=== PATIENT | female | born 1990 | race Caucasian/White ===

== ENCOUNTER 2016-09-14 | Emergency (ER) | payer MEDICAID | END 2016-09-14 16:14 | disposition home or self-care (01) ==

== ENCOUNTER 2016-09-17 19:50 | Emergency (ER) | payer MEDICAID ==
[2016-09-17] MEDS ORDERED: MELOXICAM 7.5 MG TABLET PO STA (20:06)
[2016-09-17] MEDS ORDERED: ALBUTEROL NEB 2.5 MG/3 ML INH STA (20:06)
[2016-09-17] MEDS ORDERED: guaiFENesin/CODEINE 5 ML UDC PO STA (20:06)
[2016-09-17] MEDS ORDERED: guaiFENesin/CODEINE 5 ML UDC ONE (20:10)
[2016-09-17] MEDS ORDERED: ALBUTEROL NEB 2.5 MG/3 ML INH ONE (20:12)
[2016-09-17] MEDS ORDERED: KETOROLAC 10 MG TABLET PO STA (20:20)
[2016-09-17] MEDS ORDERED: LIDOCAINE PATCH 5% TOP STA (20:55)
[2016-09-17] MEDS ORDERED: LIDOCAINE PATCH 5% TOP ONE (20:59)
== END 2016-09-17 21:04 | disposition home or self-care (01) ==
DX: J06.9 Acute upper respiratory infection, unspecified (principal); B97.89 Other viral agents as the cause of diseases classified elsewhere; R07.81 Pleurodynia; R03.0 Elevated blood-pressure reading, without diagnosis of hypertension; K21.9 Gastro-esophageal reflux disease without esophagitis; N30.20 Other chronic cystitis without hematuria; Z87.442 Personal history of urinary calculi; F32.9 Major depressive disorder, single episode, unspecified; F41.9 Anxiety disorder, unspecified; F43.10 Post-traumatic stress disorder, unspecified; Z79.899 Other long term (current) drug therapy; F17.200 Nicotine dependence, unspecified, uncomplicated
CPT/HCPCS: 71020; 94640; 99283; A9270; J7613

== ENCOUNTER 2016-10-29 17:39 | Emergency (ER) | payer MEDICAID ==
[2016-10-29] MEDS ORDERED: diphenhydrAMINE INJ 50 MG/ML VIAL IVP STA (20:20)
[2016-10-29] MEDS ORDERED: KETOROLAC 60 MG/2 ML VIAL IVP STA (20:20)
[2016-10-29] MEDS ORDERED: SODIUM CHLORIDE 0.9% 1,000 ML IV ONE (20:20)
[2016-10-29] MEDS ORDERED: PROCHLORPERAZINE 10 MG/2 ML VIAL IVP STA (20:20)
[2016-10-29] MEDS ORDERED: KETOROLAC 30 MG/ML VIAL ONE (20:43)
[2016-10-29] MEDS ORDERED: diphenhydrAMINE INJ 50 MG/ML VIAL ONE (20:43)
[2016-10-29] MEDS ORDERED: PROCHLORPERAZINE 10 MG/2 ML VIAL ONE (20:44)
== END 2016-10-29 22:31 | disposition home or self-care (01) ==
DX: N94.6 Dysmenorrhea, unspecified (principal); R51 Headache; R03.0 Elevated blood-pressure reading, without diagnosis of hypertension; N80.9 Endometriosis, unspecified; K21.9 Gastro-esophageal reflux disease without esophagitis; Z87.42 Personal history of other diseases of the female genital tract; Z87.442 Personal history of urinary calculi; F17.200 Nicotine dependence, unspecified, uncomplicated

== ENCOUNTER 2016-11-07 11:17 | Emergency (ER) | payer MEDICAID ==
--- NOTE | 2016-11-07 11:59 | ED Physician Documentation ---
PD HPI NVD - Stated complaint Stated Complaint: RIB PX/N/V - Chief complaint Chief Complaint: Abd Pain - History obtained from History obtained from: Patient - History of Present Illness Timing - onset: Last night Timing - duration: Hours Timing - details: Abrupt onset, Still present Associated symptoms: Abdominal pain, Loss of appetite. No: Fever, Dizzy, Near syncope / syncope Contributing factors: No: Sick contact, Bad food, Travel, Recent antibiotics Improved by: No: Eating, Vomiting Worsened by: Eating Similar symptoms before: Has not had sx before Recently seen: Not recently seen Review of Systems Constitutional: denies: Fever, Chills Nose: reports: Congestion (last week, improving). 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: Endometriosis, Ovarian cysts, Other : Chronic bladder infection, Kidney stones HEENT: None Psych: Depression, Anxiety, Post traumatic stress disorder Musculoskeletal: None Derm: None - Past Surgical History Past Surgical History: No - Present Medications Home Medications: Ambulatory Orders Medication Instructions Recorded Confirmed LORazepam [Ativan] 0.5 mg PO TID PRN #15 tablet 10/18/15 07/05/16 Omeprazole [PriLOSEC] 20 mg ORAL DAILY 12/07/15 07/05/16 Escitalopram Oxalate [Lexapro] 5 mg PO DAILY 03/23/16 07/05/16 lamoTRIgine [LaMICtal] 100 mg PO DAILY 06/19/16 07/05/16 Ibuprofen [Motrin] 400 mg PO Q6H PRN #30 tablet 07/05/16 Lidocaine Patch 5% [Lidoderm Patch] 1 each TOP DAILY PRN #10 patch 07/05/16 Meloxicam [Mobic] 7.5 mg PO BIDWM PRN #15 tablet 09/17/16 Oxycodone HCl/Acetaminophen 1 - 2 each PO Q6H PRN #8 tablet 10/29/16 [Percocet 5-325 mg Tablet] Diphenoxylate HCl/Atropine 1 each PO Q6H PRN #20 tablet 11/07/16 [Lomotil 2.5-0.025 mg Tablet] Ondansetron Odt [Zofran] 4 mg TL Q6H PRN #20 tablet 11/07/16 Oxycodone HCl/Acetaminophen 1 each PO Q6H PRN #15 tablet 11/07/16 [Percocet 5-325 mg Tablet] - Allergies Allergies/Adverse Reactions: Allergies Allergy/AdvReac Type Severity Reaction Status Date / Time aripiprazole [From Abilify] Allergy Rash Verified 11/07/16 12:24 hydrocodone bitartrate * Allergy Hives Verified 11/07/16 12:24 [From Vicodin] tramadol Allergy Hives Verified 11/07/16 12:24 ethinyl estradiol AdvReac Cramps Verified 11/07/16 12:24 [From NuvaRing] etonogestrel [From NuvaRing] AdvReac Cramps Verified 11/07/16 12:24 - Social History Does the pt smoke?: Yes Smoking Status: Current every day smoker Does the pt drink ETOH?: Yes Does the pt have substance abuse?: No - Immunizations Immunizations are current?: Yes - POLST Patient has POLST: No PD ED PE NORMAL - Vitals Vital signs reviewed: Yes - General General: Alert and oriented X 3, Well developed/nourished - HEENT HEENT: Ears normal, Pharynx benign. No: Moist mucous membranes - Neck Neck: Supple, no meningeal sign, No adenopathy - Cardiac Cardiac: RRR (tachycardic), No murmur - Respiratory Respiratory: Clear bilaterally - Abdomen Abdomen: Normal bowel sounds, Soft, Non distended, No organomegaly, Other ( tender mid to left abd without percussion nor rebound tenderness. ) Results - Vitals Vitals: Vital Signs - 24 hr 11/07/16 11/07/16 11/07/16 11:25 14:18 15:02 Temperature 35.7 C L 36.8 C Heart Rate 111 H 78 72 Respiratory 18 16 18 Rate Blood Pressure 126/82 H 134/70 H 124/56 L O2 Saturation 100 98 Oxygen O2 Source Room air - Labs Labs: Laboratory Tests 11/07/16 12:35 Sodium 139 Potassium 3.9 Chloride 104 Carbon Dioxide 23 Anion Gap 12.0 BUN 20 Creatinine 0.7 Estimated GFR (MDRD) 102 Glucose 118 H Calcium 8.9 Total Bilirubin 0.6 AST 21 ALT 26 Alkaline Phosphatase 83 Total Protein 8.3 H Albumin 3.9 Globulin 4.4 H Albumin/Globulin Ratio 0.9 L Lipase 15 L PD MEDICAL DECISION MAKING - ED course Complexity details: reviewed results, re-evaluated patient (feeling better after meds and fluids. Still some cramping pains left to mid abd. Not tender RLQ nor GB area. No peritoneal signs. I did not feel imaging needed and discussed with patient, who was in agreement. ), considered differential, d/w patient Departure - Departure Disposition: 01 Home, Self Care Clinical Impression: Nausea vomiting and diarrhea, Dehydration Abdominal pain Qualifiers: Abdominal location: periumbilical Qualified Code(s): R10.33 - Periumbilical pain Condition: Stable Record reviewed to determine appropriate education?: Yes Instructions: ED Abdominal Pain Unkn Cause, ED Vomiting Diarrhea Nonspecific Ad Follow-Up: Leyla Marcum MD [Primary Care Provider] - Prescriptions: Diphenoxylate HCl/Atropine [Lomotil 2.5-0.025 mg Tablet] 1 each PO Q6H PRN #20 tablet PRN Reason: Diarrhea Oxycodone HCl/Acetaminophen [Percocet 5-325 mg Tablet] 1 each PO Q6H PRN #15 tablet PRN Reason: Pain Ondansetron Odt [Zofran] 4 mg TL Q6H PRN #20 tablet PRN Reason: Nausea / Vomiting Comments: Small frequent fluids today. Willow foods such as rice, breads, cereals and then progress intake as able tomorrow. Zofran as needed for nausea. Lomotil for diarrhea as needed. Add Percocet for pain as needed. Recheck if not improving over the next 1-2 days. Discharge Date/Time: 11/07/16 15:08
[2016-11-07] MEDS ORDERED: ONDANSETRON 4 MG/2 ML VIAL ONE (12:36)
[2016-11-07] MEDS ORDERED: MORPHINE 2 MG/ML SYRINGE ONE (12:36)
[2016-11-07] MEDS ORDERED: KETOROLAC 30 MG/ML VIAL ONE (12:36)
[2016-11-07] MEDS ORDERED: DIPHENOX/ATROPINE 2.5/0.025 MG TABLET PO ONE ×2 (12:37→14:45)
[2016-11-07] MEDS: SODIUM CHLORIDE 0.9% 1,000 ML IV ONE (12:45)
[2016-11-07] MEDS: MORPHINE 2 MG/ML SYRINGE IVP STA (12:45)
[2016-11-07] MEDS: ONDANSETRON 4 MG/2 ML VIAL IVP STA (12:45)
[2016-11-07] MEDS: KETOROLAC 60 MG/2 ML VIAL IVP STA (12:46)
[2016-11-07] MEDS: DIPHENOX/ATROPINE 2.5/0.025 MG TABLET PO STA ×2 (12:46→14:48)
[2016-11-07 13:04] LABS: ALBUMIN/GLOBULIN RATIO 0.9 (1.0-2.2); BILIRUBIN,TOTAL 0.6 mg/dL (0.2-1.0); CALCIUM 8.9 mg/dL (8.5-10.3); CREATININE 0.7 mg/dL (0.4-1.0); POTASSIUM 3.9 mmol/L (3.5-5.0); TOTAL PROTEIN 8.3 g/dL (6.7-8.2)
[2016-11-07] MEDS ORDERED: HYDROmorphone 1 MG/ML SYRINGE ONE (13:46)
[2016-11-07] MEDS: HYDROmorphone 1 MG/ML SYRINGE IVP STA (13:54)
[2016-11-07] MEDS ORDERED: METOCLOPRAMIDE 10 MG/2 ML VIAL IVP ONE (14:45)
[2016-11-07] MEDS: METOCLOPRAMIDE 10 MG/2 ML VIAL IVP STA (14:47)
[2016-11-07 15:08] VITALS: BP 124/56
== END 2016-11-07 15:08 | disposition home or self-care (01) ==
LOC: ED 11:17
DX: R11.2 Nausea with vomiting, unspecified (principal); R19.7 Diarrhea, unspecified; E86.0 Dehydration; R10.33 Periumbilical pain
CPT/HCPCS: 36415; 80053; 83690; 96374; 96375; 99283; 99284

== ENCOUNTER 2017-01-03 05:17 | Observation (INO) | payer MEDICAID ==
[2017-01-03] MEDS ORDERED: IBUPROFEN 600 MG TABLET PO STA (05:26)
[2017-01-03] MEDS ORDERED: ACETAMINOPHEN 500 MG TABLET PO STA (05:26)
--- NOTE | 2017-01-03 05:36 | ED Physician Documentation ---
PD HPI FEMALE - Stated complaint Stated Complaint: VOMITING,PELVIC PAIN - Chief complaint Chief Complaint: Abd Pain - History obtained from History obtained from: Patient - History of Present Illness Timing - onset: How many days ago (3), Chronic Timing - details: Gradual onset, Still present Associated symptoms: Pelvic pain, Vaginal bleeding Similar symptoms before: Work up / diagnostics, Treatment, Follow up Recently seen: Emergency Dept - Additional information Additional information: Patient is a 26 year old female with a history of recurrent pelvic pain and vagianl bleeding. Patient has had multiple ER visits for the pain and has going to physical therapy for pelvic pain. patient states that she has had vaginal bleeding for the last three days and had sharp pelvic pain that woke her up from sleep. Review of Systems Constitutional: denies: Fever, Chills, Myalgias Eyes: denies: Loss of vision, Decreased vision Ears: denies: Loss of hearing, Ear pain Nose: denies: Rhinorrhea / runny nose Throat: denies: Dental pain / toothache, Oral lesions / sores Cardiac: denies: Chest pain / pressure, Palpitations Respiratory: denies: Dyspnea, Cough GI: reports: Abdominal Pain, Nausea. denies: Vomiting, Constipation, Diarrhea : reports: Vaginal bleeding. 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, Ovarian cysts, Other : Chronic bladder infection, Kidney stones HEENT: None Psych: Depression, Anxiety, Post traumatic stress disorder Musculoskeletal: None Derm: None - Past Surgical History Past Surgical History: No - Present Medications Home Medications: Ambulatory Orders Medication Instructions Recorded Confirmed LORazepam [Ativan] 0.5 mg PO TID PRN #15 tablet 10/18/15 07/05/16 Omeprazole [PriLOSEC] 20 mg ORAL DAILY 12/07/15 07/05/16 Escitalopram Oxalate [Lexapro] 5 mg PO DAILY 03/23/16 07/05/16 lamoTRIgine [LaMICtal] 100 mg PO DAILY 06/19/16 07/05/16 Ibuprofen [Motrin] 400 mg PO Q6H PRN #30 tablet 07/05/16 Lidocaine Patch 5% [Lidoderm Patch] 1 each TOP DAILY PRN #10 patch 07/05/16 Meloxicam [Mobic] 7.5 mg PO BIDWM PRN #15 tablet 09/17/16 Oxycodone HCl/Acetaminophen 1 - 2 each PO Q6H PRN #8 tablet 10/29/16 [Percocet 5-325 mg Tablet] Diphenoxylate HCl/Atropine 1 each PO Q6H PRN #20 tablet 11/07/16 [Lomotil 2.5-0.025 mg Tablet] Ondansetron Odt [Zofran] 4 mg TL Q6H PRN #20 tablet 11/07/16 Oxycodone HCl/Acetaminophen 1 each PO Q6H PRN #15 tablet 11/07/16 [Percocet 5-325 mg Tablet] - Allergies Allergies/Adverse Reactions: Allergies Allergy/AdvReac Type Severity Reaction Status Date / Time aripiprazole [From Abilify] Allergy Rash Verified 01/03/17 05:25 hydrocodone bitartrate * Allergy Hives Verified 01/03/17 05:25 [From Vicodin] tramadol Allergy Hives Verified 01/03/17 05:25 ethinyl estradiol AdvReac Cramps Verified 01/03/17 05:25 [From NuvaRing] etonogestrel [From NuvaRing] AdvReac Cramps Verified 01/03/17 05:25 - Social History Does the pt smoke?: Yes Smoking Status: Current every day smoker Does the pt drink ETOH?: Yes Does the pt have substance abuse?: No - Immunizations Immunizations are current?: Yes - POLST Patient has POLST: No PD ED PE NORMAL - Vitals Vital signs reviewed: Yes - General General: Alert and oriented X 3, No acute distress - HEENT HEENT: Atraumatic, PERRL, Pharynx benign - Neck Neck: Supple, no meningeal sign - Cardiac Cardiac: RRR, No murmur - Respiratory Respiratory: No respiratory distress - Abdomen Abdomen: Soft - Derm Derm: Normal color, Warm and dry, No rash - Extremities Extremities: No deformity, No tenderness to palpate, Normal ROM s pain - Neuro Neuro: Alert and oriented X 3, 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, No motor deficit, No sensory deficit, Normal speech - Psych Psych: Normal mood, Normal affect PD ED PE EXPANDED - Female Female : Normal external, Vaginal Bleeding (mild vaginal bleeding with scant clear discharge, suprapubic tenderness), Cultures sent, Supervisor Meter Shop present Results - Vitals Vitals: Vital Signs - 24 hr 01/03/17 05:22 Temperature 36.6 C Heart Rate 69 Respiratory 20 Rate Blood Pressure 116/57 L O2 Saturation 100 Oxygen O2 Source Room air - Labs Labs: Microbiology 01/03/17 06:12 Wet Prep - Final Genital - Cervix Laboratory Tests 01/03/17 01/03/17 01/03/17 05:49 06:00 06:00 WBC 10.2 RBC 4.54 Hgb 9.6 L Hct 31.4 L MCV 69.2 L MCH 21.2 L MCHC 30.6 L RDW 17.1 H Plt Count 446 MPV 8.0 Neut # Not Reportable Lymph # Not Reportable [place] # Not Reportable Eos # Not Reportable Baso # Not Reportable Absolute Nucleated RBC Not Reportable Total Counted 100 Band Neuts % (Manual) 0 Reactive Lymphs % (Man) 10 Abnorm Lymph % (Manual) 2 Neutrophils # (Manual) 3.3 Lymphocytes # (Manual) 6.0 H Monocytes # (Manual) 0.7 Eosinophils # (Manual) 0.2 Nucleated RBCs 1 Differential Comment MANUAL DIFFERENTIAL Manual Slide Review Indicated Platelet Estimate NORMAL (130-450,000) Platelet Morphology NORMAL APPEARANCE RBC Morph Micro Appear 1+ OVALOCYTES Sodium 138 Potassium 3.9 Chloride 103 Carbon Dioxide 25 Anion Gap 10.0 BUN 16 Creatinine 0.6 Estimated GFR (MDRD) 122 Glucose 93 Calcium 9.3 Total Bilirubin < 0.2 L AST 18 ALT 20 Alkaline Phosphatase 64 Total Protein 7.3 Albumin 3.6 Globulin 3.7 Albumin/Globulin Ratio 1.0 Lipase 20 L Urine Color YELLOW Urine Clarity CLEAR Urine pH 6.0 Ur Specific [place] 1.025 Urine Protein NEGATIVE Urine Glucose (UA) NEGATIVE Urine Ketones NEGATIVE Urine Occult Blood LARGE H Urine Nitrite NEGATIVE Urine Bilirubin NEGATIVE Urine Urobilinogen 0.2 (NORMAL) Ur Leukocyte Esterase NEGATIVE Urine RBC 11-25 H Urine WBC 0-3 Ur Squamous Epith Cells RARE Squamous Urine Bacteria None Seen Ur Microscopic Review INDICATED Urine Culture Comments NOT INDICATED Urine HCG, Qual NEGATIVE PD MEDICAL DECISION MAKING - ED course Complexity details: reviewed old records, reviewed results, re-evaluated patient , considered differential, d/w patient ED course: Patient was seen and examined at bedside. patient's vital signs were within normal limits. urine was collected and labs were drawn. Patient had been in the emergency department mulitiple times for the same complaint with thorough follow up. pelvic exam was performed and was unremarkable. patient's hemoglobin was a little low, but no need for transfusion at this time. pelvic ultrasound was ordered to be followed by Dr. Mcmullen if there were any major abnormalities. Otherwise patient was stable for discharge with outpatient follow up. Departure - Departure Clinical Impression: Dysmenorrhea, Dysfunctional uterine bleeding Condition: Good Instructions: ED Pelvic Pain [facility] Follow-Up: Leyla Marcum MD [Primary Care Provider] - Within 3 Days Comments: Your diagnostics today were within normal limits. there is no exact explanation to your chronic pain. You should continue to follow up with your ob /physical therapist for the chronic pain. You may return to the emergency department if needed for new, worsening or uncontrollable symptoms.
[2017-01-03] MEDS ORDERED: ACETAMINOPHEN 500 MG TABLET PO ONE (05:37)
[2017-01-03] MEDS ORDERED: IBUPROFEN 600 MG TABLET PO ONE (05:37)
[2017-01-03 06:11] LABS: BILIRUBIN,URINE NEGATIVE (NEGATIVE)
[2017-01-03 06:18] LABS: BASOPHILS % (AUTO) 0.5 %; EOSINOPHILS % (AUTO) 2.6 %; HCT - HEMATOCRIT 31.4 % (37.0-47.0); HGB - HEMOGLOBIN 9.6 g/dL (12.0-16.0); LYMPHOCYTES % (AUTO) 53.5 %; MEAN CORPUSCULAR HEMOGLOBIN 21.2 pg (27.0-31.0); MEAN CORPUSCULAR HGB CONC 30.6 g/dL (32.0-36.0); MEAN CORPUSCULAR VOLUME 69.2 fL (81.0-99.0); MONOCYTES % (AUTO) 6.8 %; NEUTROPHILS % (AUTO) 36.6 %; RED BLOOD COUNT 4.54 10^6/uL (4.20-5.40); RED CELL DISTRIBUTION WIDTH 17.1 % (12.0-15.0); UNCORRECTED WHITE BLOOD COUNT 10.2 x10^3/uL; WHITE BLOOD COUNT 10.2 x10^3/uL (4.8-10.8)
[2017-01-03 06:20] LABS: BAND NEUTROPHILS % (MANUAL) 0 %
[2017-01-03 06:20] LABS: HCG UR QUAL NEGATIVE; UA w/ MICROSCOPIC CHARGE YES
[2017-01-03 06:22] LABS: BILIRUBIN,TOTAL < 0.2 mg/dL (0.2-1.0); BUN - BLOOD UREA NITROGEN 16 mg/dL (6-20); CALCIUM 9.3 mg/dL (8.5-10.3); CARBON DIOXIDE - CO2 25 mmol/L (21-32); CHLORIDE 103 mmol/L (101-111); CREATININE 0.6 mg/dL (0.4-1.0); GFR - MDRD 122 (>89); GLUCOSE 93 mg/dL (70-100); LIPASE 20 U/L (22-51); POTASSIUM 3.9 mmol/L (3.5-5.0); SODIUM 138 mmol/L (135-145); TOTAL PROTEIN 7.3 g/dL (6.7-8.2)
[2017-01-03 06:25] LABS: UR CULTURE IF IND NOT INDICATED; WBC,URINE 0-3 /HPF (0-5)
[2017-01-03] MEDS ORDERED: LIDOCAINE PATCH 5% TOP ONE (06:33)
[2017-01-03] MEDS: LIDOCAINE PATCH 5% TOP PRN (06:36)
[2017-01-03 06:41] LABS: EOSINOPHILS % (MANUAL) 2 %; LYMPHOCYTES % (MANUAL) 47 %; NEUTROPHILS % (MANUAL) 32 %; TOTAL CELLS COUNTED 100
[2017-01-03 06:42] LABS: NP AUTO DIFFERENTIAL? YES; NP MAN DIFFERENTIAL? NO; PLATELET ESTIMATE, MANUAL NORMAL (130-450,000) (NORMAL); PLATELET MORPHOLOGY NORMAL APPEARANCE (NORMAL)
--- NOTE | 2017-01-03 09:04 | Ultrasound Report ---
REVISED: THIS REPORT WAS ORIGINALLY SIGNED ON 01/03/2017 @ 0904 ORDERS LINKED ON 01/17/2017 EXAM: PELVIC ULTRASOUND EXAM DATE: 01/03/2017 07:48 AM. CLINICAL HISTORY: Pelvic pain, hx of cysts. COMPARISON: None. TECHNIQUE: Realtime transabdominal pelvic scan performed to identify the uterus and adnexa and as an overview of other pelvic structures, followed by transvaginal scan to provide greater detail of the uterus and adnexa, with static image documentation. FINDINGS: Uterus: 8.4 cm, volume 133 cc. Retroverted position. Normal overall size and echotexture. Masses: None. Endometrium: Appears thickened at 29 mm, however positioning appear suboptimal and there was difficulty obtaining precise measurement secondary to patient pain. Cervix: Not well visualized. Right Ovary: 10.2 x 8.6 x 9.5 cm, volume 435 cc. Enlarged and heterogeneous. There appears to be minimal venous Doppler flow. No arterial Doppler flow seen. Apparent echogenic mass within the right ovary measuring 6 cm in diameter. Left Ovary: 2.2 x 1.8 x 2.0 cm, volume 4 cc. Normal grayscale appearance. Doppler flow not obtained secondary to patient inability to tolerate examination. Free Fluid: None. Other: None. IMPRESSION: 1. Findings are concerning for right ovarian torsion. Possible right ovarian mass, such as a dermoid, measures 6 cm in diameter. Limited evaluation secondary to patient pain. 2. The left ovary is normal in size, however Doppler flow was not obtained secondary to patient discomfort. 3. Apparent thickening of the endometrial echo complex, however this may be technical secondary to limited patient ability to tolerate examination. Recommend follow-up when acute symptoms have resolved for further assessment for endometrial thickening. Results discussed with Dr. Mcmullen at 0855 hrs. on 01/03/2017. [facility] Referring Provider Line: [phone] SITE ID: [id number]
[2017-01-03] MEDS ORDERED: ONDANSETRON 4 MG/2 ML VIAL IVP STA (09:10)
[2017-01-03] MEDS ORDERED: SODIUM CHLORIDE 0.9% 1,000 ML IV ONE ×2 (09:10→10:18)
[2017-01-03] MEDS ORDERED: HYDROmorphone 1 MG/ML SYRINGE IVP STA (09:10)
--- NOTE | 2017-01-03 09:14 | ED Physician Documentation ---
ED Addendum - Addendum Addendum: 01/03/17 09:11 Seeing patient after change of shift and with U/S report. Story as She says to me is of chronic recurrent pelvic/abd pains without firm Dx. Getting PT for pelvic floor dysfunction. However the pain this morning was abrupt onset RLQ pain awakening her from sleep and has persisted. Feeling sharper and different than other episodes. U/S report showing no blood flow to right ovary, concerning for ovarian torsion. No free fluid. Ovary enlarged. Will consult [employer] ROOM OPERATOR, Dr. Montesinos. She has not eaten this morning. Will start IV to give meds, as the PO from earlier is not improving pain. Recheck exam with considerable RLQ tenderness.
[2017-01-03] MEDS ORDERED: HYDROmorphone 1 MG/ML SYRINGE ONE ×2 (09:19→14:01)
[2017-01-03] MEDS ORDERED: ONDANSETRON 4 MG/2 ML VIAL ONE (09:19)
[2017-01-03] MEDS ORDERED: LACTATED RINGERS 1,000 ML IV ONE ×3 (10:18→13:21)
[2017-01-03] MEDS ORDERED: LIDOCAINE MPF 1%-EPI 1:200000 30 ML VIAL SUBQ ONE ×2 (10:59)
[2017-01-03] MEDS ORDERED: ePHEDrine 50 MG/ML AMP IVP ONE (11:10)
[2017-01-03] MEDS ORDERED: PHENYLEPHRINE 10 MG/ML VIAL IV ONE (11:10)
[2017-01-03] MEDS ORDERED: DEXAMETHASONE 4 MG/ML VIAL IVP ONE (11:10)
[2017-01-03] MEDS ORDERED: MIDAZOLAM 2 MG/2 ML VIAL IVP ONE (11:10)
[2017-01-03] MEDS ORDERED: LIDOCAINE-MPF 2% 5 ML VIAL IM ONE (11:10)
[2017-01-03] MEDS ORDERED: NEOSTIGMINE 1 MG/1 ML 10 ML MDV IVP ONE (11:10)
[2017-01-03] MEDS ORDERED: ROCURONIUM 50 MG/5 ML VIAL IVP ONE (11:10)
[2017-01-03] MEDS ORDERED: ceFAZolin 1 GM VIAL IV ONE (11:10)
[2017-01-03] MEDS ORDERED: ONDANSETRON 4 MG/2 ML VIAL IVP ONE (11:10)
[2017-01-03] MEDS ORDERED: HYDROmorphone 1 MG/ML SYRINGE IVP ONE (11:10)
[2017-01-03] MEDS ORDERED: KETOROLAC 30 MG/ML VIAL IVP ONE (11:10)
[2017-01-03] MEDS ORDERED: GLYCOPYRROLATE 1 MG/5 ML VIAL IVP ONE (11:10)
[2017-01-03] MEDS ORDERED: ACETAMINOPHEN 1,000 MG/100 ML VIAL IV ONE (11:10)
[2017-01-03] MEDS ORDERED: SUCCINYLCHOLINE 200 MG/10 ML VIAL IVP ONE (11:10)
[2017-01-03] MEDS ORDERED: METOCLOPRAMIDE 10 MG/2 ML VIAL IVP ONE (11:10)
[2017-01-03] MEDS ORDERED: PROPOFOL 200 MG/20 ML VIAL IVP ONE (11:10)
[2017-01-03] MEDS ORDERED: BUPIVACAINE 0.25%-EPI 1:200000 PF 30 ML VIAL SUBQ ONE ×2 (12:54)
--- NOTE | 2017-01-03 13:34 | OPERATIVE REPORT ---
Operative Report - General Procedure Date: 01/03/17 Planned Procedure: Laparoscopic R Oopherectomy; R Minilaparotomy; Pelvic Washings Pre-Op Diagnosis: R Ovarian Hetergenous Cystic Mass; RLQ Pain; Evidence of Torsion on US Post Op Diagnosis: R Ovarian Hetergenous Cystic Mass (Await Path);Clotin R Ovarian Vessel - Procedure Note Primary Surgeon: Jaguar Secondary Surgeon: Zoila Anesthesia Provider: Crowe Anesthesia Technique: General ET tube Pathology: R Ovary & Pelvic Washings Estimated Blood Loss (in cc): 100 Drain/Tube Type: positive: Other ([place]) Complications: None
[2017-01-03] MEDS: fentaNYL 100 MCG/2 ML VIAL ONE ×2 (14:12→14:20)
[2017-01-03] MEDS ORDERED: ONDANSETRON ODT 4 MG TABLET TL PRN (14:41)
[2017-01-03] MEDS ORDERED: IBUPROFEN 600 MG TABLET PO PRN (14:41)
[2017-01-03] MEDS ORDERED: ZOLPIDEM 5 MG TABLET PO PRN (14:41)
[2017-01-03] MEDS ORDERED: SODIUM CHLORIDE FLUSH 0.9% 10 ML SYRINGE IVP PRN (14:41)
[2017-01-03] MEDS ORDERED: LACTATED RINGERS 1,000 ML IV SCH (15:00)
[2017-01-03] MEDS: NICOTINE 14 MG PATCH TOP SCH (16:16)
--- NOTE | 2017-01-03 16:18 | HISTORY & PHYSICAL EXAMINATION ---
DATE OF ADMISSION: 01/03/2017 The patient is a 26-year-old 2, para P2-0-0-2 woman who presented to the emergency room this morning complaining of a rapid onset right lower were quadrant pain accompanied by nausea. RLQ is superimposed on her chronic pain. Current pain level is 6-7/10. She reports a history of endometriosis; however, there has not been any prior laparoscopy. She is currently being seen by Physical Therapy for pelvic floor dysfunction. She has no history of STD and does not suspect any exposure. She has no foul discharge history. She does have chronic bladder infections but these do not seem to be the same. The patient was originally evaluated by Dr. Sprague at the emergency room and ultrasound found no blood flow to the right ovary. Additionally, the right ovary is markedly enlarged roughly 10 x 6 cm with a heterogeneous complex appearing cyst. The patient's pain during her ER visit was unremitting and torsion or ovarian compromise of some form was suspected. PAST MEDICAL HISTORY: The patient is seen by Dr. Marcum in [place]. She denies chronic medical problems. Gynecologically she has had 2 normal deliveries. She reports irregular and painful menstrual periods. The patient carries a history of anxiety and depression with post-traumatic stress disorder. ALLERGIES: 1. ABILIFY CAUSES A RASH. 2. VICODIN CAUSES HIVES. 3. TRAMADOL CAUSES HIVES. 4. NUVARING CAUSES CRAMPING. MEDICATIONS: 1. Lorazepam 0.5 mg t.i.d. p.r.n.. 2. Omeprazole 20 mg p.o. every day. 3. Lexapro 5 mg daily. 4. Lamictal 100 daily. 4. Motrin 400 q.6h. 5. Lidocaine patch daily. 6. Mobic 7.5 mg b.i.d. Sunday and Sunday. 7. Percocet 1-2 tabs q.6h. 8. Lomotil 2.5 mg q.6h. p.r.n.. 9. Zofran 4 mg sublingual q. 6 hours. 10. Percocet 325/5 one tab q. 6 hours. REVIEW OF SYSTEMS: CONSTITUTIONAL: No fevers, chills, or myalgia, reports malaise. HEENT: Negative. CARDIOVASCULAR: Negative. RESPIRATORY: Negative. GI: Pain and nausea as noted above. No vomiting or diarrhea. GENITOURINARY: Vaginal bleeding currently. No urinary tract signs. SKIN: No rash or lesions. MUSCULOSKELETAL: Negative. NEUROLOGIC: Negative psychiatric, currently not depressed or anxious. PHYSICAL EXAMINATION: GENERAL: The patient lying on ER gurney uncomfortable and shifting slightly, alert, oriented. HEENT: Supple neck. No thyromegaly. Moist mucous membranes. EOMI, nonicteric. LUNGS: Clear but distant. CARDIAC: Regular. No murmur, no gallop, but distant. ABDOMEN: Nondistended, slight hepatomegaly, right lower quadrant pain grade 2-3/ 3 with no rebound. Obese with large pannus. PELVIC: Reference ER physician's notes. EXTREMITIES: Moves all 4 extremities well. No joint tenderness. NEUROLOGICAL: Grossly intact. PSYCHIATRIC: Normal affect and mood. LABORATORY DATA: Hemoglobin 9.6, white count 10.2, platelets 446. Electrolytes and liver enzymes normal. Lipase low. Urinalysis leukocyte esterase present, but nitrite negative. Beta hCG negative. ASSESSMENT: The patient has continued right lower quadrant pain and documented right ovarian heterogeneous cystic mass. She carries a presumptive history of endometriosis. Her accelerating pain this morning probably reflects a torsion and current ultrasound does not demonstrate ovarian blood flow. Expedient diagnostic laparoscopy is indicated to salvage the ovary if possible. A 10 cm ovary probably reflects pathology: Endometriosis, Dermiod or other neoplasm. In her age group malignancy is very unlikely. PLAN: Discussed her current situation with the patient, including diagnostic possibilities to include ovarian mass, cystic mass, most likely benign, possibly endometriosis versus rare incidence of benign tumor or even malignancy on rare occasion. Discussed possible ramifications of torsion including ovarian necrosis and development of peritonitis. Discussed risks of surgery inclusive of anesthesia reaction, blood loss, infection, damage to bladder or bowels. Also discussed the probable difficulty of her surgery due to the size of the mass and her body habitus. She is aware that a laparotomy may be necessary. After time for question and answers the patient signed the informed consent paperwork. She was prepared for immediate surgery. JOB #: [id number] EXT JOB #:[id number] EVONNE
[2017-01-03] MEDS: oxyCODONE 5 MG TABLET PO PRN ×2 (16:23→21:15)
[2017-01-03] MEDS ORDERED: ONDANSETRON 4 MG/2 ML VIAL IVP PRN (20:04)
[2017-01-03] MEDS: HYDROmorphone 1 MG/ML SYRINGE IVP PRN ×2 (20:16→23:50)
[2017-01-03] MEDS: IBUPROFEN 600 MG TABLET PO SCH (21:15)
[2017-01-03] MEDS: LACTATED RINGERS 1,000 ML IV SCH (21:16)
[2017-01-03] MEDS: SODIUM CHLORIDE FLUSH 0.9% 10 ML SYRINGE IVP SCH (21:16)
[2017-01-04] MEDS: LACTATED RINGERS 1,000 ML IV SCH ×2 (00:16→08:26)
[2017-01-04] MEDS: oxyCODONE 5 MG TABLET PO PRN ×3 (03:18→11:32)
[2017-01-04] MEDS: HYDROmorphone 1 MG/ML SYRINGE IVP PRN ×2 (05:49→10:09)
[2017-01-04] MEDS: IBUPROFEN 600 MG TABLET PO SCH ×2 (05:49→11:33)
[2017-01-04] MEDS: LIDOCAINE PATCH 5% TOP PRN (05:51)
[2017-01-04] MEDS: SODIUM CHLORIDE FLUSH 0.9% 10 ML SYRINGE IVP SCH (05:54)
[2017-01-04] MEDS ORDERED: CARBOXYMETHYLCELLULOSE OPHTH DROPS EACHEYE PRN (05:57)
[2017-01-04] MEDS: NICOTINE 14 MG PATCH TOP SCH (08:20)
[2017-01-04] MEDS ORDERED: POLYETHYLENE GLYCOL 3350 17 GM PACKET PO SCH (09:00)
--- NOTE | 2017-01-04 10:24 | Discharge Plan ---
Discharge Plan Disposition: 01 Home, Self Care Condition: Good Activity Restrictions: Activity as Tolerated Shower Restrictions: No Driving Restrictions: Yes (No driving while taking Percocet) Weight Bearing: Full Weight Instruction Topics: ED Pelvic Pain [facility] Additional Instructions or Follow Up instructions: Your diagnostics today were within normal limits. there is no exact explanation to your chronic pain. You should continue to follow up with your ob /physical therapist for the chronic pain. You may return to the emergency department if needed for new, worsening or uncontrollable symptoms. No Smoking: If you smoke, Please STOP! Call for help. Follow-up with: Leyla Marcum MD [Primary Care Provider] - Within 3 Days Hayden Cummings MD [Provider Admit Priv/Credential] -
[2017-01-04 12:11] VITALS: BP 129/80
--- NOTE | 2017-01-04 13:29 | DISCHARGE SUMMARY ---
DATE OF ADMISSION: 01/03/2017 DATE OF DISCHARGE: 01/04/2017 FINAL DIAGNOSES: 1. A 10 x 6 cm heterogeneous cystic right ovarian mass w RLQ Pain 2. Evidence of recent torsion, clot observed in the ovarian vein. 3. Await final pathology report. 4. Morbid obesity, BMI 42. PROCEDURES: Laparoscopic right oophorectomy completed with mini laparotomy; Pelvic washings. COMPLICATIONS: None. HISTORY: The patient was seen in the emergency room for a rapid onset of right lower quadrant pain and ultrasound confirmed marked ovarian enlargement with a heterogeneous cystic mass. Ultrasound proposed possible dermoid versus the patient's prior presumptive diagnosis of endometriosis. Doppler exam found no blood flow to the ovary raising the high probability of torsion. Reference my type written report from the ER. The patient was prepared for her immediate surgery. HOSPITAL COURSE: The patient underwent a diagnostic laparoscopy that confirmed a large ovarian mass. Hemorrhage was found into the mass. An attempt was made at removal through an EndoCatch bag, the mass was too large even despite aspiration. The cystic mass was unroofed and that portion was removed via catch bag. The main portion of the mass still remained too large for an easy catch bag removal. The partially open catch bag was brought to the right lower quadrant port, which was widened to a mini laparotomy for sucessful removal of the mass. Reference operative report. Postoperatively, the patient was painful and was admitted overnight on an observation status. Her pain was controlled with periodic IV Dilaudid and Percocet. She took solid and liquid nutrition well. By postoperative day 1 the patient strongly desired to go home and join her family. We discussed smoking cessation. Complete warning signs, wound care, and emergency call back instructions were reviewed. The patient is scheduled for a wound check and pathology review with Dr. Cummings next week. She will see me in 3-4 weeks for final wound check and review. DISCHARGE MEDICATIONS: 1. Motrin 800 mg q.8h. 2. Percocet 5/325, 20 tabs dispensed only q.4h. p.r.n. 3. Zofran 4 mg oral q.4h. p.r.n. JOB #: [id number] EXT JOB #:[id number] [facility]
--- NOTE | 2017-01-04 13:52 | OPERATIVE REPORT ---
DATE OF SURGERY: 01/03/2017 00:00:00 PREOPERATIVE DIAGNOSES 1. Right ovarian heterogeneous cystic mass. 2. Right lower quadrant pain. 3. No ovarian vascular flow on ultrasound. 4. Morbid obesity (BMI 42). POSTOPERATIVE DIAGNOSES 1. Right ovarian heterogeneous cystic mass, await pathology. 2. Clot observed in right ovarian vessels. 3. Ovarian vessels not currently torsed. PROCEDURES 1. Laparoscopic right oophorectomy completed with right-sided mini laparotomy. 2. Pelvic washings. SURGEON: Fred Montesinos MD, FACOG, FICS. AGRICULTURE INTERNSHIP: Hayden Cummings MD, FACOG. ANESTHESIA: Liberty Crowe MD. ANESTHESIA TYPE: General, ET tube placed. COMPLICATIONS: None. ESTIMATED BLOOD LOSS: Less than 100. FINDINGS: At the time of laparoscopy,a large 10 cm x 5 x 6 cm hemorrhagic right cystic ovary confirmed. There were NO excrescences observed on the capsule of the ovary. There was an area of internal hemorrhage on the superior pole measuring roughly 4 x 4 cm. The right ovarian vascular bundle was not torsed. However, within the right ovarian vein, there was evident hemorrhage and clot- like material. The ovary itself did not seem necrotic, though there may have been intermittent torsion with recent reperfusion. The uterus was retroverted, normal size without any abnormal contours. Both tubes appeared to be open and fluffy. The appendix appeared to be normal and noninflamed. Examination of the right and left hemidiaphragm finds no Aaron-Girma- Dayron adhesions. During the process of ovarian removal, the ovary was aspirated and serosanguineous material was removed. a cystotomy was later made to evacuate more fluid; however, this did not achieve the desired degree of decompression. A portion of the ovary was unroofed revealing cystic material and that tissue appeared pale and fleshly. SPECIMENS 1. Ovary, plus portion of ovary. 2. Pelvic washing (taken before ovarian aspiration). 3. Ovarian aspirate. TECHNIQUE: Prior to the procedure, I had an informed consent session with the patient and Mr. Dodge concerning the ultrasound findings and the high probability of ovarian torsion. She was made aware that the ovary would probably not be able to be salvaged and due to technical difficulty, a laparotomy procedure may be necessary. The risks of laparoscopy/laparotomy were reviewed including anesthesia reaction, infection, blood loss with transfusion, damage to abdominal viscera/intestines or urinary tract. Possibility of contents spilled from the ovary was also discussed. In all likelihood, given her age group, if neoplasm existed, it would be benign, either dermoid or endometriosis. All questions were answered. Appropriate informed consent documentation was signed. The patient was brought to the operating room and placed on the table in the supine position. She was uneventfully induced and intubated. She was moved to the low dorsal lithotomy position on Kory mobile stirrups. She was prepped and draped in the customary sterile fashion. Time-out briefing was done per protocol. Kapadia catheter was inserted, draining clear urine. A HUMI uterine manipulator was next placed uneventfully. All instruments were removed from the vagina, except the HUMI. Next, we turned to the abdominal phase. A small incision was placed under the umbilical skin fold and a 5 mm Visiport trocar was placed under direct visualization. The abdomen was insufflated with CO2 gas under 12 mm of pressure. Next, under direct visualization, right and left lower quadrant operating ports were placed. The ovary was visualized and photographed. The abdomen was assessed. Using the LigaSure, the adherent portion of the right tube was desiccated and divided off of the ovary. Dissection was carried downward to the ovarian vessels. The vessels were visualized with hemorrhage and presumed clot was visualized in the right ovarian vein. Ovarian vein and artery were then desiccated and divided with LigaSure. The dissection continued downward until the utero-ovarian ligament was encountered, which was desiccated and divided. Pelvic washings were taken and submitted at this point. Next, the right lower quadrant operating port was traded out for a 12 mm port uneventfully and a ML suprapubic 5mm port. Catch bag was then inserted into the abdominal cavity and we attempted to capture the right ovary. The ovarian girth was larger than the catch bag diameter. Next, a laparoscopic needle was inserted into the body of the ovary and a small amount of fluid aspirated . Unfortunately, there was not sufficient decompression of the ovary. Given that the pathology was most likely benign, a small cystotomy was placed at the puncture site using monopolar cautery. Next, a suction aspirator was used to further decompress the mass. In the end, the decompression was not great enough to allow capture with the EndoCatch bag. It was decided to unroof the cyst and to remove a section to allow Endobag capture. This was accomplished by sharp dissection using LigaSure. The tissue segment was then placed in the EndoCatch bag and removed. On examination, the tissue had a fleshy appearance, possibly almost like the congealed tissue sometimes found in dermal tumors. Another Endobag was inserted into the abdomen and the remainder of the ovarian specimen was captured, but the amount of tissue was too large for easy containerization in the bag. The open margins of the catch bag were then grasped with laparoscopic graspers and brought to the 12 mm port wound. The bag was then opened external to the abdominal wound and segments of the ovarian mass were removed. The main body of the mass was too large for the 2 cm incision and so it was widened to 4 cm using a Sanderson scissors to incise the fascia. The bag was closed with the use of a Peon clamp and with traction and a rocking horse movement, the entire specimen was removed. The abdomen then was allowed to deflate. After removal of the specimen, the mini laparotomy extension in the right lower quadrant trocar site was closed with interrupted sutures of 0 Vicryl. Subcutaneous tissue was closed with interrupted stitches of 2-0 Vicryl. Prior to closure, the area was washed and rinsed several times with warm normal saline. The skin was closed with a running subcuticular stitch of 4-0 Monocryl and dressed with Dermabond. The pelvis was inspected to ensure that any fragments of the ovary were evacuated. A small cut stitch from the Endobag was identified and removed. Next , the pelvis and lower abdomen were lavaged with warm normal saline and evacuated, after which the lower abdomen and pelvis were lavaged with distilled water, which was afterwards evacuated. There was a final rinse with normal saline. Approximately 300 mL of normal saline was left in the abdominal cavity. Post-oophorectomy photos were taken. At this point, the procedure was terminated. The abdomen was desufflated of CO2 gas. All remaining trocars were removed (subumbilical, left lower quadrant, and suprapubic midline). Trocar sites were closed with subcuticular stitches of 4-0 Monocryl and dressed with Dermabond. HUMI uterine manipulator was removed. Anesthesia was uneventfully reversed and she was awakened. She went to the recovery room for supportive care and pain control. She was later converted to an observation status to adequately address her pain. Reviewed intraoperative events and operative photos with the patient and her . They were informed that the size of the ovary and the internal cystic tumor required the use of mini laparotomy for removal. They were informed that the pathology was uncertain. They were made aware that the ovary was aspirated and a portion unroofed, thereby creating contamination from the ovarian mass. If the mass proves not to be benign, referral to CHARGE AIDE/Oncology and further treatment may be necessary. JOB #: [id number] EXT JOB #:[id number] EVONNE
== END 2017-01-04 12:45 | disposition home or self-care (01) ==
LOC: ED 05:17 → SDS 10:10 → MS 14:41
PROVIDERS: ADMIT Obstetrics & Gynecology; ATTEND Obstetrics & Gynecology
PROC: 0UB04ZZ Excision of Right Ovary, Percutaneous Endoscopic Approach (ICD-10-PCS; principal; 2017-01-03 10:00)
DX: C56.1 Malignant neoplasm of right ovary (principal); I74.8 Embolism and thrombosis of other arteries; E66.01 Morbid (severe) obesity due to excess calories; Z68.41 Body mass index [BMI] 40.0-44.9, adult; F32.9 Major depressive disorder, single episode, unspecified; F41.9 Anxiety disorder, unspecified; F43.10 Post-traumatic stress disorder, unspecified; K21.9 Gastro-esophageal reflux disease without esophagitis; F17.200 Nicotine dependence, unspecified, uncomplicated; Z87.440 Personal history of urinary (tract) infections; Z87.442 Personal history of urinary calculi; Z79.891 Long term (current) use of opiate analgesic; Z79.899 Other long term (current) drug therapy
CPT/HCPCS: 36415; 58662; 76830; 76856; 80053; 81001; 81025; 83690; 85025; 86304; 87210; 87491; 87591; 88108; 88305; 88307; 88341; 88342; 93976; 96374; 96375; 99283; 99285; A9270; G0378; J0131; J1170; J7120; 81003; 87086; 93975

== ENCOUNTER 2017-01-05 10:15 | Emergency (ER) | payer MEDICAID ==
--- NOTE | 2017-01-05 12:08 | ED Physician Documentation ---
PD HPI FEMALE - Stated complaint Stated Complaint: POST SURGERY COMPLICATION - Chief complaint Chief Complaint: Abd Pain - History obtained from History obtained from: Patient - History of Present Illness Timing - onset: How many days ago (has had abd pain since surgery 2 days ago, with improvement taking pain meds. Had some vaginal bleeding today soaking 1 pad after 2-3 hours, but then seems to have tapered. No fever. Has bruising around scope sites, but no redness/infection rash.) Timing - duration: Days Timing - details: Gradual onset, Still present, Waxing and waning Associated symptoms: Abdominal pain, Vaginal bleeding. No: Fever, Vaginal pain , Vaginal discharge, Genital sore/lesion, Dysuria, Urinary frequency Recently seen: Surgery (2 days ago) Review of Systems Constitutional: reports: Myalgias, Fatigue. 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: Endometriosis, Ovarian cysts, Other : Chronic bladder infection, Kidney stones HEENT: None Psych: Depression, Anxiety, Post traumatic stress disorder Musculoskeletal: None Derm: None - Past Surgical History Past Surgical History: No - Present Medications Home Medications: Ambulatory Orders Medication Instructions Recorded Confirmed Clonazepam [Clonazepam] 1 mg PO BID 01/03/17 01/03/17 Escitalopram [Lexapro] 15 mg PO DAILY 01/03/17 01/03/17 Lamotrigine [Lamotrigine] 200 mg PO DAILY 01/03/17 01/03/17 Norelgestromin/Ethin.estradiol 1 patch TOP .[id number] 01/03/17 01/03/17 [Xulane Patch] Nortriptyline HCl [Nortriptyline 10 mg PO QPM 01/03/17 01/03/17 HCl] Omeprazole [PriLOSEC] 20 mg PO DAILY 01/03/17 01/03/17 Oxybutynin [Ditropan] 5 mg PO TID 01/03/17 01/03/17 Oxycodone HCl/Acetaminophen 1 each PO Q4H PRN #25 tablet 01/05/17 [Percocet 5-325 mg Tablet] - Allergies Allergies/Adverse Reactions: Allergies Allergy/AdvReac Type Severity Reaction Status Date / Time aripiprazole [From Abilify] Allergy Rash Verified 01/03/17 05:25 hydrocodone bitartrate * Allergy Hives Verified 01/03/17 05:25 [From Vicodin] tramadol Allergy Hives Verified 01/03/17 05:25 ethinyl estradiol AdvReac Cramps Verified 01/03/17 05:25 [From NuvaRing] etonogestrel [From NuvaRing] AdvReac Cramps Verified 01/03/17 05:25 - Social History Does the pt smoke?: Yes Smoking Status: Current every day smoker Does the pt drink ETOH?: Yes Does the pt have substance abuse?: No - Immunizations Immunizations are current?: Yes - POLST Patient has POLST: No PD ED PE NORMAL - Vitals Vital signs reviewed: Yes - General General: Alert and oriented X 3, No acute distress, Well developed/nourished - HEENT HEENT: Ears normal, Moist mucous membranes, Pharynx benign - Neck Neck: Supple, no meningeal sign, No adenopathy - Cardiac Cardiac: RRR, No murmur - Respiratory Respiratory: Clear bilaterally - Abdomen Abdomen: Normal bowel sounds, Soft, Non distended, No organomegaly, Other ( tender around surgical sites, without signs of infection but does have local bruising colors at sites. Abd bedside U/S without free fluid.) Results - Vitals Vitals: Oxygen O2 Source Room air - Labs Labs: Laboratory Tests 01/05/17 12:26 WBC 10.6 RBC 3.65 L Hgb 8.0 L Hct 25.3 L MCV 69.4 L MCH 21.9 L MCHC 31.6 L RDW 17.4 H Plt Count 339 MPV 8.0 Neut # 5.7 Lymph # 4.0 H [place] # 0.7 Eos # 0.2 Baso # 0.0 Absolute Nucleated RBC 0.00 Nucleated RBCs 0.0 Manual Slide Review Indicated Platelet Estimate NORMAL (130-450,000) Platelet Morphology NORMAL APPEARANCE RBC Morph Micro Appear 1+ OVALOCYTES PD MEDICAL DECISION MAKING - ED course Complexity details: reviewed results (blood count is lower than pre-op but still not low enough for transfusion. She will run out of pain meds over weekend , so given Rx for more at permission of Dr. Gardiner. No signs of wound infection.) , considered differential, d/w patient, d/w transportation consultant (Dr. Gardiner) Departure - Departure Disposition: 01 Home, Self Care Clinical Impression: Post-operative pain, Vaginal bleeding Condition: Stable Follow-Up: Fred Montesinos MD [Provider Admit Priv/Credential] - Leyla Marcum MD [Primary Care Provider] - Prescriptions: Oxycodone HCl/Acetaminophen [Percocet 5-325 mg Tablet] 1 each PO Q4H PRN #25 tablet PRN Reason: Pain Comments: Drink lots of fluids. Continue stool softener. Percocet every 4 hours if needed for pains. Follow up BLENDER HELPER next week. Discharge Date/Time: 01/05/17 13:37
[2017-01-05] MEDS ORDERED: HYDROmorphone 1 MG/ML SYRINGE IM STA (12:19)
[2017-01-05] MEDS ORDERED: KETOROLAC 60 MG/2 ML VIAL IM STA (12:19)
[2017-01-05] MEDS ORDERED: ONDANSETRON ODT 4 MG TABLET TL STA (12:19)
[2017-01-05] MEDS ORDERED: KETOROLAC 60 MG/2 ML VIAL ONE (12:28)
[2017-01-05] MEDS ORDERED: ONDANSETRON ODT 4 MG TABLET ONE (12:28)
[2017-01-05] MEDS ORDERED: HYDROmorphone 1 MG/ML SYRINGE ONE ×2 (12:28)
[2017-01-05 12:47] LABS: BASOPHILS % (AUTO) 0.2 %; EOSINOPHILS # (AUTO) 0.2 10^3/uL (0.0-0.7); EOSINOPHILS % (AUTO) 1.9 %; HCT - HEMATOCRIT 25.3 % (37.0-47.0); LYMPHOCYTES % (AUTO) 37.5 %; MEAN CORPUSCULAR HEMOGLOBIN 21.9 pg (27.0-31.0); MEAN CORPUSCULAR HGB CONC 31.6 g/dL (32.0-36.0); MEAN CORPUSCULAR VOLUME 69.4 fL (81.0-99.0); MONOCYTES # (AUTO) 0.7 10^3/uL (0.0-1.0); MONOCYTES % (AUTO) 6.5 %; NEUTROPHILS # (AUTO) 5.7 10^3/uL (1.5-6.6); NEUTROPHILS % (AUTO) 53.9 %; RED BLOOD COUNT 3.65 10^6/uL (4.20-5.40); RED CELL DISTRIBUTION WIDTH 17.4 % (12.0-15.0); UNCORRECTED WHITE BLOOD COUNT 10.6 x10^3/uL; WHITE BLOOD COUNT 10.6 x10^3/uL (4.8-10.8)
[2017-01-05 13:01] LABS: PLATELET ESTIMATE, MANUAL NORMAL (130-450,000) (NORMAL); PLATELET MORPHOLOGY NORMAL APPEARANCE (NORMAL)
[2017-01-05 13:29] VITALS: BP 124/79
== END 2017-01-05 13:37 | disposition home or self-care (01) ==
LOC: ED 10:15
DX: G89.18 Other acute postprocedural pain (principal); N93.9 Abnormal uterine and vaginal bleeding, unspecified; N83.209 Unspecified ovarian cyst, unspecified side; N80.9 Endometriosis, unspecified; F17.200 Nicotine dependence, unspecified, uncomplicated; Z87.442 Personal history of urinary calculi
CPT/HCPCS: 36415; 85025; 96372; 99283; 99284; J1170; Q0162

== ENCOUNTER 2017-01-17 21:35 | Emergency (ER) | payer MEDICAID ==
[2017-01-17 22:40] LABS: BASOPHILS # (AUTO) 0.1 10^3/uL (0.0-0.1); BASOPHILS % (AUTO) 0.6 %; EOSINOPHILS # (AUTO) 0.3 10^3/uL (0.0-0.7); EOSINOPHILS % (AUTO) 3.8 %; HCT - HEMATOCRIT 31.8 % (37.0-47.0); HGB - HEMOGLOBIN 10.3 g/dL (12.0-16.0); LYMPHOCYTES # (AUTO) 3.8 10^3/uL (1.5-3.5); LYMPHOCYTES % (AUTO) 45.2 %; MEAN CORPUSCULAR HEMOGLOBIN 22.3 pg (27.0-31.0); MEAN CORPUSCULAR HGB CONC 32.3 g/dL (32.0-36.0); MEAN PLATELET VOLUME 7.9 fL (7.9-10.8); MONOCYTES # (AUTO) 0.6 10^3/uL (0.0-1.0); MONOCYTES % (AUTO) 7.1 %; NEUTROPHILS # (AUTO) 3.6 10^3/uL (1.5-6.6); NEUTROPHILS % (AUTO) 43.3 %; RED BLOOD COUNT 4.61 10^6/uL (4.20-5.40); RED CELL DISTRIBUTION WIDTH 17.4 % (12.0-15.0); UNCORRECTED WHITE BLOOD COUNT 8.4 x10^3/uL; WHITE BLOOD COUNT 8.4 x10^3/uL (4.8-10.8)
[2017-01-17] MEDS ORDERED: ONDANSETRON ODT 4 MG TABLET TL STA (22:56)
[2017-01-17 23:00] LABS: ALBUMIN/GLOBULIN RATIO 1.1 (1.0-2.2); BILIRUBIN,TOTAL 0.2 mg/dL (0.2-1.0); CALCIUM 9.5 mg/dL (8.5-10.3); CREATININE 0.7 mg/dL (0.4-1.0); POTASSIUM 3.8 mmol/L (3.5-5.0); TOTAL PROTEIN 7.9 g/dL (6.7-8.2)
[2017-01-17] MEDS ORDERED: ONDANSETRON ODT 4 MG TABLET ONE (23:00)
[2017-01-17 23:01] LABS: PLATELET ESTIMATE, MANUAL NORMAL (130-450,000) (NORMAL); PLATELET MORPHOLOGY RARE GIANT PLATELETS (NORMAL)
[2017-01-17 23:02] LABS: WBC MORPHOLOGY (MULTIPLE) NORMAL APPEARANCE (NORMAL)
[2017-01-17 23:35] LABS: BILIRUBIN,URINE NEGATIVE (NEGATIVE); PH,URINE 6.5 PH (5.0-7.5)
[2017-01-17 23:36] LABS: UA CHARGE (STRIP ONLY) YES; UR CULTURE IF IND NOT INDICATED
--- NOTE | 2017-01-17 23:52 | ED Physician Documentation ---
PD HPI WOUND RECHECK - Stated complaint Stated Complaint: FEMALE /POST OP COMP - Chief complaint Chief Complaint: Wound - Histroy obtained from History obtained from: Patient - History of Present Illness Location: Abdomen Timing - onset: Today Associated symptoms: Redness, Drainage Similar symptoms before: Has not had sx before Recently seen: Surgery - Additional information Additional information: Patient is a 26 year old female who had an recent oophrectomy about 2 weeks prior. Patient has had normal follow up. Patient states that she had some discharge from one of the wounds sites and dysuria today. Review of Systems Constitutional: denies: Fever, Chills Eyes: denies: Loss of vision, Photophobia Ears: denies: Ear pain, Drainage/discharge Nose: denies: Rhinorrhea / runny nose, Congestion Throat: denies: Dental pain / toothache, Oral lesions / sores Cardiac: denies: Chest pain / pressure Respiratory: denies: Dyspnea, Cough GI: reports: Abdominal Pain, Nausea. 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, Ovarian cysts, Other : Chronic bladder infection, Kidney stones HEENT: None Psych: Depression, Anxiety, Post traumatic stress disorder Musculoskeletal: None Derm: None - Past Surgical History Past Surgical History: No /CORE ANALYSIS OPERATOR: Oophrectomy - Present Medications Home Medications: Ambulatory Orders Medication Instructions Recorded Confirmed Clonazepam [Clonazepam] 1 mg PO BID 01/03/17 01/03/17 Escitalopram [Lexapro] 15 mg PO DAILY 01/03/17 01/03/17 Lamotrigine [Lamotrigine] 200 mg PO DAILY 01/03/17 01/03/17 Norelgestromin/Ethin.estradiol 1 patch TOP .[id number] 01/03/17 01/03/17 [Xulane Patch] Nortriptyline HCl [Nortriptyline 10 mg PO QPM 01/03/17 01/03/17 HCl] Omeprazole [PriLOSEC] 20 mg PO DAILY 01/03/17 01/03/17 Oxybutynin [Ditropan] 5 mg PO TID 01/03/17 01/03/17 Oxycodone HCl/Acetaminophen 1 each PO Q4H PRN #25 tablet 01/05/17 [Percocet 5-325 mg Tablet] - Allergies Allergies/Adverse Reactions: Allergies Allergy/AdvReac Type Severity Reaction Status Date / Time aripiprazole [From Abilify] Allergy Rash Verified 01/03/17 05:25 hydrocodone bitartrate * Allergy Hives Verified 01/03/17 05:25 [From Vicodin] tramadol Allergy Hives Verified 01/03/17 05:25 ethinyl estradiol AdvReac Cramps Verified 01/03/17 05:25 [From NuvaRing] etonogestrel [From NuvaRing] AdvReac Cramps Verified 01/03/17 05:25 - Social History Does the pt smoke?: Yes Smoking Status: Current every day smoker Does the pt drink ETOH?: Yes Does the pt have substance abuse?: No - Immunizations Immunizations are current?: Yes - POLST Patient has POLST: No PD ED PE NORMAL - Vitals Vital signs reviewed: Yes - General General: Alert and oriented X 3, No acute distress, Well developed/nourished - HEENT HEENT: Atraumatic, PERRL - Neck Neck: Supple, no meningeal sign - Cardiac Cardiac: RRR, No murmur - Respiratory Respiratory: No respiratory distress, Clear bilaterally - Abdomen Abdomen: Soft, Non distended - Derm Derm: Normal color, Warm and dry, No rash - Extremities Extremities: No deformity, No tenderness to palpate, No edema - Neuro Neuro: Alert and oriented X 3, No motor deficit, No sensory deficit - Psych Psych: Normal mood, Normal affect PD ED PE EXPANDED - Abdomen Abdomen: Surgical scars (well healing surgical scars, no discharge or surrounding erythema) Results - Vitals Vitals: Vital Signs - 24 hr 01/17/17 01/17/17 21:39 23:24 Temperature 36.5 C Heart Rate 81 60 Respiratory 16 16 Rate Blood Pressure 139/95 H 133/79 H O2 Saturation 100 100 Oxygen O2 Source Room air - Labs Labs: Laboratory Tests 01/17/17 01/17/17 01/17/17 22:17 22:17 23:29 WBC 8.4 RBC 4.61 Hgb 10.3 L Hct 31.8 L MCV 69.0 L MCH 22.3 L MCHC 32.3 RDW 17.4 H Plt Count 390 MPV 7.9 Neut # 3.6 Lymph # 3.8 H [place] # 0.6 Eos # 0.3 Baso # 0.1 Absolute Nucleated RBC 0.00 Nucleated RBCs 0.0 Manual Slide Review Indicated WBC Morphology NORMAL APPEARANCE Platelet Estimate NORMAL (130-450,000) Platelet Morphology RARE GIANT PLATELETS RBC Morph Micro Appear 2+ MICROCYTOSIS Sodium 137 Potassium 3.8 Chloride 104 Carbon Dioxide 26 Anion Gap 7.0 BUN 16 Creatinine 0.7 Estimated GFR (MDRD) 102 Glucose 89 Calcium 9.5 Total Bilirubin 0.2 AST 21 ALT 19 Alkaline Phosphatase 74 Total Protein 7.9 Albumin 4.2 Globulin 3.7 Albumin/Globulin Ratio 1.1 Lipase 15 L Urine Color YELLOW Urine Clarity CLEAR Urine pH 6.5 Ur Specific [place] 1.020 Urine Protein NEGATIVE Urine Glucose (UA) NEGATIVE Urine Ketones NEGATIVE Urine Occult Blood NEGATIVE Urine Nitrite NEGATIVE Urine Bilirubin NEGATIVE Urine Urobilinogen 0.2 (NORMAL) Ur Leukocyte Esterase NEGATIVE Ur Microscopic Review NOT INDICATED Urine Culture Comments NOT INDICATED PD MEDICAL DECISION MAKING - ED course Complexity details: reviewed old records, reviewed results, re-evaluated patient , considered differential, d/w patient ED course: Patient was seen and examined at bedside. Patient's wounds were well appearing. labs were drawn and urine was collected. When patient's diagnostics came back they were within normal limits. there was no further work up necessary at this time and patient was stable for discharge with outpatient follow up. Departure - Departure Disposition: 01 Home, Self Care Clinical Impression: Post-operative pain Condition: Good Instructions: ANTI-INFLAMMATORY, General Follow-Up: Leyla Marcum MD [Primary Care Provider] - As Needed Comments: Your diagnostics today were within normal limits. there is no sign of infection. You should continue with the recommended wound care from your ob/ computer hardware technician. You should follow up with your turbinated bone grinder physician. You may return to the emergency department at any time if necessary for new, worsening or uncontrollable sympotms.
[2017-01-18 00:18] VITALS: BP 140/88
== END 2017-01-18 00:13 | disposition home or self-care (01) ==
LOC: ED 21:35
DX: G89.18 Other acute postprocedural pain (principal); K21.9 Gastro-esophageal reflux disease without esophagitis; F17.200 Nicotine dependence, unspecified, uncomplicated
CPT/HCPCS: 36415; 80053; 81003; 83690; 85025; 99283; Q0162; 81001; 87086

== ENCOUNTER 2017-01-27 23:17 | Emergency (ER) | payer MEDICAID ==
--- NOTE | 2017-01-27 23:55 | ED Physician Documentation ---
PD HPI ABD PAIN - Stated complaint Stated Complaint: FEMALE - Chief complaint Chief Complaint: Abd Pain - History obtained from History obtained from: Patient - History of Present Illness Timing - onset: Enter time (1400), Today Timing - duration: Hours Timing - details: Abrupt onset, Still present Quality: Cramping, Sharp, Pain Location: LLQ Improved by: Laying still Worsened by: Moving, Position, Palpation Associated symptoms: Nausea Similar symptoms before: Diagnosis (ovarian torsion, ovarian cyst) Recently seen: Emergency Dept, Surgery - Additional information Additional information: 26 y/o female with a recent surgical removal of a large ovarian mass that was related to a torsion has been diagnosed with cancer. She has had some post operative pain and she is about 3 weeks out from the procedure. She developed this pain in the left lower quadrant today and this seems similar to what she has had before with ovarian cyst and similar to what she had 3 weeks ago with the torsion that led to the oovarectomy. She feels her surgical wounds are not hurting more than usual and she reports having BM today and recently. She does not feel she is constipated. Review of Systems Constitutional: reports: Fatigue. denies: Fever, Chills Eyes: denies: Decreased vision Ears: denies: Ear pain Nose: denies: Congestion Throat: denies: Sore throat Cardiac: denies: Chest pain / pressure, Palpitations Respiratory: denies: Dyspnea, Cough GI: reports: Abdominal Pain, Nausea. 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: Ovarian cysts, 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, Other : Chronic bladder infection, Kidney stones HEENT: None Psych: Depression, Anxiety, Post traumatic stress disorder Musculoskeletal: None Derm: None - Past Surgical History Past Surgical History: No /ELECTRONIC SYSTEMS TECHNICIAN: Oophrectomy - Present Medications Home Medications: Ambulatory Orders Medication Instructions Recorded Confirmed Clonazepam [Clonazepam] 1 mg PO BID 01/03/17 01/03/17 Escitalopram [Lexapro] 15 mg PO DAILY 01/03/17 01/03/17 Lamotrigine [Lamotrigine] 200 mg PO DAILY 01/03/17 01/03/17 Norelgestromin/Ethin.estradiol 1 patch TOP .[id number] 01/03/17 01/03/17 [Xulane Patch] Nortriptyline HCl [Nortriptyline 10 mg PO QPM 01/03/17 01/03/17 HCl] Omeprazole [PriLOSEC] 20 mg PO DAILY 01/03/17 01/03/17 Oxybutynin [Ditropan] 5 mg PO TID 01/03/17 01/03/17 Oxycodone HCl/Acetaminophen 1 each PO Q4H PRN #25 tablet 01/05/17 [Percocet 5-325 mg Tablet] oxyCODONE [Roxicodone] 5 mg PO Q4-6H PRN #15 tablet 01/28/17 - Allergies Allergies/Adverse Reactions: Allergies Allergy/AdvReac Type Severity Reaction Status Date / Time aripiprazole [From Abilify] Allergy Rash Verified 01/27/17 23:24 hydrocodone bitartrate * Allergy Hives Verified 01/27/17 23:24 [From Vicodin] tramadol Allergy Hives Verified 01/27/17 23:24 ethinyl estradiol AdvReac Cramps Verified 01/27/17 23:24 [From NuvaRing] etonogestrel [From NuvaRing] AdvReac Cramps Verified 01/27/17 23:24 - Social History Does the pt smoke?: Yes Smoking Status: Current every day smoker Does the pt drink ETOH?: Yes Does the pt have substance abuse?: No Substance Use and Type: Marijuana - Immunizations Immunizations are current?: Yes - POLST Patient has POLST: No PD ED PE NORMAL - Vitals Vital signs reviewed: Yes (hypertensive ) - General General: No acute distress, Well developed/nourished - HEENT HEENT: Atraumatic, PERRL, EOMI, Other (The patient does appear to be in pain with 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 ) - Neck Neck: Supple, no meningeal sign, No bony TTP - Cardiac Cardiac: RRR, No murmur - Respiratory Respiratory: No respiratory distress, Clear bilaterally - Abdomen Abdomen: Soft, Other (specific and reproducible left lower quadrant tenderness without garding or rebound. ) - Back Back: No CVA TTP, No spinal TTP - Derm Derm: Normal color, Warm and dry, No rash - Extremities Extremities: No deformity, No edema - Neuro Neuro: No motor deficit, No sensory deficit, Normal speech - Psych Psych: Normal mood Results - Vitals Vitals: Vital Signs - 24 hr 01/27/17 01/28/17 01/28/17 23:20 00:37 01:19 Temperature 35.8 C L 36.9 C Heart Rate 78 69 78 Respiratory 16 15 18 Rate Blood Pressure 134/91 H 124/76 125/74 O2 Saturation 98 100 96 01/28/17 01/28/17 01:50 02:41 Temperature Heart Rate 83 75 Respiratory 16 18 Rate Blood Pressure 121/72 123/70 O2 Saturation 98 99 Oxygen O2 Source Room air - Labs Labs: Laboratory Tests 01/28/17 01/28/17 01/28/17 00:40 00:40 01:20 WBC 10.9 H RBC 4.65 Hgb 10.5 L Hct 33.1 L MCV 71.1 L MCH 22.5 L MCHC 31.6 L RDW 19.9 H Plt Count 387 MPV 7.6 L Neut # 5.4 Lymph # 4.4 H [place] # 0.8 Eos # 0.3 Baso # 0.1 Absolute Nucleated RBC 0.00 Nucleated RBCs 0.0 Sodium 138 Potassium 3.7 Chloride 102 Carbon Dioxide 25 Anion Gap 11.0 BUN 25 H Creatinine 0.6 Estimated GFR (MDRD) 122 Glucose 91 Calcium 9.8 Total Bilirubin 0.4 AST 17 ALT 17 Alkaline Phosphatase 73 Total Protein 8.1 Albumin 4.3 Globulin 3.8 Albumin/Globulin Ratio 1.1 Lipase 14 L Urine Color YELLOW Urine Clarity CLEAR Urine pH 6.0 Ur Specific [place] 1.025 Urine Protein NEGATIVE Urine Glucose (UA) NEGATIVE Urine Ketones NEGATIVE Urine Occult Blood NEGATIVE Urine Nitrite NEGATIVE Urine Bilirubin NEGATIVE Urine Urobilinogen 0.2 (NORMAL) Ur Leukocyte Esterase NEGATIVE Ur Microscopic Review NOT INDICATED Urine Culture Comments NOT INDICATED - Rads (name of study) CT abdomen and pelvis with Radiology: Prelim report reviewed (Impression: 1. Small left ovarian cyst measuring 2 cm. 2. Probable stones in the gallbladder without evidence of Colecystitis. 3. 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 She has had some post operative pain and this was improving until today when she developed a new pain in the left lower quadrant. CT showed what appears to be an ovarian cyst on the left. Departure - Departure Disposition: 01 Home, Self Care Clinical Impression: Cyst of ovary, left Condition: Stable Instructions: ED Cyst Ovarian Follow-Up: Fred Montesinos MD [Provider Admit Priv/Credential] - Prescriptions: oxyCODONE [Roxicodone] 5 mg PO Q4-6H PRN #15 tablet PRN Reason: Pain Discharge Date/Time: 01/28/17 02:55
[2017-01-28] MEDS ORDERED: SODIUM CHLORIDE 0.9% 1,000 ML IV ONE ×2 (00:20→00:39)
[2017-01-28] MEDS ORDERED: ONDANSETRON 4 MG/2 ML VIAL IVP STA (00:20)
[2017-01-28] MEDS ORDERED: ONDANSETRON 4 MG/2 ML VIAL ONE (00:38)
[2017-01-28] MEDS ORDERED: SODIUM CHLORIDE FLUSH 0.9% 10 ML SYRINGE IVP ONE (00:39)
[2017-01-28 00:51] LABS: BASOPHILS # (AUTO) 0.1 10^3/uL (0.0-0.1); BASOPHILS % (AUTO) 0.6 %; EOSINOPHILS # (AUTO) 0.3 10^3/uL (0.0-0.7); HCT - HEMATOCRIT 33.1 % (37.0-47.0); HGB - HEMOGLOBIN 10.5 g/dL (12.0-16.0); LYMPHOCYTES # (AUTO) 4.4 10^3/uL (1.5-3.5); LYMPHOCYTES % (AUTO) 40.3 %; MEAN CORPUSCULAR HEMOGLOBIN 22.5 pg (27.0-31.0); MEAN CORPUSCULAR HGB CONC 31.6 g/dL (32.0-36.0); MEAN CORPUSCULAR VOLUME 71.1 fL (81.0-99.0); MEAN PLATELET VOLUME 7.6 fL (7.9-10.8); MONOCYTES # (AUTO) 0.8 10^3/uL (0.0-1.0); MONOCYTES % (AUTO) 7.2 %; NEUTROPHILS # (AUTO) 5.4 10^3/uL (1.5-6.6); NEUTROPHILS % (AUTO) 48.9 %; RED BLOOD COUNT 4.65 10^6/uL (4.20-5.40); RED CELL DISTRIBUTION WIDTH 19.9 % (12.0-15.0); UNCORRECTED WHITE BLOOD COUNT 10.9 x10^3/uL; WHITE BLOOD COUNT 10.9 x10^3/uL (4.8-10.8)
[2017-01-28 01:02] LABS: ALBUMIN/GLOBULIN RATIO 1.1 (1.0-2.2); BILIRUBIN,TOTAL 0.4 mg/dL (0.2-1.0); CALCIUM 9.8 mg/dL (8.5-10.3); CREATININE 0.6 mg/dL (0.4-1.0); POTASSIUM 3.7 mmol/L (3.5-5.0); TOTAL PROTEIN 8.1 g/dL (6.7-8.2)
[2017-01-28] MEDS ORDERED: HYDROmorphone 1 MG/ML SYRINGE ONE ×2 (01:12→02:36)
[2017-01-28] MEDS ORDERED: HYDROmorphone 1 MG/ML SYRINGE IVP STA ×2 (01:16→02:32)
[2017-01-28 01:31] LABS: BILIRUBIN,URINE NEGATIVE (NEGATIVE)
[2017-01-28 01:44] LABS: UA CHARGE (STRIP ONLY) YES; UR CULTURE IF IND NOT INDICATED
[2017-01-28] MEDS ORDERED: IOPAMIDOL-300 100 ML VIAL IVP ONE (01:56)
--- NOTE | 2017-01-28 02:25 | CT Preliminary Report ---
Exam: CT Abdomen/Pelvis W/ IMPRESSION: 1. Small left ovarian cyst measuring 2 cm. 2. Probable stones in the gallbladder without evidence of cholecystitis. 3. No other acute abnormality seen. [facility] SITE ID: [id number]
--- NOTE | 2017-01-28 02:27 | CT Report ---
EXAM: CT ABDOMEN AND PELVIS EXAM DATE: 01/28/2017 01:34 AM. CLINICAL HISTORY: LLQ pain 3 weeks post op right ovarian surgery. COMPARISONS: 07/02/2014. TECHNIQUE: Routine helical CT imaging was performed through the abdomen and pelvis. IV contrast: Tonya onic. Enteric contrast: No. Reconstructions: Coronal and sagittal. In accordance with CT protocol optimization, one or more of the following dose reduction techniques w ere utilized for this exam: automated exposure control, adjustment of mA and/or KV based on patient s ize, or use of iterative reconstructive technique. FINDINGS: Lung Bases: Mild bibasilar atelectasis. Liver: No focal lesion identified. Gallbladder/Bile Ducts: Suspected stones in the gallbladder. No cholecystitis seen. Spleen: Normal. Pancreas: Normal. Adrenal Glands: Normal. Kidneys: Normal. No masses or hydronephrosis. Peritoneal Cavity/Bowel: No bowel obstruction seen. No diverticulitis. No lymphadenopathy. No free ai r or free fluid. No abscess. Appendix appears normal. Pelvic Organs: Small left ovarian cyst measuring 2 cm. Urinary bladder is decompressed. Vasculature: No aneurysms or other significant abnormality. Bones: No significant abnormality. Other: None. IMPRESSION: 1. Small left ovarian cyst measuring 2 cm. 2. Probable stones in the gallbladder without evidence of cholecystitis. 3. No other acute abnormality seen. [facility] Referring Provider Line: [phone] SITE ID: [id number]
[2017-01-28 02:45] VITALS: BP 123/70
== END 2017-01-28 02:55 | disposition home or self-care (01) ==
LOC: ED 23:17
DX: N83.202 Unspecified ovarian cyst, left side (principal); Z85.43 Personal history of malignant neoplasm of ovary; Z90.721 Acquired absence of ovaries, unilateral; F17.200 Nicotine dependence, unspecified, uncomplicated
CPT/HCPCS: 36415; 74177; 80053; 81003; 83690; 85025; 96361; 96374; 96375; 96376; 99284; J1170; Q9967; 81001; 87086

== ENCOUNTER 2017-02-08 17:17 | Emergency (ER) | payer MEDICAID ==
--- NOTE | 2017-02-08 17:35 | ED Physician Documentation ---
PD HPI FEMALE - Stated complaint Stated Complaint: PELVIC/ABD PX/NAUSEA - Chief complaint Chief Complaint: Abd Pain - History obtained from History obtained from: Patient - History of Present Illness Timing - onset: Yesterday (she has had increased pain since yesterday. Has been ongoing issue but is out of pain meds. Had been seeing ELECTRIC ORGAN INSPECTOR AND REPAIRER here with recent surgery. Has appt for surgery February 22 with E[facility]RIC ORGAN INSPECT[facility] REPA[facility] in [place]. She says both groups referred to the other regarding meds right now. No fever, vomiting. She is having general malaise and nausea.) Timing - details: Gradual onset, Still present Associated symptoms: Pelvic pain. No: Fever, Back pain, Vaginal bleeding, Vaginal discharge Contributing factors: No: Exposed to STD Recently seen: Surgery (had right ovarian tumor removal recently with Dx cancer and has repeat surgery February 22 planned.) Review of Systems Constitutional: reports: Myalgias. denies: Fever, Chills Nose: denies: Rhinorrhea / runny nose, Congestion Throat: denies: Sore throat Respiratory: denies: Cough GI: reports: Abdominal Pain, Nausea. 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: Ovarian cysts, 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, Other : Chronic bladder infection, Kidney stones HEENT: None Psych: Depression, Anxiety, Post traumatic stress disorder Musculoskeletal: None Derm: None - Past Surgical History Past Surgical History: No /ELECTRIC ORGAN INSPECTOR AND REPAIRER: Oophrectomy - Present Medications Home Medications: Ambulatory Orders Medication Instructions Recorded Confirmed Clonazepam [Clonazepam] 1 mg PO BID 01/03/17 02/08/17 Escitalopram [Lexapro] 15 mg PO DAILY 01/03/17 02/08/17 Lamotrigine [Lamotrigine] 200 mg PO DAILY 01/03/17 02/08/17 Omeprazole [PriLOSEC] 20 mg PO DAILY 01/03/17 02/08/17 Oxybutynin [Ditropan] 5 mg PO TID 01/03/17 02/08/17 Naproxen [Naprosyn] 500 mg PO BID #15 tablet 02/08/17 oxyCODONE [Roxicodone] 5 mg PO Q4-6H PRN #60 tablet 02/08/17 - Allergies Allergies/Adverse Reactions: Allergies Allergy/AdvReac Type Severity Reaction Status Date / Time aripiprazole [From Abilify] Allergy Rash Verified 02/08/17 17:22 hydrocodone bitartrate * Allergy Hives Verified 02/08/17 17:22 [From Vicodin] tramadol Allergy Hives Verified 02/08/17 17:22 ethinyl estradiol AdvReac Cramps Verified 02/08/17 17:22 [From NuvaRing] etonogestrel [From NuvaRing] AdvReac Cramps Verified 02/08/17 17:22 - Social History Does the pt smoke?: Yes Smoking Status: Current every day smoker Does the pt drink ETOH?: Yes Does the pt have substance abuse?: No - Immunizations Immunizations are current?: Yes - POLST Patient has POLST: No PD ED PE NORMAL - Vitals Vital signs reviewed: Yes - General General: Alert and oriented X 3, No acute distress, Well developed/nourished - HEENT HEENT: Pharynx benign - Neck Neck: Supple, no meningeal sign, No adenopathy - Cardiac Cardiac: RRR, No murmur - Respiratory Respiratory: Clear bilaterally - Abdomen Abdomen: Normal bowel sounds, Soft, Non distended, Other (tender left lower abd without guarding. no peritoneal signs. ) - Female Female : Deferred - Rectal Rectal: Deferred - Back Back: No CVA TTP - Derm Derm: Normal color Results - Vitals Vitals: Oxygen O2 Source Room air - Labs Labs: Laboratory Tests 02/08/17 02/08/17 02/08/17 18:07 18:07 18:30 WBC 10.3 RBC 4.77 Hgb 11.1 L Hct 35.4 L MCV 74.3 L MCH 23.4 L MCHC 31.5 L RDW 24.3 H Plt Count 325 MPV 8.1 Neut # 5.5 Lymph # 3.9 H [place] # 0.7 Eos # 0.2 Baso # 0.0 Absolute Nucleated RBC 0.00 Nucleated RBCs 0.0 Manual Slide Review Indicated WBC Morphology NORMAL APPEARANCE Platelet Estimate NORMAL (130-450,000) Platelet Morphology NORMAL APPEARANCE RBC Morph Micro Appear 2+ MICROCYTOSIS Sodium 138 Potassium 3.7 Chloride 104 Carbon Dioxide 24 Anion Gap 10.0 BUN 18 Creatinine 0.6 Estimated GFR (MDRD) 122 Glucose 112 H Calcium 9.1 Total Bilirubin 0.5 AST 21 ALT 18 Alkaline Phosphatase 70 Total Protein 7.5 Albumin 4.4 Globulin 3.1 Albumin/Globulin Ratio 1.4 Lipase 22 Urine Color YELLOW Urine Clarity CLEAR Urine pH 7.0 Ur Specific [place] 1.020 Urine Protein NEGATIVE Urine Glucose (UA) NEGATIVE Urine Ketones NEGATIVE Urine Occult Blood NEGATIVE Urine Nitrite NEGATIVE Urine Bilirubin NEGATIVE Urine Urobilinogen 0.2 (NORMAL) Ur Leukocyte Esterase NEGATIVE Ur Microscopic Review NOT INDICATED Urine Culture Comments NOT INDICATED PD MEDICAL DECISION MAKING - ED course Complexity details: reviewed results (left ovary appears okay (resolving recent cyst). No torsion. Has been on pain meds and is between providers giving Rx for it as transitioning from ELECTRIC ORGAN INSPECTOR AND REPAIRER/PMD here to [facility]GAN INS[facility]PA[facility] in [place]. I felt reasonable to give Rx for some meds to bridge for now, but talked with her that it is meant to be interim and needs to find who will be caring for her pain issues. ) , considered differential, d/w patient Departure - Departure Disposition: 01 Home, Self Care Clinical Impression: Pelvic pain, Post-operative pain Condition: Stable Record reviewed to determine appropriate education?: Yes Instructions: ED Pelvic Pain [facility] Prescriptions: Naproxen [Naprosyn] 500 mg PO BID #15 tablet oxyCODONE [Roxicodone] 5 mg PO Q4-6H PRN #60 tablet PRN Reason: Pain Comments: Drink lots of fluids. Naproxen twice daily for a week (stop use after the 7th). Oxycodone every 4-6 hours if needed for pain. Follow up with ELECTRIC ORGAN INSPECTOR AND [facility]PA[facility] in [place] as planned. Return if worse symptoms. Discharge Date/Time: 02/08/17 21:27
[2017-02-08] MEDS ORDERED: ONDANSETRON 4 MG/2 ML VIAL IVP STA ×2 (17:53→20:12)
[2017-02-08] MEDS ORDERED: SODIUM CHLORIDE 0.9% 1,000 ML IV ONE (17:53)
[2017-02-08] MEDS ORDERED: HYDROmorphone 1 MG/ML SYRINGE IVP STA ×3 (17:53→20:52)
[2017-02-08] MEDS ORDERED: ONDANSETRON 4 MG/2 ML VIAL ONE ×2 (17:56→20:17)
[2017-02-08] MEDS ORDERED: HYDROmorphone 1 MG/ML SYRINGE ONE ×3 (17:56→21:03)
[2017-02-08 18:17] LABS: BASOPHILS % (AUTO) 0.4 %; EOSINOPHILS # (AUTO) 0.2 10^3/uL (0.0-0.7); EOSINOPHILS % (AUTO) 2.2 %; HCT - HEMATOCRIT 35.4 % (37.0-47.0); HGB - HEMOGLOBIN 11.1 g/dL (12.0-16.0); LYMPHOCYTES # (AUTO) 3.9 10^3/uL (1.5-3.5); LYMPHOCYTES % (AUTO) 37.6 %; MEAN CORPUSCULAR HEMOGLOBIN 23.4 pg (27.0-31.0); MEAN CORPUSCULAR HGB CONC 31.5 g/dL (32.0-36.0); MEAN CORPUSCULAR VOLUME 74.3 fL (81.0-99.0); MEAN PLATELET VOLUME 8.1 fL (7.9-10.8); MONOCYTES # (AUTO) 0.7 10^3/uL (0.0-1.0); MONOCYTES % (AUTO) 6.9 %; NEUTROPHILS # (AUTO) 5.5 10^3/uL (1.5-6.6); NEUTROPHILS % (AUTO) 52.9 %; RED BLOOD COUNT 4.77 10^6/uL (4.20-5.40); RED CELL DISTRIBUTION WIDTH 24.3 % (12.0-15.0); UNCORRECTED WHITE BLOOD COUNT 10.3 x10^3/uL; WHITE BLOOD COUNT 10.3 x10^3/uL (4.8-10.8)
[2017-02-08 18:26] LABS: ALBUMIN/GLOBULIN RATIO 1.4 (1.0-2.2); BILIRUBIN,TOTAL 0.5 mg/dL (0.2-1.0); CALCIUM 9.1 mg/dL (8.5-10.3); CREATININE 0.6 mg/dL (0.4-1.0); POTASSIUM 3.7 mmol/L (3.5-5.0); TOTAL PROTEIN 7.5 g/dL (6.7-8.2)
[2017-02-08 18:38] LABS: PLATELET ESTIMATE, MANUAL NORMAL (130-450,000) (NORMAL); PLATELET MORPHOLOGY NORMAL APPEARANCE (NORMAL); WBC MORPHOLOGY (MULTIPLE) NORMAL APPEARANCE (NORMAL)
[2017-02-08 18:44] LABS: BILIRUBIN,URINE NEGATIVE (NEGATIVE)
[2017-02-08 18:45] LABS: UA CHARGE (STRIP ONLY) YES; UR CULTURE IF IND NOT INDICATED
--- NOTE | 2017-02-08 19:59 | Ultrasound Report ---
EXAM: PELVIC ULTRASOUND EXAM DATE: 02/08/2017 07:25 PM. CLINICAL HISTORY: Pelvic pain. COMPARISON: 01/03/2017. TECHNIQUE: Realtime transabdominal pelvic scan performed to identify the uterus and adnexa and as an overview of other pelvic structures, followed by transvaginal scan to provide greater detail of the u terus and adnexa, with static image documentation. FINDINGS: Uterus: 7.0 x 5.4 x 4.1 cm, volume 81 cc. Retroverted position. Normal overall size and echotexture. Masses: None. Endometrium: 17 mm. Homogeneous echotexture. Cervix: Unremarkable. Right Ovary: Surgically absent. Left Ovary: 1.8 x 3.4 x 1.6 cm, volume 5 cc. Normal echotexture and blood flow. There is a subcentime ter complex cyst within the left ovary. Free Fluid: Small volume. Other: None. IMPRESSION: 1. The uterus is normal in size and echotexture. 2. The endometrium is thickened measuring 1.7 cm. Primary differential considerations include secreto ry phase endometrium or endometrial hyperplasia. Interval ultrasound follow-up in 6 weeks is recommen ded to demonstrate resolution of this finding and exclude endometrial mass. 3. The right ovary is surgically absent. 4. The left ovary is normal in size and vascularity. [facility] Referring Provider Line: [phone] SITE ID: [id number]
[2017-02-08] MEDS ORDERED: KETOROLAC 30 MG/ML VIAL IVP STA (20:13)
[2017-02-08] MEDS ORDERED: KETOROLAC 30 MG/ML VIAL ONE (20:17)
[2017-02-08 20:22] VITALS: BP 113/62
[2017-02-08] MEDS ORDERED: oxyCODONE/ACET 5/325 Prepack 4 PO STA (20:52)
[2017-02-08] MEDS ORDERED: ONDANSETRON ODT 4 MG Prepack 2 TL PRN (20:52)
[2017-02-08] MEDS ORDERED: oxyCODONE/ACET 5/325 Prepack 4 PO ONE (21:13)
[2017-02-08] MEDS ORDERED: ONDANSETRON ODT 4 MG Prepack 2 TL ONE (21:13)
== END 2017-02-08 21:27 | disposition home or self-care (01) ==
LOC: ED 17:17
DX: G89.18 Other acute postprocedural pain (principal); R10.2 Pelvic and perineal pain; C56.9 Malignant neoplasm of unspecified ovary; Z90.721 Acquired absence of ovaries, unilateral; F17.200 Nicotine dependence, unspecified, uncomplicated
CPT/HCPCS: 36415; 76830; 76856; 80053; 81003; 83690; 85025; 93976; 96361; 96374; 96375; 96376; 99284; J1170; 81001; 87086

== ENCOUNTER 2017-02-14 16:47 | Emergency (ER) | payer MEDICAID ==
[2017-02-14] MEDS ORDERED: ONDANSETRON ODT 4 MG TABLET TL STA (17:41)
[2017-02-14] MEDS ORDERED: ONDANSETRON ODT 4 MG TABLET ONE (17:43)
[2017-02-14 17:48] LABS: BILIRUBIN,URINE NEGATIVE (NEGATIVE)
[2017-02-14 17:50] LABS: HCG UR QUAL NEGATIVE; UA w/ MICROSCOPIC CHARGE YES
[2017-02-14 17:58] LABS: WBC,URINE 0-3 /HPF (0-5)
[2017-02-14 17:58] LABS: BASOPHILS % (AUTO) 0.3 %; EOSINOPHILS # (AUTO) 0.2 10^3/uL (0.0-0.7); EOSINOPHILS % (AUTO) 2.9 %; HCT - HEMATOCRIT 33.6 % (37.0-47.0); HGB - HEMOGLOBIN 10.8 g/dL (12.0-16.0); LYMPHOCYTES # (AUTO) 2.9 10^3/uL (1.5-3.5); LYMPHOCYTES % (AUTO) 38.4 %; MEAN CORPUSCULAR HEMOGLOBIN 23.7 pg (27.0-31.0); MEAN CORPUSCULAR VOLUME 74.1 fL (81.0-99.0); MEAN PLATELET VOLUME 7.4 fL (7.9-10.8); MONOCYTES # (AUTO) 0.6 10^3/uL (0.0-1.0); NEUTROPHILS # (AUTO) 3.8 10^3/uL (1.5-6.6); NEUTROPHILS % (AUTO) 50.4 %; RED BLOOD COUNT 4.54 10^6/uL (4.20-5.40); UNCORRECTED WHITE BLOOD COUNT 7.5 x10^3/uL; WHITE BLOOD COUNT 7.5 x10^3/uL (4.8-10.8)
[2017-02-14 17:59] LABS: UR CULTURE IF IND NOT INDICATED
--- NOTE | 2017-02-14 18:00 | ED Physician Documentation ---
PD HPI ABD PAIN - Stated complaint Stated Complaint: SIDE PX - Chief complaint Chief Complaint: Abd Pain - History obtained from History obtained from: Patient - History of Present Illness Timing - onset: Yesterday Timing - duration: Days (2) Timing - details: Gradual onset Pain level max: 8 Pain level now: 8 Quality: Aching, Pain Location: LLQ Radiation: Other (non-radiating) Improved by: Laying still Worsened by: Moving, Palpation Associated symptoms: Vaginal bleeding (states first menses since her surgery approx 5 weeks ago.). No: Fever, Nausea, Vomiting, Hematemesis, Diarrhea, Constipation, Melena, Hematochezia, Dysuria, Hematuria Similar symptoms before: Diagnosis (ovarian cyst) Recently seen: Other (seen here several times for same. Most recently 5 days ago. No ovarian cyst at that time.) Review of Systems Ten Systems: 10 systems reviewed and negative Constitutional: denies: Fever, Chills Throat: denies: Sore throat Cardiac: denies: Chest pain / pressure, Palpitations Respiratory: denies: Cough GI: denies: Nausea, Vomiting, Diarrhea : reports: Vaginal bleeding (started menses today). 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: Ovarian cysts, 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, Other : Chronic bladder infection, Kidney stones HEENT: None Psych: Depression, Anxiety, Post traumatic stress disorder Musculoskeletal: None Derm: None - Past Surgical History Past Surgical History: No /LEAD ORACLE DEVELOPER: Oophrectomy - Present Medications Home Medications: Ambulatory Orders Medication Instructions Recorded Confirmed Clonazepam [Clonazepam] 1 mg PO BID 01/03/17 02/14/17 Escitalopram [Lexapro] 15 mg PO DAILY 01/03/17 02/14/17 Lamotrigine [Lamotrigine] 200 mg PO DAILY 01/03/17 02/14/17 Omeprazole [PriLOSEC] 20 mg PO DAILY 01/03/17 02/14/17 Oxybutynin [Ditropan] 5 mg PO TID 01/03/17 02/14/17 Naproxen [Naprosyn] 500 mg PO BID #15 tablet 02/08/17 02/14/17 oxyCODONE [Roxicodone] 5 mg PO Q4-6H PRN #60 tablet 02/08/17 02/14/17 - Allergies Allergies/Adverse Reactions: Allergies Allergy/AdvReac Type Severity Reaction Status Date / Time aripiprazole [From Abilify] Allergy Rash Verified 02/14/17 16:55 hydrocodone bitartrate * Allergy Hives Verified 02/08/17 17:22 [From Vicodin] tramadol Allergy Hives Verified 02/08/17 17:22 ethinyl estradiol AdvReac Cramps Verified 02/08/17 17:22 [From NuvaRing] etonogestrel [From NuvaRing] AdvReac Cramps Verified 02/08/17 17:22 - Social History Does the pt smoke?: Yes Smoking Status: Current every day smoker Does the pt drink ETOH?: Yes Does the pt have substance abuse?: No - Immunizations Immunizations are current?: Yes - POLST Patient has POLST: No PD ED PE NORMAL - Vitals Vital signs reviewed: Yes - General General: Alert and oriented X 3, No acute distress, Well developed/nourished - HEENT HEENT: PERRL, Moist mucous membranes - Neck Neck: Supple, no meningeal sign - Cardiac Cardiac: RRR, Strong equal pulses - Respiratory Respiratory: No respiratory distress, Clear bilaterally - Abdomen Abdomen: Normal bowel sounds, Soft, Non distended, Other (mild TTP LLQ without peritoneal signs. ) - Female Female : Pt declined - Back Back: No spinal TTP - Derm Derm: Warm and dry, No rash - Extremities Extremities: No edema, No calf tenderness / cord - Neuro Neuro: Alert and oriented X 3 - Psych Psych: Normal mood, Normal affect Results - Vitals Vitals: Vital Signs - 24 hr 02/14/17 02/14/17 02/14/17 16:50 18:41 19:47 Temperature 36.4 C L 36.9 C Heart Rate 81 60 54 L Respiratory 16 17 15 Rate Blood Pressure 136/83 H 119/71 122/64 O2 Saturation 98 100 100 02/14/17 20:20 Temperature 36.5 C Heart Rate 62 Respiratory 16 Rate Blood Pressure 110/86 H O2 Saturation 100 Oxygen O2 Source Room air - Labs Labs: Laboratory Tests 02/14/17 02/14/17 02/14/17 17:30 17:50 17:50 WBC 7.5 RBC 4.54 Hgb 10.8 L Hct 33.6 L MCV 74.1 L MCH 23.7 L MCHC 32.0 RDW 24.0 H Plt Count 298 MPV 7.4 L Neut # 3.8 Lymph # 2.9 [place] # 0.6 Eos # 0.2 Baso # 0.0 Absolute Nucleated RBC 0.00 Nucleated RBCs 0.0 Manual Slide Review Indicated Platelet Estimate NORMAL (130-450,000) Platelet Morphology NORMAL APPEARANCE RBC Morph Micro Appear 1+ MICROCYTOSIS Sodium 138 Potassium 3.9 Chloride 104 Carbon Dioxide 27 Anion Gap 7.0 BUN 24 H Creatinine 0.7 Estimated GFR (MDRD) 102 Glucose 81 Calcium 9.3 Total Bilirubin 0.7 AST 21 ALT 17 Alkaline Phosphatase 71 Total Protein 7.1 Albumin 4.2 Globulin 2.9 Albumin/Globulin Ratio 1.4 Lipase 18 L Urine Color DARK YELLOW Urine Clarity CLOUDY Urine pH 6.0 Ur Specific [place] 1.025 Urine Protein NEGATIVE Urine Glucose (UA) NEGATIVE Urine Ketones NEGATIVE Urine Occult Blood LARGE H Urine Nitrite NEGATIVE Urine Bilirubin NEGATIVE Urine Urobilinogen 0.2 (NORMAL) Ur Leukocyte Esterase NEGATIVE Urine RBC TNTC H Urine WBC 0-3 Ur Squamous Epith Cells FEW Squamous Urine Bacteria Rare Urine Mucus Few Strands Ur Microscopic Review INDICATED Urine Culture Comments NOT INDICATED Urine HCG, Qual NEGATIVE - Rads (name of study) pelvic US Radiology: Prelim report reviewed, EMP read contemporaneously, See rad report ( Left ovary is normal size and morphology, however examination is limited secondary to patient pain. Unable to tolerate exam long enough to evaluate blood flow. Status post right oophorectomy. Normal sonographic appearance of the uterus. ) PD MEDICAL DECISION MAKING - ED course Complexity details: reviewed old records, reviewed results, re-evaluated patient , considered differential, d/w patient ED course: Patient is a 26-year-old female who presents to the emergency department with recurrent left lower quadrant abdominal pain. She is concerned about ovarian torsion. There is no ovarian cyst. There is blood flow seen on pelvic ultrasound to the ovary. She denies any vaginal discharge. Declines a pelvic examination. Has oxycodone at home for pain. Also has Zofran at home for nausea. She is well-appearing, nontoxic. Afebrile. No acute laboratory findings. Patient will follow-up closely with her insurance risk analyst. Patient counseled regarding signs and symptoms for which I believe and urgent re- evaluation would be necessary. Patient with good understanding of and agreement to plan and is comfortable going home at this time This document was made in part using voice recognition software. While efforts are made to proofread this document, sound alike and grammatical errors may occur. Departure - Departure Disposition: 01 Home, Self Care Clinical Impression: Abdominal pain Condition: Good Instructions: ED Abdominal Pain Unkn Cause Follow-Up: your,doctor in 1 week [Other] Comments: Return if you worsen. The cause of your symptoms is unclear today. Discharge Date/Time: 02/14/17 20:25
[2017-02-14 18:09] LABS: ALBUMIN/GLOBULIN RATIO 1.4 (1.0-2.2); BILIRUBIN,TOTAL 0.7 mg/dL (0.2-1.0); CALCIUM 9.3 mg/dL (8.5-10.3); CREATININE 0.7 mg/dL (0.4-1.0); POTASSIUM 3.9 mmol/L (3.5-5.0); TOTAL PROTEIN 7.1 g/dL (6.7-8.2)
[2017-02-14] MEDS ORDERED: PROMETHAZINE 25 MG TABLET PO STA (18:43)
[2017-02-14] MEDS ORDERED: KETOROLAC 60 MG/2 ML VIAL IM STA (18:43)
[2017-02-14] MEDS ORDERED: PROMETHAZINE 25 MG TABLET ONE (18:48)
[2017-02-14] MEDS ORDERED: KETOROLAC 30 MG/ML VIAL ONE (18:48)
[2017-02-14 19:01] LABS: PLATELET ESTIMATE, MANUAL NORMAL (130-450,000) (NORMAL); PLATELET MORPHOLOGY NORMAL APPEARANCE (NORMAL)
--- NOTE | 2017-02-14 19:36 | Ultrasound Preliminary Report ---
Exam: US Pelvic Non OB w/Doppler IMPRESSION: 1. Left ovary is normal size and morphology, however examination is limited secondary to patient pain . Unable to tolerate exam long enough to evaluate blood flow. 2. Status post right oophorectomy. Normal sonographic appearance of the uterus. [facility] SITE ID: [id number]
--- NOTE | 2017-02-14 19:37 | Ultrasound Preliminary Report ---
Exam: US TRANSVAGINAL Please see pelvic ultrasound report for transvaginal comments SITE ID: [id number]
--- NOTE | 2017-02-14 19:39 | Ultrasound Report ---
EXAM: PELVIC ULTRASOUND EXAM DATE: 02/14/2017 06:42 PM. CLINICAL HISTORY: Left pelvic pain x 8 hrs. COMPARISON: Pelvic ultrasound 02/08/2017. TECHNIQUE: Realtime transabdominal pelvic scan performed to identify the uterus and adnexa and as an overview of other pelvic structures, followed by transvaginal scan to provide greater detail of the u terus and adnexa, with static image documentation. FINDINGS: Uterus: 7.6 x 4.1 x 5.7 cm, volume 93 cc. Retroverted position. Normal overall size and echotexture. Masses: None. Endometrium: 7 mm. Normal. Cervix: Unremarkable. Right Ovary: Status post right oophorectomy Left Ovary: 1.8 x 1.0 x 1.2 cm, volume 1.1 cc. Limited evaluation secondary to patient pain. Free Fluid: None. Other: None. IMPRESSION: 1. Left ovary is normal size and morphology, however examination is limited secondary to patient pain . Unable to tolerate exam long enough to evaluate blood flow. 2. Status post right oophorectomy. Normal sonographic appearance of the uterus. [facility] Referring Provider Line: [phone] SITE ID: [id number]
--- NOTE | 2017-02-14 19:54 | Ultrasound Report ---
EXAM: PELVIC ULTRASOUND EXAM DATE: 02/14/2017 06:42 p.m. CLINICAL HISTORY: Left pelvic pain x 8 hrs. COMPARISON: Pelvic ultrasound 02/08/2017. TECHNIQUE: Realtime transabdominal pelvic scan performed to identify the uterus and adnexa and as an overview of other pelvic structures, followed by transvaginal scan to provide greater detail of the u terus and adnexa, with static image documentation. FINDINGS: Uterus: 7.6 x 4.1 x 5.7 cm, volume 93 cc. Retroverted position. Normal overall size and echotexture. Masses: None. Endometrium: 7 mm. Normal. Cervix: Unremarkable. Right Ovary: Status post right oophorectomy Left Ovary: 1.8 x 1.0 x 1.2 cm, volume 1.1 cc. Limited evaluation secondary to patient pain. Free Fluid: None. Other: None. IMPRESSION: 1. Left ovary is normal size and morphology, however examination is limited secondary to patient pain . Unable to tolerate exam long enough to evaluate blood flow. 2. Status post right oophorectomy. Normal sonographic appearance of the uterus. [facility] Referring Provider Line: [phone] SITE ID: [id number]
[2017-02-14] MEDS ORDERED: oxyCODONE 5 MG TABLET PO STA (20:11)
[2017-02-14] MEDS ORDERED: oxyCODONE 5 MG TABLET ONE (20:14)
[2017-02-14 20:22] VITALS: BP 110/86
== END 2017-02-14 20:25 | disposition home or self-care (01) ==
LOC: ED 16:47
DX: R10.32 Left lower quadrant pain (principal); K21.9 Gastro-esophageal reflux disease without esophagitis; F17.200 Nicotine dependence, unspecified, uncomplicated
CPT/HCPCS: 36415; 76830; 76856; 80053; 81001; 81025; 83690; 85025; 93975; 96372; 99283; 99284; A9270; Q0162; Q0169; 81003; 87086

== ENCOUNTER 2017-02-23 16:16 | Emergency (ER) | payer MEDICAID ==
[2017-02-23 19:56] LABS: BILIRUBIN,URINE NEGATIVE (NEGATIVE); PH,URINE 6.5 PH (5.0-7.5)
[2017-02-23 19:58] LABS: UA w/ MICROSCOPIC CHARGE YES
[2017-02-23 20:06] LABS: WBC,URINE 0-3 /HPF (0-5)
[2017-02-23 20:07] LABS: UR CULTURE IF IND NOT INDICATED
[2017-02-23] MEDS ORDERED: SODIUM CHLORIDE 0.9% 1,000 ML IV ONE (20:12)
[2017-02-23] MEDS ORDERED: HYDROmorphone 1 MG/ML SYRINGE IM STA (20:12)
[2017-02-23] MEDS ORDERED: ONDANSETRON 4 MG/2 ML VIAL IVP STA (20:12)
[2017-02-23] MEDS ORDERED: HYDROmorphone 1 MG/ML SYRINGE ONE ×2 (20:22→21:56)
[2017-02-23] MEDS ORDERED: ONDANSETRON 4 MG/2 ML VIAL ONE (20:23)
[2017-02-23] MEDS ORDERED: LORazepam 2 MG/ML SYRINGE IVP STA (20:40)
[2017-02-23 20:44] LABS: BASOPHILS % (AUTO) 0.2 %; EOSINOPHILS # (AUTO) 0.1 10^3/uL (0.0-0.7); EOSINOPHILS % (AUTO) 0.6 %; HCT - HEMATOCRIT 34.5 % (37.0-47.0); HGB - HEMOGLOBIN 11.1 g/dL (12.0-16.0); LYMPHOCYTES # (AUTO) 4.7 10^3/uL (1.5-3.5); LYMPHOCYTES % (AUTO) 43.4 %; MEAN CORPUSCULAR HEMOGLOBIN 24.5 pg (27.0-31.0); MEAN CORPUSCULAR HGB CONC 32.1 g/dL (32.0-36.0); MEAN CORPUSCULAR VOLUME 76.4 fL (81.0-99.0); MEAN PLATELET VOLUME 8.1 fL (7.9-10.8); MONOCYTES # (AUTO) 0.7 10^3/uL (0.0-1.0); MONOCYTES % (AUTO) 6.6 %; NEUTROPHILS # (AUTO) 5.4 10^3/uL (1.5-6.6); NEUTROPHILS % (AUTO) 49.2 %; RED BLOOD COUNT 4.52 10^6/uL (4.20-5.40); RED CELL DISTRIBUTION WIDTH 24.4 % (12.0-15.0); UNCORRECTED WHITE BLOOD COUNT 10.9 x10^3/uL; WHITE BLOOD COUNT 10.9 x10^3/uL (4.8-10.8)
[2017-02-23] MEDS ORDERED: LORazepam 2 MG/ML SYRINGE ONE (20:50)
[2017-02-23 20:51] LABS: ALBUMIN/GLOBULIN RATIO 1.3 (1.0-2.2); BILIRUBIN,TOTAL 0.3 mg/dL (0.2-1.0); CALCIUM 8.8 mg/dL (8.5-10.3); CREATININE 0.8 mg/dL (0.4-1.0); POTASSIUM 3.4 mmol/L (3.5-5.0)
--- NOTE | 2017-02-23 20:55 | ED Physician Documentation ---
History of Present Illness - Stated complaint Stated Complaint: PAIN POST OP - Chief complaint Chief Complaint: Abd Pain - History obtained from History obtained from: Patient - Additonal information Additional information: This patient is a 26-year-old female who presents with a chief complaint of abdominal pain. The abdominal pain is generalized. She has had nausea without vomiting. She says approximately 1 month ago she had a ovarian torsion and was diagnosed at that time with ovarian cancer. She has not started any type of chemotherapy but yesterday she had a operation at [facility] that sounds like a right-sided salpingectomy and perhaps a lymph node biopsy. She is discharged the same day and sent home in pain she says she is currently taking oxycodone 15 mg at a time several times a day. She denies having any chest pain, shortness of breath, vomiting, fever but does have dysuria. The surgery was done by gynecology oncology service at [facility] yesterday. Review of systems: For pertinent positive and negatives in the review of systems please see history of present illness. Otherwise all other systems have been reviewed and are negative. Dragon disclaimer: Parts of this medical record were created using voice recognition technology. Because of the inherent limitations of this system occasional same sounding word substitutions do occur and persist despite proofreading. Please read the document for context. Review of Systems Ten Systems: 10 systems reviewed and negative Constitutional: denies: Fever, Chills, Myalgias Cardiac: denies: Chest pain / pressure, Palpitations Respiratory: denies: Dyspnea, Cough GI: reports: Abdominal Pain, Nausea. 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: Ovarian cysts, 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, Other : Chronic bladder infection, Kidney stones HEENT: None Psych: Depression, Anxiety, Post traumatic stress disorder Musculoskeletal: None Derm: None - Past Surgical History Past Surgical History: No /SAP SOLUTION MANAGER CONSULTANT: Oophrectomy - Present Medications Home Medications: Ambulatory Orders Medication Instructions Recorded Confirmed Clonazepam [Clonazepam] 1 mg PO BID 01/03/17 02/14/17 Escitalopram [Lexapro] 15 mg PO DAILY 01/03/17 02/14/17 Lamotrigine [Lamotrigine] 200 mg PO DAILY 01/03/17 02/14/17 Omeprazole [PriLOSEC] 20 mg PO DAILY 01/03/17 02/14/17 Oxybutynin [Ditropan] 5 mg PO TID 01/03/17 02/14/17 Naproxen [Naprosyn] 500 mg PO BID #15 tablet 02/08/17 02/14/17 oxyCODONE [Roxicodone] 5 mg PO Q4-6H PRN #60 tablet 02/08/17 02/14/17 Ondansetron Odt [Zofran] 4 mg TL Q6H PRN #10 tablet 02/23/17 Psyllium Husk [Metamucil] 1 tsp PO QID #660 gm 02/23/17 - Allergies Allergies/Adverse Reactions: Allergies Allergy/AdvReac Type Severity Reaction Status Date / Time aripiprazole [From Abilify] Allergy Rash Verified 02/23/17 16:32 hydrocodone bitartrate * Allergy Hives Verified 02/23/17 16:32 [From Vicodin] tramadol Allergy Hives Verified 02/23/17 16:32 ethinyl estradiol AdvReac Cramps Verified 02/23/17 16:32 [From NuvaRing] etonogestrel [From NuvaRing] AdvReac Cramps Verified 02/23/17 16:32 - Social History Does the pt smoke?: Yes Smoking Status: Current every day smoker Does the pt drink ETOH?: Yes Does the pt have substance abuse?: No - Immunizations Immunizations are current?: Yes - POLST Patient has POLST: No PD ED PE NORMAL - General General: Other (Obese female lying in the bed. She appears slightly sedated but does answer questions appropriately she does not look overtly toxic or ill) - HEENT HEENT: Atraumatic, PERRL, Pharynx benign, Dentition benign - Neck Neck: Supple, no meningeal sign, No bony TTP, No JVD - Cardiac Cardiac: RRR, No murmur, No gallop, No rub - Respiratory Respiratory: No respiratory distress, Clear bilaterally - Abdomen Abdomen: Normal bowel sounds, Soft, Other (Mild diffuse tenderness. Port sites are clean dry and intact. No focal tenderness or rebound is noted. Bowel tones are normoactive) - Back Back: No CVA TTP, No spinal TTP - Derm Derm: Normal color, Warm and dry, No rash, Other - Extremities Extremities: No deformity, No tenderness to palpate, Normal ROM s pain - Neuro Neuro: Alert and oriented X 3 - Psych Psych: Normal mood, Normal affect Results - Vitals Vitals: Vital Signs - 24 hr 02/23/17 02/23/17 02/23/17 16:27 20:30 22:25 Temperature 36.5 C 36.2 C L Heart Rate 68 70 Respiratory 18 17 18 Rate Blood Pressure 138/58 H 132/71 H 123/67 O2 Saturation 68 L 100 100 Oxygen O2 Source Room air - Labs Labs: Laboratory Tests 02/23/17 02/23/17 02/23/17 19:19 20:30 20:30 WBC 10.9 H RBC 4.52 Hgb 11.1 L Hct 34.5 L MCV 76.4 L MCH 24.5 L MCHC 32.1 RDW 24.4 H Plt Count 330 MPV 8.1 Neut # 5.4 Lymph # 4.7 H Garden # 0.7 Eos # 0.1 Baso # 0.0 Absolute Nucleated RBC 0.00 Nucleated RBCs 0.0 Manual Slide Review Indicated Platelet Estimate NORMAL (130-450,000) Platelet Morphology NORMAL APPEARANCE RBC Morph Micro Appear 1+ ANISOCYTOSIS Sodium 137 Potassium 3.4 L Chloride 103 Carbon Dioxide 28 Anion Gap 6.0 BUN 20 Creatinine 0.8 Estimated GFR (MDRD) 87 L Glucose 92 Calcium 8.8 Total Bilirubin 0.3 AST 19 ALT 15 Alkaline Phosphatase 65 Total Protein 7.0 Albumin 3.9 Globulin 3.1 Albumin/Globulin Ratio 1.3 Lipase 17 L Urine Color YELLOW Urine Clarity HAZY Urine pH 6.5 Ur Specific [place] 1.025 Urine Protein NEGATIVE Urine Glucose (UA) NEGATIVE Urine Ketones NEGATIVE Urine Occult Blood LARGE H Urine Nitrite NEGATIVE Urine Bilirubin NEGATIVE Urine Urobilinogen 0.2 (NORMAL) Ur Leukocyte Esterase NEGATIVE Urine RBC 0-5 Urine WBC 0-3 Ur Squamous Epith Cells MANY Squamous H Urine Bacteria Rare Urine Mucus Marked Strands Ur Microscopic Review INDICATED Urine Culture Comments NOT INDICATED PD MEDICAL DECISION MAKING - ED course Complexity details: reviewed old records, reviewed results, re-evaluated patient , considered differential ED course: This patient is a 26-year-old female who was recently diagnosed with ovarian cancer when she had ovarian torsion of the right side last month. Yesterday she had a right-sided salpingectomy at [facility] in [place]. She went home same day after the surgery and complains of generalized abdominal pain without nausea vomiting or fever today. She says she has not had a bowel movement since surgery either. The patient says that 15 mg of oxycodone every 4 hours is not working for her. She denied having any previous history of abdominal pain however I did obtain records and NADER notification showing that this patient has had chronic abdominal pain issues for Years. Over the last year she has had 948 pills for controlled substances issued to her. I did obtain documentation from Rosalind Pina that showed that the gynecologic oncologist had a talk with the patient about chronic pain management and refused to issue her pain medications Outside of the normal postoperative period. Based on these data I believe the patient is high risk for narcotic Abuse and overdose and had a sitdown conversation with her about my inability to prescribe her additional pain medication. I am referring her back to her physician for this reason. Tonight through does not appear to be anything acutely wrong. Her abdominal pain is diffuse and consistent for early postoperative. Routine labs are checked and are normal. KUB does demonstrate moderate constipation probably secondary to surgery and also narcotic use. I did issue her Zofran and also am recommending Metamucil 3-4 times a day with adequate water. Disposition: To home Clinical impression: 1. Postop day 1 status post right sided Salpingectomy 2. 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 History of chronic pelvic pain with heavy narcotic use documented Departure - Departure Disposition: 01 Home, Self Care Clinical Impression: Acute postoperative abdominal pain, Constipation Condition: Good Instructions: ED Constipation Follow-Up: Ailyn Vogel MD [Physician No Access] - Prescriptions: Psyllium Husk [Metamucil] 1 tsp PO QID #660 gm Ondansetron Odt [Zofran] 4 mg TL Q6H PRN #10 tablet PRN Reason: Nausea / Vomiting
[2017-02-23 20:58] LABS: PLATELET ESTIMATE, MANUAL NORMAL (130-450,000) (NORMAL); PLATELET MORPHOLOGY NORMAL APPEARANCE (NORMAL)
[2017-02-23] MEDS ORDERED: HYDROmorphone 1 MG/ML SYRINGE IVP STA (21:53)
--- NOTE | 2017-02-23 22:15 | XRAY Preliminary Report ---
Exam: XR Abdomen 1 View IMPRESSION: Normal 1-view abdomen x-ray. Mild stool retention. [facility] SITE ID: [id number]
--- NOTE | 2017-02-23 22:17 | XRAY Report ---
EXAM: ABDOMEN RADIOGRAPHY EXAM DATE: 02/23/2017 09:35 PM. CLINICAL HISTORY: Lower abdomen pain. Post op day 1. Right salpingectomy. COMPARISON: None. TECHNIQUE: 1 view. FINDINGS: Bowel Gas Pattern: Within normal limits. No dilated loops. Mild stool retention. Other: No soft tissue calcifications. No bony abnormalities.. IMPRESSION: Normal 1-view abdomen x-ray. Mild stool retention. [facility] Referring Provider Line: [phone] SITE ID: [id number]
[2017-02-23 22:25] VITALS: BP 123/67
[2017-02-23] MEDS ORDERED: ONDANSETRON ODT 4 MG TABLET TL STA (22:44)
[2017-02-23] MEDS ORDERED: ONDANSETRON ODT 4 MG TABLET ONE (22:50)
[2017-02-23] MEDS ORDERED: KETOROLAC 60 MG/2 ML VIAL IVP STA (22:50)
[2017-02-23] MEDS ORDERED: KETOROLAC 30 MG/ML VIAL ONE (22:50)
== END 2017-02-23 23:05 | disposition home or self-care (01) ==
LOC: ED 16:16
DX: K59.00 Constipation, unspecified (principal); G89.18 Other acute postprocedural pain; Z85.43 Personal history of malignant neoplasm of ovary; Z87.442 Personal history of urinary calculi; Z87.440 Personal history of urinary (tract) infections; K21.9 Gastro-esophageal reflux disease without esophagitis; F17.200 Nicotine dependence, unspecified, uncomplicated
CPT/HCPCS: 36415; 74000; 80053; 81001; 83690; 85025; 96372; 96374; 96375; 99284; J1170; J2060; Q0162; 81003; 87086

== ENCOUNTER 2017-03-15 15:10 | Outpatient (CLI) | payer MEDICAID ==
[2017-03-17 14:31] LABS: TEST RESULT REPORT (())
== END 2017-03-15 15:11 | disposition home or self-care (01) ==
LOC: LAB 15:10
PROVIDERS: ATTEND Obstetrics & Gynecology Gynecologic Oncology
DX: C56.1 Malignant neoplasm of right ovary (principal)
CPT/HCPCS: 36415; 81599

== ENCOUNTER 2017-03-15 18:32 | Emergency (ER) | payer MEDICAID ==
--- NOTE | 2017-03-15 20:05 | ED Physician Documentation ---
PD HPI ABD PAIN - Stated complaint Stated Complaint: L LWR ABD PAIN,NAUSEA - Chief complaint Chief Complaint: Abd Pain - History obtained from History obtained from: Patient - History of Present Illness Timing - onset: Yesterday (Has been having ongoing pain in lower abd and worse at times left lower. She had had torsion of right ovary caused by cancerous tumor few months ago, and had TRANSMISSION BUILDER/Onc surgery February 24, with plan for chemo in near future. Referred to for Pain Management. Had been Rx Percocet and had last pill this AM. She says she has been taking about 2 daily. Onset yesterday into today of diarrhea, nausea and vomiting, with worsening of lower abd pain. Her son had rotavirus last week for almost a week. Pt comes to ED today due to nausea despite home ODT, diarrhea, and increased abd pain over baseline.) Timing - duration: Days (1) Timing - details: Gradual onset, Still present Quality: Cramping, Aching, Pain Location: Suprapubic, LLQ Radiation: No: Left flank, Right flank Improved by: No: Eating Worsened by: No: Eating (but feels more nausea with eating.) Associated symptoms: Nausea, Vomiting, Diarrhea. No: Fever, Hematemesis, Constipation, Melena Similar symptoms before: No diagnosis (has not had finding to show cause of LLQ pain per se. Had some lymph node dissection apparently. Prior surgery to that was right ovary removal.) Recently seen: Emergency Dept (seen since her surgery for post op pain that was about 2 weeks ago.), Surgery (February 22?) Review of Systems Constitutional: denies: Fever, Chills, Myalgias Nose: denies: Rhinorrhea / runny nose, Congestion Throat: denies: Sore throat Cardiac: denies: Chest pain / pressure Respiratory: denies: Cough GI: reports: Abdominal Pain, Nausea, Vomiting, Diarrhea (for 1 day). denies: Abdominal Swelling : denies: Dysuria, Frequency, Discharge (but has noted vaginal odor for few days.) Skin: denies: Rash, Lesions Neurologic: reports: Generalized weakness. denies: Focal weakness, Numbness, Near syncope (feeling weak and lightheaded today with vomiting and diarrhea.) PD PAST MEDICAL HISTORY - Past Medical History Cardiovascular: None Respiratory: None Neuro: Headache/migraine Endocrine/Autoimmune: None GI: GERD TRANSMISSION BUILDER: Ovarian cysts, 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, Other : Chronic bladder infection, Kidney stones HEENT: None Psych: Depression, Anxiety, Post traumatic stress disorder Musculoskeletal: None Derm: None - Past Surgical History Past Surgical History: No /TRANSMISSION BUILDER: Oophrectomy - Present Medications Home Medications: Ambulatory Orders Medication Instructions Recorded Confirmed Clonazepam [Clonazepam] 1 mg PO BID 01/03/17 03/15/17 Escitalopram [Lexapro] 15 mg PO DAILY 01/03/17 03/15/17 Lamotrigine [Lamotrigine] 200 mg PO DAILY 01/03/17 03/15/17 Omeprazole [PriLOSEC] 20 mg PO DAILY 01/03/17 03/15/17 Oxybutynin [Ditropan] 5 mg PO TID 01/03/17 03/15/17 Ondansetron Odt [Zofran] 4 mg TL Q6H PRN #10 tablet 02/23/17 03/15/17 Diphenoxylate/Atropine [Lomotil] 1 each PO QID PRN #15 tablet 03/15/17 Ibuprofen 800 mg PO DAILY 03/15/17 03/15/17 Iron,Carbonyl [Iron Chews] 65 mg PO BID 03/15/17 03/15/17 Ondansetron Odt [Zofran] 4 mg TL Q6H PRN #15 tablet 03/15/17 Oxycodone HCl/Acetaminophen 1 each PO Q6H PRN #15 tablet 03/15/17 [Percocet 5-325 mg Tablet] - Allergies Allergies/Adverse Reactions: Allergies Allergy/AdvReac Type Severity Reaction Status Date / Time aripiprazole [From Abilify] Allergy Rash Verified 03/15/17 19:02 hydrocodone bitartrate * Allergy Hives Verified 03/15/17 19:02 [From Vicodin] tramadol Allergy Hives Verified 03/15/17 19:02 ethinyl estradiol AdvReac Cramps Verified 03/15/17 19:02 [From NuvaRing] etonogestrel [From NuvaRing] AdvReac Cramps Verified 03/15/17 19:02 - Social History Does the pt smoke?: Yes Smoking Status: Current every day smoker Does the pt drink ETOH?: Yes Does the pt have substance abuse?: No - Immunizations Immunizations are current?: Yes - POLST Patient has POLST: No PD ED PE NORMAL - Vitals Vital signs reviewed: Yes - General General: Alert and oriented X 3, Well developed/nourished - HEENT HEENT: PERRL, Pharynx benign - Neck Neck: Supple, no meningeal sign, No adenopathy - Cardiac Cardiac: RRR, No murmur - Respiratory Respiratory: Clear bilaterally - Abdomen Abdomen: Normal bowel sounds, Soft, Non distended, No organomegaly, Other ( tender LLQ and suprapubic area without distension. ) - Female Female : Bander And Cellophaner Machine Helper present, Other (mild vaginal discharge thicker and white c/ w yeast. ) - Back Back: No CVA TTP - Derm Derm: Normal color, Warm and dry - Extremities Extremities: No deformity, No edema, No calf tenderness / cord - Neuro Neuro: Alert and oriented X 3, No motor deficit, Normal speech Results - Vitals Vitals: Vital Signs - 24 hr 03/15/17 03/15/17 18:58 21:47 Temperature 36.6 C Heart Rate 74 66 Respiratory 16 16 Rate Blood Pressure 126/77 125/78 O2 Saturation 99 100 Oxygen O2 Source Room air - Labs Labs: Microbiology 03/15/17 22:47 Wet Prep - Final Vaginal Laboratory Tests 03/15/17 21:40 Urine Color YELLOW Urine Clarity CLEAR Urine pH 6.0 Ur Specific [place] 1.025 Urine Protein NEGATIVE Urine Glucose (UA) NEGATIVE Urine Ketones NEGATIVE Urine Occult Blood NEGATIVE Urine Nitrite NEGATIVE Urine Bilirubin NEGATIVE Urine Urobilinogen 0.2 (NORMAL) Ur Leukocyte Esterase NEGATIVE Ur Microscopic Review NOT INDICATED Urine Culture Comments NOT INDICATED PD MEDICAL DECISION MAKING - ED course Complexity details: reviewed old records (had not been to ED for couple of weeks. Did not get narcotics at last visit. ), reviewed results, considered differential (does not seem obstructive. Has had vomiting and diarrhea, flaring her baseline pain. Her son had rotavirus, so she may have that too. Given IV fluids and antiemetics. Given some pain med to get her level down to 4-6, which is at her baseline pain level for past month or so. Diflucan PO for vaginitis. ) , d/w patient Departure - Departure Disposition: 01 Home, Self Care Clinical Impression: Abdominal pain, Vaginal candidiasis Vomiting Qualifiers: Vomiting type: unspecified Vomiting Intractability: non-intractable Nausea presence: with nausea Qualified Code(s): R11.2 - Nausea with vomiting, unspecified Diarrhea Qualifiers: Diarrhea type: unspecified type Qualified Code(s): R19.7 - Diarrhea, unspecified Condition: Stable Record reviewed to determine appropriate education?: Yes Prescriptions: Diphenoxylate/Atropine [Lomotil] 1 each PO QID PRN #15 tablet PRN Reason: Diarrhea Oxycodone HCl/Acetaminophen [Percocet 5-325 mg Tablet] 1 each PO Q6H PRN #15 tablet PRN Reason: Pain Ondansetron Odt [Zofran] 4 mg TL Q6H PRN #15 tablet PRN Reason: Nausea / Vomiting Comments: Ondansetron if needed for nausea. Lomotil for diarrhea as needed. Tylenol 650 mg 4 times a day for pain. Use Percocet if needed for pain. You need to continue with your primary care or pain clinic for ongoing pain medication. Recheck if not improved over the next couple of days regarding the nausea and diarrhea. It did look likely yeast vaginal infection and the oral antifungal should help with that. Discharge Date/Time: 03/15/17 23:31
[2017-03-15] MEDS ORDERED: SODIUM CHLORIDE 0.9% 1,000 ML IV ONE (20:20)
[2017-03-15] MEDS ORDERED: HYDROmorphone 1 MG/ML SYRINGE IVP STA ×3 (20:21→22:07)
[2017-03-15] MEDS ORDERED: DIPHENOX/ATROPINE 2.5/0.025 MG TABLET PO STA (20:21)
[2017-03-15] MEDS ORDERED: PROMETHAZINE INJ 12.5 MG in SODIUM CHLORIDE 0.9% 50 ML IV STA (20:21)
[2017-03-15] MEDS ORDERED: DIPHENOX/ATROPINE 2.5/0.025 MG TABLET PO ONE (20:56)
[2017-03-15] MEDS ORDERED: HYDROmorphone 1 MG/ML SYRINGE ONE ×3 (20:56→22:22)
[2017-03-15] MEDS ORDERED: PROMETHAZINE 25 MG/1 ML VIAL ONE (20:56)
[2017-03-15 21:47] VITALS: BP 125/78
[2017-03-15 21:50] LABS: BILIRUBIN,URINE NEGATIVE (NEGATIVE)
[2017-03-15 21:51] LABS: UA CHARGE (STRIP ONLY) YES; UR CULTURE IF IND NOT INDICATED
[2017-03-15] MEDS ORDERED: oxyCODONE/ACET 5/325 Prepack 4 PO STA (22:07)
[2017-03-15] MEDS ORDERED: oxyCODONE/ACET 5/325 Prepack 4 PO ONE (22:22)
[2017-03-15] MEDS ORDERED: FLUCONAZOLE 100 MG TABLET PO STA (22:50)
[2017-03-15] MEDS ORDERED: FLUCONAZOLE 100 MG TABLET ONE (22:58)
[2017-03-15] MEDS ORDERED: ONDANSETRON 4 MG/2 ML VIAL IVP STA (23:17)
[2017-03-15] MEDS ORDERED: ONDANSETRON 4 MG/2 ML VIAL ONE (23:21)
== END 2017-03-15 23:31 | disposition home or self-care (01) ==
LOC: ED 18:32
DX: B37.3 Candidiasis of vulva and vagina (principal); R19.7 Diarrhea, unspecified; R11.2 Nausea with vomiting, unspecified; C56.1 Malignant neoplasm of right ovary; F17.200 Nicotine dependence, unspecified, uncomplicated
CPT/HCPCS: 36415; 81003; 81599; 87210; 87491; 87591; 96374; 96375; 96376; 99284; A9270; J1170; J7040; 81001; 87086

== ENCOUNTER 2017-03-19 13:46 | Emergency (ER) | payer MEDICAID ==
[2017-03-19] MEDS ORDERED: HYDROmorphone 1 MG/ML SYRINGE IVP STA (18:10)
[2017-03-19] MEDS ORDERED: ONDANSETRON 4 MG/2 ML VIAL IVP STA (18:10)
[2017-03-19] MEDS ORDERED: KETOROLAC 60 MG/2 ML VIAL IVP STA (18:10)
[2017-03-19] MEDS ORDERED: SODIUM CHLORIDE 0.9% 1,000 ML IV ONE (18:10)
--- NOTE | 2017-03-19 18:12 | ED Physician Documentation ---
History of Present Illness - Stated complaint Stated Complaint: FEMALE /PELVIC PX - Chief complaint Chief Complaint: General - History obtained from History obtained from: Patient - History of Present Illness Timing: Other (26-year-old woman with recent right oophorectomy for torsion and found to have granulosa cell tumor, subsequently had a right oophorectomy. Prior to that did have frequent emergency department visits and some pain seeking behavior. Today she woke up around 1030 this morning with a lot of vaginal bleeding. Also continuing cramping and pelvic pain. She was also recently exposed to Nellie virus by her son and does have vomiting and diarrhea but there is no fever.) Review of Systems Constitutional: reports: Fatigue. denies: Fever, Chills Cardiac: denies: Chest pain / pressure, Palpitations Respiratory: denies: Dyspnea, Cough PD PAST MEDICAL HISTORY - Past Medical History Cardiovascular: None Respiratory: None Neuro: Headache/migraine Endocrine/Autoimmune: None GI: GERD FOUNDRY HAND: Ovarian cysts, 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, Other : Chronic bladder infection, Kidney stones HEENT: None Psych: Depression, Anxiety, Post traumatic stress disorder Musculoskeletal: None Derm: None - Past Surgical History Past Surgical History: No /FOUNDRY HAND: Oophrectomy - Present Medications Home Medications: Ambulatory Orders Medication Instructions Recorded Confirmed Clonazepam [Clonazepam] 1 mg PO BID 01/03/17 03/19/17 Escitalopram [Lexapro] 15 mg PO DAILY 01/03/17 03/19/17 Lamotrigine [Lamotrigine] 200 mg PO DAILY 01/03/17 03/19/17 Omeprazole [PriLOSEC] 20 mg PO DAILY 01/03/17 03/19/17 Oxybutynin [Ditropan] 5 mg PO TID 01/03/17 03/19/17 Ondansetron Odt [Zofran] 4 mg TL Q6H PRN #10 tablet 02/23/17 03/19/17 Diphenoxylate/Atropine [Lomotil] 1 each PO QID PRN #15 tablet 03/15/17 03/19/17 Ibuprofen 800 mg PO DAILY 03/15/17 03/19/17 Iron,Carbonyl [Iron Chews] 65 mg PO BID 03/15/17 03/19/17 Oxycodone HCl/Acetaminophen 1 each PO Q6H PRN #15 tablet 03/15/17 03/19/17 [Percocet 5-325 mg Tablet] Meloxicam [Mobic] 7.5 mg PO BIDWM PRN #15 tablet 03/19/17 - Allergies Allergies/Adverse Reactions: Allergies Allergy/AdvReac Type Severity Reaction Status Date / Time aripiprazole [From Abilify] Allergy Rash Verified 03/19/17 14:18 hydrocodone bitartrate * Allergy Hives Verified 03/19/17 14:18 [From Vicodin] tramadol Allergy Hives Verified 03/19/17 14:18 ethinyl estradiol AdvReac Cramps Verified 03/19/17 14:18 [From NuvaRing] etonogestrel [From NuvaRing] AdvReac Cramps Verified 03/19/17 14:18 - Social History Does the pt smoke?: Yes Smoking Status: Current every day smoker Does the pt drink ETOH?: Yes Does the pt have substance abuse?: No - Immunizations Immunizations are current?: Yes - POLST Patient has POLST: No PD ED PE NORMAL - Vitals Vital signs reviewed: Yes - General General: Alert and oriented X 3, No acute distress - HEENT HEENT: Moist mucous membranes - Cardiac Cardiac: RRR, No murmur - Respiratory Respiratory: No respiratory distress, Clear bilaterally - Abdomen Abdomen: Soft, Non tender - Neuro Neuro: Alert and oriented X 3, Normal speech - Psych Psych: Normal mood, Normal affect Results - Vitals Vitals: Vital Signs - 24 hr 03/19/17 14:10 Temperature 36.5 C Heart Rate 94 Respiratory 20 Rate Blood Pressure 142/78 H O2 Saturation 99 Oxygen O2 Source Room air - Labs Labs: Laboratory Tests 03/19/17 03/19/17 18:24 18:24 Hgb 12.4 Hct 38.0 Serum HCG, Qual NEGATIVE PD MEDICAL DECISION MAKING - ED course ED course: 26-year-old woman with now chronic pelvic pain, I spoke with her supervising deputy, Dr. Vogel at [facility] who felt that she did have some drug-seeking behavior and requests that we not give her narcotic pain medication. The pain is not related to cancer for her. Departure - Departure Disposition: 01 Home, Self Care Clinical Impression: Pelvic pain Vomiting Qualifiers: Vomiting type: unspecified Vomiting Intractability: non-intractable Nausea presence: with nausea Qualified Code(s): R11.2 - Nausea with vomiting, unspecified Condition: Good Record reviewed to determine appropriate education?: Yes Instructions: ED Chronic Pain Management Prescriptions: Meloxicam [Mobic] 7.5 mg PO BIDWM PRN #15 tablet PRN Reason: Pain Comments: Dr Vogel asks us not to give you narcotics pain meds going forward, please followup with [facility] pain mgt as is being arranged. Recheck your blood pressure with your PCP in 1-2 weeks
[2017-03-19 18:32] LABS: HGB - HEMOGLOBIN 12.4 g/dL (12.0-16.0)
[2017-03-19] MEDS ORDERED: ONDANSETRON 4 MG/2 ML VIAL ONE (18:45)
[2017-03-19] MEDS ORDERED: HYDROmorphone 1 MG/ML SYRINGE ONE (18:45)
[2017-03-19] MEDS ORDERED: KETOROLAC 30 MG/ML VIAL ONE (18:45)
[2017-03-19] MEDS ORDERED: SODIUM CHLORIDE FLUSH 0.9% 10 ML SYRINGE IVP ONE (18:46)
[2017-03-19 19:13] VITALS: BP 113/68
== END 2017-03-19 19:22 | disposition home or self-care (01) ==
LOC: ED 13:46
DX: R10.2 Pelvic and perineal pain (principal); R11.2 Nausea with vomiting, unspecified; F17.200 Nicotine dependence, unspecified, uncomplicated; Z85.43 Personal history of malignant neoplasm of ovary
CPT/HCPCS: 36415; 84703; 85014; 85018; 96374; 96375; 99283; 99284; J1170

== ENCOUNTER 2017-06-23 13:41 | Emergency (ER) | payer MEDICAID ==
--- NOTE | 2017-06-23 15:27 | ED Physician Documentation ---
PD HPI URI - Stated complaint Stated Complaint: VOMITING - Chief complaint Chief Complaint: Abd Pain - History obtained from History obtained from: Patient - History of Present Illness Timing - onset: Last night Timing details: Abrupt onset Associated symptoms: Chills, Dry cough, NVD. No: Fever Contributing factors: No: Sick contact, Travel, Immunocompromised (going to start chemo Sunday for her ovarian cancer.) PD PAST MEDICAL HISTORY - Past Medical History Cardiovascular: None Respiratory: None Neuro: Headache/migraine Endocrine/Autoimmune: None GI: GERD [employer]: Ovarian cysts, 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, Other : Chronic bladder infection, Kidney stones HEENT: None Psych: Depression, Anxiety, Post traumatic stress disorder Musculoskeletal: None Derm: None - Past Surgical History Past Surgical History: No /[employer]: Oophrectomy - Present Medications Home Medications: Ambulatory Orders Medication Instructions Recorded Confirmed Clonazepam [Clonazepam] 1 mg PO BID 01/03/17 06/23/17 Escitalopram [Lexapro] 15 mg PO DAILY 01/03/17 06/23/17 Lamotrigine [Lamotrigine] 200 mg PO DAILY 01/03/17 06/23/17 Oxybutynin [Ditropan] 5 mg PO TID 01/03/17 06/23/17 Ondansetron Odt [Zofran] 4 mg TL Q6H PRN #10 tablet 02/23/17 06/23/17 Diphenoxylate/Atropine [Lomotil] 1 each PO QID PRN #15 tablet 03/15/17 06/23/17 Iron,Carbonyl [Iron Chews] 65 mg PO BID 03/15/17 06/23/17 PARoxetine [Paxil] 20 mg PO DAILY 04/23/17 06/23/17 Acetaminophen 325 mg PO Q4HR PRN 06/23/17 06/23/17 Gabapentin 100 mg PO TID 06/23/17 06/23/17 raNITIdine [Zantac] 150 mg PO DAILY 06/23/17 06/23/17 - Allergies Allergies/Adverse Reactions: Allergies Allergy/AdvReac Type Severity Reaction Status Date / Time aripiprazole [From Abilify] Allergy Rash Verified 06/23/17 14:06 hydrocodone bitartrate * Allergy Hives Verified 06/23/17 14:06 [From Vicodin] tramadol Allergy Hives Verified 06/23/17 14:06 ethinyl estradiol AdvReac Cramps Verified 06/23/17 14:06 [From NuvaRing] etonogestrel [From NuvaRing] AdvReac Cramps Verified 06/23/17 14:06 - Social History Does the pt smoke?: Yes Smoking Status: Current every day smoker Does the pt drink ETOH?: Yes Does the pt have substance abuse?: No - Immunizations Immunizations are current?: Yes - POLST Patient has POLST: No PD ED PE NORMAL - Vitals Vital signs reviewed: Yes - General General: Alert and oriented X 3, No acute distress. No: Well developed/ nourished - HEENT HEENT: Ears normal, Pharynx benign - Neck Neck: Supple, no meningeal sign, No adenopathy - Cardiac Cardiac: RRR, No murmur - Respiratory Respiratory: Clear bilaterally - Abdomen Abdomen: Soft, Non tender, Non distended - Back Back: No CVA TTP - Derm Derm: Normal color, Warm and dry - Extremities Extremities: Other (PICC line left upper arm without signs of infection nor drainage/bleeding. ) Results - Vitals Vitals: Vital Signs - 24 hr 06/23/17 06/23/17 06/23/17 14:00 16:32 17:41 Temperature 36.4 C L Heart Rate 77 65 75 Respiratory 16 16 16 Rate Blood Pressure 124/75 125/67 137/86 H O2 Saturation 100 99 100 06/23/17 18:14 Temperature 36.5 C Heart Rate 74 Respiratory 14 Rate Blood Pressure 127/55 L O2 Saturation 100 Oxygen O2 Source Room air - Labs Labs: Laboratory Tests 06/23/17 15:20 Urine Color YELLOW Urine Clarity CLEAR Urine pH 6.0 Ur Specific [place] >=1.030 H Urine Protein NEGATIVE Urine Glucose (UA) NEGATIVE Urine Ketones NEGATIVE Urine Occult Blood NEGATIVE Urine Nitrite NEGATIVE Urine Bilirubin NEGATIVE Urine Urobilinogen 0.2 (NORMAL) Ur Leukocyte Esterase NEGATIVE Ur Microscopic Review NOT INDICATED Urine Culture Comments NOT INDICATED Urine HCG, Qual NEGATIVE PD MEDICAL DECISION MAKING - ED course Complexity details: considered differential (sounds like viral illness. Given IV fluids and meds with improvement. ), d/w patient Departure - Departure Disposition: 01 Home, Self Care Clinical Impression: Viral respiratory illness Condition: Stable Record reviewed to determine appropriate education?: Yes Instructions: ED Upper Resp Infec No Abx Tx Follow-Up: ROCIO SARAVIA [Primary Care Provider] - Comments: Small frequent fluids. It sounds like a viral illness and so presumably will be sick for several days. However no signs of pneumonia. I would think you should be able to get your chemotherapy on Sunday as planned. Continue usual medications otherwise. Discharge Date/Time: 06/23/17 18:20
[2017-06-23 15:46] LABS: BILIRUBIN,URINE NEGATIVE (NEGATIVE)
[2017-06-23] MEDS ORDERED: DEXAMETHASONE 10 MG/ML VIAL IVP STA (15:49)
[2017-06-23] MEDS ORDERED: METOCLOPRAMIDE 10 MG/2 ML VIAL IVP STA ×2 (15:49→16:56)
[2017-06-23] MEDS ORDERED: HYDROmorphone 1 MG/ML SYRINGE IVP STA ×2 (15:49→17:41)
[2017-06-23] MEDS ORDERED: SODIUM CHLORIDE 0.9% 1,000 ML IV ONE (15:49)
[2017-06-23 15:57] LABS: HCG UR QUAL NEGATIVE; UA CHARGE (STRIP ONLY) YES; UR CULTURE IF IND NOT INDICATED
[2017-06-23] MEDS ORDERED: HYDROmorphone 1 MG/ML SYRINGE ONE ×2 (16:21→17:48)
[2017-06-23] MEDS ORDERED: METOCLOPRAMIDE 10 MG/2 ML VIAL ONE ×2 (16:21→17:25)
[2017-06-23] MEDS ORDERED: DEXAMETHASONE 10 MG/ML VIAL ONE (16:21)
--- NOTE | 2017-06-23 16:29 | XRAY Preliminary Report ---
Exam: XR CHEST 2 VIEW PA/LAT IMPRESSION: No acute cardiopulmonary abnormality. [facility] SITE ID: [id number]
--- NOTE | 2017-06-23 16:31 | XRAY Report ---
EXAM: CHEST RADIOGRAPHY EXAM DATE: 06/23/2017 04:16 PM. CLINICAL HISTORY: Cough and congestion for 3 days. COMPARISON: None. TECHNIQUE: 2 views. FINDINGS: Lungs/Pleura: No focal opacities evident. No pleural effusion. No pneumothorax. Normal volumes. Mediastinum: Heart size is normal. Other: None. IMPRESSION: No acute cardiopulmonary abnormality. [facility] Referring Provider Line: [phone] SITE ID: [id number]
[2017-06-23 18:15] VITALS: BP 127/55
== END 2017-06-23 18:20 | disposition home or self-care (01) ==
LOC: ED 13:41
DX: B34.9 Viral infection, unspecified (principal); K21.9 Gastro-esophageal reflux disease without esophagitis; Z85.43 Personal history of malignant neoplasm of ovary; Z87.442 Personal history of urinary calculi; F17.200 Nicotine dependence, unspecified, uncomplicated
CPT/HCPCS: 71020; 81003; 81025; 96361; 96374; 96375; 96376; 99284; J1170; 81001; 87086

== ENCOUNTER 2017-06-24 14:31 | Emergency (ER) | payer MEDICAID ==
[2017-06-24 14:48] VITALS: BP 118/79
--- NOTE | 2017-06-24 15:00 | ED Physician Documentation ---
PD HPI WOUND RECHECK - Stated complaint Stated Complaint: PICC LINE ISSUES - Chief complaint Chief Complaint: General - Histroy obtained from History obtained from: Patient - History of Present Illness Location: Left Uppper Extremity (dressing over PICC line is coming off after she showered. Here for check and dressing change. Has chemo scheduled for tomorrow.) Timing - onset: Today Associated symptoms: No: Fever, Redness, Swelling Recently seen: Emergency Dept Review of Systems Constitutional: reports: Myalgias. denies: Fever, Chills Nose: denies: Rhinorrhea / runny nose, Congestion Throat: denies: Sore throat Respiratory: denies: Cough GI: reports: Nausea. denies: Vomiting, Diarrhea PD PAST MEDICAL HISTORY - Past Medical History Cardiovascular: None Respiratory: None Neuro: Headache/migraine Endocrine/Autoimmune: None GI: GERD TR[employer]: Ovarian cysts, 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, Other : Chronic bladder infection, Kidney stones HEENT: None Psych: Depression, Anxiety, Post traumatic stress disorder Musculoskeletal: None Derm: None - Past Surgical History Past Surgical History: No /TR[employer]: Oophrectomy - Present Medications Home Medications: Ambulatory Orders Medication Instructions Recorded Confirmed Clonazepam [Clonazepam] 1 mg PO BID 01/03/17 06/24/17 Escitalopram [Lexapro] 15 mg PO DAILY 01/03/17 06/24/17 Lamotrigine [Lamotrigine] 200 mg PO DAILY 01/03/17 06/24/17 Oxybutynin [Ditropan] 5 mg PO TID 01/03/17 06/24/17 Ondansetron Odt [Zofran] 4 mg TL Q6H PRN #10 tablet 02/23/17 06/24/17 Diphenoxylate/Atropine [Lomotil] 1 each PO QID PRN #15 tablet 03/15/17 06/24/17 Iron,Carbonyl [Iron Chews] 65 mg PO BID 03/15/17 06/24/17 PARoxetine [Paxil] 20 mg PO DAILY 04/23/17 06/24/17 Acetaminophen 325 mg PO Q4HR PRN 06/23/17 06/24/17 Gabapentin 100 mg PO TID 06/23/17 06/24/17 raNITIdine [Zantac] 150 mg PO DAILY 11/11/17 11/12/17 - Allergies Allergies/Adverse Reactions: Allergies Allergy/AdvReac Type Severity Reaction Status Date / Time aripiprazole [From Abilify] Allergy Rash Verified 06/24/17 14:48 hydrocodone bitartrate * Allergy Hives Verified 06/24/17 14:48 [From Vicodin] tramadol Allergy Hives Verified 06/24/17 14:48 ethinyl estradiol AdvReac Cramps Verified 06/24/17 14:48 [From NuvaRing] etonogestrel [From NuvaRing] AdvReac Cramps Verified 06/24/17 14:48 - Social History Does the pt smoke?: Yes Smoking Status: Current every day smoker Does the pt drink ETOH?: Yes Does the pt have substance abuse?: No - Immunizations Immunizations are current?: Yes - POLST Patient has POLST: No PD ED PE NORMAL - Vitals Vital signs reviewed: Yes - General General: Alert and oriented X 3, No acute distress, Well developed/nourished - Cardiac Cardiac: RRR, No murmur - Respiratory Respiratory: No respiratory distress, Clear bilaterally - Derm Derm: Normal color, Warm and dry - Extremities Extremities: Other (left upper arm PICC line in place without redness/swelling. The dressing over it is coming loose at edge. The insertion point of line is still covered. ) Results - Vitals Vitals: Oxygen O2 Source Room air PD MEDICAL DECISION MAKING - ED course Complexity details: considered differential (does not look infected. Dressing coming loose after shower. Replaced by nursing. She did not request any meds. ) , d/w patient Departure - Departure Disposition: 01 Home, Self Care Clinical Impression: Encounter for change of dressing Condition: Stable Record reviewed to determine appropriate education?: Yes Follow-Up: ROCIO SARAVIA [Primary Care Provider] - Comments: Follow-up for chemotherapy tomorrow as planned. Keep the PICC line site clean and dry. Usual medications. Discharge Date/Time: 06/24/17 16:00
== END 2017-06-24 16:00 | disposition home or self-care (01) ==
LOC: ED 14:31
DX: Z48.00 Encounter for change or removal of nonsurgical wound dressing (principal); C56.9 Malignant neoplasm of unspecified ovary; F17.200 Nicotine dependence, unspecified, uncomplicated
CPT/HCPCS: 99282; 99283

== ENCOUNTER 2017-07-02 09:55 | Observation (INO) | payer MEDICAID ==
[2017-07-02] MEDS ORDERED: SODIUM CHLORIDE 0.9% 1,000 ML IV ONE ×4 (10:41→15:31)
--- NOTE | 2017-07-02 10:49 | ED Physician Documentation ---
PD HPI NVD - Stated complaint Stated Complaint: WEAKNESS/VOMITING CHEMO PT - Chief complaint Chief Complaint: General - History obtained from History obtained from: Patient - History of Present Illness Timing - onset: How many days ago (3) Timing - duration: Days (3 days of worse nausea and vomiting, with increased abd pain following. Having some diarrhea as well.) Timing - details: Gradual onset (onset of symptoms with chemo last week, but worse the past 2-3 days, and even worse yet this morning.) Associated symptoms: No: Fever, Weight loss Contributing factors: Other (chemotherapy last week). No: Sick contact, Bad food, Travel, Recent antibiotics Improved by: No: Vomiting Worsened by: Eating Similar symptoms before: Diagnosis (nausea and abd pain from her tumor, prior surgery and now chemo.) Recently seen: Clinic (last week with daily IV chemo for ovarian CA sun-sunday last week, with nausea and IV fluids/meds along with chemo. Had PICC line pulled Sunday. Has had persistent N/V over the weekend. Unable to take usual pain meds and so hurting more than baseline as well.) Review of Systems Constitutional: reports: Myalgias, Fatigue. denies: Fever, Chills Nose: denies: Rhinorrhea / runny nose, Congestion Throat: denies: Sore throat Cardiac: denies: Chest pain / pressure, Palpitations Respiratory: denies: Cough GI: reports: Abdominal Pain, Nausea, Vomiting, Diarrhea. denies: Abdominal Swelling, Constipation, Hematemesis, Bloody / black stool : denies: Dysuria, Frequency Neurologic: reports: Generalized weakness. denies: Focal weakness, Numbness, Confused, Altered mental status, Headache Endocrine: denies: Polyuria Immunocompromised: reports: Immunocompromised, Chemotherapy PD PAST MEDICAL HISTORY - Past Medical History Cardiovascular: None Respiratory: None Neuro: Headache/migraine Endocrine/Autoimmune: None GI: GERD [employer]: Ovarian cysts, 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, Other : Chronic bladder infection, Kidney stones HEENT: None Psych: Depression, Anxiety, Post traumatic stress disorder Musculoskeletal: None Derm: None - Past Surgical History Past Surgical History: No /[employer]: Oophrectomy - Present Medications Home Medications: Ambulatory Orders Medication Instructions Recorded Confirmed Clonazepam [Clonazepam] 1 mg PO BID PRN 01/03/17 07/02/17 Escitalopram [Lexapro] 5 mg PO QPM 01/03/17 07/02/17 Lamotrigine [Lamotrigine] 200 mg PO QPM 01/03/17 07/02/17 Oxybutynin [Ditropan] 5 mg PO TID 01/03/17 07/02/17 Ondansetron Odt [Zofran] 4 mg TL Q6H PRN #10 tablet 02/23/17 07/02/17 Diphenoxylate/Atropine [Lomotil] 1 each PO QID PRN #15 tablet 03/15/17 07/02/17 PARoxetine [Paxil] 20 mg PO QPM 04/23/17 07/02/17 Acetaminophen 325 mg PO Q4HR PRN 06/23/17 07/02/17 Gabapentin 100 mg PO TID 06/23/17 07/02/17 raNITIdine [Zantac] 150 mg PO BID 06/23/17 07/02/17 Alprazolam [Xanax] 0.25 - 0.5 mg PO Q12H PRN 07/02/17 07/02/17 Ferrous Sulfate 325 mg PO BID 07/02/17 07/02/17 Metoclopramide [Reglan] 10 mg PO BID PRN 07/02/17 07/02/17 Promethazine [Phenergan] 12.5 mg PO Q6H PRN 07/02/17 07/02/17 oxyCODONE [Roxicodone] 5 mg PO Q4-6H PRN 07/02/17 07/02/17 - Allergies Allergies/Adverse Reactions: Allergies Allergy/AdvReac Type Severity Reaction Status Date / Time aripiprazole [From Abilify] Allergy Rash Verified 07/02/17 10:10 hydrocodone bitartrate * Allergy Hives Verified 07/02/17 10:10 [From Vicodin] tramadol Allergy Hives Verified 07/02/17 10:10 ethinyl estradiol AdvReac Cramps Verified 07/02/17 10:10 [From NuvaRing] etonogestrel [From NuvaRing] AdvReac Cramps Verified 07/02/17 10:10 - Social History Does the pt smoke?: No Smoking Status: Former smoker Does the pt drink ETOH?: Yes Does the pt have substance abuse?: No - Immunizations Immunizations are current?: Yes - POLST Patient has POLST: No PD ED PE NORMAL - Vitals Vital signs reviewed: Yes - General General: Alert and oriented X 3, No acute distress, Well developed/nourished - HEENT HEENT: Atraumatic, Ears normal, Pharynx benign. No: Moist mucous membranes - Neck Neck: Supple, no meningeal sign, No adenopathy - Cardiac Cardiac: RRR, No murmur - Respiratory Respiratory: Clear bilaterally - Abdomen Abdomen: Soft, Non distended, No organomegaly, Other (tender mid to lower abd without guarding nor percussion tenderness. ) - Female Female : Deferred - Rectal Rectal: Deferred - Back Back: No CVA TTP - Derm Derm: Warm and dry. No: Normal color (pale) - Extremities Extremities: No tenderness to palpate, Normal ROM s pain, No edema, No calf tenderness / cord - Neuro Neuro: Alert and oriented X 3, No motor deficit, Normal speech Results - Vitals Vitals: Vital Signs - 24 hr 07/02/17 07/02/17 07/02/17 10:07 11:39 14:04 Temperature 35.7 C L Heart Rate 80 72 72 Respiratory 16 14 12 Rate Blood Pressure 132/75 H 132/74 H 121/66 O2 Saturation 99 100 97 Oxygen O2 Source Room air - Labs Labs: Laboratory Tests 07/02/17 07/02/17 07/02/17 10:40 10:40 11:30 WBC 7.5 RBC 4.76 Hgb 13.4 Hct 39.1 MCV 82.1 MCH 28.2 MCHC 34.4 RDW 15.9 H Plt Count 299 MPV 7.6 L Neut # 5.0 Lymph # 2.2 [place] # 0.1 Eos # 0.1 Baso # 0.0 Absolute Nucleated RBC 0.00 Nucleated RBC % 0.0 Sodium 135 Potassium 3.9 Chloride 100 L Carbon Dioxide 23 Anion Gap 12.0 BUN 21 H Creatinine 0.6 Estimated GFR (MDRD) 121 Glucose 97 Calcium 9.4 Total Bilirubin 0.6 AST 43 H ALT 85 H Alkaline Phosphatase 57 Total Protein 7.7 Albumin 4.3 Globulin 3.4 Albumin/Globulin Ratio 1.3 Lipase 21 L Urine Color LT RED Urine Clarity BLOODY Urine pH 8.5 H Ur Specific [place] 1.020 Urine Protein TRACE Urine Glucose (UA) NEGATIVE Urine Ketones NEGATIVE Urine Occult Blood LARGE H Urine Nitrite NEGATIVE Urine Bilirubin NEGATIVE Urine Urobilinogen 0.2 (NORMAL) Ur Leukocyte Esterase NEGATIVE Urine RBC 11-25 H Urine WBC 0-3 Ur Squamous Epith Cells RARE Squamous Urine Bacteria Few Ur Microscopic Review INDICATED Urine Culture Comments NOT INDICATED PD MEDICAL DECISION MAKING - ED course Complexity details: re-evaluated patient (She has had 2 and then now 3 L third liter infusing with several rounds of medications for nausea and abdominal pain. She was feeling less intensely nauseous and tried some crackers and water but vomited them up just again. At this point would say it is intractable enough to warrant in the hospital care. We will give her some acid reduction medication as well. Her abdominal exam does not feel like an acute abdomen and so no imaging was done at this time. Labs are generally good otherwise. I talked with Dr. Kendrick valdez on his hospitalist and will place the patient to the hospital.), considered differential, d/w patient Departure - Departure Disposition: ED Place in Observation Clinical Impression: Status post chemotherapy, Dehydration Intractable nausea and vomiting Qualifiers: Vomiting type: unspecified Qualified Code(s): R11.2 - Nausea with vomiting, unspecified Discharge Date/Time: 07/02/17 17:21
[2017-07-02 10:52] LABS: BASOPHILS % (AUTO) 0.1 %; EOSINOPHILS # (AUTO) 0.1 10^3/uL (0.0-0.7); EOSINOPHILS % (AUTO) 1.4 %; HCT - HEMATOCRIT 39.1 % (37.0-47.0); HGB - HEMOGLOBIN 13.4 g/dL (12.0-16.0); LYMPHOCYTES # (AUTO) 2.2 10^3/uL (1.5-3.5); MEAN CORPUSCULAR HEMOGLOBIN 28.2 pg (27.0-31.0); MEAN CORPUSCULAR HGB CONC 34.4 g/dL (32.0-36.0); MEAN CORPUSCULAR VOLUME 82.1 fL (81.0-99.0); MEAN PLATELET VOLUME 7.6 fL (7.9-10.8); MONOCYTES # (AUTO) 0.1 10^3/uL (0.0-1.0); MONOCYTES % (AUTO) 0.9 %; NEUTROPHILS % (AUTO) 67.6 %; RED BLOOD COUNT 4.76 10^6/uL (4.20-5.40); RED CELL DISTRIBUTION WIDTH 15.9 % (12.0-15.0); UNCORRECTED WHITE BLOOD COUNT 7.5 x10^3/uL; WHITE BLOOD COUNT 7.5 x10^3/uL (4.8-10.8)
[2017-07-02 11:02] LABS: ALBUMIN/GLOBULIN RATIO 1.3 (1.0-2.2); BILIRUBIN,TOTAL 0.6 mg/dL (0.2-1.0); CALCIUM 9.4 mg/dL (8.5-10.3); CREATININE 0.6 mg/dL (0.4-1.0); POTASSIUM 3.9 mmol/L (3.5-5.0); TOTAL PROTEIN 7.7 g/dL (6.7-8.2)
[2017-07-02] MEDS ORDERED: DEXAMETHASONE 10 MG/ML VIAL IVP STA (11:21)
[2017-07-02] MEDS ORDERED: HYDROmorphone 1 MG/ML SYRINGE IVP STA ×3 (11:21→15:26)
[2017-07-02] MEDS ORDERED: ONDANSETRON 4 MG/2 ML VIAL IVP STA (11:21)
[2017-07-02] MEDS ORDERED: LORazepam 2 MG/ML SYRINGE IVP STA (11:22)
[2017-07-02] MEDS ORDERED: HYDROmorphone 1 MG/ML SYRINGE ONE ×3 (11:35→16:00)
[2017-07-02] MEDS ORDERED: ONDANSETRON 4 MG/2 ML VIAL ONE (11:35)
[2017-07-02] MEDS ORDERED: LORazepam 2 MG/ML SYRINGE ONE (11:35)
[2017-07-02] MEDS ORDERED: DEXAMETHASONE 10 MG/ML VIAL ONE (11:36)
[2017-07-02 11:53] LABS: BILIRUBIN,URINE NEGATIVE (NEGATIVE); PH,URINE 8.5 PH (5.0-7.5)
[2017-07-02 11:56] LABS: UA w/ MICROSCOPIC CHARGE YES
[2017-07-02 12:07] LABS: UR CULTURE IF IND NOT INDICATED; WBC,URINE 0-3 /HPF (0-5)
--- NOTE | 2017-07-02 12:24 | XRAY Preliminary Report ---
Exam: XR CHEST 2 VIEW PA/LAT IMPRESSION: 1. No acute disease in the chest. [facility] SITE ID: [id number]
--- NOTE | 2017-07-02 12:26 | XRAY Report ---
EXAM: CHEST RADIOGRAPHY EXAM DATE: 07/02/2017 12:06 PM. CLINICAL HISTORY: Cough. Recent chemotherapy for ovarian cancer. COMPARISON: 06/23/2017. 09/17/2016. TECHNIQUE: 2 views. FINDINGS: Lungs/Pleura: No focal opacities evident. No pleural effusion. No pneumothorax. Lung volumes are slig htly lower. Mediastinum: Heart and mediastinal contours are unremarkable. Other: No osseous abnormalities. IMPRESSION: 1. No acute disease in the chest. [facility] Referring Provider Line: [phone] SITE ID: [id number]
[2017-07-02] MEDS ORDERED: METOCLOPRAMIDE 10 MG/2 ML VIAL IVP STA (13:12)
[2017-07-02] MEDS ORDERED: METOCLOPRAMIDE 10 MG/2 ML VIAL ONE (13:44)
[2017-07-02] MEDS ORDERED: PROMETHAZINE INJ 12.5 MG in SODIUM CHLORIDE 0.9% 50 ML IV STA (14:43)
[2017-07-02] MEDS ORDERED: MAG HYDROX/AL HYDROX/SIMETH 30 ML UDC PO STA (14:44)
[2017-07-02] MEDS ORDERED: MAG HYDROX/AL HYDROX/SIMETH 30 ML UDC ONE (15:01)
[2017-07-02] MEDS ORDERED: PROMETHAZINE 25 MG/1 ML VIAL ONE (15:01)
[2017-07-02] MEDS ORDERED: FAMOTIDINE 20 MG/50 ML 50 ML IV ONE (15:39)
[2017-07-02] MEDS ORDERED: FAMOTIDINE 20 MG/2 ML VIAL ONE (16:00)
[2017-07-02] MEDS ORDERED: SODIUM CHLORIDE FLUSH 0.9% 10 ML SYRINGE IVP PRN (16:26)
[2017-07-02] MEDS ORDERED: ONDANSETRON ODT 4 MG TABLET TL PRN (16:26)
[2017-07-02] MEDS ORDERED: DIPHENOX/ATROPINE 2.5/0.025 MG TABLET PO PRN (16:29)
[2017-07-02] MEDS ORDERED: SCOPOLAMINE PATCH TOP SCH (17:00)
--- NOTE | 2017-07-02 17:36 | HISTORY & PHYSICAL EXAMINATION ---
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 The patient states she did not feel well after her chemo session on Sunday and over the weekend she had increasing nausea and vomiting. She states she tried to drink plenty of fluids to stay hydrated but could not keep up. She states that she continued to have vomiting throughout the weekend and despite taking antiemetics over the weekend it was just not getting better. She states that with all the vomiting she began having pain in her ribs and upper abdomen. She also states that her chronic lower abdominal pain was also worsening. She finally decided she was too dehydrated and needed to come into the ER today. She denies any fevers, chills, cough, chest pain, shortness of breath, nasal congestion, sore throat, neck pain, difficulty swallowing, orthopnea, PND, lower extremity swelling, diarrhea, constipation, urinary urgency, frequency or dysuria. She does admit to decreased appetite and states food does not taste good. She denies any joint pain, muscle stiffness, joint swelling, neck stiffness or focal neurological deficits. On presentation to the ER the patient was afebrile and vital signs were stable. Patient was having significant abdominal pain and nausea and appeared very dehydrated. Patient underwent a chest xray which was negative. Her electrolytes were within normal limits besides an elevated BUN. Patient had normal WBC and UA showed blood but no evidence of infection. The patient was given numerous doses of antiemetics and IV pain medications but continued to have nausea and vomiting. She could not tolerate any PO intake. She was also given IVFs. Eventually it was decided to place her in observation for intractable nausea and vomiting secondary to chemotherapy. 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 Left anterior pelvic tumor resection at 1 cm in size on 02-22-2017 currently on adjuvant chemotherapy. Chronic pelvic pain. Obesity - Past Surgical History General: reports: Other (Omentectomy) /CLUBHOUSE ATTENDANT: reports: Oophrectomy (Right) - Family & Social History Family History: Mother: Diabetes, Type 2 (Maternal Grandmother), Father: CAD ( Maternal Grandmother), Other family: CAD, Cancer (Lung, brain, gynecological ), Diabetes, Type 2 Family History Comment/Other: Grandfather had lung cancer. Multiple aunts on her father's side have had gynecological cancer. Living arrangement: At home Living Situation: With family Social History Notes: Patient was born and raised on [facility]. She lives in [place] with her 2 kids and significant other. She is no longer working because of her cancer but in the past she worked at [employer]. She has had 2 kids and 2 miscarriages. She had a history of smoking 1-2 packs a day for 10 years but quit when she was diagnosed with cancer. She rarely drinks alcohol. She does smoke marijuana regularily. - POLST Patient has POLST: No POLST Status: Full Code Meds/Allgy - Home Medications Home Medications: Ambulatory Orders Medication Instructions Recorded Confirmed Clonazepam [Clonazepam] 1 mg PO BID PRN 01/03/17 07/02/17 Escitalopram [Lexapro] 5 mg PO QPM 01/03/17 07/02/17 Lamotrigine [Lamotrigine] 200 mg PO QPM 01/03/17 07/02/17 Oxybutynin [Ditropan] 5 mg PO TID 01/03/17 07/02/17 Ondansetron Odt [Zofran] 4 mg TL Q6H PRN #10 tablet 02/23/17 07/02/17 Diphenoxylate/Atropine [Lomotil] 1 each PO QID PRN #15 tablet 03/15/17 07/02/17 PARoxetine [Paxil] 20 mg PO QPM 04/23/17 07/02/17 Acetaminophen 325 mg PO Q4HR PRN 06/23/17 07/02/17 Gabapentin 100 mg PO TID 06/23/17 07/02/17 raNITIdine [Zantac] 150 mg PO BID 06/23/17 07/02/17 Alprazolam [Xanax] 0.25 - 0.5 mg PO Q12H PRN 07/02/17 07/02/17 Ferrous Sulfate 325 mg PO BID 07/02/17 07/02/17 Metoclopramide [Reglan] 10 mg PO BID PRN 07/02/17 07/02/17 Promethazine [Phenergan] 12.5 mg PO Q6H PRN 07/02/17 07/02/17 oxyCODONE [Roxicodone] 5 mg PO Q4-6H PRN 07/02/17 07/02/17 - Allergies Allergies/Adverse Reactions: Allergies Allergy/AdvReac Type Severity Reaction Status Date / Time aripiprazole [From Abilify] Allergy Rash Verified 07/02/17 10:10 hydrocodone bitartrate * Allergy Hives Verified 07/02/17 10:10 [From Vicodin] tramadol Allergy Hives Verified 07/02/17 10:10 ethinyl estradiol AdvReac Cramps Verified 07/02/17 10:10 [From NuvaRing] etonogestrel [From NuvaRing] AdvReac Cramps Verified 07/02/17 10:10 Review of Systems - Other Findings Other Findings: A comprehensive review of systems was performed the pertinent positives and negatives are stated above in the HPI and the remainder of the review of systems is negative. Exam - Vital Signs Reviewed Vital Signs: Yes Vital Signs: Vital Signs x48h Temp Pulse Resp BP Pulse Ox 07/02/17 17:12 37.0 C 69 18 125/67 95 - Physical Exam General Appearance: positive: Moderate distress Eyes Bilateral: positive: Normal inspection, PERRL, EOMI, No lid inflammation, Conjunctivae nml, No scleral icterus ENT: positive: ENT inspection nml, Pharynx nml, Dry mucous membranes. negative : Purulent nasal drainage, Pharyngeal erythema, Oral lesions Neck: positive: Nml inspection, Thyroid nml, No JVD, Trachea midline. negative : Thyromegaly, Lymphadenopathy (R), Lymphadenopathy (L), Stiff neck, Carotid bruit, Tracheal deviation Respiratory: positive: Chest non-tender, No respiratory distress, Breath sounds nml. negative: Wheezes, Rales, Rhonchi Cardiovascular: positive: Regular rate & rhythm, No murmur, No gallop Peripheral Pulses: positive: 2+ Abdomen: positive: No organomegaly, Nml bowel sounds, Tenderness (lower abdomen , otherwise is soft and no peritoneal signs). negative: Guarding, Rebound, Hepatomegaly Back: positive: Nml inspection. negative: CVA tenderness (R), CVA tenderness (L ) Skin: positive: Color nml, No rash. negative: Cyanosis, Pallor Extremities: positive: Non-tender, Full ROM, Nml appearance, No pedal edema. negative: Joint swelling Neurologic/Psychiatric: positive: Oriented x3, CN's nml (2-12), Motor nml, Sensation nml, Mood/affect nml Conclusion/Plan - Problem List (1) Intractable nausea and vomiting Conclusion/Plan: Secondary to chemotherapy Patient did not have resolution of symptoms despite several hours of treatment in the ER Patient placed in observation for intractable nausea and vomiting Plan: IV antiemetics IVFs Monitor Qualifiers: Vomiting type: unspecified Qualified Code(s): R11.2 - Nausea with vomiting , unspecified (2) Dehydration Conclusion/Plan: Secondary to intractable nausea and vomiting Patient was dry on exam and had an elevated BUN otherwise electrolytes were within normal limits Patient given several liters of IVF in the ER Plan: Give maintenance IVFs and control nausea and vomiting (3) Chronic pain Conclusion/Plan: Patient has history of chronic pain in the lower abdomen which is worse secondary to the vomiting and extends from lower abdomen into the rib cage Patient given several doses of IV dilaudid in the ER with better control of pain Patient has a pain contract and is on PO oxycodone but secondary to his nausea and vomiting and inability to tolerate PO pain meds patient given IV dilaudid Plan: IV dilaudid 0.5 mg q 6 hours Oxycodone once patient able to tolerate PO meds Qualifiers: Chronic pain type: chronic pain syndrome Qualified Code(s): G89.4 - Chronic pain syndrome (4) Granular cell tumor Conclusion/Plan: Patient on chemo Suppose to get port tomorrow for further chemo but appointment cancelled due to hospitalization Patient will need PICC for further chemo Patient with intractable nausea and vomiting secondary to chemo Plan: Patient will need to get PICC schedule outpatient vs inpatient Stable Continue chemo as outpatient next scheduled chemo is Sunday (5) Anxiety and depression Conclusion/Plan: Stable Continue home meds Patient was recently hospitalized for anxiety at [facility] and had meds adjusted - Lab Results Lab results reviewed: Yes Fish Bones: 07/02/17 10:40 07/02/17 10:40 Other Lab Results: Laboratory Results WBC 7.5 x10^3/uL (4.8-10.8) 07/02/17 10:40 RBC 4.76 10^6/uL (4.20-5.40) 07/02/17 10:40 Hgb 13.4 g/dL (12.0-16.0) 07/02/17 10:40 Hct 39.1 % (37.0-47.0) 07/02/17 10:40 MCV 82.1 fL (81.0-99.0) 07/02/17 10:40 MCH 28.2 pg (27.0-31.0) 07/02/17 10:40 MCHC 34.4 g/dL (32.0-36.0) 07/02/17 10:40 RDW 15.9 % (12.0-15.0) H 07/02/17 10:40 Plt Count 299 10^3/uL (130-450) 07/02/17 10:40 MPV 7.6 fL (7.9-10.8) L 07/02/17 10:40 Neut # 5.0 10^3/uL (1.5-6.6) 07/02/17 10:40 Lymph # 2.2 10^3/uL (1.5-3.5) 07/02/17 10:40 [place] # 0.1 10^3/uL (0.0-1.0) 07/02/17 10:40 Eos # 0.1 10^3/uL (0.0-0.7) 07/02/17 10:40 Baso # 0.0 10^3/uL (0.0-0.1) 07/02/17 10:40 Absolute Nucleated RBC 0.00 x10^3/uL 07/02/17 10:40 Nucleated RBC % 0.0 /100WBC 07/02/17 10:40 Sodium 135 mmol/L (135-145) 07/02/17 10:40 Potassium 3.9 mmol/L (3.5-5.0) 07/02/17 10:40 Chloride 100 mmol/L (101-111) L 07/02/17 10:40 Carbon Dioxide 23 mmol/L (21-32) 07/02/17 10:40 Anion Gap 12.0 (6-13) 07/02/17 10:40 BUN 21 mg/dL (6-20) H 07/02/17 10:40 Creatinine 0.6 mg/dL (0.4-1.0) 07/02/17 10:40 Estimated GFR (MDRD) 121 (>89) 07/02/17 10:40 Glucose 97 mg/dL (70-100) 07/02/17 10:40 Calcium 9.4 mg/dL (8.5-10.3) 07/02/17 10:40 Total Bilirubin 0.6 mg/dL (0.2-1.0) 07/02/17 10:40 AST 43 IU/L (10-42) H 07/02/17 10:40 ALT 85 IU/L (10-60) H 07/02/17 10:40 Alkaline Phosphatase 57 IU/L (42-121) 07/02/17 10:40 Total Protein 7.7 g/dL (6.7-8.2) 07/02/17 10:40 Albumin 4.3 g/dL (3.2-5.5) 07/02/17 10:40 Globulin 3.4 g/dL (2.1-4.2) 07/02/17 10:40 Albumin/Globulin Ratio 1.3 (1.0-2.2) 07/02/17 10:40 Lipase 21 U/L (22-51) L 07/02/17 10:40 Urine Color LT RED 07/02/17 11:30 Urine Clarity BLOODY (CLEAR) 07/02/17 11:30 Urine pH 8.5 PH (5.0-7.5) H 07/02/17 11:30 Ur Specific [place] 1.020 (1.002-1.030) 07/02/17 11:30 Urine Protein TRACE mg/dL (NEGATIVE) 07/02/17 11:30 Urine Glucose (UA) NEGATIVE mg/dL (NEGATIVE) 07/02/17 11:30 Urine Ketones NEGATIVE mg/dL (NEGATIVE) 07/02/17 11:30 Urine Occult Blood LARGE (NEGATIVE) H 07/02/17 11:30 Urine Nitrite NEGATIVE (NEGATIVE) 07/02/17 11:30 Urine Bilirubin NEGATIVE (NEGATIVE) 07/02/17 11:30 Urine Urobilinogen 0.2 (NORMAL) E.U./dL (NORMAL) 07/02/17 11:30 Ur Leukocyte Esterase NEGATIVE (NEGATIVE) 07/02/17 11:30 Urine RBC 11-25 /HPF (0-5) H 07/02/17 11:30 Urine WBC 0-3 /HPF (0-5) 07/02/17 11:30 Ur Squamous Epith Cells RARE Squamous (<= Few) 07/02/17 11:30 Urine Bacteria Few /HPF (None Seen) 07/02/17 11:30 Ur Microscopic Review INDICATED 07/02/17 11:30 Urine Culture Comments NOT INDICATED 07/02/17 11:30 - Diagnostic Imaging Results Diagnostic Imaging Results: positive: Final report reviewed Diagnostic Imaging Results Comments: Laboratory Results WBC 7.5 x10^3/uL (4.8-10.8) 07/02/17 10:40 RBC 4.76 10^6/uL (4.20-5.40) 07/02/17 10:40 Hgb 13.4 g/dL (12.0-16.0) 07/02/17 10:40 Hct 39.1 % (37.0-47.0) 07/02/17 10:40 MCV 82.1 fL (81.0-99.0) 07/02/17 10:40 MCH 28.2 pg (27.0-31.0) 07/02/17 10:40 MCHC 34.4 g/dL (32.0-36.0) 07/02/17 10:40 RDW 15.9 % (12.0-15.0) H 07/02/17 10:40 Plt Count 299 10^3/uL (130-450) 07/02/17 10:40 MPV 7.6 fL (7.9-10.8) L 07/02/17 10:40 Neut # 5.0 10^3/uL (1.5-6.6) 07/02/17 10:40 Lymph # 2.2 10^3/uL (1.5-3.5) 07/02/17 10:40 [place] # 0.1 10^3/uL (0.0-1.0) 07/02/17 10:40 Eos # 0.1 10^3/uL (0.0-0.7) 07/02/17 10:40 Baso # 0.0 10^3/uL (0.0-0.1) 07/02/17 10:40 Absolute Nucleated RBC 0.00 x10^3/uL 07/02/17 10:40 Nucleated RBC % 0.0 /100WBC 07/02/17 10:40 Sodium 135 mmol/L (135-145) 07/02/17 10:40 Potassium 3.9 mmol/L (3.5-5.0) 07/02/17 10:40 Chloride 100 mmol/L (101-111) L 07/02/17 10:40 Carbon Dioxide 23 mmol/L (21-32) 07/02/17 10:40 Anion Gap 12.0 (6-13) 07/02/17 10:40 BUN 21 mg/dL (6-20) H 07/02/17 10:40 Creatinine 0.6 mg/dL (0.4-1.0) 07/02/17 10:40 Estimated GFR (MDRD) 121 (>89) 07/02/17 10:40 Glucose 97 mg/dL (70-100) 07/02/17 10:40 Calcium 9.4 mg/dL (8.5-10.3) 07/02/17 10:40 Total Bilirubin 0.6 mg/dL (0.2-1.0) 07/02/17 10:40 AST 43 IU/L (10-42) H 07/02/17 10:40 ALT 85 IU/L (10-60) H 07/02/17 10:40 Alkaline Phosphatase 57 IU/L (42-121) 07/02/17 10:40 Total Protein 7.7 g/dL (6.7-8.2) 07/02/17 10:40 Albumin 4.3 g/dL (3.2-5.5) 07/02/17 10:40 Globulin 3.4 g/dL (2.1-4.2) 07/02/17 10:40 Albumin/Globulin Ratio 1.3 (1.0-2.2) 07/02/17 10:40 Lipase 21 U/L (22-51) L 07/02/17 10:40 Urine Color LT RED 07/02/17 11:30 Urine Clarity BLOODY (CLEAR) 07/02/17 11:30 Urine pH 8.5 PH (5.0-7.5) H 07/02/17 11:30 Ur Specific [place] 1.020 (1.002-1.030) 07/02/17 11:30 Urine Protein TRACE mg/dL (NEGATIVE) 07/02/17 11:30 Urine Glucose (UA) NEGATIVE mg/dL (NEGATIVE) 07/02/17 11:30 Urine Ketones NEGATIVE mg/dL (NEGATIVE) 07/02/17 11:30 Urine Occult Blood LARGE (NEGATIVE) H 07/02/17 11:30 Urine Nitrite NEGATIVE (NEGATIVE) 07/02/17 11:30 Urine Bilirubin NEGATIVE (NEGATIVE) 07/02/17 11:30 Urine Urobilinogen 0.2 (NORMAL) E.U./dL (NORMAL) 07/02/17 11:30 Ur Leukocyte Esterase NEGATIVE (NEGATIVE) 07/02/17 11:30 Urine RBC 11-25 /HPF (0-5) H 07/02/17 11:30 Urine WBC 0-3 /HPF (0-5) 07/02/17 11:30 Ur Squamous Epith Cells RARE Squamous (<= Few) 07/02/17 11:30 Urine Bacteria Few /HPF (None Seen) 07/02/17 11:30 Ur Microscopic Review INDICATED 07/02/17 11:30 Urine Culture Comments NOT INDICATED 07/02/17 11:30 Chest x-ray Impression: No acute disease seen Issues/Core Measures - Anticipated LOS Anticipated Stay Length: Less than 2 midnights - DVT/VTE - Prophylaxis VTE/DVT Prophylaxis med ordered at admit?: Yes
[2017-07-02] MEDS: PANTOPRAZOLE 40 MG VIAL IVP SCH (18:19)
[2017-07-02] MEDS: SODIUM CHLORIDE 0.9% 1,000 ML IV SCH (18:21)
[2017-07-02] MEDS: HYDROmorphone 0.5 MG/0.5 ML SYRINGE IVP PRN (19:00)
[2017-07-02] MEDS ORDERED: ALPRAZolam 0.25 MG TABLET PO PRN (19:19)
[2017-07-02] MEDS: ONDANSETRON 4 MG/2 ML VIAL IVP PRN (20:58)
[2017-07-02] MEDS: oxyCODONE 5 MG TABLET PO PRN (20:58)
[2017-07-02] MEDS: SODIUM CHLORIDE FLUSH 0.9% 10 ML SYRINGE IVP SCH (20:58)
[2017-07-02] MEDS: ACETAMINOPHEN 325 MG TABLET PO PRN (20:58)
[2017-07-02] MEDS ORDERED: PARoxetine 10 MG TABLET PO SCH (21:00)
[2017-07-02] MEDS ORDERED: ESCITALOPRAM 10 MG TABLET PO SCH (21:00)
[2017-07-02] MEDS ORDERED: lamoTRIgine 100 MG TABLET PO SCH (21:00)
[2017-07-02] MEDS ORDERED: OXYBUTYNIN 5MG TABLET PO SCH (22:00)
[2017-07-02] MEDS ORDERED: GABAPENTIN 100 MG CAPSULE PO SCH (22:00)
[2017-07-02] MEDS: clonazePAM 0.5 MG TABLET PO SCH (22:02)
[2017-07-02] MEDS: PROCHLORPERAZINE 10 MG/2 ML VIAL IVP PRN (22:07)
[2017-07-03] MEDS: SODIUM CHLORIDE 0.9% 1,000 ML IV SCH (04:44)
[2017-07-03] MEDS: HYDROmorphone 0.5 MG/0.5 ML SYRINGE IVP PRN (05:21)
[2017-07-03] MEDS: ONDANSETRON 4 MG/2 ML VIAL IVP PRN ×2 (05:24→12:05)
[2017-07-03 06:18] LABS: CALCIUM 8.4 mg/dL (8.5-10.3); CREATININE 0.5 mg/dL (0.4-1.0); POTASSIUM 3.9 mmol/L (3.5-5.0)
[2017-07-03] MEDS: PANTOPRAZOLE 40 MG VIAL IVP SCH (06:43)
[2017-07-03] MEDS: SODIUM CHLORIDE FLUSH 0.9% 10 ML SYRINGE IVP SCH (06:43)
[2017-07-03] MEDS ORDERED: OXYBUTYNIN 5MG TABLET PO SCH (08:00)
[2017-07-03] MEDS ORDERED: GABAPENTIN 100 MG CAPSULE PO SCH (08:00)
--- NOTE | 2017-07-03 08:18 | Discharge Plan ---
Discharge Plan Disposition: 01 Home, Self Care Condition: Good Diet: Regular Activity Restrictions: Activity as Tolerated Shower Restrictions: No Driving Restrictions: No Additional Instructions or Follow Up instructions: You were placed in observation because of intractable nausea and vomiting induced by chemotherapy. You have been getting chemotherapy Sunday through Sunday and last week was your first week. We were glad that you were able to get better with simple IV hydration with normal saline and our nausea drugs. Please follow-up with Dr. Macario, your Oncologist. Unfortunately you had to cancel a Port-A-Cath placement today because you are in the hospital. He will need to reschedule you for that. They also need to see you in follow-up to plan for more chemotherapy. We are not starting any new medications. Continue taking the same medications you were taking when he came in the hospital. Diet should be easy to digest food. Avoid things that are fried, with heavy sauces. No Smoking: If you smoke, Please STOP! Call for help. Follow-up with: ROCIO SARAVIA [Primary Care Provider] - Farhat He MD [Physician No Access] -
[2017-07-03] MEDS: oxyCODONE 5 MG TABLET PO PRN (08:57)
[2017-07-03] MEDS: clonazePAM 0.5 MG TABLET PO SCH (08:57)
[2017-07-03] MEDS: PROCHLORPERAZINE 10 MG/2 ML VIAL IVP PRN (08:58)
[2017-07-03] MEDS ORDERED: POLYETHYLENE GLYCOL 3350 17 GM PACKET PO SCH (09:00)
[2017-07-03] MEDS ORDERED: ENOXAPARIN 40 MG/0.4 ML SYRINGE SUBQ SCH (09:00)
[2017-07-03 11:59] VITALS: BP 114/60
[2017-07-03] MEDS: ACETAMINOPHEN 325 MG TABLET PO PRN (12:05)
== END 2017-07-03 13:05 | disposition home or self-care (01) ==
LOC: ED 09:55 → OBS 16:26
PROVIDERS: ADMIT Specialist; ATTEND Specialist
DX: R11.2 Nausea with vomiting, unspecified (principal); T45.1X5A Adverse effect of antineoplastic and immunosuppressive drugs, initial encounter; E86.0 Dehydration; G89.3 Neoplasm related pain (acute) (chronic); F41.9 Anxiety disorder, unspecified; F32.9 Major depressive disorder, single episode, unspecified; C56.1 Malignant neoplasm of right ovary; C78.6 Secondary malignant neoplasm of retroperitoneum and peritoneum; C79.89 Secondary malignant neoplasm of other specified sites; Z79.899 Other long term (current) drug therapy; Z87.891 Personal history of nicotine dependence; G43.909 Migraine, unspecified, not intractable, without status migrainosus
CPT/HCPCS: 36415; 71020; 80048; 80053; 81001; 83690; 85025; 96361; 96365; 96366; 96368; 96372; 96375; 96376; 99284; 99285; A9270; G0378; J1170; J1650; J2060; J3490; J7040; 81003; 87086

== ENCOUNTER 2017-07-05 13:48 | Emergency (ER) | payer MEDICAID ==
[2017-07-05 13:56] VITALS: BP 132/84
[2017-07-05] MEDS ORDERED: BUFFERED LIDOCAINE 10 ML SYRINGE ONE (14:02)
--- NOTE | 2017-07-05 14:10 | ED Physician Documentation ---
History of Present Illness - Stated complaint Stated Complaint: PIC LINE CHECK - Chief complaint Chief Complaint: General - History obtained from History obtained from: Patient - History of Present Illness Timing: Other (She is a PICC line in the right upper extremity, there was some blood on the dressing today. 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: Ovarian cysts, 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, Other : Chronic bladder infection, Kidney stones HEENT: None Psych: Depression, Anxiety, Post traumatic stress disorder Musculoskeletal: None Derm: None - Past Surgical History Past Surgical History: No General: Other /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 GAUGER APPRENTICE: Oophrectomy - Present Medications Home Medications: Ambulatory Orders Medication Instructions Recorded Confirmed Clonazepam 1 mg PO BID PRN 01/03/17 07/02/17 Escitalopram [Lexapro] 15 mg PO QPM 01/03/17 07/03/17 Lamotrigine 200 mg PO QPM 01/03/17 07/02/17 Oxybutynin [Ditropan] 5 mg PO TID 01/03/17 07/02/17 Diphenoxylate/Atropine [Lomotil] 1 each PO QID PRN #15 tablet 03/15/17 07/02/17 PARoxetine [Paxil] 20 mg PO QPM 04/23/17 07/02/17 Acetaminophen 325 mg PO Q4HR PRN 06/23/17 07/02/17 Gabapentin 100 mg PO TID 06/23/17 07/02/17 raNITIdine [Zantac] 150 mg PO BID 06/23/17 07/02/17 Alprazolam [Xanax] 0.25 - 0.5 mg PO Q12H PRN 07/02/17 07/02/17 Ferrous Sulfate 325 mg PO BID 07/02/17 07/02/17 oxyCODONE [Roxicodone] 5 mg PO Q4-6H PRN 07/02/17 07/02/17 Metoclopramide [Reglan] 10 mg PO BID PRN #30 tablet 07/03/17 Ondansetron Odt [Zofran Odt] 4 mg TL Q6H PRN #10 tablet 07/03/17 Promethazine [Phenergan] 12.5 mg PO Q6H PRN #30 tablet 07/03/17 - Allergies Allergies/Adverse Reactions: Allergies Allergy/AdvReac Type Severity Reaction Status Date / Time aripiprazole [From Abilify] Allergy Rash Verified 07/05/17 13:56 hydrocodone bitartrate * Allergy Hives Verified 07/05/17 13:56 [From Vicodin] tramadol Allergy Hives Verified 07/05/17 13:56 ethinyl estradiol AdvReac Cramps Verified 07/05/17 13:56 [From NuvaRing] etonogestrel [From NuvaRing] AdvReac Cramps Verified 07/05/17 13:56 - Social History Does the pt smoke?: No Smoking Status: Never smoker Does the pt drink ETOH?: Yes Does the pt have substance abuse?: No - Immunizations Immunizations are current?: Yes - POLST Patient has POLST: No POLST Status: Full Code PD ED PE NORMAL - Vitals Vital signs reviewed: Yes - General General: Alert and oriented X 3, No acute distress - Extremities Extremities: Other (Right arm deep brachial PICC line it looks like it is back out may be a couple of centimeters and there is a small amount of blood in the Biopatch. The dressing was removed and the area was prepped with ChloraPrep and a 4 oh stitch was placed in the PICC line to prevent it from backing out further and a new Biopatch and Tegaderm were placed.) - Neuro Neuro: Alert and oriented X 3, Normal speech Results - Vitals Vitals: Vital Signs - 24 hr 07/05/17 13:53 Temperature 36.6 C Heart Rate 81 Respiratory 18 Rate Blood Pressure 132/84 H O2 Saturation 98 Oxygen O2 Source Room air Departure - Departure Disposition: 01 Home, Self Care Clinical Impression: Right arm pain Condition: Good Record reviewed to determine appropriate education?: Yes Instructions: ED PICC Line Care Comments: Your blood pressure was elevated today on check into the emergency department. This does not mean that you have hypertension, it is a common phenomenon to come to the emergency department and have elevated blood pressure. I recommend that you see your primary care physician within the week to have it rechecked when you are feeling better.
== END 2017-07-05 14:13 | disposition home or self-care (01) ==
LOC: ED 13:48
DX: M79.601 Pain in right arm (principal); Z04.8 Encounter for examination and observation for other specified reasons; R03.0 Elevated blood-pressure reading, without diagnosis of hypertension
CPT/HCPCS: 99282; 99283

== ENCOUNTER 2017-07-05 20:19 | Emergency (ER) | payer MEDICAID ==
--- NOTE | 2017-07-05 20:54 | ED Physician Documentation ---
History of Present Illness - Stated complaint Stated Complaint: PICC LINE ISSUES - Chief complaint Chief Complaint: General - History obtained from History obtained from: Patient - History of Present Illness Timing: Yesterday - Additonal information Additional information: patient had PICC line replaced yesterday, came to [facility] ED earlier today due to bleeding at site and concern that it appeared to be coming out; the dressing was changed and a suture placed to secure the line in place. She returns at this time due to more bleeding noted at the site. She also c/o discomfort of the RUE from the PICC insertion site to the shoulder and into the right side of the chest. 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: Ovarian cysts, 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, Other : Chronic bladder infection, Kidney stones HEENT: None Psych: Depression, Anxiety, Post traumatic stress disorder Musculoskeletal: None Derm: None - Past Surgical History Past Surgical History: Yes General: Other /TECH INTERN: Oophrectomy - Present Medications Home Medications: Ambulatory Orders Medication Instructions Recorded Confirmed Clonazepam 1 mg PO BID PRN 01/03/17 07/02/17 Escitalopram [Lexapro] 15 mg PO QPM 01/03/17 07/03/17 Lamotrigine 200 mg PO QPM 01/03/17 07/02/17 Oxybutynin [Ditropan] 5 mg PO TID 01/03/17 07/02/17 Diphenoxylate/Atropine [Lomotil] 1 each PO QID PRN #15 tablet 03/15/17 07/02/17 PARoxetine [Paxil] 20 mg PO QPM 04/23/17 07/02/17 Acetaminophen 325 mg PO Q4HR PRN 06/23/17 07/02/17 Gabapentin 100 mg PO TID 06/23/17 07/02/17 raNITIdine [Zantac] 150 mg PO BID 06/23/17 07/02/17 Alprazolam [Xanax] 0.25 - 0.5 mg PO Q12H PRN 07/02/17 07/02/17 Ferrous Sulfate 325 mg PO BID 07/02/17 07/02/17 oxyCODONE [Roxicodone] 5 mg PO Q4-6H PRN 07/02/17 07/02/17 Metoclopramide [Reglan] 10 mg PO BID PRN #30 tablet 07/03/17 Ondansetron Odt [Zofran Odt] 4 mg TL Q6H PRN #10 tablet 07/03/17 Promethazine [Phenergan] 12.5 mg PO Q6H PRN #30 tablet 07/03/17 - Allergies Allergies/Adverse Reactions: Allergies Allergy/AdvReac Type Severity Reaction Status Date / Time aripiprazole [From Abilify] Allergy Rash Verified 07/05/17 20:35 hydrocodone bitartrate * Allergy Hives Verified 07/05/17 20:35 [From Vicodin] tramadol Allergy Hives Verified 07/05/17 13:56 ethinyl estradiol AdvReac Cramps Verified 07/05/17 20:35 [From NuvaRing] etonogestrel [From NuvaRing] AdvReac Cramps Verified 07/05/17 20:35 - Social History Does the pt smoke?: No Smoking Status: Never smoker Does the pt drink ETOH?: Yes Does the pt have substance abuse?: No - Immunizations Immunizations are current?: Yes - POLST Patient has POLST: No POLST Status: Full Code PD ED PE NORMAL - Vitals Vital signs reviewed: Yes - General General: Alert and oriented X 3, No acute distress, Well developed/nourished - Derm Derm: No rash - Extremities Extremities: Normal ROM s pain, No edema PD ED PE EXPANDED - Extremities Extremities: Tenderness (mild tenderness at PICC insertion site. There is no erythema or swelling. There is a trace amount of blood at the insertion site under the Tegaderm ). No: Swelling Results - Vitals Vitals: Vital Signs - 24 hr 07/05/17 07/05/17 20:33 23:55 Temperature 36.3 C L 36.7 C Heart Rate 98 70 Respiratory 19 15 Rate Blood Pressure 127/74 120/80 O2 Saturation 98 97 Oxygen O2 Source Room air PD MEDICAL DECISION MAKING - ED course Complexity details: reviewed old records, reviewed results, re-evaluated patient , considered differential, d/w patient ED course: Dressing changed, PICC line flushed without difficulty. Unremarkable CXR and RUE US. Departure - Departure Disposition: 01 Home, Self Care Clinical Impression: Encounter for change of dressing Condition: Good Instructions: ED PICC Line Care Follow-Up: ROCIO SARAVIA [Primary Care Provider] - Discharge Date/Time: 07/06/17 00:11
--- NOTE | 2017-07-05 22:08 | XRAY Preliminary Report ---
Exam: XR CHEST 2 VIEW PA/LAT IMPRESSION: 1. Right arm PICC line catheter tip projects over the lower SVC. 2. Small subsegmental bibasilar atelectatic changes noted. [facility] SITE ID: [id number]
--- NOTE | 2017-07-05 22:17 | XRAY Report ---
EXAM: CHEST RADIOGRAPHY EXAM DATE: 07/05/2017 09:56 PM. CLINICAL HISTORY: Right-sided chest pain, PICC line placement. COMPARISON: 07/02/2017. TECHNIQUE: 2 views. FINDINGS: Lungs/Pleura: There is minimal streaky bibasilar subsegmental opacity, suggestive of atelectasis. No significant consolidation, effusion, or pneumothorax. Mediastinum: Heart and mediastinal contours are unremarkable. Other: There is a right arm PICC line catheter with the tip projecting over the lower SVC. IMPRESSION: 1. Right arm PICC line catheter tip projects over the lower SVC. 2. Small subsegmental bibasilar atelectatic changes noted. [facility] Referring Provider Line: [phone] SITE ID: [id number]
--- NOTE | 2017-07-05 23:20 | Ultrasound Preliminary Report ---
Exam: US DUPLEX EXT VEINS RIGHT IMPRESSION: No evidence for deep vein thrombosis. [facility] SITE ID: [id number]
--- NOTE | 2017-07-05 23:23 | Ultrasound Report ---
EXAM: RIGHT UPPER EXTREMITY VENOUS ULTRASOUND EXAM DATE: 07/05/2017 09:51 PM. CLINICAL HISTORY: RUE pain, swelling. Right sided PICC line catheter. COMPARISON: None. TECHNIQUE: Real-time sonographic vascular imaging was performed by the wagon winder through the upper extremity utilizing both color-flow and Doppler spectral analysis. Multiple veterans employment representative static marcella ges were saved for review. FINDINGS: Internal Jugular Vein (IJV): Normal. Subclavian Vein (SCV): Normal. Axillary Vein : Normal. Cephalic Vein (superficial vein): No definite evidence of thrombus. Slow flow. Basilic Vein (superficial vein): Normal. Brachial Vein: Normal. Contralateral Side: Subclavian Vein: Normal. Other: Right upper extremity PICC line catheter is noted. IMPRESSION: No evidence for deep vein thrombosis. [facility] Referring Provider Line: [phone] SITE ID: [id number]
[2017-07-06 00:10] VITALS: BP 120/80
== END 2017-07-06 00:11 | disposition home or self-care (01) ==
LOC: ED 20:19
DX: T82.838A Hemorrhage due to vascular prosthetic devices, implants and grafts, initial encounter (principal); M79.601 Pain in right arm; Z04.8 Encounter for examination and observation for other specified reasons; R03.0 Elevated blood-pressure reading, without diagnosis of hypertension; K21.9 Gastro-esophageal reflux disease without esophagitis; Z85.43 Personal history of malignant neoplasm of ovary
CPT/HCPCS: 71020; 99282; 99283

== ENCOUNTER 2017-07-22 10:17 | Emergency (ER) | payer MEDICAID ==
[2017-07-22] MEDS ORDERED: SODIUM CHLORIDE 0.9% 1,000 ML IV ONE ×2 (10:42→12:18)
[2017-07-22] MEDS ORDERED: HYDROmorphone 1 MG/ML SYRINGE IVP STA ×2 (12:18→14:13)
[2017-07-22] MEDS ORDERED: ONDANSETRON 4 MG/2 ML VIAL IVP STA (12:18)
[2017-07-22] MEDS ORDERED: DEXAMETHASONE 10 MG/ML VIAL IVP STA (12:18)
[2017-07-22] MEDS ORDERED: LORazepam 2 MG/ML VIAL IVP STA (12:19)
--- NOTE | 2017-07-22 12:22 | ED Physician Documentation ---
PD HPI NVD - Stated complaint Stated Complaint: NAUSEA,BODY PAIN - Chief complaint Chief Complaint: General - History obtained from History obtained from: Patient - History of Present Illness Timing - onset: How many days ago (5) Timing - duration: Days (5) Timing - details: Gradual onset, Still present Associated symptoms: Abdominal pain, Dizzy, Near syncope / syncope Contributing factors: Other (chemo this week) Improved by: Laying still, Vomiting Worsened by: Eating Similar symptoms before: Diagnosis (chemo induced nausea) Recently seen: Admitted, Other (chemo) - Additonal information Additional information: 27-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 She has not been able to hold anything down for the past 3 days. She has not been able to hold her antianxiety medicines pain medicines or her nausea medicines. She had a similar episode with the first round of chemotherapy and ended up in the hospital overnight. Review of Systems Constitutional: reports: Myalgias, Fatigue, Sweats. denies: Fever Eyes: denies: Decreased vision Ears: denies: Ear pain Nose: denies: Rhinorrhea / runny nose, Congestion Throat: denies: Sore throat Cardiac: reports: Palpitations. denies: Chest pain / pressure Respiratory: reports: Dyspnea. denies: Cough GI: reports: Abdominal Pain, Nausea, Vomiting : denies: Dysuria, Frequency Skin: denies: Rash Musculoskeletal: denies: Neck pain, Back pain, Extremity pain Neurologic: reports: Generalized weakness. 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: Ovarian cysts, 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, Other : Chronic bladder infection, Kidney stones HEENT: None Psych: Depression, Anxiety, Post traumatic stress disorder Musculoskeletal: None Derm: None - Past Surgical History Past Surgical History: Yes General: Other /GENETICS TEACHER: Oophrectomy - Present Medications Home Medications: Ambulatory Orders Medication Instructions Recorded Confirmed Clonazepam 1 mg PO BID PRN 01/03/17 07/22/17 Escitalopram [Lexapro] 15 mg PO QPM 01/03/17 07/22/17 Lamotrigine 200 mg PO QPM 01/03/17 07/22/17 Oxybutynin [Ditropan] 5 mg PO TID 01/03/17 07/22/17 Diphenoxylate/Atropine [Lomotil] 1 each PO QID PRN #15 tablet 03/15/17 07/22/17 PARoxetine [Paxil] 20 mg PO QPM 04/23/17 07/22/17 Acetaminophen 325 mg PO Q4HR PRN 06/23/17 07/22/17 Gabapentin 100 mg PO TID 06/23/17 07/22/17 raNITIdine [Zantac] 150 mg PO BID 06/23/17 07/22/17 Alprazolam [Xanax] 0.25 - 0.5 mg PO Q12H PRN 07/02/17 07/22/17 Ferrous Sulfate 325 mg PO BID 07/02/17 07/22/17 oxyCODONE [Roxicodone] 5 mg PO Q4-6H PRN 07/02/17 07/22/17 Metoclopramide [Reglan] 10 mg PO BID PRN #30 tablet 07/03/17 07/22/17 Ondansetron Odt [Zofran Odt] 4 mg TL Q6H PRN #10 tablet 07/03/17 07/22/17 Promethazine [Phenergan] 12.5 mg PO Q6H PRN #30 tablet 07/03/17 07/22/17 Lorazepam [Ativan] 1 tab PO TID PRN 07/22/17 07/22/17 Promethazine [Phenergan] 25 - 50 mg PO Q6H PRN #10 tab 07/22/17 oxyCODONE [Roxicodone] 5 mg PO Q6H PRN #12 tablet 07/22/17 - Allergies Allergies/Adverse Reactions: Allergies Allergy/AdvReac Type Severity Reaction Status Date / Time aripiprazole [From Abilify] Allergy Rash Verified 07/22/17 10:30 hydrocodone bitartrate * Allergy Hives Verified 07/22/17 10:30 [From Vicodin] tramadol Allergy Hives Verified 07/22/17 10:30 ethinyl estradiol AdvReac Cramps Verified 07/22/17 10:30 [From NuvaRing] etonogestrel [From NuvaRing] AdvReac Cramps Verified 07/22/17 10:30 - Social History Does the pt smoke?: No Smoking Status: Never smoker Does the pt drink ETOH?: Yes Does the pt have substance abuse?: No - Immunizations Immunizations are current?: Yes - POLST Patient has POLST: No POLST Status: Full Code PD ED PE NORMAL - Vitals Vital signs reviewed: Yes (Normal) - General General: Well developed/nourished, Other (27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 ) - HEENT HEENT: Atraumatic, PERRL, EOMI, Other (Dry mucous membranes) - Neck Neck: Supple, no meningeal sign, No bony TTP - Cardiac Cardiac: RRR, No murmur - Respiratory Respiratory: No respiratory distress, Clear bilaterally - Abdomen Abdomen: Soft, Other (Mild epigastric tenderness without specific focal tenderness) - Back Back: No CVA TTP, No spinal TTP - Derm Derm: Normal color, Warm and dry, No rash - Extremities Extremities: No deformity, No edema - Neuro Neuro: No motor deficit, No sensory deficit Eye Opening: Spontaneous Motor: Obeys Commands Verbal: Oriented GCS Score: 15 - Psych Psych: Normal mood, Normal affect Results - Vitals Vitals: Vital Signs - 24 hr 07/22/17 07/22/17 07/22/17 10:26 11:08 12:02 Temperature 36.5 C 36.2 C L 36.2 C L Heart Rate 98 66 66 Respiratory 18 16 20 Rate Blood Pressure 115/80 119/68 109/68 O2 Saturation 99 100 100 07/22/17 07/22/17 07/22/17 13:38 14:26 14:41 Temperature 36.8 C 36.8 C 36.2 C L Heart Rate 80 78 83 Respiratory 16 16 18 Rate Blood Pressure 116/78 130/81 H 125/89 H O2 Saturation 100 97 99 Oxygen O2 Source Room air - Labs Labs: Laboratory Tests 07/22/17 07/22/17 07/22/17 12:33 12:33 12:33 WBC 7.7 RBC 4.35 Hgb 12.5 Hct 37.0 MCV 85.0 MCH 28.7 MCHC 33.7 RDW 18.7 H Plt Count 346 MPV 7.3 L Neut # 4.7 Lymph # 2.7 [place] # 0.1 Eos # 0.0 Baso # 0.0 Absolute Nucleated RBC 0.00 Nucleated RBC % 0.0 Sodium 136 Potassium 3.5 Chloride 97 L Carbon Dioxide 23 Anion Gap 16.0 H BUN 20 Creatinine 0.7 Estimated GFR (MDRD) 101 Glucose 92 Calcium 9.5 Total Bilirubin 0.8 AST 22 ALT 39 Alkaline Phosphatase 47 Troponin I < 0.04 Total Protein 7.0 Albumin 3.9 Globulin 3.1 Albumin/Globulin Ratio 1.3 Lipase 17 L Urine Color Urine Clarity Urine pH Ur Specific [place] Urine Protein Urine Glucose (UA) Urine Ketones Urine Occult Blood Urine Nitrite Urine Bilirubin Urine Urobilinogen Ur Leukocyte Esterase Ur Microscopic Review Urine Culture Comments 07/22/17 12:55 WBC RBC Hgb Hct MCV MCH MCHC RDW Plt Count MPV Neut # Lymph # [place] # Eos # Baso # Absolute Nucleated RBC Nucleated RBC % Sodium Potassium Chloride Carbon Dioxide Anion Gap BUN Creatinine Estimated GFR (MDRD) Glucose Calcium Total Bilirubin AST ALT Alkaline Phosphatase Troponin I Total Protein Albumin Globulin Albumin/Globulin Ratio Lipase Urine Color YELLOW Urine Clarity CLEAR Urine pH 7.5 Ur Specific [place] 1.015 Urine Protein NEGATIVE Urine Glucose (UA) NEGATIVE Urine Ketones NEGATIVE Urine Occult Blood NEGATIVE Urine Nitrite NEGATIVE Urine Bilirubin NEGATIVE Urine Urobilinogen 0.2 (NORMAL) Ur Leukocyte Esterase NEGATIVE Ur Microscopic Review NOT INDICATED Urine Culture Comments NOT INDICATED Procedures - IVC sono (time) 1210 Bedside IVC sono: IVC measures (cm) (0.7), IVC collapsed c insp (cm) (complete) , Significant dehydration PD MEDICAL DECISION MAKING - ED course Complexity details: reviewed old records, reviewed results, re-evaluated patient , considered differential, d/w patient ED course: 27 y/o female with post chemo vomiting has become dehydrated and she appears to be in withdrawal was well. She has been taking oxycodone regularly for months and when she developed vomiting she was not able to hold her medications down and her vomiting became worse. Here in the ED today she has marked improvement with diluadid, zofran, ativan and dexamethasone. She has some return of the nausea and this improves with phenergan. She is given a second dose of dilaudid as well. She has had marked improvement. She appeared to require admission when she presented and we were able to medicate her and hydrate her and she was able to return to home. Departure - Departure Disposition: 01 Home, Self Care Clinical Impression: Dehydration, Status post chemotherapy Vomiting Qualifiers: Vomiting type: unspecified Vomiting Intractability: non-intractable Nausea presence: with nausea Qualified Code(s): R11.2 - Nausea with vomiting, unspecified Instructions: ED Dehydration, ED Diet Vomiting Diarrhea Follow-Up: ROCIO SARAVIA [Primary Care Provider] - Prescriptions: oxyCODONE [Roxicodone] 5 mg PO Q6H PRN #12 tablet PRN Reason: Pain Promethazine [Phenergan] 25 - 50 mg PO Q6H PRN #10 tab PRN Reason: Nausea / Vomiting Discharge Date/Time: 07/22/17 14:45
[2017-07-22 12:41] LABS: BASOPHILS % (AUTO) 0.7 %; EOSINOPHILS % (AUTO) 0.3 %; HGB - HEMOGLOBIN 12.5 g/dL (12.0-16.0); LYMPHOCYTES # (AUTO) 2.7 10^3/uL (1.5-3.5); LYMPHOCYTES % (AUTO) 35.3 %; MEAN CORPUSCULAR HEMOGLOBIN 28.7 pg (27.0-31.0); MEAN CORPUSCULAR HGB CONC 33.7 g/dL (32.0-36.0); MEAN PLATELET VOLUME 7.3 fL (7.9-10.8); MONOCYTES # (AUTO) 0.1 10^3/uL (0.0-1.0); MONOCYTES % (AUTO) 1.9 %; NEUTROPHILS # (AUTO) 4.7 10^3/uL (1.5-6.6); NEUTROPHILS % (AUTO) 61.8 %; RED BLOOD COUNT 4.35 10^6/uL (4.20-5.40); RED CELL DISTRIBUTION WIDTH 18.7 % (12.0-15.0); UNCORRECTED WHITE BLOOD COUNT 7.7 x10^3/uL; WHITE BLOOD COUNT 7.7 x10^3/uL (4.8-10.8)
[2017-07-22] MEDS ORDERED: DEXAMETHASONE 10 MG/ML VIAL ONE (12:44)
[2017-07-22] MEDS ORDERED: LORazepam 2 MG/ML VIAL ONE (12:44)
[2017-07-22] MEDS ORDERED: ONDANSETRON 4 MG/2 ML VIAL ONE (12:44)
[2017-07-22] MEDS ORDERED: HYDROmorphone 1 MG/ML SYRINGE ONE ×2 (12:44→14:19)
[2017-07-22 12:53] LABS: ALBUMIN/GLOBULIN RATIO 1.3 (1.0-2.2); BILIRUBIN,TOTAL 0.8 mg/dL (0.2-1.0); CALCIUM 9.5 mg/dL (8.5-10.3); CREATININE 0.7 mg/dL (0.4-1.0); POTASSIUM 3.5 mmol/L (3.5-5.0)
[2017-07-22] MEDS ORDERED: PROMETHAZINE INJ 25 MG in SODIUM CHLORIDE 0.9% 50 ML IV STA (13:24)
[2017-07-22 13:27] LABS: BILIRUBIN,URINE NEGATIVE (NEGATIVE); PH,URINE 7.5 PH (5.0-7.5)
[2017-07-22 13:30] LABS: UA CHARGE (STRIP ONLY) YES; UR CULTURE IF IND NOT INDICATED
[2017-07-22] MEDS ORDERED: PROMETHAZINE 25 MG/1 ML VIAL ONE (13:35)
[2017-07-22] MEDS ORDERED: SODIUM CHLORIDE 0.9% MINIBAG 100 ML IV ONE (13:35)
[2017-07-22 14:42] VITALS: BP 125/89
== END 2017-07-22 14:45 | disposition home or self-care (01) ==
LOC: ED 10:17
DX: E86.0 Dehydration (principal); C56.9 Malignant neoplasm of unspecified ovary; R11.2 Nausea with vomiting, unspecified; Z92.21 Personal history of antineoplastic chemotherapy
CPT/HCPCS: 36415; 80053; 81003; 83690; 84484; 85025; 96361; 96365; 96375; 96376; 99283; 99284; J1170; J2060; J7040; 81001; 87086

== ENCOUNTER 2017-10-26 15:46 | Emergency (ER) | payer MEDICAID ==
[2017-10-26] MEDS ORDERED: HYDROmorphone 1 MG/ML SYRINGE IVP STA (16:58)
[2017-10-26] MEDS ORDERED: SODIUM CHLORIDE 0.9% 1,000 ML IV ONE (16:58)
[2017-10-26] MEDS ORDERED: LIDOCAINE 1%-EPI 1:100000 20 ML MDV SUBQ STA (17:00)
--- NOTE | 2017-10-26 17:02 | ED Physician Documentation ---
History of Present Illness - Stated complaint Stated Complaint: HANDS/FEET NUMBNESS/MIGRAINE/ANXIETY - Chief complaint Chief Complaint: General - History obtained from History obtained from: Patient - History of Present Illness Timing: Other (27-year-old woman with recent ovarian cancer, finished up chemotherapy a couple of months ago, has had progressive neuropathy of all 4 extremities especially the right upper extremity. 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, Other : Chronic bladder infection, Kidney stones HEENT: None Psych: Depression, Anxiety, Post traumatic stress disorder Musculoskeletal: None Derm: None - Past Surgical History Past Surgical History: Yes General: Other /PARK MAINTAINER: Oophrectomy - Present Medications Home Medications: Ambulatory Orders Medication Instructions Recorded Confirmed Clonazepam 1 mg PO BID PRN 01/03/17 07/22/17 Escitalopram [Lexapro] 15 mg PO QPM 01/03/17 07/22/17 Lamotrigine 200 mg PO QPM 01/03/17 07/22/17 Oxybutynin [Ditropan] 5 mg PO TID 01/03/17 07/22/17 Diphenoxylate/Atropine [Lomotil] 1 each PO QID PRN #15 tablet 03/15/17 07/22/17 PARoxetine [Paxil] 20 mg PO QPM 04/23/17 07/22/17 Acetaminophen 325 mg PO Q4HR PRN 06/23/17 07/22/17 Gabapentin 100 mg PO TID 06/23/17 07/22/17 raNITIdine [Zantac] 150 mg PO BID 06/23/17 07/22/17 Alprazolam [Xanax] 0.25 - 0.5 mg PO Q12H PRN 07/02/17 07/22/17 Ferrous Sulfate 325 mg PO BID 07/02/17 07/22/17 oxyCODONE [Roxicodone] 5 mg PO Q4-6H PRN 07/02/17 07/22/17 Metoclopramide [Reglan] 10 mg PO BID PRN #30 tablet 07/03/17 07/22/17 Ondansetron Odt [Zofran Odt] 4 mg TL Q6H PRN #10 tablet 07/03/17 07/22/17 Promethazine [Phenergan] 12.5 mg PO Q6H PRN #30 tablet 07/03/17 07/22/17 Lorazepam [Ativan] 1 tab PO TID PRN 07/22/17 07/22/17 Promethazine [Phenergan] 25 - 50 mg PO Q6H PRN #10 tab 07/22/17 oxyCODONE [Roxicodone] 5 mg PO Q6H PRN #12 tablet 07/22/17 Pregabalin [Lyrica] 75 mg PO BID #20 capsule 10/26/17 oxyCODONE [Roxicodone] 5 mg PO Q6HR PRN #15 tablet 10/26/17 - Allergies Allergies/Adverse Reactions: Allergies Allergy/AdvReac Type Severity Reaction Status Date / Time aripiprazole [From Abilify] Allergy Rash Verified 10/26/17 16:05 hydrocodone bitartrate * Allergy Hives Verified 10/26/17 16:05 [From Vicodin] tramadol Allergy Hives Verified 10/26/17 16:05 ethinyl estradiol AdvReac Cramps Verified 10/26/17 16:05 [From NuvaRing] etonogestrel [From NuvaRing] AdvReac Cramps Verified 10/26/17 16:05 - Social History Does the pt smoke?: No Smoking Status: Never smoker Does the pt drink ETOH?: Yes Does the pt have substance abuse?: No - Immunizations Immunizations are current?: Yes - POLST Patient has POLST: No POLST Status: Full Code PD ED PE NORMAL - Vitals Vital signs reviewed: Yes - General General: Alert and oriented X 3, No acute distress - HEENT HEENT: PERRL, EOMI - Neck Neck: Supple, no meningeal sign, No bony TTP - Cardiac Cardiac: RRR, No murmur - Respiratory Respiratory: No respiratory distress, Clear bilaterally - Abdomen Abdomen: Soft, Non tender - Extremities Extremities: No edema, No calf tenderness / cord, Other (Normal lower extremity reflexes, intact sharp versus dull discrimination in the hands and feet. Good strength in all 4 extremities,) - Neuro Neuro: Alert and oriented X 3, Normal speech Results - Vitals Vitals: Vital Signs - 24 hr 10/26/17 10/26/17 15:59 18:33 Temperature 37.0 C 36.3 C L Heart Rate 118 H 87 Respiratory 18 16 Rate Blood Pressure 129/91 H 129/78 O2 Saturation 99 100 Oxygen O2 Source Room air - Labs Labs: Laboratory Tests 10/26/17 10/26/17 17:44 17:44 WBC 7.5 RBC 3.85 L Hgb 11.6 L Hct 35.1 L MCV 91.2 MCH 30.2 MCHC 33.1 RDW 13.4 Plt Count 280 MPV 7.7 L Neut # 4.5 Lymph # 2.3 [place] # 0.6 Eos # 0.1 Baso # 0.0 Absolute Nucleated RBC 0.00 Nucleated RBC % 0.0 Sodium 133 L Potassium 3.5 Chloride 100 L Carbon Dioxide 24 Anion Gap 9.0 BUN 16 Creatinine 0.4 Estimated GFR (MDRD) 193 Glucose 82 Calcium 9.2 Magnesium 1.7 Total Bilirubin 0.7 AST 44 H ALT 47 Alkaline Phosphatase 56 Total Protein 7.2 Albumin 4.2 Globulin 3.0 Albumin/Globulin Ratio 1.4 PD MEDICAL DECISION MAKING - ED course ED course: 27-year-old woman with neuropathy, continues to get worse despite being done with her chemotherapy. She has been on gabapentin for this before but has had side effects and is willing to try Lyrica. Departure - Departure Disposition: 01 Home, Self Care Clinical Impression: Peripheral neuropathy Qualifiers: Peripheral neuropathy type: polyneuropathy, unspecified Qualified Code(s): G62.9 - Polyneuropathy, unspecified Condition: Good Record reviewed to determine appropriate education?: Yes Prescriptions: oxyCODONE [Roxicodone] 5 mg PO Q6HR PRN #15 tablet PRN Reason: Pain Pregabalin [Lyrica] 75 mg PO BID #20 capsule Comments: Follow-up with your oncologist for guidance regarding the neuropathy which is apparently from the chemotherapy. Return if worse.
[2017-10-26 17:57] LABS: BASOPHILS % (AUTO) 0.5 %; EOSINOPHILS # (AUTO) 0.1 10^3/uL (0.0-0.7); EOSINOPHILS % (AUTO) 0.9 %; HGB - HEMOGLOBIN 11.6 g/dL (12.0-16.0); LYMPHOCYTES # (AUTO) 2.3 10^3/uL (1.5-3.5); LYMPHOCYTES % (AUTO) 30.8 %; MEAN CORPUSCULAR HEMOGLOBIN 30.2 pg (27.0-31.0); MEAN CORPUSCULAR HGB CONC 33.1 g/dL (32.0-36.0); MEAN CORPUSCULAR VOLUME 91.2 fL (81.0-99.0); MEAN PLATELET VOLUME 7.7 fL (7.9-10.8); MONOCYTES # (AUTO) 0.6 10^3/uL (0.0-1.0); MONOCYTES % (AUTO) 7.6 %; NEUTROPHILS # (AUTO) 4.5 10^3/uL (1.5-6.6); NEUTROPHILS % (AUTO) 60.2 %; PLT - PLATELET COUNT 280 10^3/uL (130-450); RED BLOOD COUNT 3.85 10^6/uL (4.20-5.40); RED CELL DISTRIBUTION WIDTH 13.4 % (12.0-15.0); WHITE BLOOD COUNT 7.5 x10^3/uL (4.8-10.8)
[2017-10-26 18:06] LABS: ALBUMIN 4.2 g/dL (3.2-5.5); ALBUMIN/GLOBULIN RATIO 1.4 (1.0-2.2); ALKALINE PHOSPHATASE 56 IU/L (42-121); ALT ALANINE AMINOTRANSFERASE 47 IU/L (10-60); AST ASPARTATE AMINOTRANSFERASE 44 IU/L (10-42); BILIRUBIN,TOTAL 0.7 mg/dL (0.2-1.0); BUN - BLOOD UREA NITROGEN 16 mg/dL (6-20); CALCIUM 9.2 mg/dL (8.5-10.3); CARBON DIOXIDE - CO2 24 mmol/L (21-32); CHLORIDE 100 mmol/L (101-111); CREATININE 0.4 mg/dL (0.4-1.0); GFR - MDRD 193 (>89); GLUCOSE 82 mg/dL (70-100); MAGNESIUM 1.7 mg/dL (1.7-2.8); SODIUM 133 mmol/L (135-145); TOTAL PROTEIN 7.2 g/dL (6.7-8.2)
[2017-10-26 18:35] VITALS: BP 129/78
[2017-10-26 19:21] LABS: LIPASE < 10 U/L (22-51)
== END 2017-10-26 19:16 | disposition home or self-care (01) ==
LOC: ED 15:46
DX: G62.9 Polyneuropathy, unspecified (principal); C56.9 Malignant neoplasm of unspecified ovary; Z92.21 Personal history of antineoplastic chemotherapy
CPT/HCPCS: 36415; 80053; 83690; 83735; 85025; 96361; 96374; 99283; J1170

== ENCOUNTER 2017-11-09 19:46 | Emergency (ER) | payer MEDICAID ==
[2017-11-09] MEDS ORDERED: HYDROmorphone 1 MG/ML CARPUJECT IM STA (21:28)
[2017-11-09] MEDS ORDERED: diazePAM INJ 5 MG/ML SYRINGE IM STA (21:28)
--- NOTE | 2017-11-09 21:29 | ED Physician Documentation ---
PD HPI MHE - Stated complaint Stated Complaint: Mood swings/anxiety/Migraine - Chief complaint Chief Complaint: MHE - History obtained from History obtained from: Patient - History of Present Illness Primary symptom: Other (27-year-old woman with recent history of ovarian cancer , chronic pain, anxiety and depression presents with frontal headache radiating to the neck over several days with back pain and increased anxiety. No suicidal or homicidal ideation and no possibility of . She has tried her usual medications including Ativan, Lamictal etc. 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: Ovarian cysts, 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, Other : Chronic bladder infection, Kidney stones HEENT: None Psych: Depression, Anxiety, Post traumatic stress disorder Musculoskeletal: None Derm: None - Past Surgical History Past Surgical History: Yes General: Other /RN UTILIZATION MANAGEMENT UM: Oophrectomy - Present Medications Home Medications: Ambulatory Orders Medication Instructions Recorded Confirmed Escitalopram [Lexapro] 15 mg PO QPM 01/03/17 07/22/17 Lamotrigine 200 mg PO QPM 01/03/17 07/22/17 Oxybutynin [Ditropan] 5 mg PO TID 01/03/17 07/22/17 PARoxetine [Paxil] 20 mg PO QPM 04/23/17 07/22/17 Metoclopramide [Reglan] 10 mg PO BID PRN #30 tablet 07/03/17 07/22/17 Ondansetron Odt [Zofran Odt] 4 mg TL Q6H PRN #10 tablet 07/03/17 07/22/17 Lorazepam [Ativan] 1 tab PO TID PRN 07/22/17 07/22/17 Pregabalin [Lyrica] 75 mg PO BID #20 capsule 10/26/17 oxyCODONE [Roxicodone] 5 mg PO Q6HR PRN #15 tablet 10/26/17 - Allergies Allergies/Adverse Reactions: Allergies Allergy/AdvReac Type Severity Reaction Status Date / Time aripiprazole [From Abiliy] Allergy Rash Verified 11/09/17 20:00 hydrocodone bitartrate * Allergy Hives Verified 11/09/17 20:00 [From Vicodin] tramadol Allergy Hives Verified 11/09/17 20:00 ethinyl estradiol AdvReac Cramps Verified 11/09/17 20:00 [From NuvaRing] etonogestrel [From NuvaRing] AdvReac Cramps Verified 11/09/17 20:00 - Social History Does the pt smoke?: No Smoking Status: Never smoker Does the pt drink ETOH?: Yes Does the pt have substance abuse?: No - Immunizations Immunizations are current?: Yes - POLST Patient has POLST: No POLST Status: Full Code PD ED PE NORMAL - Vitals Vital signs reviewed: Yes - General General: Alert and oriented X 3, No acute distress - HEENT HEENT: PERRL, EOMI, Ears normal, Moist mucous membranes, Pharynx benign - Neck Neck: Supple, no meningeal sign, No bony TTP - Cardiac Cardiac: RRR, No murmur - Respiratory Respiratory: No respiratory distress, Clear bilaterally - Abdomen Abdomen: Non tender - Extremities Extremities: No edema - Neuro Neuro: Alert and oriented X 3, Normal speech Results - Vitals Vitals: Vital Signs - 24 hr 11/09/17 19:57 Temperature 36.8 C Heart Rate 94 Respiratory 18 Rate Blood Pressure 135/91 H O2 Saturation 99 Oxygen O2 Source Room air PD MEDICAL DECISION MAKING - ED course ED course: She has a tension headache and increased anxiety without suicidal homicidal ideation. She is treated for this with medications and follow-up with psychiatry for counseling was advised. Departure - Departure Disposition: 01 Home, Self Care Clinical Impression: Anxiety, Tension headache Condition: Good Record reviewed to determine appropriate education?: Yes Instructions: ED Panic Attack, ED Headache Tension Follow-Up: [facility], PHD [Physician No Access] - Within 1 week Comments: Your blood pressure was elevated today on check into the emergency department. This does not mean that you have hypertension, it is a common phenomenon to come to the emergency department and have elevated blood pressure. I recommend that you see your primary care physician within the week to have it rechecked when you are feeling better.
[2017-11-09 22:05] VITALS: BP 134/78
== END 2017-11-09 22:11 | disposition home or self-care (01) ==
LOC: ED 19:46
DX: G44.209 Tension-type headache, unspecified, not intractable (principal); F41.9 Anxiety disorder, unspecified; K21.9 Gastro-esophageal reflux disease without esophagitis; Z85.43 Personal history of malignant neoplasm of ovary; R03.0 Elevated blood-pressure reading, without diagnosis of hypertension
CPT/HCPCS: 96372; 99283; J1170

== ENCOUNTER 2017-11-16 11:40 | Emergency (ER) | payer MEDICAID ==
[2017-11-16] MEDS ORDERED: HYDROmorphone 1 MG/ML CARPUJECT IVP STA ×3 (12:16→15:09)
[2017-11-16] MEDS ORDERED: SODIUM CHLORIDE 0.9% 1,000 ML IV ONE (12:16)
[2017-11-16] MEDS ORDERED: ONDANSETRON 4 MG/2 ML VIAL IVP STA ×2 (12:16→14:52)
--- NOTE | 2017-11-16 12:18 | ED Physician Documentation ---
History of Present Illness - Stated complaint Stated Complaint: FEMALE - Chief complaint Chief Complaint: General - History obtained from History obtained from: Patient - History of Present Illness Timing: Other (This is a 27-year-old woman who prior to the development of ovarian cancer had recurrent severe pelvic pain with her menses. 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 Last few days she developed pelvic pain similar to prior pain she had before her operation, it is associated with nausea but no vomiting and poor appetite. She over the last day or so has developed first brownish discharge and spotting but now significant bleeding with clots, heavier than normal period.) Review of Systems Constitutional: denies: Fever, Chills GI: reports: Abdominal Pain, Nausea. 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: Ovarian cysts, 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, Other : Chronic bladder infection, Kidney stones HEENT: None Psych: Depression, Anxiety, Post traumatic stress disorder Musculoskeletal: None Derm: None - Past Surgical History Past Surgical History: Yes General: Other /PHYSICIAN RELATIONS MANAGER: Oophrectomy - Present Medications Home Medications: Ambulatory Orders Medication Instructions Recorded Confirmed Escitalopram [Lexapro] 15 mg PO QPM 01/03/17 11/16/17 Lamotrigine 200 mg PO QPM 01/03/17 07/22/17 PARoxetine [Paxil] 20 mg PO QPM 04/23/17 07/22/17 Lorazepam [Ativan] 1 tab PO TID PRN 07/22/17 07/22/17 Omeprazole [PriLOSEC] 1 cap PO DAILY 11/16/17 11/16/17 Ondansetron HCl [Zofran] 4 mg PO Q6H PRN #10 tablet 11/16/17 Oxycodone HCl/Acetaminophen 1 - 2 tab PO Q4H PRN #10 tablet 11/16/17 [Percocet 5-325 mg Tablet] - Allergies Allergies/Adverse Reactions: Allergies Allergy/AdvReac Type Severity Reaction Status Date / Time aripiprazole [From Abilify] Allergy Rash Verified 11/16/17 11:49 hydrocodone bitartrate * Allergy Hives Verified 11/16/17 11:49 [From Vicodin] ketorolac Allergy Itching Verified 11/16/17 15:12 tramadol Allergy Hives Verified 11/16/17 11:49 ethinyl estradiol AdvReac Cramps Verified 11/16/17 11:49 [From NuvaRing] etonogestrel [From NuvaRing] AdvReac Cramps Verified 11/16/17 11:49 - Social History Does the pt smoke?: No Smoking Status: Never smoker Does the pt drink ETOH?: Yes Does the pt have substance abuse?: No - Family History Family history: reports: Non contributory - Immunizations Immunizations are current?: Yes - POLST Patient has POLST: No POLST Status: Full Code PD ED PE NORMAL - Vitals Vital signs reviewed: Yes - General General: Alert and oriented X 3, No acute distress - Cardiac Cardiac: RRR, No murmur - Respiratory Respiratory: No respiratory distress, Clear bilaterally - Abdomen Abdomen: Normal bowel sounds, Soft, Non tender - Female Female : Foundry Patternmaker present (Grace Herrmann RN), Other (Moderate blood in the vault, prominent cervix with left adnexal tenderness, no cervical motion tenderness.) - Back Back: No CVA TTP, No spinal TTP - Neuro Neuro: Alert and oriented X 3, Normal speech - Psych Psych: Normal mood, Normal affect Results - Vitals Vitals: Vital Signs - 24 hr 11/16/17 11/16/17 11:44 15:16 Temperature 36.5 C 36.1 C L Heart Rate 73 65 Respiratory 18 18 Rate Blood Pressure 124/78 127/88 H O2 Saturation 98 100 Oxygen O2 Source Room air - Labs Labs: Laboratory Tests 11/16/17 11/16/17 11/16/17 12:48 12:48 12:48 WBC 5.1 RBC 4.28 Hgb 12.7 Hct 37.9 MCV 88.5 MCH 29.7 MCHC 33.6 RDW 12.8 Plt Count 293 MPV 7.2 L Neut # 2.7 Lymph # 1.8 [place] # 0.5 Eos # 0.1 Baso # 0.0 Absolute Nucleated RBC 0.00 Nucleated RBC % 0.0 PT 11.6 INR 1.0 Sodium Potassium Chloride Carbon Dioxide Anion Gap BUN Creatinine Estimated GFR (MDRD) Glucose Calcium Total Bilirubin AST ALT Alkaline Phosphatase Total Protein Albumin Globulin Albumin/Globulin Ratio Lipase Urine Color Urine Clarity Urine pH Ur Specific [place] Urine Protein Urine Glucose (UA) Urine Ketones Urine Occult Blood Urine Nitrite Urine Bilirubin Urine Urobilinogen Ur Leukocyte Esterase Urine RBC Urine WBC Ur Squamous Epith Cells Urine Bacteria Ur Microscopic Review Urine Culture Comments Urine HCG, Qual Blood Type O POSITIVE Antibody Screen NEGATIVE 11/16/17 11/16/17 12:48 12:55 WBC RBC Hgb Hct MCV MCH MCHC RDW Plt Count MPV Neut # Lymph # [place] # Eos # Baso # Absolute Nucleated RBC Nucleated RBC % PT INR Sodium 136 Potassium 4.0 Chloride 99 L Carbon Dioxide 29 Anion Gap 8.0 BUN 14 Creatinine 0.7 Estimated GFR (MDRD) 101 Glucose 85 Calcium 9.2 Total Bilirubin 0.5 AST 26 ALT 22 Alkaline Phosphatase 65 Total Protein 7.6 Albumin 4.3 Globulin 3.3 Albumin/Globulin Ratio 1.3 Lipase 11 L Urine Color YELLOW Urine Clarity CLOUDY Urine pH 8.5 H Ur Specific [place] 1.015 Urine Protein NEGATIVE Urine Glucose (UA) NEGATIVE Urine Ketones NEGATIVE Urine Occult Blood LARGE H Urine Nitrite NEGATIVE Urine Bilirubin NEGATIVE Urine Urobilinogen 0.2 (NORMAL) Ur Leukocyte Esterase NEGATIVE Urine RBC TNTC H Urine WBC 0-3 Ur Squamous Epith Cells RARE Squamous Urine Bacteria Rare Ur Microscopic Review INDICATED Urine Culture Comments NOT INDICATED Urine HCG, Qual NEGATIVE Blood Type Antibody Screen - Rads (name of study) Pelvic sono Radiology: Prelim report reviewed (Per Dr Becker, normal except s/p R oophorectomy) PD MEDICAL DECISION MAKING - ED course ED course: 27-year-old woman who used to be here very frequently for pelvic pain associated with menses and heavy bleeding, has been doing better ever since and oophorectomy related to a granulosa cell tumor and status post chemotherapy which per her Understanding she was now in menopause, however current episode would suggest that she still has some hormonal function. Her H&H and pelvic ultrasound are normal and she is not . She was advised to follow-up with her physician, she is to be here very frequently for pelvic pain and exacerbations of same and I discussed with her that there would be significant limitations in the prescription of narcotic pain medication going forward for this chronic recurrent issue. Departure - Departure Disposition: 01 Home, Self Care Clinical Impression: Pelvic pain Condition: Good Record reviewed to determine appropriate education?: Yes Instructions: ED Chronic Pain Management, ED Pelvic Pain [facility] Prescriptions: Ondansetron HCl [Zofran] 4 mg PO Q6H PRN #10 tablet PRN Reason: Nausea / Vomiting Oxycodone HCl/Acetaminophen [Percocet 5-325 mg Tablet] 1 - 2 tab PO Q4H PRN #10 tablet PRN Reason: Pain Comments: Call your doctor to arrange a follow-up appointment, make the next available appointment. In the interim, return anytime if worse or if new symptoms develop. Do not drink or drive while taking narcotic pain medication. Note that many narcotic pain relievers also contain Tylenol/acetaminophen. Please ensure that your total dose of acetaminophen from all sources does not exceed 3 g (3000 mg) per day. You may get constipated while on this medication. Take a stool softener such as Colace twice a day while you are on it. Also add an [id number] laxative such as senna or MiraLAX on any day that you do not have a bowel movement. If you received a narcotic pain medication or sedative while in the emergency department, do not drive for the next 24 hours. Your blood pressure was elevated today on check into the emergency department. This does not mean that you have hypertension, it is a common phenomenon to come to the emergency department and have elevated blood pressure. I recommend that you see your primary care physician within the week to have it rechecked when you are feeling better. The policy of this emergency department is to not give more than 3 prescriptions for narcotics or other controlled substances in any 1 year. You have already surpassed this benchmark and we cannot prescribe narcotics for you. I encourage you to follow up with your primary care physician or to establish care with a primary care physician for ongoing pain management. You are always welcome to seek emergency care here for this or new issues but there will likely be limitations in the prescription of narcotic pain medication.
[2017-11-16 12:51] LABS: BASOPHILS % (AUTO) 0.4 %; EOSINOPHILS # (AUTO) 0.1 10^3/uL (0.0-0.7); EOSINOPHILS % (AUTO) 2.8 %; HGB - HEMOGLOBIN 12.7 g/dL (12.0-16.0); LYMPHOCYTES # (AUTO) 1.8 10^3/uL (1.5-3.5); LYMPHOCYTES % (AUTO) 35.3 %; MEAN CORPUSCULAR HEMOGLOBIN 29.7 pg (27.0-31.0); MEAN CORPUSCULAR HGB CONC 33.6 g/dL (32.0-36.0); MEAN CORPUSCULAR VOLUME 88.5 fL (81.0-99.0); MEAN PLATELET VOLUME 7.2 fL (7.9-10.8); MONOCYTES # (AUTO) 0.5 10^3/uL (0.0-1.0); MONOCYTES % (AUTO) 9.4 %; NEUTROPHILS # (AUTO) 2.7 10^3/uL (1.5-6.6); NEUTROPHILS % (AUTO) 52.1 %; PLT - PLATELET COUNT 293 10^3/uL (130-450); RED BLOOD COUNT 4.28 10^6/uL (4.20-5.40); RED CELL DISTRIBUTION WIDTH 12.8 % (12.0-15.0); WHITE BLOOD COUNT 5.1 x10^3/uL (4.8-10.8)
[2017-11-16 12:57] LABS: PT - PROTHROMBIN TIME 11.6 secs (9.9-12.6)
[2017-11-16 13:05] LABS: BILIRUBIN,URINE NEGATIVE (NEGATIVE); GLUCOSE, URINE (UA) NEGATIVE (NEGATIVE); KETONES,URINE (UA) NEGATIVE (NEGATIVE); LEUKOCYTE ESTERASE, URINE NEGATIVE (NEGATIVE); NITRITE,URINE NEGATIVE (NEGATIVE); OCCULT BLOOD,URINE LARGE (NEGATIVE); PH,URINE 8.5 PH (5.0-7.5); PROTEIN,URINE NEGATIVE (NEGATIVE); UROBILINOGEN,URINE 0.2 (NORMAL) E.U./dL (NORMAL)
[2017-11-16 13:06] LABS: ALBUMIN 4.3 g/dL (3.2-5.5); ALBUMIN/GLOBULIN RATIO 1.3 (1.0-2.2); BILIRUBIN,TOTAL 0.5 mg/dL (0.2-1.0); CALCIUM 9.2 mg/dL (8.5-10.3); CREATININE 0.7 mg/dL (0.4-1.0); TOTAL PROTEIN 7.6 g/dL (6.7-8.2)
[2017-11-16 13:14] LABS: CLARITY,URINE CLOUDY (CLEAR)
[2017-11-16] MEDS ORDERED: METOCLOPRAMIDE 10 MG/2 ML VIAL IVP STA (13:15)
[2017-11-16 13:19] LABS: HCG UR QUAL NEGATIVE
[2017-11-16 13:20] LABS: BACTERIA,URINE Rare /HPF (None Seen); RBC,URINE TNTC /HPF (0-5); SQUAMOUS EPITHELIAL CELL,UR RARE Squamous (<= Few)
[2017-11-16] MEDS ORDERED: KETOROLAC 60 MG/2 ML VIAL IVP STA (14:52)
--- NOTE | 2017-11-16 15:25 | Ultrasound Report ---
PELVIC ULTRASOUND: 11/16/2017 HISTORY: Status post right oophorectomy. Pelvic pain and heavy vaginal bleeding. TECHNIQUE: Real-time scanning by the puncher with saved static images were reviewed. Transabdominal approach for global evaluation. Transvaginal scanning for detailed assessment of the endometrium and ovary. FINDINGS: Uterus 8.9 x 3.9 x 5.8 cm, volume 105 mL. Endometrial echo thickness, 6 mm. Echogenic debris is noted in the vaginal canal. Right ovary surgically absent. No right adnexal mass. Left ovary 5.3 x 1.9 x 2.5 cm, volume 13.1 mL. Small 1.4 x 0.8 x 0.9 cm cyst. No free fluid. IMPRESSION: STATUS POST RIGHT OOPHORECTOMY. OTHERWISE, NEGATIVE PELVIC ULTRASOUND. TD: 11/16/2017 15:25 MTDD
[2017-11-16 15:43] VITALS: BP 124/66
== END 2017-11-16 15:41 | disposition home or self-care (01) ==
LOC: ED 11:40
DX: R10.2 Pelvic and perineal pain (principal); K21.9 Gastro-esophageal reflux disease without esophagitis; Z85.43 Personal history of malignant neoplasm of ovary; Z90.721 Acquired absence of ovaries, unilateral; R03.0 Elevated blood-pressure reading, without diagnosis of hypertension
CPT/HCPCS: 36415; 76830; 76856; 80053; 81001; 81025; 83690; 85025; 85610; 86850; 86900; 86901; 87491; 87591; 93975; 96361; 96374; 96375; 96376; 99283; 99284; J1170; J2765; 81003; 87086

== ENCOUNTER 2017-11-26 12:36 | Emergency (ER) | payer MEDICAID ==
[2017-11-26] MEDS ORDERED: SODIUM CHLORIDE 0.9% 1,000 ML IV ONE (13:49)
[2017-11-26 13:55] LABS: BASOPHILS % (AUTO) 0.3 %; EOSINOPHILS % (AUTO) 0.7 %; HGB - HEMOGLOBIN 13.4 g/dL (12.0-16.0); LYMPHOCYTES # (AUTO) 2.3 10^3/uL (1.5-3.5); LYMPHOCYTES % (AUTO) 32.9 %; MEAN CORPUSCULAR HEMOGLOBIN 29.7 pg (27.0-31.0); MEAN CORPUSCULAR HGB CONC 34.2 g/dL (32.0-36.0); MEAN CORPUSCULAR VOLUME 86.9 fL (81.0-99.0); MEAN PLATELET VOLUME 7.3 fL (7.9-10.8); MONOCYTES # (AUTO) 0.5 10^3/uL (0.0-1.0); MONOCYTES % (AUTO) 6.9 %; NEUTROPHILS # (AUTO) 4.2 10^3/uL (1.5-6.6); NEUTROPHILS % (AUTO) 59.2 %; PLT - PLATELET COUNT 284 10^3/uL (130-450); RED BLOOD COUNT 4.52 10^6/uL (4.20-5.40); RED CELL DISTRIBUTION WIDTH 12.6 % (12.0-15.0)
[2017-11-26 14:11] LABS: BILIRUBIN,URINE NEGATIVE (NEGATIVE); GLUCOSE, URINE (UA) NEGATIVE (NEGATIVE); KETONES,URINE (UA) 15 mg/dL (NEGATIVE); LEUKOCYTE ESTERASE, URINE NEGATIVE (NEGATIVE); NITRITE,URINE NEGATIVE (NEGATIVE); OCCULT BLOOD,URINE NEGATIVE (NEGATIVE); PROTEIN,URINE NEGATIVE (NEGATIVE); UROBILINOGEN,URINE 0.2 (NORMAL) E.U./dL (NORMAL)
[2017-11-26 14:12] LABS: CLARITY,URINE CLEAR (CLEAR)
[2017-11-26 14:15] LABS: ALBUMIN 4.7 g/dL (3.2-5.5); ALBUMIN/GLOBULIN RATIO 1.5 (1.0-2.2); BILIRUBIN,TOTAL 0.3 mg/dL (0.2-1.0); CALCIUM 9.5 mg/dL (8.5-10.3); CREATININE 0.6 mg/dL (0.4-1.0); TOTAL PROTEIN 7.9 g/dL (6.7-8.2)
[2017-11-26] MEDS ORDERED: PROMETHAZINE 25 MG/1 ML VIAL IM STA (15:29)
[2017-11-26] MEDS ORDERED: oxyCOD/ACETAMIN 5 MG/325 MG TABLET PO STA ×2 (15:30→17:52)
[2017-11-26] MEDS ORDERED: PROMETHAZINE INJ 25 MG in SODIUM CHLORIDE 0.9% 50 ML IV STA (15:33)
--- NOTE | 2017-11-26 15:36 | ED Physician Documentation ---
History of Present Illness - Stated complaint Stated Complaint: PELVIC PAIN - Chief complaint Chief Complaint: Abd Pain - Additonal information Additional information: hx from pt 27 f hx ovarian cancer s/p surgery and chemo finished chemo approx 3 m ago kristin seen in ED for pelvic pain seen 10 days ago for pelvic pain and vag bleed - had labs (neg HCG), sono (no acute), pelvic with cx (neg) rx percocet bleeding has stopped but pain continues, LLQ now she has NVD and cannot keep her meds down states she vomited PO phenergan and due to diarrhea did not retain CA phenergan and that ODT meds make her gag so that doesnt work either she called her [facility] at [place] and states she was directed back to the ER Review of Systems Constitutional: denies: Fever Cardiac: denies: Chest pain / pressure Respiratory: denies: Cough GI: reports: Abdominal Pain, Nausea, Vomiting, Diarrhea : denies: Vaginal bleeding, Now EGA Immunocompromised: denies: Immunocompromised PD PAST MEDICAL HISTORY - Past Medical History Cardiovascular: None Respiratory: None Neuro: Headache/migraine Endocrine/Autoimmune: None GI: GERD [facility]: Ovarian cysts, 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, Other : Chronic bladder infection, Kidney stones HEENT: None Psych: Depression, Anxiety, Post traumatic stress disorder Musculoskeletal: None Derm: None - Past Surgical History Past Surgical History: Yes General: Other /[facility]: Oophrectomy - Present Medications Home Medications: Ambulatory Orders Medication Instructions Recorded Confirmed Escitalopram [Lexapro] 15 mg PO QPM 01/03/17 11/16/17 Lamotrigine 200 mg PO QPM 01/03/17 07/22/17 PARoxetine [Paxil] 20 mg PO QPM 04/23/17 07/22/17 Lorazepam [Ativan] 1 tab PO TID PRN 07/22/17 07/22/17 Omeprazole [PriLOSEC] 1 cap PO DAILY 11/16/17 11/16/17 Ondansetron HCl [Zofran] 4 mg PO Q6H PRN #10 tablet 11/16/17 Oxycodone HCl/Acetaminophen 1 - 2 tab PO Q4H PRN #10 tablet 11/16/17 [Percocet 5-325 mg Tablet] Promethazine Supp [Phenergan Supp] 25 mg CA Q6H PRN #15 supp 11/26/17 Promethazine [Phenergan] 25 mg PO Q6H PRN #10 tablet 11/26/17 - Allergies Allergies/Adverse Reactions: Allergies Allergy/AdvReac Type Severity Reaction Status Date / Time aripiprazole [From Abilify] Allergy Rash Verified 11/16/17 11:49 hydrocodone bitartrate * Allergy Hives Verified 11/16/17 11:49 [From Vicodin] ketorolac Allergy Itching Verified 11/16/17 15:12 tramadol Allergy Hives Verified 11/16/17 11:49 ethinyl estradiol AdvReac Cramps Verified 11/16/17 11:49 [From NuvaRing] etonogestrel [From NuvaRing] AdvReac Cramps Verified 11/16/17 11:49 - Social History Does the pt smoke?: No Smoking Status: Never smoker Does the pt drink ETOH?: Yes Does the pt have substance abuse?: No - Immunizations Immunizations are current?: Yes - POLST Patient has POLST: No POLST Status: Full Code PD ED PE NORMAL - Vitals Vital signs reviewed: Yes - Neck Neck: Supple, no meningeal sign - Cardiac Cardiac: RRR - Respiratory Respiratory: No respiratory distress, Clear bilaterally - Abdomen Abdomen: Soft, Other (TTP LLQ with no peritoneal signs) Results - Vitals Vitals: Vital Signs - 24 hr 11/26/17 11/26/17 13:09 15:04 Temperature 36.4 C L Heart Rate 71 72 Respiratory 16 16 Rate Blood Pressure 131/80 H 120/72 O2 Saturation 100 100 Oxygen O2 Source Room air - Labs Labs: Laboratory Tests 11/26/17 11/26/17 11/26/17 13:40 13:40 13:40 WBC 7.0 RBC 4.52 Hgb 13.4 Hct 39.3 MCV 86.9 MCH 29.7 MCHC 34.2 RDW 12.6 Plt Count 284 MPV 7.3 L Neut # 4.2 Lymph # 2.3 [place] # 0.5 Eos # 0.0 Baso # 0.0 Absolute Nucleated RBC 0.00 Nucleated RBC % 0.0 Sodium 137 Potassium 3.9 Chloride 100 L Carbon Dioxide 28 Anion Gap 9.0 BUN 23 H Creatinine 0.6 Estimated GFR (MDRD) 121 Glucose 86 Calcium 9.5 Total Bilirubin 0.3 AST 21 ALT 19 Alkaline Phosphatase 64 Total Protein 7.9 Albumin 4.7 Globulin 3.2 Albumin/Globulin Ratio 1.5 Lipase 21 L Urine Color YELLOW Urine Clarity CLEAR Urine pH 6.0 Ur Specific [place] >=1.030 H Urine Protein NEGATIVE Urine Glucose (UA) NEGATIVE Urine Ketones 15 H Urine Occult Blood NEGATIVE Urine Nitrite NEGATIVE Urine Bilirubin NEGATIVE Urine Urobilinogen 0.2 (NORMAL) Ur Leukocyte Esterase NEGATIVE Ur Microscopic Review NOT INDICATED Urine Culture Comments NOT INDICATED Urine HCG, Qual 11/26/17 13:40 WBC RBC Hgb Hct MCV MCH MCHC RDW Plt Count MPV Neut # Lymph # [place] # Eos # Baso # Absolute Nucleated RBC Nucleated RBC % Sodium Potassium Chloride Carbon Dioxide Anion Gap BUN Creatinine Estimated GFR (MDRD) Glucose Calcium Total Bilirubin AST ALT Alkaline Phosphatase Total Protein Albumin Globulin Albumin/Globulin Ratio Lipase Urine Color Urine Clarity Urine pH Ur Specific [place] >=1.030 H Urine Protein Urine Glucose (UA) Urine Ketones Urine Occult Blood Urine Nitrite Urine Bilirubin Urine Urobilinogen Ur Leukocyte Esterase Ur Microscopic Review Urine Culture Comments Urine HCG, Qual NEGATIVE PD MEDICAL DECISION MAKING - ED course ED course: reviewed last ER visit - pt had labs sono and pelvic no need to repeat this full work u for same sx < 2 weeks later will tx with pehenergan IV or IM so pt can tolerate her own PO meds chart review also indicates pt has an NADER (> 1400 contolled pills over last 12 m) and was told on her last visit that she would not be able to receive narcotics from the ER in the future and her pain will need to be managed by her PMD or [facility] oncologist it is possible her NVD are due to narcotic wdrawal as well NV better with phenergan IV states her pain continues after ofirmev states she is out of ativan and percocet I explained I would not be able to refill those - she has a pain specilty appy pending and sees her PMD for refills Sunday will give one dose in ED and dc with phenergan Departure - Departure Disposition: Home, Self Care Clinical Impression: Pelvic pain Vomiting Qualifiers: Vomiting type: unspecified Vomiting Intractability: unspecified Nausea presence : unspecified Qualified Code(s): R11.10 - Vomiting, unspecified Diarrhea Qualifiers: Diarrhea type: unspecified type Qualified Code(s): R19.7 - Diarrhea, unspecified Condition: Good Instructions: ED Nausea Vomiting, ED Pelvic Pain [facility] Follow-Up: ROCIO SARAVIA [Primary Care Provider] - Prescriptions: Promethazine [Phenergan] 25 mg PO Q6H PRN #10 tablet PRN Reason: vomiting Promethazine Supp [Phenergan Supp] 25 mg CA Q6H PRN #15 supp PRN Reason: vomiting Comments: Your labs today were fine You had an ultrasound and pelvic exam within the last 2 weeks that were fine Some of your symptoms today may be due to running out of your ativan and percocet I cannot refill those medications for you from the ER - half-way use if controlled substances like ativan and percocet needs to be managed by your PMD or a pain clinic But I did write for more oral and rectal phenergan
[2017-11-26 15:52] LABS: HCG UR QUAL NEGATIVE
[2017-11-26] MEDS ORDERED: FAMOTIDINE 20 MG/50 ML 50 ML IV ONE (16:13)
[2017-11-26] MEDS ORDERED: ACETAMINOPHEN 1,000 MG/100 ML 100 ML IV STA (16:13)
[2017-11-26] MEDS ORDERED: LORazepam 0.5 MG TABLET PO STA (17:51)
[2017-11-26 18:01] VITALS: BP 146/95
== END 2017-11-26 18:07 | disposition home or self-care (01) ==
LOC: ED 12:36
DX: R11.10 Vomiting, unspecified (principal); R19.7 Diarrhea, unspecified; C56.9 Malignant neoplasm of unspecified ovary; Z90.721 Acquired absence of ovaries, unilateral
CPT/HCPCS: 36415; 80053; 81003; 81025; 83690; 85025; 96361; 96365; 96368; 99283; A9270; J0131; J7040; 81001; 87086

== ENCOUNTER 2017-12-03 01:17 | Emergency (ER) | payer MEDICAID ==
--- NOTE | 2017-12-03 02:20 | ED Physician Documentation ---
PD HPI ABD PAIN - Stated complaint Stated Complaint: HEARTBURN,NAUSEA - Chief complaint Chief Complaint: Abd Pain - History obtained from History obtained from: Patient - History of Present Illness Timing - onset: Today Timing - details: Gradual onset, Waxing and waning Pain level now: 8 Quality: Pain Location: Epigastric, Periumbilical Radiation: Other (does not radiate) Improved by: Other (no ameliorating factors) Worsened by: Eating Associated symptoms: Nausea, Vomiting. No: Fever Recently seen: Emergency Dept (third [facility] ED visit this month, 2 last month) - Additional information Additional information: c/o nausea, vomiting, abdominal pain described as "burning" and "heartburn"; "can't keep anything down" including antinauseants and had diarrhea when she tried to use phenergan OR. similar presentations earlier this month. 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: Ovarian cysts, 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, Other : Chronic bladder infection, Kidney stones HEENT: None Psych: Depression, Anxiety, Post traumatic stress disorder Musculoskeletal: None Derm: None - Past Surgical History Past Surgical History: Yes General: Other /BLEACHER OPERATOR: Oophrectomy - Present Medications Home Medications: Ambulatory Orders Medication Instructions Recorded Confirmed Escitalopram [Lexapro] 15 mg PO QPM 01/03/17 11/16/17 Lamotrigine 200 mg PO QPM 01/03/17 07/22/17 PARoxetine [Paxil] 20 mg PO QPM 04/23/17 07/22/17 Lorazepam [Ativan] 1 tab PO TID PRN 07/22/17 07/22/17 Omeprazole [PriLOSEC] 1 cap PO DAILY 11/16/17 11/16/17 Ondansetron HCl [Zofran] 4 mg PO Q6H PRN #10 tablet 11/16/17 Oxycodone HCl/Acetaminophen 1 - 2 tab PO Q4H PRN #10 tablet 11/16/17 [Percocet 5-325 mg Tablet] Promethazine Supp [Phenergan Supp] 25 mg [place] Q6H PRN #15 supp 11/26/17 Promethazine [Phenergan] 25 mg PO Q6H PRN #10 tablet 11/26/17 Lidocaine HCl [Lidocaine HCl 5 - 10 ml PO TID PRN #100 ml 12/03/17 Viscous] PHENobarb/HYOSCY/ATROPINE/SCOP 5 ml PO Q6HR PRN #50 udc 12/03/17 [ Elixir] - Allergies Allergies/Adverse Reactions: Allergies Allergy/AdvReac Type Severity Reaction Status Date / Time aripiprazole [From Abilify] Allergy Rash Verified 12/03/17 01:23 hydrocodone bitartrate * Allergy Hives Verified 12/03/17 01:23 [From Vicodin] ketorolac Allergy Itching Verified 12/03/17 01:23 tramadol Allergy Hives Verified 12/03/17 01:23 ethinyl estradiol AdvReac Cramps Verified 12/03/17 01:23 [From NuvaRing] etonogestrel [From NuvaRing] AdvReac Cramps Verified 12/03/17 01:23 - Social History Does the pt smoke?: No Smoking Status: Never smoker Does the pt drink ETOH?: Yes Does the pt have substance abuse?: No - Immunizations Immunizations are current?: Yes - POLST Patient has POLST: No POLST Status: Full Code PD ED PE NORMAL - Vitals Vital signs reviewed: Yes - General General: Alert and oriented X 3, No acute distress, Well developed/nourished - HEENT HEENT: Moist mucous membranes - Neck Neck: Supple, no meningeal sign - Cardiac Cardiac: RRR, No murmur - Respiratory Respiratory: No respiratory distress, Clear bilaterally - Abdomen Abdomen: Normal bowel sounds, Soft, Non tender, Non distended - Derm Derm: Normal color, Warm and dry Results - Vitals Vitals: Vital Signs - 24 hr 12/03/17 12/03/17 01:20 03:51 Temperature 36.5 C Heart Rate 92 73 Respiratory 18 16 Rate Blood Pressure 122/71 103/78 O2 Saturation 98 95 Oxygen O2 Source Room air PD MEDICAL DECISION MAKING - ED course Complexity details: reviewed old records, re-evaluated patient, considered differential, d/w patient ED course: Patient's chief complaint involve symptoms of GERD that are not controlled on current or previous medications. She is on a PPI, has tried carafate in the past without improvement. she says she can't take the ODT ondansetron because it worsens her symptoms. She says she has ondansetron in tablet form but couldn' t tolerate this due to N/V, and the phenergan OR triggered episode of diarrhea. She appears well hydrated and in NAD on exam. Given IM phenergan followed by " GI cocktail" (maalox, donnatol, viscous lidocaine) and reported adequate improvement. No emergent testing nor further treatment indicated at this time. Departure - Departure Disposition: 01 Home, Self Care Clinical Impression: Reflux gastritis Condition: Good Instructions: ED PUD Vs Gastritis Follow-Up: ROCIO SARAVIA [Primary Care Provider] - Prescriptions: PHENobarb/HYOSCY/ATROPINE/SCOP [ Elixir] 5 ml PO Q6HR PRN #50 udc PRN Reason: Abdominal Pain Lidocaine HCl [Lidocaine HCl Viscous] 5 - 10 ml PO TID PRN #100 ml PRN Reason: Abdominal Pain Comments: Take the prescribed medication as follows: maalox 30 milliliters (2 tablespoons; this is [id number] and thus not prescribed) mixed with Lidocaine 5 milliliters (1 teaspoon) and donnatol 5 milliliters (1 teaspoon). Take this only as needed and as per label instructions Discharge Date/Time: 12/03/17 03:56
[2017-12-03] MEDS ORDERED: LIDOCAINE VISCOUS 2% 15 ML UDC MM STA (02:39)
[2017-12-03] MEDS ORDERED: MAG HYDROX/AL HYDROX/SIMETH 30 ML UDC PO STA (02:39)
[2017-12-03] MEDS ORDERED: PHENobarb/HYOSCY/ATROPINE/SCOP 5 ML UDC PO STA (02:39)
[2017-12-03] MEDS ORDERED: PROMETHAZINE 25 MG/1 ML VIAL IM STA (02:39)
[2017-12-03 03:51] VITALS: BP 103/78
== END 2017-12-03 03:56 | disposition home or self-care (01) ==
LOC: ED 01:17
DX: K21.9 Gastro-esophageal reflux disease without esophagitis (principal); Z85.43 Personal history of malignant neoplasm of ovary; Z90.721 Acquired absence of ovaries, unilateral
CPT/HCPCS: 96372; 99283; 99284; A9270

== ENCOUNTER 2018-01-15 14:43 | Emergency (ER) | payer MEDICAID ==
--- NOTE | 2018-01-15 15:44 | ED Physician Documentation ---
PD HPI NVD - Stated complaint Stated Complaint: VOMMITING,DIZZY-8 WKS PREGANT - Chief complaint Chief Complaint: Abd Pain - History obtained from History obtained from: Patient - History of Present Illness Timing - onset: How many weeks ago (2) Timing - duration: Weeks (2) Timing - details: Gradual onset, Waxing and waning Associated symptoms: No: Hematemesis, Near syncope / syncope Contributing factors: Other (8 weeks pregnanct). No: Sick contact, Bad food, Travel Improved by: Laying still Worsened by: Eating Similar symptoms before: No diagnosis Recently seen: Emergency Dept (seen in [place] last week with similar and given IV fluids and meds with improvement. 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: Ovarian cysts, 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, Other : Chronic bladder infection, Kidney stones HEENT: None Psych: Depression, Anxiety, Post traumatic stress disorder Musculoskeletal: None Derm: None Other Past Medical History: Completed chemotherapy in 08/2017 - Past Surgical History Past Surgical History: Yes General: Other /NATUROPATHIC ONCOLOGY PROVIDER: Oophrectomy - Present Medications Home Medications: Ambulatory Orders Medication Instructions Recorded Confirmed Escitalopram [Lexapro] 15 mg PO QPM 01/03/17 11/16/17 Lamotrigine 200 mg PO QPM 01/03/17 07/22/17 PARoxetine [Paxil] 20 mg PO QPM 04/23/17 07/22/17 Lorazepam [Ativan] 1 tab PO TID PRN 07/22/17 07/22/17 Omeprazole [PriLOSEC] 1 cap PO DAILY 11/16/17 11/16/17 Ondansetron HCl [Zofran] 4 mg PO Q6H PRN #10 tablet 11/16/17 Oxycodone HCl/Acetaminophen 1 - 2 tab PO Q4H PRN #10 tablet 11/16/17 [Percocet 5-325 mg Tablet] Promethazine Supp [Phenergan Supp] 25 mg MT Q6H PRN #15 supp 11/26/17 Promethazine [Phenergan] 25 mg PO Q6H PRN #10 tablet 11/26/17 Lidocaine HCl [Lidocaine HCl 5 - 10 ml PO TID PRN #100 ml 12/03/17 Viscous] PHENobarb/HYOSCY/ATROPINE/SCOP 5 ml PO Q6HR PRN #50 udc 12/03/17 [ Elixir] Clindamycin [Cleocin] 150 mg PO TID #15 capsule 01/15/18 Dexamethasone [Decadron] 4 mg PO DAILY #5 tablet 01/15/18 Ondansetron Odt [Zofran] 4 mg TL Q6H PRN #20 tablet 01/15/18 Oxycodone HCl/Acetaminophen 1 each PO Q6H PRN #20 tablet 01/15/18 [Percocet 5-325 mg Tablet] Pyridoxine HCl [Vitamin B-6] 100 mg PO BID #30 tablet 01/15/18 - Allergies Allergies/Adverse Reactions: Allergies Allergy/AdvReac Type Severity Reaction Status Date / Time aripiprazole [From Abilify] Allergy Rash Verified 12/03/17 01:23 hydrocodone bitartrate * Allergy Hives Verified 12/03/17 01:23 [From Vicodin] ketorolac Allergy Itching Verified 12/03/17 01:23 tramadol Allergy Hives Verified 12/03/17 01:23 ethinyl estradiol AdvReac Cramps Verified 12/03/17 01:23 [From NuvaRing] etonogestrel [From NuvaRing] AdvReac Cramps Verified 12/03/17 01:23 - Social History Does the pt smoke?: No Smoking Status: Never smoker Does the pt drink ETOH?: Yes Does the pt have substance abuse?: No - Immunizations Immunizations are current?: Yes - POLST Patient has POLST: No POLST Status: Full Code PD ED PE NORMAL - Vitals Vital signs reviewed: Yes - General General: Alert and oriented X 3, Well developed/nourished - HEENT HEENT: Ears normal, Moist mucous membranes, Pharynx benign - Neck Neck: Supple, no meningeal sign, No bony TTP, No adenopathy - Cardiac Cardiac: RRR, No murmur - Respiratory Respiratory: Clear bilaterally - Derm Derm: Normal color, Warm and dry - Extremities Extremities: No deformity, No tenderness to palpate - Neuro Neuro: Alert and oriented X 3, in store demonstrator 2-12 intact, No motor deficit Eye Opening: Spontaneous Motor: Obeys Commands Verbal: Oriented GCS Score: 15 Results - Vitals Vitals: Oxygen O2 Source Room air - Labs Labs: Microbiology 01/15/18 17:45 Wet Prep - Final Genital - Vaginal Laboratory Tests 01/15/18 01/15/18 15:40 17:45 Urine Color YELLOW Urine Clarity CLEAR Urine pH 6.5 Ur Specific [place] 1.025 Urine Protein NEGATIVE Urine Glucose (UA) NEGATIVE Urine Ketones TRACE Urine Occult Blood NEGATIVE Urine Nitrite NEGATIVE Urine Bilirubin NEGATIVE Urine Urobilinogen 0.2 (NORMAL) Ur Leukocyte Esterase NEGATIVE Ur Microscopic Review NOT INDICATED Urine Culture Comments NOT INDICATED C.trachomatis RNA (TMA) NOT DETECTED Chlamydia/GC Comment SEE NOTE N.gonorrhoeae RNA (TMA) NOT DETECTED PD MEDICAL DECISION MAKING - ED course Complexity details: reviewed results, re-evaluated patient (improved with IV fluids and meds. SHe had some UTI symptoms but normal UA, so consider vaginal cause. vaginal exam appeared very c/w BV so will treat empirically.), considered differential, d/w patient Departure - Departure Disposition: 01 Home, Self Care Clinical Impression: Bacterial vaginosis, Pelvic pain Nausea and vomiting Qualifiers: Vomiting type: unspecified Vomiting Intractability: intractable Qualified Code( s): R11.2 - Nausea with vomiting, unspecified Qualifiers: Weeks of gestation: 8 weeks Qualified Code(s): Z3A.08 - 8 weeks gestation of Condition: Stable Record reviewed to determine appropriate education?: Yes Instructions: ED Preg Morning Sickness, ED Vaginosis Bacterial Follow-Up: ROCIO SARAVIA [Primary Care Provider] - Prescriptions: Clindamycin [Cleocin] 150 mg PO TID #15 capsule Dexamethasone [Decadron] 4 mg PO DAILY #5 tablet Ondansetron Odt [Zofran] 4 mg TL Q6H PRN #20 tablet PRN Reason: Nausea / Vomiting Oxycodone HCl/Acetaminophen [Percocet 5-325 mg Tablet] 1 each PO Q6H PRN #20 tablet PRN Reason: Pain Pyridoxine HCl [Vitamin B-6] 100 mg PO BID #30 tablet Comments: Continue current medications. Add vitamin B6 twice daily for the next 2-3 weeks. Add Decadron daily for 5 more days. These are to help decrease the nausea and vomiting generally. Continue ondansetron if needed for nausea. Clinically there did seem to be a vaginal infection and so use clindamycin for the next 5 days. Follow-up with your MOTTLER MACHINE FEEDER in the next 3-5 days, call for an appointment. Return as needed. Discharge Date/Time: 01/15/18 19:27
[2018-01-15 15:49] LABS: BILIRUBIN,URINE NEGATIVE (NEGATIVE); GLUCOSE, URINE (UA) NEGATIVE (NEGATIVE); KETONES,URINE (UA) TRACE mg/dL (NEGATIVE); LEUKOCYTE ESTERASE, URINE NEGATIVE (NEGATIVE); NITRITE,URINE NEGATIVE (NEGATIVE); OCCULT BLOOD,URINE NEGATIVE (NEGATIVE); PH,URINE 6.5 PH (5.0-7.5); PROTEIN,URINE NEGATIVE (NEGATIVE); UROBILINOGEN,URINE 0.2 (NORMAL) E.U./dL (NORMAL)
[2018-01-15 15:53] LABS: CLARITY,URINE CLEAR (CLEAR)
[2018-01-15] MEDS ORDERED: ONDANSETRON 4 MG/2 ML VIAL IVP STA (16:03)
[2018-01-15] MEDS ORDERED: SODIUM CHLORIDE 0.9% 1,000 ML IV ONE ×2 (16:03→16:35)
[2018-01-15] MEDS ORDERED: DEXAMETHASONE 10 MG/ML VIAL IVP STA (16:04)
[2018-01-15] MEDS ORDERED: MORPHINE 10 MG/ML VIAL IVP STA (16:05)
[2018-01-15] MEDS ORDERED: METOCLOPRAMIDE 10 MG/2 ML VIAL IVP STA (17:12)
[2018-01-15] MEDS ORDERED: HYDROmorphone 2 MG/ML VIAL IVP STA (17:12)
[2018-01-15 19:25] VITALS: BP 105/60
== END 2018-01-15 19:27 | disposition home or self-care (01) ==
LOC: ED 14:43
DX: O21.9 Vomiting of pregnancy, unspecified (principal); Z3A.08 8 weeks gestation of pregnancy; Z92.21 Personal history of antineoplastic chemotherapy
CPT/HCPCS: 81003; 87210; 87491; 87591; 96361; 96374; 96375; 99283; 99284; J1170; J2765; 81001; 87086

== ENCOUNTER 2018-01-21 19:29 | Emergency (ER) | payer MEDICAID ==
[2018-01-21 20:28] LABS: BILIRUBIN,URINE NEGATIVE (NEGATIVE); GLUCOSE, URINE (UA) NEGATIVE (NEGATIVE); KETONES,URINE (UA) NEGATIVE (NEGATIVE); LEUKOCYTE ESTERASE, URINE NEGATIVE (NEGATIVE); NITRITE,URINE NEGATIVE (NEGATIVE); OCCULT BLOOD,URINE NEGATIVE (NEGATIVE); PROTEIN,URINE NEGATIVE (NEGATIVE); UROBILINOGEN,URINE 0.2 (NORMAL) E.U./dL (NORMAL)
[2018-01-21 20:29] LABS: CLARITY,URINE CLEAR (CLEAR)
--- NOTE | 2018-01-21 21:23 | ED Physician Documentation ---
PD HPI FEMALE - Stated complaint Stated Complaint: FEMALE /9WK OB - Chief complaint Chief Complaint: Abd Pain - History obtained from History obtained from: Patient - History of Present Illness Timing - onset: Today (has had nausea with poor intake despite meds and then repetitive vomiting today all day. Left lower abd pain as well, chronic recurrent.) Timing - details: Gradual onset, Still present Associated symptoms: Abdominal pain, Vaginal discharge. No: Fever, Vaginal bleeding, Genital sore/lesion, Dysuria Contributing factors: Recently seen: Emergency Dept Review of Systems Constitutional: reports: Myalgias. denies: Fever, Chills Nose: denies: Rhinorrhea / runny nose, Congestion Throat: denies: Sore throat Respiratory: denies: Cough GI: reports: Abdominal Pain, Nausea, Vomiting. denies: Abdominal Swelling : reports: Discharge, Now EGA (9). 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: Ovarian cysts, 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, Other : Chronic bladder infection, Kidney stones HEENT: None Psych: Depression, Anxiety, Post traumatic stress disorder Musculoskeletal: None Derm: None - Past Surgical History Past Surgical History: Yes General: Other /DINKEY MECHANIC: Oophrectomy - Present Medications Home Medications: Ambulatory Orders Medication Instructions Recorded Confirmed Escitalopram [Lexapro] 15 mg PO QPM 01/03/17 11/16/17 Lamotrigine 200 mg PO QPM 01/03/17 07/22/17 PARoxetine [Paxil] 20 mg PO QPM 04/23/17 07/22/17 Lorazepam [Ativan] 1 tab PO TID PRN 07/22/17 07/22/17 Omeprazole [PriLOSEC] 1 cap PO DAILY 11/16/17 11/16/17 Ondansetron HCl [Zofran] 4 mg PO Q6H PRN #10 tablet 11/16/17 Oxycodone HCl/Acetaminophen 1 - 2 tab PO Q4H PRN #10 tablet 11/16/17 [Percocet 5-325 mg Tablet] Promethazine Supp [Phenergan Supp] 25 mg DE Q6H PRN #15 supp 11/26/17 Promethazine [Phenergan] 25 mg PO Q6H PRN #10 tablet 11/26/17 Lidocaine HCl [Lidocaine HCl 5 - 10 ml PO TID PRN #100 ml 12/03/17 Viscous] PHENobarb/HYOSCY/ATROPINE/SCOP 5 ml PO Q6HR PRN #50 udc 12/03/17 [ Elixir] Clindamycin [Cleocin] 150 mg PO TID #15 capsule 01/15/18 Dexamethasone [Decadron] 4 mg PO DAILY #5 tablet 01/15/18 Ondansetron Odt [Zofran] 4 mg TL Q6H PRN #20 tablet 01/15/18 Oxycodone HCl/Acetaminophen 1 each PO Q6H PRN #20 tablet 01/15/18 [Percocet 5-325 mg Tablet] Pyridoxine HCl [Vitamin B-6] 100 mg PO BID #30 tablet 01/15/18 - Allergies Allergies/Adverse Reactions: Allergies Allergy/AdvReac Type Severity Reaction Status Date / Time aripiprazole [From Abilify] Allergy Rash Verified 12/03/17 01:23 hydrocodone bitartrate * Allergy Hives Verified 12/03/17 01:23 [From Vicodin] ketorolac Allergy Itching Verified 12/03/17 01:23 tramadol Allergy Hives Verified 12/03/17 01:23 ethinyl estradiol AdvReac Cramps Verified 12/03/17 01:23 [From NuvaRing] etonogestrel [From NuvaRing] AdvReac Cramps Verified 12/03/17 01:23 - Social History Does the pt smoke?: No Smoking Status: Never smoker Does the pt drink ETOH?: Yes Does the pt have substance abuse?: No - Immunizations Immunizations are current?: Yes - POLST Patient has POLST: No POLST Status: Full Code PD ED PE NORMAL - General General: Alert and oriented X 3, No acute distress, Well developed/nourished - HEENT HEENT: Pharynx benign. No: Moist mucous membranes - Neck Neck: Supple, no meningeal sign, No adenopathy - Cardiac Cardiac: RRR, No murmur - Respiratory Respiratory: Clear bilaterally - Abdomen Abdomen: Normal bowel sounds, Soft, Non distended, No organomegaly, Other ( tender left lower abd. ) - Female Female : Deferred (done just last week, with normal cultures. ) - Rectal Rectal: Deferred - Back Back: No CVA TTP - Derm Derm: Normal color, Warm and dry - Extremities Extremities: No tenderness to palpate, Normal ROM s pain - Neuro Neuro: Alert and oriented X 3, No motor deficit, Normal speech Results - Vitals Vitals: Vital Signs - 24 hr 01/21/18 01/21/18 01/21/18 19:42 23:19 23:58 Temperature 37.4 C 36.6 C Heart Rate 62 68 Respiratory 18 16 17 Rate Blood Pressure 127/74 138/85 H O2 Saturation 100 100 01/22/18 01/22/18 00:02 00:28 Temperature 36.2 C L Heart Rate 74 Respiratory 20 17 Rate Blood Pressure 129/89 H O2 Saturation 100 Oxygen O2 Source Room air - Labs Labs: Laboratory Tests 01/21/18 01/21/18 19:45 20:44 Urine Color YELLOW YELLOW Urine Clarity CLEAR CLOUDY Urine pH 6.0 5.5 Ur Specific [place] 1.025 >=1.030 H Urine Protein NEGATIVE NEGATIVE Urine Glucose (UA) NEGATIVE NEGATIVE Urine Ketones NEGATIVE NEGATIVE Urine Occult Blood NEGATIVE NEGATIVE Urine Nitrite NEGATIVE NEGATIVE Urine Bilirubin NEGATIVE NEGATIVE Urine Urobilinogen 0.2 (NORMAL) 0.2 (NORMAL) Ur Leukocyte Esterase NEGATIVE TRACE H Urine RBC 0-5 Urine WBC 6-10 H Ur Squamous Epith Cells MANY Squamous H Amorphous Sediment Marked Urine Bacteria Few Ur Microscopic Review NOT INDICATED INDICATED Urine Culture Comments NOT INDICATED NOT INDICATED PD MEDICAL DECISION MAKING - ED course Complexity details: reviewed old records (likely will need to have concerted management plan for patient, as would anticipate repeat visits given just early . ), reviewed results (bedside US showing IUP c/w dates, and regular FHB. No free fluid. ), re-evaluated patient (improved after several meds), considered differential (has some vag discharge, but had pelvic last week with negative cultures. Presume yeast and will defer pelvic. ), d/w patient - Sepsis Event Vital Signs: Vital Signs - 24 hr 01/21/18 01/21/18 01/21/18 19:42 23:19 23:58 Temperature 37.4 C 36.6 C Heart Rate 62 68 Respiratory 18 16 17 Rate Blood Pressure 127/74 138/85 H O2 Saturation 100 100 01/22/18 01/22/18 00:02 00:28 Temperature 36.2 C L Heart Rate 74 Respiratory 20 17 Rate Blood Pressure 129/89 H O2 Saturation 100 Oxygen O2 Source Room air Departure - Departure Disposition: 01 Home, Self Care Clinical Impression: Nausea and vomiting Qualifiers: Vomiting type: unspecified Vomiting Intractability: intractable Qualified Code( s): R11.2 - Nausea with vomiting, unspecified Qualifiers: Weeks of gestation: 9 weeks Qualified Code(s): Z3A.09 - 9 weeks gestation of Condition: Stable Record reviewed to determine appropriate education?: Yes Instructions: ED Preg Morning Sickness, ED Nausea Vomiting Follow-Up: ROCIO SARAVIA [Primary Care Provider] - Comments: Continue usual medications. Drink lots of fluids. [place] food. Follow-up with your TARP REPAIRER or primary care. Discharge Date/Time: 01/22/18 00:28
[2018-01-21] MEDS ORDERED: FLUCONAZOLE 100 MG TABLET PO STA (21:35)
[2018-01-21] MEDS ORDERED: ONDANSETRON 4 MG/2 ML VIAL IVP STA (21:35)
[2018-01-21] MEDS ORDERED: SODIUM CHLORIDE 0.9% 1,000 ML IV ONE ×2 (21:35→23:13)
[2018-01-21] MEDS ORDERED: HYDROmorphone 2 MG/ML VIAL IVP STA (21:37)
[2018-01-21] MEDS ORDERED: METOCLOPRAMIDE 10 MG/2 ML VIAL IVP STA ×2 (21:37→23:00)
[2018-01-21] MEDS ORDERED: DEXAMETHASONE 10 MG/ML VIAL IVP STA (21:37)
[2018-01-21] MEDS ORDERED: ONDANSETRON 4 MG/2 ML VIAL ONE (21:54)
[2018-01-21 22:16] LABS: BILIRUBIN,URINE NEGATIVE (NEGATIVE); GLUCOSE, URINE (UA) NEGATIVE (NEGATIVE); KETONES,URINE (UA) NEGATIVE (NEGATIVE); LEUKOCYTE ESTERASE, URINE TRACE (NEGATIVE); NITRITE,URINE NEGATIVE (NEGATIVE); OCCULT BLOOD,URINE NEGATIVE (NEGATIVE); PH,URINE 5.5 PH (5.0-7.5); PROTEIN,URINE NEGATIVE (NEGATIVE); UROBILINOGEN,URINE 0.2 (NORMAL) E.U./dL (NORMAL)
[2018-01-21 22:18] LABS: CLARITY,URINE CLOUDY (CLEAR)
[2018-01-21 22:24] LABS: AMORPHOUS SEDIMENT,UR Marked /LPF; BACTERIA,URINE Few /HPF (None Seen); RBC,URINE 0-5 /HPF (0-5); SQUAMOUS EPITHELIAL CELL,UR MANY Squamous (<= Few)
[2018-01-21] MEDS ORDERED: diphenhydrAMINE INJ 50 MG/ML VIAL IVP STA (23:00)
[2018-01-21] MEDS ORDERED: MORPHINE 10 MG/ML VIAL IVP STA (23:05)
[2018-01-22 00:03] VITALS: BP 129/89
== END 2018-01-22 00:28 | disposition home or self-care (01) ==
LOC: ED 19:29
DX: O26.891 Other specified pregnancy related conditions, first trimester (principal); R11.2 Nausea with vomiting, unspecified; Z3A.09 9 weeks gestation of pregnancy; Z85.43 Personal history of malignant neoplasm of ovary; Z90.721 Acquired absence of ovaries, unilateral
CPT/HCPCS: 81001; 81003; 96361; 96374; 96375; 96376; 99283; A9270; J1170; J1200; J2765; 87086

== ENCOUNTER 2018-01-26 20:58 | Emergency (ER) | payer MEDICAID ==
--- NOTE | 2018-01-26 21:26 | ED Physician Documentation ---
PD HPI MHE - Stated complaint Stated Complaint: MHE - Chief complaint Chief Complaint: MHE - History obtained from History obtained from: Patient - History of Present Illness Primary symptom: Suicidal ideation, Depression Timing - onset: Chronic Contributing factors: Family, Sig other Similar symptoms before: Work up / diagnostics, Treatment Recently seen: Not recently seen - Additional information Additional information: Patient is a a 27 year old female with multiple medical problems including anxiety and depression. patient also is 10 weeks by dates. patient is presenting to the emergency department today for depression. patient states that the father of the baby does not want to keep it and that he does not want to stay together. She reports that her family does not understand mental illness so she feels like she has no one to talk to so she did not know what else to do so she came here. Review of Systems Ten Systems: 10 systems reviewed and negative GI: reports: Nausea. denies: Abdominal Pain, Vomiting, Constipation, Diarrhea : denies: Discharge, Vaginal bleeding Psychiatric: reports: Depressed, Anxiety, Insomnia. 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: Ovarian cysts, 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, Other : Chronic bladder infection, Kidney stones HEENT: None Psych: Depression, Anxiety, Post traumatic stress disorder Musculoskeletal: None Derm: None - Past Surgical History Past Surgical History: Yes General: Other /DRAPERY HEAD FORMER: Oophrectomy - Present Medications Home Medications: Ambulatory Orders Medication Instructions Recorded Confirmed Lamotrigine 200 mg PO QPM 01/03/17 01/26/18 PARoxetine [Paxil] 20 mg PO QPM 04/23/17 01/26/18 Lorazepam [Ativan] 1 tab PO TID PRN 07/22/17 01/26/18 Omeprazole [PriLOSEC] 1 cap PO DAILY 11/16/17 01/26/18 Nitrofurantoin Monohyd/M-Cryst 100 mg PO BID 5 Days capsule 01/27/18 [Macrobid 100 mg Capsule] - Allergies Allergies/Adverse Reactions: Allergies Allergy/AdvReac Type Severity Reaction Status Date / Time aripiprazole [From Abilify] Allergy Rash Verified 01/26/18 21:11 hydrocodone bitartrate * Allergy Hives Verified 01/26/18 21:11 [From Vicodin] ketorolac Allergy Itching Verified 01/26/18 21:11 tramadol Allergy Hives Verified 01/26/18 21:11 ethinyl estradiol AdvReac Cramps Verified 01/26/18 21:11 [From NuvaRing] etonogestrel [From NuvaRing] AdvReac Cramps Verified 01/26/18 21:11 - Social History Does the pt smoke?: No Smoking Status: Never smoker Does the pt drink ETOH?: Yes Does the pt have substance abuse?: No - Immunizations Immunizations are current?: Yes - POLST Patient has POLST: No POLST Status: Full Code PD ED PE NORMAL - Vitals Vital signs reviewed: Yes - General General: Alert and oriented X 3, No acute distress - HEENT HEENT: Atraumatic - Cardiac Cardiac: RRR - Respiratory Respiratory: No respiratory distress - Abdomen Abdomen: Soft, Non tender, Non distended - Derm Derm: Normal color, Warm and dry - Extremities Extremities: No deformity - Neuro Neuro: Alert and oriented X 3, No motor deficit, Normal speech Eye Opening: Spontaneous Motor: Obeys Commands Verbal: Oriented GCS Score: 15 PD ED PE EXPANDED - Psych Psych: Depressed. No: Suicidal, Homicidal Results - Vitals Vitals: Vital Signs - 24 hr 01/26/18 21:03 Temperature 36.6 C Heart Rate 96 Respiratory 20 Rate Blood Pressure 132/85 H O2 Saturation 98 Oxygen O2 Source Room air - Labs Labs: Laboratory Tests 01/26/18 01/26/18 01/26/18 21:34 21:34 23:10 WBC 11.0 H RBC 4.46 Hgb 12.3 Hct 37.7 MCV 84.4 MCH 27.5 MCHC 32.6 RDW 14.2 Plt Count 341 MPV 7.2 L Neut # (Auto) 7.1 H Lymph # (Auto) 3.0 [place] # (Auto) 0.7 Eos # (Auto) 0.2 Baso # (Auto) 0.0 Absolute Nucleated RBC 0.00 Nucleated RBC % 0.0 Sodium 135 Potassium 3.9 Chloride 100 L Carbon Dioxide 26 Anion Gap 9.0 BUN 18 Creatinine 0.5 Estimated GFR (MDRD) 149 Glucose 97 Calcium 9.3 Total Bilirubin 0.5 AST 25 ALT 26 Alkaline Phosphatase 50 Total Protein 7.5 Albumin 3.8 Globulin 3.7 Albumin/Globulin Ratio 1.0 Lipase 19 L Urine Color YELLOW Urine Clarity CLEAR Urine pH 6.5 Ur Specific [place] 1.020 Urine Protein NEGATIVE Urine Glucose (UA) NEGATIVE Urine Ketones NEGATIVE Urine Occult Blood NEGATIVE Urine Nitrite NEGATIVE Urine Bilirubin NEGATIVE Urine Urobilinogen 0.2 (NORMAL) Ur Leukocyte Esterase TRACE H Urine RBC 6-10 H Urine WBC 6-10 H Ur Squamous Epith Cells MOD Squamous H Urine Bacteria Few Ur Microscopic Review INDICATED Urine Culture Comments NOT INDICATED Urine Opiates Screen NEGATIVE Ur Oxycodone Screen POSITIVE H Urine Methadone Screen NEGATIVE Ur Propoxyphene Screen NEGATIVE Ur Barbiturates Screen NEGATIVE Ur Tricyclics Screen NEGATIVE Ur Phencyclidine Scrn NEGATIVE Ur Amphetamine Screen NEGATIVE U Methamphetamines Scrn NEGATIVE U Benzodiazepines Scrn NEGATIVE Urine Cocaine Screen NEGATIVE U Cannabinoids Screen POSITIVE H Ethyl Alcohol < 5.0 PD MEDICAL DECISION MAKING - ED course Complexity details: reviewed old records, reviewed results, re-evaluated patient , considered differential, d/w patient ED course: Mehul was seen and examined at bedside. labs were drawn. Urine was collected. patient was found to have a few bacteria in her urine and was treated with macrobid. after about an hour patient was slightly anxious and was treated with benadryl 25 mg. Patient was observed for another 4 hours at which point she stated that she wanted to go home. patient was voluntary and denied suicidal or homicidal ideation. Patient stated that she would go to her parents house. patient was awake, alert and oriented and was stable for discharge with outpatient follow up. - Sepsis Event Vital Signs: Vital Signs - 24 hr 01/26/ 21:03 Temperature 36.6 C Heart Rate 96 Respiratory 20 Rate Blood Pressure 132/85 H O2 Saturation 98 Oxygen O2 Source Room air Departure - Departure Disposition: 01 Home, Self Care Clinical Impression: Depressed Condition: Good Instructions: ED Stress React, ED Depression Follow-Up: ROCIO SARAVIA [Primary Care Provider] - Tomorrow Prescriptions: Nitrofurantoin Monohyd/M-Cryst [Macrobid 100 mg Capsule] 100 mg PO BID 5 Days capsule Comments: You are being prescribed macrobid for bacteria in your urine. you will take it twice a day for five days. You should make sure you stay well hydrated. You should return to the emergency department at any time for thoughts of hurting yourself or anyone else.
[2018-01-26 21:42] LABS: BASOPHILS % (AUTO) 0.4 %; EOSINOPHILS # (AUTO) 0.2 10^3/uL (0.0-0.7); EOSINOPHILS % (AUTO) 1.5 %; HGB - HEMOGLOBIN 12.3 g/dL (12.0-16.0); LYMPHOCYTES % (AUTO) 27.5 %; MEAN CORPUSCULAR HEMOGLOBIN 27.5 pg (27.0-31.0); MEAN CORPUSCULAR HGB CONC 32.6 g/dL (32.0-36.0); MEAN CORPUSCULAR VOLUME 84.4 fL (81.0-99.0); MEAN PLATELET VOLUME 7.2 fL (7.9-10.8); MONOCYTES # (AUTO) 0.7 10^3/uL (0.0-1.0); MONOCYTES % (AUTO) 6.4 %; NEUTROPHILS # (AUTO) 7.1 10^3/uL (1.5-6.6); NEUTROPHILS % (AUTO) 64.2 %; PLT - PLATELET COUNT 341 10^3/uL (130-450); RED BLOOD COUNT 4.46 10^6/uL (4.20-5.40); RED CELL DISTRIBUTION WIDTH 14.2 % (12.0-15.0)
[2018-01-26 21:50] LABS: ALBUMIN 3.8 g/dL (3.2-5.5); ALKALINE PHOSPHATASE 50 IU/L (42-121); ALT ALANINE AMINOTRANSFERASE 26 IU/L (10-60); AST ASPARTATE AMINOTRANSFERASE 25 IU/L (10-42); BILIRUBIN,TOTAL 0.5 mg/dL (0.2-1.0); BUN - BLOOD UREA NITROGEN 18 mg/dL (6-20); CALCIUM 9.3 mg/dL (8.5-10.3); CARBON DIOXIDE - CO2 26 mmol/L (21-32); CHLORIDE 100 mmol/L (101-111); CREATININE 0.5 mg/dL (0.4-1.0); GFR - MDRD 149 (>89); GLUCOSE 97 mg/dL (70-100); LIPASE 19 U/L (22-51); SODIUM 135 mmol/L (135-145); TOTAL PROTEIN 7.5 g/dL (6.7-8.2)
[2018-01-26 23:25] LABS: MUDS CUTOFF CONCENTRATIONS CUTOFF CONC BELOW:
[2018-01-26 23:26] LABS: BILIRUBIN,URINE NEGATIVE (NEGATIVE); GLUCOSE, URINE (UA) NEGATIVE (NEGATIVE); KETONES,URINE (UA) NEGATIVE (NEGATIVE); LEUKOCYTE ESTERASE, URINE TRACE (NEGATIVE); NITRITE,URINE NEGATIVE (NEGATIVE); OCCULT BLOOD,URINE NEGATIVE (NEGATIVE); PH,URINE 6.5 PH (5.0-7.5); PROTEIN,URINE NEGATIVE (NEGATIVE); UROBILINOGEN,URINE 0.2 (NORMAL) E.U./dL (NORMAL)
[2018-01-26 23:28] LABS: CLARITY,URINE CLEAR (CLEAR)
[2018-01-26 23:32] LABS: BACTERIA,URINE Few /HPF (None Seen); SQUAMOUS EPITHELIAL CELL,UR MOD Squamous (<= Few)
[2018-01-26 23:37] LABS: AMPHETAMINE SCREEN,URINE NEGATIVE (NEGATIVE); BENZODIAZEPINES SCREEN, URINE NEGATIVE (NEGATIVE); COCAINE SCREEN URINE NEGATIVE (NEGATIVE); METHADONE SCREEN, URINE NEGATIVE (NEGATIVE); METHAMPHETAMINES SCREEN, URINE NEGATIVE (NEGATIVE); OPIATE SCREEN, URINE NEGATIVE (NEGATIVE); OXYCODONE SCREEN, URINE POSITIVE (NEGATIVE); TRICYCLIC ANTIDEPRESSANT,URINE NEGATIVE (NEGATIVE)
[2018-01-26 23:38] LABS: PROPOXYPHENE SCREEN, URINE NEGATIVE (NEGATIVE)
[2018-01-26] MEDS ORDERED: NITROFURANTOIN MACRO 100 MG CAPSULE PO STA (23:45)
[2018-01-26] MEDS ORDERED: diphenhydrAMINE 25 MG CAPSULE PO STA (23:45)
[2018-01-27 02:22] VITALS: BP 136/91
== END 2018-01-27 02:22 | disposition home or self-care (01) ==
LOC: ED 20:58
DX: O99.341 Other mental disorders complicating pregnancy, first trimester (principal); F32.9 Major depressive disorder, single episode, unspecified; Z3A.10 10 weeks gestation of pregnancy; K21.9 Gastro-esophageal reflux disease without esophagitis; Z85.43 Personal history of malignant neoplasm of ovary
CPT/HCPCS: 36415; 80053; 80306; 80320; 81001; 83690; 85025; 99283; 99284; A9270; 81003; 87086

== ENCOUNTER 2018-03-15 14:33 | Emergency (ER) | payer MEDICAID ==
[2018-03-15] MEDS ORDERED: PENICILLIN VK 250 MG TABLET PO STA (14:43)
[2018-03-15 14:45] VITALS: BP 125/64
--- NOTE | 2018-03-15 14:46 | ED Physician Documentation ---
PD HPI HEENT - Stated complaint Stated Complaint: LT UP TOOTH PAIN - History obtained from History obtained from: Patient - History of Present Illness Timing - onset: Last night Timing - details: Still present Location: Tooth - Additional information Additional information: The patient is a 27-year-old female who presents with left upper toothache. She noticed that part of a filling came out about 1 week ago, and more of it came out last night. She denies facial swelling, fever, earache, or headache. She underwent a root canal in that molar about 6 months ago. She never had the temporary filling replaced with a cap. Review of Systems Constitutional: denies: Fever Eyes: denies: Irritation Ears: denies: Ear pain Nose: denies: Congestion Throat: reports: Dental pain / toothache. 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: Ovarian cysts, 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, Other : Chronic bladder infection, Kidney stones HEENT: None Psych: Depression, Anxiety, Post traumatic stress disorder Musculoskeletal: None Derm: None - Past Surgical History Past Surgical History: Yes General: Other /MANAGER OF BROADCAST CONTENT: Oophrectomy - Present Medications Home Medications: Ambulatory Orders Medication Instructions Recorded Confirmed Lamotrigine 200 mg PO QPM 01/03/17 01/26/18 PARoxetine [Paxil] 20 mg PO QPM 04/23/17 01/26/18 Lorazepam [Ativan] 1 tab PO TID PRN 07/22/17 01/26/18 Omeprazole [PriLOSEC] 1 cap PO DAILY 11/16/17 01/26/18 Nitrofurantoin Monohyd/M-Cryst 100 mg PO BID 5 Days capsule 01/27/18 [Macrobid 100 mg Capsule] Penicillin V Potassium 500 mg PO QID #40 tablet 03/15/18 oxyCODONE/ACET 5/325 [Percocet 5 1 tab PO Q6HR PRN #12 tablet 03/15/18 mg/325 mg] - Allergies Allergies/Adverse Reactions: Allergies Allergy/AdvReac Type Severity Reaction Status Date / Time aripiprazole [From Abilify] Allergy Rash Verified 03/15/18 14:45 hydrocodone bitartrate * Allergy Hives Verified 03/15/18 14:45 [From Vicodin] ketorolac Allergy Itching Verified 03/15/18 14:45 tramadol Allergy Hives Verified 03/15/18 14:45 ethinyl estradiol AdvReac Cramps Verified 03/15/18 14:45 [From NuvaRing] etonogestrel [From NuvaRing] AdvReac Cramps Verified 03/15/18 14:45 - Social History Does the pt smoke?: No Smoking Status: Never smoker Does the pt drink ETOH?: Yes Does the pt have substance abuse?: No - Immunizations Immunizations are current?: Yes - POLST Patient has POLST: No POLST Status: Full Code PD ED PE NORMAL - Vitals Vital signs reviewed: Yes (normal) - General General: Alert and oriented X 3, Well developed/nourished - HEENT HEENT: Atraumatic, EOMI, Ears normal, Pharynx benign, Other (Left upper molar has a temporary filling that is partially eroded, and is tender to palpation. There is no gingival swelling or erythema, and no facial swelling or tenderness. ) - Neck Neck: Supple, no meningeal sign, No adenopathy - Cardiac Cardiac: RRR - Respiratory Respiratory: No respiratory distress - Derm Derm: No rash - Neuro Neuro: Alert and oriented X 3, Normal speech Results - Vitals Vitals: Vital Signs - 24 hr 03/15/18 14:35 Temperature 36.6 C Heart Rate 93 Respiratory 18 Rate Blood Pressure 125/64 O2 Saturation 97 Oxygen O2 Source Room air PD MEDICAL DECISION MAKING - ED course Complexity details: considered differential, d/w patient ED course: The patient's presentation is consistent with pain due to dental caries, with possible dental abscess. This is in a molar that previously underwent root canal, but without placement of a cap. Treatment in the emergency room included administration of penicillin 500 mg orally. She is being discharged with prescription for penicillin and for Percocet, 12 tablets. I discussed with her the diagnosis, the importance of follow-up with a dentist, as well as potentially worrisome signs or symptoms that should prompt reevaluation in the emergency department. - Sepsis Event Vital Signs: Vital Signs - 24 hr 03/15/18 14:35 Temperature 36.6 C Heart Rate 93 Respiratory 18 Rate Blood Pressure 125/64 O2 Saturation 97 Oxygen O2 Source Room air Departure - Departure Disposition: 01 Home, Self Care Clinical Impression: Pain due to dental caries Condition: Stable Instructions: ED Abscess Dental Follow-Up: ROCIO SARAVIA [Primary Care Provider] - Prescriptions: oxyCODONE/ACET 5/325 [Percocet 5 mg/325 mg] 1 tab PO Q6HR PRN #12 tablet PRN Reason: Pain Penicillin V Potassium 500 mg PO QID #40 tablet Comments: Take penicillin 4 times daily as prescribed. He can use Percocet as prescribed if needed for pain. Follow up with your dentist as soon as possible. Call to schedule an appointment. Return to the emergency department if you develop increasing pain despite the pain medication, increased facial swelling, or otherwise worsening symptoms. Discharge Date/Time: 03/15/18 15:06
== END 2018-03-15 15:06 | disposition home or self-care (01) ==
LOC: ED 14:33
DX: K02.9 Dental caries, unspecified (principal); K08.89 Other specified disorders of teeth and supporting structures; Z85.43 Personal history of malignant neoplasm of ovary
CPT/HCPCS: 99283; A9270

== ENCOUNTER 2018-05-19 22:40 | Outpatient (CLI) | payer MEDICAID ==
[2018-05-20 00:21] LABS: BASOPHILS % (AUTO) 0.2 %; EOSINOPHILS # (AUTO) 0.1 10^3/uL (0.0-0.7); EOSINOPHILS % (AUTO) 0.8 %; HGB - HEMOGLOBIN 9.6 g/dL (12.0-16.0); LYMPHOCYTES # (AUTO) 2.6 10^3/uL (1.5-3.5); MEAN CORPUSCULAR HEMOGLOBIN 26.8 pg (27.0-31.0); MEAN CORPUSCULAR HGB CONC 34.3 g/dL (32.0-36.0); MEAN CORPUSCULAR VOLUME 78.2 fL (81.0-99.0); MEAN PLATELET VOLUME 7.5 fL (7.9-10.8); MONOCYTES # (AUTO) 0.9 10^3/uL (0.0-1.0); MONOCYTES % (AUTO) 6.8 %; NEUTROPHILS # (AUTO) 9.9 10^3/uL (1.5-6.6); NEUTROPHILS % (AUTO) 73.2 %; PLT - PLATELET COUNT 295 10^3/uL (130-450); RED BLOOD COUNT 3.57 10^6/uL (4.20-5.40); RED CELL DISTRIBUTION WIDTH 14.9 % (12.0-15.0); WHITE BLOOD COUNT 13.5 x10^3/uL (4.8-10.8)
[2018-05-20 00:32] LABS: ALBUMIN 2.9 g/dL (3.2-5.5); ALBUMIN/GLOBULIN RATIO 0.8 (1.0-2.2); BILIRUBIN,TOTAL 0.5 mg/dL (0.2-1.0); CALCIUM 8.6 mg/dL (8.5-10.3); CREATININE 0.5 mg/dL (0.4-1.0); TOTAL PROTEIN 6.7 g/dL (6.7-8.2)
[2018-05-20] MEDS ORDERED: ACETAMINOPHEN 500 MG TABLET PO SCH (01:00)
[2018-05-20] MEDS ORDERED: oxyCODONE 5 MG TABLET PO ONE (01:29)
[2018-05-20] MEDS ORDERED: LACTATED RINGERS 1,000 ML IV ONE (01:33)
[2018-05-20] MEDS ORDERED: SODIUM CHLORIDE FLUSH 0.9% 10 ML SYRINGE ONE (02:02)
[2018-05-20] MEDS ORDERED: LACTATED RINGERS 1,000 ML IV SCH (02:30)
[2018-05-20 02:52] LABS: BILIRUBIN,URINE NEGATIVE (NEGATIVE); GLUCOSE, URINE (UA) NEGATIVE (NEGATIVE); KETONES,URINE (UA) NEGATIVE (NEGATIVE); LEUKOCYTE ESTERASE, URINE NEGATIVE (NEGATIVE); NITRITE,URINE NEGATIVE (NEGATIVE); OCCULT BLOOD,URINE NEGATIVE (NEGATIVE); PROTEIN,URINE NEGATIVE (NEGATIVE); UROBILINOGEN,URINE 0.2 (NORMAL) E.U./dL (NORMAL)
[2018-05-20 02:53] LABS: CLARITY,URINE CLEAR (CLEAR)
--- NOTE | 2018-05-20 03:34 | Ultrasound Report ---
Reason: 26 WEEKS , ABDOMINAL PAIN Procedure Date: 05/20/2018 Accession Number: [id number] / [id number] Procedure: US - OB Transvaginal CPT Code: FULL RESULT: EXAM: LIMITED OBSTETRICAL ULTRASOUND EXAM DATE: 05/20/2018 02:00 AM. CLINICAL HISTORY: 26 weeks , abdominal pain. COMPARISON: OB TRANSVAGINAL 05/20/2018 1:51 AM. TECHNIQUE: Real-time sonographic evaluation of the fetus performed by the certified nursing assistant. Multiple vaccine customer representative static images were saved for review. Additional transvaginal imaging to more accurately evaluate cervical length/placental position/etc. FINDINGS: Established Due Date: 08/26/2018. Estimated Gestational Age: 26 weeks 0 days. Single live intrauterine gestation noted in cephalic orientation. Placenta is anterior without evidence of abruption or previa. Amniotic fluid index measures 26.4 cm representing mild polyhydramnios. Main vertical pocket measures 8.5 cm. Maternal left ovary is not visualized. There is no suspicious left adnexal lesion. History of right oophorectomy. No significant free fluid. heart rate was at 140 bpm. Transvaginal scanning was performed to better visualize the cervix. The cervix is long and closed measuring 2.4 cm. IMPRESSION: 1. Cervix is long and closed measuring 2.4 cm. 2. Amniotic fluid index measures 26.4 cm, mild polyhydramnios. 3. Single live intrauterine gestation. RADIA
--- NOTE | 2018-05-20 03:38 | Ultrasound Report ---
Reason: 26 WEEKS , LEFT UPPER ABD PAIN Procedure Date: 05/20/2018 Accession Number: [id number] / [id number] Procedure: US - Retroperitoneal CPT Code: FULL RESULT: EXAM: RENAL ULTRASOUND EXAM DATE: 05/20/2018 01:55 AM. CLINICAL HISTORY: 26 WEEKS , LEFT UPPER ABD PAIN. COMPARISON: ABDOMEN/PELVIS W/ 01/28/2017 1:33 AM. TECHNIQUE: Real-time scanning was performed with static images obtained. FINDINGS: Body habitus reduces the sensitivity and specificity. Right Kidney: 10.7 cm. Normal echotexture with no stones, contour-deforming masses, or hydronephrosis. Left Kidney: 12.3 cm. Normal echotexture with no stones, contour-deforming masses, or hydronephrosis. Bladder: Bilateral jets not seen. The prevoid bladder volume was 94 cc. Postvoid volume measures 9 mL. Other: None. IMPRESSION: No kidney stone or hydronephrosis. RADIA
[2018-05-20] MEDS ORDERED: CALCIUM CARBONATE CHEW 500 MG TABLET PO STA (05:09)
[2018-05-20] MEDS ORDERED: FAMOTIDINE 20 MG TABLET PO SCH (05:10)
[2018-05-20] MEDS ORDERED: oxyCODONE 5 MG TABLET PO PRN (05:23)
[2018-05-20 05:24] LABS: HB2 TOTAL 10.1 g/dL; HEMOGLOBIN A1C 0.3 g/dL; HEMOGLOBIN A1C % 4.9 % (4.6-6.2)
--- NOTE | 2018-05-20 05:26 | Discharge Plan ---
Discharge Plan Prescriptions: oxyCODONE [Roxicodone] 5 mg PO Q4HR PRN #6 tablet PRN Reason: Severe Pain No Smoking: If you smoke, Please STOP! Call for help.
[2018-05-20 05:59] VITALS: BP 97/61
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
--- NOTE | 2018-05-20 06:52 | Ultrasound Report ---
Reason: 26 WEEKS , ABDOMINAL PAIN Procedure Date: 05/20/2018 Accession Number: [id number] / [id number] Procedure: US - OB Limited CPT Code: FULL RESULT: IMPRESSION: 1. Cervix is long and closed measuring 2.4 cm. 2. Amniotic fluid index measures 26.4 cm, mild polyhydramnios. 3. Single live intrauterine gestation. RADIA
== END 2018-05-20 05:55 | disposition home or self-care (01) ==
LOC: WFO 22:40 → FBP 22:44 → WFO 05-20 05:55
PROVIDERS: ATTEND Obstetrics & Gynecology
DX: O26.892 Other specified pregnancy related conditions, second trimester (principal); R10.9 Unspecified abdominal pain; O99.212 Obesity complicating pregnancy, second trimester; O99.012 Anemia complicating pregnancy, second trimester; D64.89 Other specified anemias; Z87.442 Personal history of urinary calculi; Z3A.26 26 weeks gestation of pregnancy
CPT/HCPCS: 36415; 76770; 76815; 76817; 80053; 81003; 82731; 83036; 85025; 87210; 87491; 87591; 99214; A9270; J7120; 81001; 87086

== ENCOUNTER 2018-05-29 20:22 | Outpatient (CLI) | payer MEDICAID ==
[2018-05-29 21:06] LABS: BILIRUBIN,URINE NEGATIVE (NEGATIVE); GLUCOSE, URINE (UA) NEGATIVE (NEGATIVE); KETONES,URINE (UA) NEGATIVE (NEGATIVE); LEUKOCYTE ESTERASE, URINE NEGATIVE (NEGATIVE); NITRITE,URINE NEGATIVE (NEGATIVE); OCCULT BLOOD,URINE NEGATIVE (NEGATIVE); PROTEIN,URINE NEGATIVE (NEGATIVE); UROBILINOGEN,URINE 0.2 (NORMAL) E.U./dL (NORMAL)
[2018-05-29 21:20] LABS: CLARITY,URINE CLEAR (CLEAR)
[2018-05-29 21:21] LABS: AMORPHOUS SEDIMENT,UR Moderate /LPF; BACTERIA,URINE None Seen /HPF (None Seen); RBC,URINE None Seen /HPF (0-5); SQUAMOUS EPITHELIAL CELL,UR FEW Squamous (<= Few)
[2018-05-29 21:53] VITALS: BP 109/66
[2018-05-29] MEDS ORDERED: TERBUTALINE 1 MG/ML VIAL SUBQ ONE (22:09)
== END 2018-05-29 21:45 | disposition home or self-care (01) ==
LOC: WFO 20:22 → FBP 20:24 → WFO 21:45
PROVIDERS: ATTEND Obstetrics & Gynecology
DX: O99.89 Other specified diseases and conditions complicating pregnancy, childbirth and the puerperium (principal); R25.2 Cramp and spasm; Z3A.27 27 weeks gestation of pregnancy
CPT/HCPCS: 81001; 99213

== ENCOUNTER 2018-10-17 13:14 | Emergency (ER) | payer MEDICAID ==
[2018-10-17] MEDS ORDERED: AMOXICILLIN 250 MG CAPSULE PO STA (14:35)
--- NOTE | 2018-10-17 14:37 | ED Physician Documentation ---
PD HPI HEENT - Stated complaint Stated Complaint: LT FACIAL PX/2ND DENTAL WORK - Chief complaint Chief Complaint: Heent - Additional information Additional information: 28-year-old female presents the emergency department with complaints of dental pain and facial tenderness. The patient had dental surgery yesterday and reports ongoing pain and swelling of the face. The patient denies redness or fever. The patient denies tongue swelling or difficulty swallowing. No shortness of breath. No other associated symptoms. 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: Ovarian cysts, 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, Other : Chronic bladder infection, Kidney stones HEENT: None Psych: Depression, Anxiety, Post traumatic stress disorder Musculoskeletal: None Derm: None - Past Surgical History Past Surgical History: Yes General: Other /REHABILITATION TECH: Oophrectomy - Present Medications Home Medications: Ambulatory Orders Medication Instructions Recorded Confirmed Lamotrigine 200 mg PO QPM 01/03/17 01/26/18 PARoxetine [Paxil] 20 mg PO QPM 04/23/17 01/26/18 Lorazepam [Ativan] 1 tab PO TID PRN 07/22/17 01/26/18 Omeprazole [PriLOSEC] 1 cap PO DAILY 11/16/17 01/26/18 Nitrofurantoin Monohyd/M-Cryst 100 mg PO BID 5 Days capsule 01/27/18 [Macrobid 100 mg Capsule] Penicillin V Potassium 500 mg PO QID #40 tablet 03/15/18 oxyCODONE/ACET 5/325 [Percocet 5 1 tab PO Q6HR PRN #12 tablet 03/15/18 mg/325 mg] oxyCODONE [Roxicodone] 5 mg PO Q4HR PRN #6 tablet 05/20/18 Amoxicillin 875 mg PO BID #20 tablet 10/17/18 - Allergies Allergies/Adverse Reactions: Allergies Allergy/AdvReac Type Severity Reaction Status Date / Time aripiprazole [From Abilify] Allergy Rash Verified 10/17/18 13:22 hydrocodone bitartrate * Allergy Hives Verified 10/17/18 13:22 [From Vicodin] ketorolac Allergy Itching Verified 10/17/18 13:22 tramadol Allergy Hives Verified 10/17/18 13:22 ethinyl estradiol AdvReac Cramps Verified 10/17/18 13:22 [From NuvaRing] etonogestrel [From NuvaRing] AdvReac Cramps Verified 10/17/18 13:22 - Social History Does the pt smoke?: No Smoking Status: Never smoker Does the pt drink ETOH?: Yes Does the pt have substance abuse?: No - Immunizations Immunizations are current?: Yes - POLST Patient has POLST: No POLST Status: Full Code PD ED PE NORMAL - General General: Alert and oriented X 3, No acute distress - HEENT HEENT: Atraumatic, PERRL, EOMI, Other (The patient has gingival inflammation, there is no drainable abscess, the patient has tenderness at the site of recent surgery. There is no significant facial swelling or signs of facial cellulitis.) - Neck Neck: Supple, no meningeal sign - Cardiac Cardiac: RRR - Derm Derm: Normal color - Extremities Extremities: No deformity - Neuro Neuro: Alert and oriented X 3, Normal speech - Psych Psych: Normal affect Results - Vitals Vitals: Vital Signs - 24 hr 10/17/18 13:20 Temperature 35.7 C L Heart Rate 76 Respiratory 14 Rate Blood Pressure 130/83 H O2 Saturation 96 Oxygen O2 Source Room air PD MEDICAL DECISION MAKING - ED course ED course: The patient will be started on a course of oral antibiotics, I recommended follow-up with the surgeon who performed the procedure. The patient will con tinue Tylenol and Motrin for her pain. The patient will return to the emergency department for any worsening or any concerns Departure - Departure Disposition: 01 Home, Self Care Clinical Impression: Facial pain, acute Condition: Good Instructions: ED Tooth Pain Prescriptions: Amoxicillin 875 mg PO BID #20 tablet Comments: Please follow-up with your dentist tomorrow for further evaluation of your pain after the recent surgical procedure Please return to the emergency department for any worsening or any concerns
[2018-10-17] MEDS ORDERED: NAPROXEN 250 MG TABLET PO STA (14:41)
[2018-10-17 14:49] VITALS: BP 148/108
== END 2018-10-17 14:51 | disposition home or self-care (01) ==
LOC: ED 13:14
DX: G50.1 Atypical facial pain (principal)
CPT/HCPCS: 99283; A9270

== ENCOUNTER 2018-12-06 13:29 | Emergency (ER) | payer MEDICAID ==
[2018-12-06] MEDS ORDERED: ONDANSETRON 4 MG/2 ML VIAL IVP STA (14:11)
[2018-12-06] MEDS ORDERED: SODIUM CHLORIDE 0.9% 1,000 ML IV ONE (14:11)
--- NOTE | 2018-12-06 14:16 | ED Physician Documentation ---
PD HPI MHE - Stated complaint Stated Complaint: MHE - Chief complaint Chief Complaint: MHE - History obtained from History obtained from: Patient - History of Present Illness Primary symptom: Depression Timing - onset: How many months ago (2) Contributing factors: Family Similar symptoms before: Diagnosis (post depression) Recently seen: Clinic - Additional information Additional information: 28-year-old female with depression is 4 months and she has had depression with her other 2 children as well. She states there is a lot of stress in her household right now and that she has brought her in for evaluation last night. There are apparently some drugs involved with his care as well. Patient states that she is not sleeping well she is not eating much she is having pain in her pelvis that she usually does and her depression has deepened. She has an appointment at 4 PM at [facility] and she is come to the emergency department for evaluation now. She denies suicidal or homicidal ideation and she denies any infantacidal ideation. She was restarted on her lexapro about one week ago. Review of Systems Constitutional: denies: Fever, Chills, Myalgias Eyes: denies: Decreased vision Ears: denies: Ear pain Nose: denies: Rhinorrhea / runny nose, Congestion Throat: denies: Sore throat Cardiac: denies: Chest pain / pressure, Palpitations Respiratory: reports: Cough. 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: Ovarian cysts, 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, Other : Chronic bladder infection, Kidney stones HEENT: None Psych: Depression, Anxiety, Post traumatic stress disorder Musculoskeletal: None Derm: None - Past Surgical History Past Surgical History: Yes General: Other /COMBINATION WELDER APPRENTICE: Oophrectomy - Present Medications Home Medications: Ambulatory Orders Medication Instructions Recorded Confirmed RX: Lamotrigine 200 mg PO QPM 01/03/17 12/06/18 oxyCODONE/ACET 5/325 [Percocet 5 1 tab PO Q6HR PRN #12 tablet 03/15/18 12/06/18 mg/325 mg] Acetaminophen [Tylenol Arthritis] 1 tab PO Q8HR PRN 12/06/18 12/06/18 Escitalopram Oxalate [Lexapro] 1 tab PO DAILY 12/06/18 12/06/18 Promethazine [Phenergan] 25 mg PO Q6H PRN #10 tab 12/06/18 raNITIdine [Zantac] 1 tab PO BID 12/06/18 12/06/18 - Allergies Allergies/Adverse Reactions: Allergies Allergy/AdvReac Type Severity Reaction Status Date / Time aripiprazole [From Abilify] Allergy Rash Verified 12/06/18 19:09 hydrocodone bitartrate * Allergy Hives Verified 12/06/18 19:09 [From Vicodin] ketorolac Allergy Itching Verified 12/06/18 19:09 tramadol Allergy Hives Verified 12/06/18 19:09 ethinyl estradiol AdvReac Cramps Verified 12/06/18 19:09 [From NuvaRing] etonogestrel [From NuvaRing] AdvReac Cramps Verified 12/06/18 19:09 - Social History Does the pt smoke?: No Smoking Status: Never smoker Does the pt drink ETOH?: Yes Does the pt have substance abuse?: No - Immunizations Immunizations are current?: Yes - POLST Patient has POLST: No POLST Status: Full Code PD ED PE NORMAL - Vitals Vital signs reviewed: Yes (hypertensive ) - General General: Alert and oriented X 3, No acute distress, Well developed/nourished - HEENT HEENT: Atraumatic, PERRL, EOMI, Ears normal, Moist mucous membranes, Pharynx benign - Neck Neck: Supple, no meningeal sign, No bony TTP - Cardiac Cardiac: RRR, No murmur - Respiratory Respiratory: No respiratory distress, Clear bilaterally - Abdomen Abdomen: Soft, Other (mild suprapubic tenderness ) - Back Back: No CVA TTP, No spinal TTP - Derm Derm: Normal color, Warm and dry, No rash - Extremities Extremities: No deformity, No edema - Neuro Neuro: Alert and oriented X 3, 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 ) Results - Vitals Vitals: Vital Signs - 24 hr 12/06/18 18:20 Heart Rate 86 Respiratory 18 Rate Blood Pressure 165/102 H O2 Saturation 99 Oxygen O2 Source Room air - Labs Labs: Laboratory Tests 12/06/18 12/06/18 12/06/18 15:15 15:15 15:25 WBC 8.9 RBC 4.40 Hgb 12.5 Hct 38.2 MCV 86.8 MCH 28.3 MCHC 32.7 RDW 16.8 H Plt Count 388 MPV 7.7 L Neut # (Auto) 5.2 Lymph # (Auto) 2.9 [place] # (Auto) 0.6 Eos # (Auto) 0.1 Baso # (Auto) 0.0 Absolute Nucleated RBC 0.00 Nucleated RBC % 0.0 Sodium 141 Potassium 4.0 Chloride 105 Carbon Dioxide 25 Anion Gap 11.0 BUN 22 H Creatinine 0.6 Estimated GFR (MDRD) 120 Glucose 104 H Calcium 9.9 Total Bilirubin 0.5 AST 27 ALT 30 Alkaline Phosphatase 65 Total Protein 8.6 H Albumin 4.7 Globulin 3.9 Albumin/Globulin Ratio 1.2 Lipase 24 Urine Color DARK YELLOW Urine Clarity HAZY Urine pH 5.5 Ur Specific [place] >=1.030 H Urine Protein 30 H Urine Glucose (UA) NEGATIVE Urine Ketones TRACE Urine Occult Blood LARGE H Urine Nitrite NEGATIVE Urine Bilirubin NEGATIVE Urine Urobilinogen 0.2 (NORMAL) Ur Leukocyte Esterase NEGATIVE Urine RBC TNTC H Urine WBC 0-3 Ur Squamous Epith Cells RARE Squamous Urine Bacteria None Seen Urine Mucus Few Strands Ur Microscopic Review INDICATED Urine Culture Comments NOT INDICATED Urine Opiates Screen NEGATIVE Ur Oxycodone Screen POSITIVE H Urine Methadone Screen NEGATIVE Ur Propoxyphene Screen NEGATIVE Ur Barbiturates Screen NEGATIVE Ur Tricyclics Screen NEGATIVE Ur Phencyclidine Scrn POSITIVE H Ur Amphetamine Screen NEGATIVE U Methamphetamines Scrn NEGATIVE U Benzodiazepines Scrn NEGATIVE Urine Cocaine Screen NEGATIVE U Cannabinoids Screen POSITIVE H Ethyl Alcohol < 5.0 PD MEDICAL DECISION MAKING - ED course Complexity details: reviewed results, re-evaluated patient, considered differential, d/w patient, d/w family ED course: 28-year-old female with pelvic pain and bleeding has come to the emergency department today with the chief complaint of depression and wanting help with this. She is 4 months she denies any infantadial ideation and a plan is made with the social studies department chair for outpatient follow-up for the patient. She did receive treatment here in the emergency department for her vaginal bleeding and pelvic pain with use of saline and pain medication. Departure - Departure Disposition: 01 Home, Self Care Clinical Impression: Dysfunctional uterine bleeding, Pelvic pain, Post depression Vomiting Qualifiers: Vomiting type: unspecified Vomiting Intractability: non-intractable Nausea presence: with nausea Qualified Code(s): R11.2 - Nausea with vomiting, unspecified Condition: Stable Instructions: ED Stress React, ED Chronic Pain Management, ED Depression, ED Nausea Vomiting Follow-Up: ROCIO SARAVIA [Primary Care Provider] - Prescriptions: Promethazine [Phenergan] 25 mg PO Q6H PRN #10 tab PRN Reason: Nausea / Vomiting Comments: Follow the plan for follow up as outlined by the social studies department chair Discharge Date/Time: 12/06/18 18:45
[2018-12-06 15:32] LABS: MUDS CUTOFF CONCENTRATIONS CUTOFF CONC BELOW:
[2018-12-06 15:37] LABS: BILIRUBIN,URINE NEGATIVE (NEGATIVE); GLUCOSE, URINE (UA) NEGATIVE (NEGATIVE); KETONES,URINE (UA) TRACE mg/dL (NEGATIVE); LEUKOCYTE ESTERASE, URINE NEGATIVE (NEGATIVE); NITRITE,URINE NEGATIVE (NEGATIVE); OCCULT BLOOD,URINE LARGE (NEGATIVE); PH,URINE 5.5 PH (5.0-7.5); PROTEIN,URINE 30 mg/dL (NEGATIVE); UROBILINOGEN,URINE 0.2 (NORMAL) E.U./dL (NORMAL)
[2018-12-06 15:39] LABS: BASOPHILS % (AUTO) 0.3 %; EOSINOPHILS # (AUTO) 0.1 10^3/uL (0.0-0.7); EOSINOPHILS % (AUTO) 1.3 %; HGB - HEMOGLOBIN 12.5 g/dL (12.0-16.0); LYMPHOCYTES # (AUTO) 2.9 10^3/uL (1.5-3.5); LYMPHOCYTES % (AUTO) 32.8 %; MEAN CORPUSCULAR HEMOGLOBIN 28.3 pg (27.0-31.0); MEAN CORPUSCULAR HGB CONC 32.7 g/dL (32.0-36.0); MEAN CORPUSCULAR VOLUME 86.8 fL (81.0-99.0); MEAN PLATELET VOLUME 7.7 fL (7.9-10.8); MONOCYTES # (AUTO) 0.6 10^3/uL (0.0-1.0); MONOCYTES % (AUTO) 6.9 %; NEUTROPHILS # (AUTO) 5.2 10^3/uL (1.5-6.6); NEUTROPHILS % (AUTO) 58.7 %; PLT - PLATELET COUNT 388 10^3/uL (130-450); RED CELL DISTRIBUTION WIDTH 16.8 % (12.0-15.0); WHITE BLOOD COUNT 8.9 x10^3/uL (4.8-10.8)
[2018-12-06 15:48] LABS: CLARITY,URINE HAZY (CLEAR)
[2018-12-06 15:49] LABS: BACTERIA,URINE None Seen /HPF (None Seen); MUCUS,URINE Few Strands; RBC,URINE TNTC /HPF (0-5); SQUAMOUS EPITHELIAL CELL,UR RARE Squamous (<= Few)
[2018-12-06 15:50] LABS: AMPHETAMINE SCREEN,URINE NEGATIVE (NEGATIVE); BENZODIAZEPINES SCREEN, URINE NEGATIVE (NEGATIVE); COCAINE SCREEN URINE NEGATIVE (NEGATIVE); METHADONE SCREEN, URINE NEGATIVE (NEGATIVE); METHAMPHETAMINES SCREEN, URINE NEGATIVE (NEGATIVE); OPIATE SCREEN, URINE NEGATIVE (NEGATIVE); OXYCODONE SCREEN, URINE POSITIVE (NEGATIVE); PROPOXYPHENE SCREEN, URINE NEGATIVE (NEGATIVE); TRICYCLIC ANTIDEPRESSANT,URINE NEGATIVE (NEGATIVE)
[2018-12-06 15:54] LABS: ALBUMIN 4.7 g/dL (3.2-5.5); ALBUMIN/GLOBULIN RATIO 1.2 (1.0-2.2); ALKALINE PHOSPHATASE 65 IU/L (42-121); ALT ALANINE AMINOTRANSFERASE 30 IU/L (10-60); AST ASPARTATE AMINOTRANSFERASE 27 IU/L (10-42); BILIRUBIN,TOTAL 0.5 mg/dL (0.2-1.0); BUN - BLOOD UREA NITROGEN 22 mg/dL (6-20); CALCIUM 9.9 mg/dL (8.5-10.3); CARBON DIOXIDE - CO2 25 mmol/L (21-32); CHLORIDE 105 mmol/L (101-111); CREATININE 0.6 mg/dL (0.4-1.0); GFR - MDRD 120 (>89); GLUCOSE 104 mg/dL (70-100); LIPASE 24 U/L (22-51); SODIUM 141 mmol/L (135-145); TOTAL PROTEIN 8.6 g/dL (6.7-8.2)
[2018-12-06] MEDS ORDERED: PROMETHAZINE INJ 25 MG in SODIUM CHLORIDE 0.9% 50 ML IV STA (16:03)
[2018-12-06] MEDS ORDERED: HYDROmorphone 1 MG/ML CARPUJECT IVP STA ×2 (16:03→17:54)
[2018-12-06 18:22] VITALS: BP 165/102
== END 2018-12-06 18:45 | disposition home or self-care (01) ==
LOC: ED 13:29
DX: O99.345 Other mental disorders complicating the puerperium (principal); F53.0 Postpartum depression; N93.8 Other specified abnormal uterine and vaginal bleeding; R11.2 Nausea with vomiting, unspecified; R10.2 Pelvic and perineal pain
CPT/HCPCS: 80053; 80306; 80320; 81001; 81003; 83690; 85025; 87086; 96361; 96365; 96375; 96376; 99283; 99284

== ENCOUNTER 2018-12-06 19:01 | Emergency (ER) | payer MEDICAID ==
[2018-12-06] MEDS ORDERED: oxyCODONE 5 MG TABLET PO STA (19:27)
[2018-12-06] MEDS ORDERED: ESCITALOPRAM 10 MG TABLET PO STA (19:27)
[2018-12-06] MEDS ORDERED: lamoTRIgine 100 MG TABLET PO STA (19:27)
[2018-12-06] MEDS ORDERED: ACETAMINOPHEN 325 MG TABLET PO STA (19:27)
--- NOTE | 2018-12-06 19:31 | ED Physician Documentation ---
PD HPI MHE - Stated complaint Stated Complaint: MHE - Chief complaint Chief Complaint: MHE - History obtained from History obtained from: Patient - History of Present Illness Primary symptom: Depression (28-year-old woman presents with depression. She has a history of depression and is on meds for same. She is a 3-month-old at home as well as 2 older children. Her depression is multifact orial between some issues with her who has his own mental health issues and the thing. She is not suicidal but wants to pursue voluntary hospitalization. She was here earlier in the day and social work saw her. They recommended re-presentation if she was worse and she is. 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: Ovarian cysts, 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, Other : Chronic bladder infection, Kidney stones HEENT: None Psych: Depression, Anxiety, Post traumatic stress disorder Musculoskeletal: None Derm: None - Past Surgical History Past Surgical History: Yes General: Other /FARM HAND: Oophrectomy - Present Medications Home Medications: Ambulatory Orders Medication Instructions Recorded Confirmed RX: Lamotrigine 200 mg PO QPM 01/03/17 12/06/18 oxyCODONE/ACET 5/325 [Percocet 5 1 tab PO Q6HR PRN #12 tablet 03/15/18 12/06/18 mg/325 mg] Acetaminophen [Tylenol Arthritis] 1 tab PO Q8HR PRN 12/06/18 12/06/18 Escitalopram Oxalate [Lexapro] 1 tab PO DAILY 12/06/18 12/06/18 Promethazine [Phenergan] 25 mg PO Q6H PRN #10 tab 12/06/18 raNITIdine [Zantac] 1 tab PO BID 12/06/18 12/06/18 - Allergies Allergies/Adverse Reactions: Allergies Allergy/AdvReac Type Severity Reaction Status Date / Time [facility] Allergy Rash Verified 12/06/18 19:09 hydrocodone bitartrate * Allergy Hives Verified 12/06/18 19:09 [From Vicodin] ketorolac Allergy Itching Verified 12/06/18 19:09 tramadol Allergy Hives Verified 12/06/18 19:09 ethinyl estradiol AdvReac Cramps Verified 12/06/18 19:09 [From NuvaRing] etonogestrel [From NuvaRing] AdvReac Cramps Verified 12/06/18 19:09 - Social History Does the pt smoke?: No Smoking Status: Never smoker Does the pt drink ETOH?: Yes Does the pt have substance abuse?: No - Family History Family history: reports: Non contributory - Immunizations Immunizations are current?: Yes - POLST Patient has POLST: No POLST Status: Full Code PD ED PE NORMAL - Vitals Vital signs reviewed: Yes - General General: Alert and oriented X 3, No acute distress - HEENT HEENT: PERRL, EOMI - Neck Neck: Supple, no meningeal sign, No bony TTP - Cardiac Cardiac: RRR, No murmur - Respiratory Respiratory: No respiratory distress, Clear bilaterally - Abdomen Abdomen: Normal bowel sounds, Soft, Non tender - Back Back: No CVA TTP, No spinal TTP - Derm Derm: Normal color, Warm and dry - Extremities Extremities: No edema, No calf tenderness / cord - Neuro Neuro: Alert and oriented X 3, Normal speech - Psych Psych: Normal mood, Normal affect Results - Vitals Vitals: Vital Signs - 24 hr 12/06/18 12/07/18 19:05 06:27 Temperature 36.1 C L Heart Rate 97 78 Respiratory 16 12 Rate Blood Pressure 150/96 H 108/62 O2 Saturation 99 99 Oxygen O2 Source Room air - Labs Labs: Microbiology 12/06/18 19:50 Wet Prep - Final Vaginal Laboratory Tests 12/06/18 15:25 Ur Specific [place] >=1.030 H Urine HCG, Qual NEGATIVE PD MEDICAL DECISION MAKING - ED course ED course: 28yo woman with recurrent depression desires hospitalization for same. No SI. Also she had vaginal dischg and felt like she had BV, swab neg for same, GC sent. Pt boarding O/N for SW to see in AM. Departure - Departure Clinical Impression: Pelvic pain, Anxiety Depressed Qualifiers: Depression Type: major depressive disorder Major depression recurrence: recurrent Active/Remission status: currently active Major depression episode severity: severe Psychotic features: without psychotic features Qualified Code(s): F33.2 - Major depressive disorder, recurrent severe without psychotic features Condition: Stable
[2018-12-06 19:58] LABS: HCG UR QUAL NEGATIVE
[2018-12-06] MEDS ORDERED: diazePAM 5 MG TABLET PO STA (21:01)
[2018-12-07] MEDS ORDERED: oxyCODONE 5 MG TABLET PO STA (10:43)
[2018-12-07] MEDS ORDERED: PROMETHAZINE 25 MG TABLET PO STA (10:43)
[2018-12-07 12:46] VITALS: BP 161/108
--- NOTE | 2018-12-07 13:12 | ED Physician Documentation ---
ED Addendum - Addendum Addendum: 12/07/18 13:12 Seen by the social security benefits interviewer, cleared for outpatient treatment. Keep patient comfortable with the plan. See social security benefits interviewer's note. Discharged in stable condition.
== END 2018-12-07 13:16 | disposition home or self-care (01) ==
LOC: ED 19:01
DX: F33.2 Major depressive disorder, recurrent severe without psychotic features (principal); F41.9 Anxiety disorder, unspecified; R10.2 Pelvic and perineal pain; N89.8 Other specified noninflammatory disorders of vagina
CPT/HCPCS: 81025; 87210; 87491; 87591; 99283

== ENCOUNTER 2018-12-07 22:18 | Emergency (ER) | payer MEDICAID ==
[2018-12-07 22:26] VITALS: BP 146/106
[2018-12-07] MEDS ORDERED: LORazepam 0.5 MG TABLET PO STA (22:33)
--- NOTE | 2018-12-07 22:38 | ED Physician Documentation ---
History of Present Illness - Stated complaint Stated Complaint: MED REFILL - Chief complaint Chief Complaint: General - History obtained from History obtained from: Patient - History of Present Illness Timing: Today (See notes from prior visits. She went home after her last visit and it sounds like her may be manic and basically she cannot go home. Her meds are at home and needs her Lamictal, Lexapro, lorazepam and Zantac. 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: Ovarian cysts, 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, Other : Chronic bladder infection, Kidney stones HEENT: None Psych: Depression, Anxiety, Post traumatic stress disorder Musculoskeletal: None Derm: None - Past Surgical History Past Surgical History: Yes General: Other /CONTACT CENTER REP: Oophrectomy - Present Medications Home Medications: Ambulatory Orders Medication Instructions Recorded Confirmed Lamotrigine 200 mg PO QPM 01/03/17 12/06/18 oxyCODONE/ACET 5/325 [Percocet 5 1 tab PO Q6HR PRN #12 tablet 03/15/18 12/06/18 mg/325 mg] Acetaminophen [Tylenol Arthritis] 1 tab PO Q8HR PRN 12/06/18 12/06/18 Escitalopram Oxalate [Lexapro] 1 tab PO DAILY 12/06/18 12/06/18 Promethazine [Phenergan] 25 mg PO Q6H PRN #10 tab 12/06/18 raNITIdine [Zantac] 1 tab PO BID 12/06/18 12/06/18 Escitalopram Oxalate [Lexapro] 5 mg PO DAILY #7 tablet 12/07/18 LORazepam [Ativan] 0.5 mg PO Q6H PRN #10 tablet 12/07/18 lamoTRIgine [Lamictal] 200 mg PO QPM #7 tablet 12/07/18 raNITIdine [Zantac] 150 mg PO BID #14 tablet 12/07/18 - Allergies Allergies/Adverse Reactions: Allergies Allergy/AdvReac Type Severity Reaction Status Date / Time aripiprazole [From Abilify] Allergy Rash Verified 12/06/18 19:09 hydrocodone bitartrate * Allergy Hives Verified 12/06/18 19:09 [From Vicodin] ketorolac Allergy Itching Verified 12/06/18 19:09 tramadol Allergy Hives Verified 12/06/18 19:09 ethinyl estradiol AdvReac Cramps Verified 12/06/18 19:09 [From NuvaRing] etonogestrel [From NuvaRing] AdvReac Cramps Verified 12/06/18 19:09 - Social History Does the pt smoke?: No Smoking Status: Never smoker Does the pt drink ETOH?: Yes Does the pt have substance abuse?: No - Immunizations Immunizations are current?: Yes - POLST Patient has POLST: No POLST Status: Full Code PD ED PE NORMAL - Vitals Vital signs reviewed: Yes - General General: Alert and oriented X 3, No acute distress - Neuro Neuro: Alert and oriented X 3, Normal speech - Psych Psych: Normal mood, Normal affect Results - Vitals Vitals: Vital Signs - 24 hr 12/07/18 22:23 Temperature 36.5 C Heart Rate 97 Respiratory 18 Rate Blood Pressure 146/106 H O2 Saturation 98 Oxygen O2 Source Room air Departure - Departure Disposition: 01 Home, Self Care Clinical Impression: Anxiety and depression Condition: Good Record reviewed to determine appropriate education?: Yes Instructions: ED Stress React Prescriptions: Escitalopram Oxalate [Lexapro] 5 mg PO DAILY #7 tablet lamoTRIgine [Lamictal] 200 mg PO QPM #7 tablet LORazepam [Ativan] 0.5 mg PO Q6H PRN #10 tablet PRN Reason: Anxiety raNITIdine [Zantac] 150 mg PO BID #14 tablet Comments: Follow the instructions of the social work instructor earlier today, return anytime if safety is in question.
[2018-12-07] MEDS ORDERED: lamoTRIgine 100 MG TABLET PO SCH ×2 (22:40→23:00)
[2018-12-07] MEDS ORDERED: ESCITALOPRAM 10 MG TABLET PO SCH ×2 (22:40→23:00)
[2018-12-07] MEDS ORDERED: lamoTRIgine 100 MG TABLET PO ONE (22:57)
[2018-12-07] MEDS ORDERED: ESCITALOPRAM 10 MG TABLET PO ONE (22:57)
== END 2018-12-07 22:58 | disposition home or self-care (01) ==
LOC: ED 22:18
DX: F33.2 Major depressive disorder, recurrent severe without psychotic features (principal); F53.0 Postpartum depression; F41.9 Anxiety disorder, unspecified; R11.2 Nausea with vomiting, unspecified; N93.8 Other specified abnormal uterine and vaginal bleeding; N89.8 Other specified noninflammatory disorders of vagina; R10.2 Pelvic and perineal pain; Z76.0 Encounter for issue of repeat prescription
CPT/HCPCS: 80053; 80306; 80320; 81001; 81025; 83690; 85025; 87210; 87491; 87591; 96361; 96365; 96375; 96376; 99283; 99284; A9270; J1170; J7040; Q0169

== ENCOUNTER 2018-12-15 14:03 | Emergency (ER) | payer MEDICAID ==
[2018-12-15 14:41] LABS: BILIRUBIN,URINE NEGATIVE (NEGATIVE); GLUCOSE, URINE (UA) NEGATIVE (NEGATIVE); KETONES,URINE (UA) NEGATIVE (NEGATIVE); LEUKOCYTE ESTERASE, URINE TRACE (NEGATIVE); NITRITE,URINE NEGATIVE (NEGATIVE); OCCULT BLOOD,URINE NEGATIVE (NEGATIVE); PROTEIN,URINE TRACE mg/dL (NEGATIVE); UROBILINOGEN,URINE 0.2 (NORMAL) E.U./dL (NORMAL)
[2018-12-15 14:44] LABS: CLARITY,URINE CLEAR (CLEAR)
[2018-12-15 14:45] LABS: HCG UR QUAL NEGATIVE
[2018-12-15] MEDS ORDERED: ONDANSETRON 4 MG/2 ML VIAL IVP STA (15:00)
[2018-12-15] MEDS ORDERED: HYDROmorphone 1 MG/ML CARPUJECT IVP STA ×2 (15:00→16:39)
[2018-12-15] MEDS ORDERED: SODIUM CHLORIDE 0.9% 1,000 ML IV ONE (15:00)
[2018-12-15 15:01] LABS: BACTERIA,URINE Moderate /HPF (None Seen); RBC,URINE 0-5 /HPF (0-5); SQUAMOUS EPITHELIAL CELL,UR MANY Squamous (<= Few)
[2018-12-15 15:02] LABS: MUCUS,URINE Marked Strands
--- NOTE | 2018-12-15 15:04 | ED Physician Documentation ---
PD HPI ABD PAIN - Stated complaint Stated Complaint: PELVIC/ABD PX/VOMITING - Chief complaint Chief Complaint: Abd Pain - History obtained from History obtained from: Patient - History of Present Illness Timing - onset: Yesterday (28-year-old woman with history of chronic pelvic pain, she had a cancerous lesion of the left ovary and has had pain ever since that was treated. He got worse yesterday with an internal burning sensation that wraps around the left side and to the suprapubic area associated with some urinary frequency and nausea and vomiting. She is unable to keep down her usual medications. She had chills and feels like she is been febrile but without measured fevers. She denies increase in vaginal discharge. She was seen recently, STD testing was done within the last week or 10 days that was negative for gonorrhea and chlamydia. 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: Ovarian cysts, 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, Other : Chronic bladder infection, Kidney stones HEENT: None Psych: Depression, Anxiety, Post traumatic stress disorder Musculoskeletal: None Derm: None - Past Surgical History Past Surgical History: Yes General: Other /CLOTHING MAN: Oophrectomy - Present Medications Home Medications: Ambulatory Orders Medication Instructions Recorded Confirmed Lamotrigine 200 mg PO QPM 01/03/17 12/06/18 oxyCODONE/ACET 5/325 [Percocet 5 1 tab PO Q6HR PRN #12 tablet 03/15/18 12/06/18 mg/325 mg] Acetaminophen [Tylenol Arthritis] 1 tab PO Q8HR PRN 12/06/18 12/06/18 Escitalopram Oxalate [Lexapro] 1 tab PO DAILY 12/06/18 12/06/18 Promethazine [Phenergan] 25 mg PO Q6H PRN #10 tab 12/06/18 raNITIdine [Zantac] 1 tab PO BID 12/06/18 12/06/18 Escitalopram Oxalate [Lexapro] 5 mg PO DAILY #7 tablet 12/07/18 LORazepam [Ativan] 0.5 mg PO Q6H PRN #10 tablet 12/07/18 lamoTRIgine [Lamictal] 200 mg PO QPM #7 tablet 12/07/18 raNITIdine [Zantac] 150 mg PO BID #14 tablet 12/07/18 Ondansetron Odt [Zofran] 4 mg TL Q6H PRN #10 tablet 12/15/18 Oxycodone HCl/Acetaminophen 1 - 2 each PO Q6H PRN #10 tablet 12/15/18 [Percocet 5-325 mg Tablet] - Allergies Allergies/Adverse Reactions: Allergies Allergy/AdvReac Type Severity Reaction Status Date / Time aripiprazole [From Abilify] Allergy Rash Verified 12/06/18 19:09 hydrocodone bitartrate * Allergy Hives Verified 12/06/18 19:09 [From Vicodin] ketorolac Allergy Itching Verified 12/06/18 19:09 tramadol Allergy Hives Verified 12/06/18 19:09 ethinyl estradiol AdvReac Cramps Verified 12/06/18 19:09 [From NuvaRing] etonogestrel [From NuvaRing] AdvReac Cramps Verified 12/06/18 19:09 trazodone AdvReac Unknown Verified 12/15/18 14:18 - Social History Does the pt smoke?: No Smoking Status: Never smoker Does the pt drink ETOH?: Yes Does the pt have substance abuse?: No - Family History Family history: reports: Non contributory - Immunizations Immunizations are current?: Yes - POLST Patient has POLST: No POLST Status: Full Code PD ED PE NORMAL - Vitals Vital signs reviewed: Yes - General General: Alert and oriented X 3, No acute distress - HEENT HEENT: PERRL, EOMI - Neck Neck: Supple, no meningeal sign, No bony TTP - Cardiac Cardiac: RRR, No murmur - Respiratory Respiratory: No respiratory distress, Clear bilaterally - Abdomen Abdomen: Normal bowel sounds, Soft, Other (Mild left lower quadrant tenderness without surgical signs) - Back Back: No CVA TTP, No spinal TTP - Derm Derm: Normal color, Warm and dry - Extremities Extremities: No edema, No calf tenderness / cord - Neuro Neuro: Alert and oriented X 3, Normal speech Results - Vitals Vitals: Vital Signs - 24 hr 12/15/18 12/15/18 12/15/18 14:11 16:05 17:59 Temperature 36.3 C L Heart Rate 98 82 74 Respiratory 14 16 16 Rate Blood Pressure 118/90 H 145/100 H 155/87 H O2 Saturation 98 98 97 Oxygen O2 Source Room air - Labs Labs: Laboratory Tests 12/15/18 12/15/18 12/15/18 14:35 15:24 15:24 WBC 7.5 RBC 4.50 Hgb 13.2 Hct 39.2 MCV 87.2 MCH 29.3 MCHC 33.6 RDW 14.8 Plt Count 347 MPV 7.7 L Neut # (Auto) 4.1 Lymph # (Auto) 2.7 [place] # (Auto) 0.6 Eos # (Auto) 0.1 Baso # (Auto) 0.0 Absolute Nucleated RBC 0.00 Nucleated RBC % 0.1 Sodium 138 Potassium 4.1 Chloride 101 Carbon Dioxide 26 Anion Gap 11.0 BUN 20 Creatinine 0.6 Estimated GFR (MDRD) 120 Glucose 89 Calcium 9.8 Total Bilirubin 0.4 AST 39 ALT 52 Alkaline Phosphatase 59 Total Protein 8.4 H Albumin 4.7 Globulin 3.7 Albumin/Globulin Ratio 1.3 Lipase 24 Urine Color YELLOW Urine Clarity CLEAR Urine pH 7.0 Ur Specific [employer] 1.015 Urine Protein TRACE Urine Glucose (UA) NEGATIVE Urine Ketones NEGATIVE Urine Occult Blood NEGATIVE Urine Nitrite NEGATIVE Urine Bilirubin NEGATIVE Urine Urobilinogen 0.2 (NORMAL) Ur Leukocyte Esterase TRACE H Urine RBC 0-5 Urine WBC 6-10 H Ur Squamous Epith Cells MANY Squamous H Urine Bacteria Moderate H Urine Mucus Marked Strands Ur Microscopic Review INDICATED Urine Culture Comments NOT INDICATED Urine HCG, Qual NEGATIVE 12/15/18 18:00 WBC RBC Hgb Hct MCV MCH MCHC RDW Plt Count MPV Neut # (Auto) Lymph # (Auto) [place] # (Auto) Eos # (Auto) Baso # (Auto) Absolute Nucleated RBC Nucleated RBC % Sodium Potassium Chloride Carbon Dioxide Anion Gap BUN Creatinine Estimated GFR (MDRD) Glucose Calcium Total Bilirubin AST ALT Alkaline Phosphatase Total Protein Albumin Globulin Albumin/Globulin Ratio Lipase Urine Color YELLOW Urine Clarity CLEAR Urine pH 6.0 Ur Specific [employer] 1.025 Urine Protein NEGATIVE Urine Glucose (UA) NEGATIVE Urine Ketones NEGATIVE Urine Occult Blood NEGATIVE Urine Nitrite NEGATIVE Urine Bilirubin NEGATIVE Urine Urobilinogen 0.2 (NORMAL) Ur Leukocyte Esterase NEGATIVE Urine RBC Urine WBC Ur Squamous Epith Cells Urine Bacteria Urine Mucus Ur Microscopic Review NOT INDICATED Urine Culture Comments NOT INDICATED Urine HCG, Qual - Rads (name of study) Pelvic sono Radiology: EMP read contemporaneously (Arcuate uterus With indentation of the superior aspect of the endometrium, surgically absent right ovary, normal left ovary, no adnexal mass or free fluid.) PD MEDICAL DECISION MAKING - ED course ED course: This is a 28-year-old woman with acute on chronic left pelvic pain. Ultrasound shows no acute abnormalities. Her initial urinalysis contaminated but shows no squamous cells and no abnormal he. She wanted something for potential yeast infection and she was administered Diflucan. I had a conversation with her, she is under a lot of stress right now with her significant other. I was willing to give her a few days worth of pain medications but discussed the high risk of addiction when taken at a time of stress and she voices understanding. She will follow-up with [facility] pain management clinic for ongoing evaluation and treatment. Departure - Departure Disposition: 01 Home, Self Care Clinical Impression: Chronic pelvic pain in female Condition: Good Record reviewed to determine appropriate education?: Yes Instructions: ED Chronic Pain Management, ED Pelvic Pain [facility] Prescriptions: Ondansetron Odt [Zofran] 4 mg TL Q6H PRN #10 tablet PRN Reason: Nausea / Vomiting Oxycodone HCl/Acetaminophen [Percocet 5-325 mg Tablet] 1 - 2 each PO Q6H PRN #10 tablet PRN Reason: pain Comments: The policy of this emergency department is to not give more than 3 prescriptions for narcotics or other controlled substances in any 1 year. You have already surpassed this benchmark and we cannot prescribe narcotics for you. I encourage you to follow up with your primary care physician or to establish care with a primary care physician for ongoing pain management. You are always welcome to seek emergency care here for this or new issues but there will likely be limitations in the prescription of narcotic pain medication.
[2018-12-15 15:33] LABS: BASOPHILS % (AUTO) 0.3 %; EOSINOPHILS # (AUTO) 0.1 10^3/uL (0.0-0.7); EOSINOPHILS % (AUTO) 1.4 %; HGB - HEMOGLOBIN 13.2 g/dL (12.0-16.0); LYMPHOCYTES # (AUTO) 2.7 10^3/uL (1.5-3.5); LYMPHOCYTES % (AUTO) 36.3 %; MEAN CORPUSCULAR HEMOGLOBIN 29.3 pg (27.0-31.0); MEAN CORPUSCULAR HGB CONC 33.6 g/dL (32.0-36.0); MEAN CORPUSCULAR VOLUME 87.2 fL (81.0-99.0); MEAN PLATELET VOLUME 7.7 fL (7.9-10.8); MONOCYTES # (AUTO) 0.6 10^3/uL (0.0-1.0); MONOCYTES % (AUTO) 7.6 %; NEUTROPHILS # (AUTO) 4.1 10^3/uL (1.5-6.6); NEUTROPHILS % (AUTO) 54.4 %; PLT - PLATELET COUNT 347 10^3/uL (130-450); RED CELL DISTRIBUTION WIDTH 14.8 % (12.0-15.0); WHITE BLOOD COUNT 7.5 x10^3/uL (4.8-10.8)
[2018-12-15 15:45] LABS: ALBUMIN 4.7 g/dL (3.2-5.5); ALBUMIN/GLOBULIN RATIO 1.3 (1.0-2.2); BILIRUBIN,TOTAL 0.4 mg/dL (0.2-1.0); CALCIUM 9.8 mg/dL (8.5-10.3); CREATININE 0.6 mg/dL (0.4-1.0); TOTAL PROTEIN 8.4 g/dL (6.7-8.2)
[2018-12-15] MEDS ORDERED: LOPERAMIDE 2 MG CAPSULE PO STA (16:10)
[2018-12-15] MEDS ORDERED: PROMETHAZINE INJ 25 MG in SODIUM CHLORIDE 0.9% 50 ML IV STA (16:10)
--- NOTE | 2018-12-15 18:12 | Ultrasound Report ---
Reason: pelvic pain, R Procedure Date: 12/15/2018 Accession Number: [id number] / [id number] Procedure: US - Pelvic w/Transvag+Doppler Comp CPT Code: FULL RESULT: EXAM: PELVIC ULTRASOUND EXAM DATE: 12/15/2018 05:50 PM. CLINICAL HISTORY: Pelvic pain COMPARISON: PEL NON OB W/TV DOP 11/16/2017 1:48 PM. TECHNIQUE: Realtime transabdominal pelvic scan performed to identify the uterus and adnexa and as an overview of other pelvic structures, followed by transvaginal scan to provide greater detail of the uterus and adnexa, with static image documentation. FINDINGS: Uterus: 8.7 x 5.4 x 7.3 cm, volume 180 cc. Anteverted position. Normal overall size and echotexture. Masses: None. Endometrium: 15 mm. Arcuate uterus with indentation on the endometrium superiorly. Cervix: Unremarkable. Right Ovary: Surgically absent Left Ovary: 2.7 x 2 x 2.4 cm, volume 6.7 cc. Normal echotexture and blood flow. Multiple follicles seen in left ovary, largest measures less than 2 cm. Free Fluid: None. Other: Overall slightly limited study due to body habitus and low discomfort tolerance. IMPRESSION: Arcuate uterus with indentation on the superior aspect of endometrium. Surgically absent right ovary. Normal-appearing left ovary. No adnexal mass or free fluid. RADIA
[2018-12-15 18:47] LABS: BILIRUBIN,URINE NEGATIVE (NEGATIVE); GLUCOSE, URINE (UA) NEGATIVE (NEGATIVE); KETONES,URINE (UA) NEGATIVE (NEGATIVE); LEUKOCYTE ESTERASE, URINE NEGATIVE (NEGATIVE); NITRITE,URINE NEGATIVE (NEGATIVE); OCCULT BLOOD,URINE NEGATIVE (NEGATIVE); PROTEIN,URINE NEGATIVE (NEGATIVE); UROBILINOGEN,URINE 0.2 (NORMAL) E.U./dL (NORMAL)
[2018-12-15 18:50] LABS: CLARITY,URINE CLEAR (CLEAR)
[2018-12-15] MEDS ORDERED: ONDANSETRON ODT 4 MG Prepack 2 TL STA (18:56)
[2018-12-15] MEDS ORDERED: oxyCODONE/ACET 5/325 Prepack 4 PO STA (18:56)
[2018-12-15] MEDS ORDERED: oxyCODONE 5 MG TABLET PO STA (18:56)
[2018-12-15] MEDS ORDERED: FLUCONAZOLE 100 MG TABLET PO STA (18:57)
[2018-12-15 19:14] VITALS: BP 142/72
== END 2018-12-15 19:14 | disposition home or self-care (01) ==
LOC: ED 14:03
DX: R10.2 Pelvic and perineal pain (principal); G89.29 Other chronic pain; Z85.43 Personal history of malignant neoplasm of ovary; Z90.721 Acquired absence of ovaries, unilateral; Q51.810 Arcuate uterus
CPT/HCPCS: 36415; 76830; 76856; 80053; 81001; 81003; 81025; 83690; 85025; 93975; 96361; 96365; 96375; 99283; 99284; A9270; J1170; J7040; 87086

== ENCOUNTER 2019-02-08 05:54 | Emergency (ER) | payer MEDICAID ==
[2019-02-08 06:27] LABS: BASOPHILS # (AUTO) 0.1 10^3/uL (0.0-0.1); BASOPHILS % (AUTO) 0.6 %; EOSINOPHILS # (AUTO) 0.2 10^3/uL (0.0-0.7); EOSINOPHILS % (AUTO) 2.4 %; HGB - HEMOGLOBIN 13.2 g/dL (12.0-16.0); LYMPHOCYTES % (AUTO) 46.9 %; MEAN CORPUSCULAR HEMOGLOBIN 29.6 pg (27.0-31.0); MEAN CORPUSCULAR HGB CONC 32.9 g/dL (32.0-36.0); MEAN CORPUSCULAR VOLUME 89.9 fL (81.0-99.0); MEAN PLATELET VOLUME 9.5 fL (7.9-10.8); MONOCYTES # (AUTO) 0.8 10^3/uL (0.0-1.0); MONOCYTES % (AUTO) 9.1 %; NEUTROPHILS # (AUTO) 3.4 10^3/uL (1.5-6.6); NEUTROPHILS % (AUTO) 40.6 %; PLT - PLATELET COUNT 325 10^3/uL (130-450); RED BLOOD COUNT 4.46 10^6/uL (4.20-5.40); RED CELL DISTRIBUTION WIDTH 12.6 % (12.0-15.0); WHITE BLOOD COUNT 8.5 x10^3/uL (4.8-10.8)
--- NOTE | 2019-02-08 06:28 | ED Physician Documentation ---
<Ace Mcmullen A - Last Filed: 02/08/19 08:00> PD HPI ABD PAIN - Stated complaint Stated Complaint: FEM /VOMITING - Chief complaint Chief Complaint: Abd Pain - History obtained from History obtained from: Patient - History of Present Illness Timing - onset: Yesterday Timing - duration: Days (1/2) Timing - details: Abrupt onset, Still present Quality: Cramping, Aching, Pain Location: LLQ Radiation: Lower back. No: Chest Associated symptoms: Nausea, Vomiting, Diarrhea (some loose stool, which she says she gets with pelvic pains in the past.), Loss of appetite. No: Fever, Constipation, Dysuria, Chest pain, Near syncope / syncope Similar symptoms before: Diagnosis (ovarian cysts and dysmennorhia in the past. Gets 15 Oxycodone per month for PRN pains.) Recently seen: Clinic (IUD hormonal placed 5 weeks ago.) Review of Systems Constitutional: denies: Fever, Chills, Myalgias Nose: denies: Rhinorrhea / runny nose, Congestion Throat: denies: Sore throat Respiratory: denies: Cough GI: reports: Abdominal Pain, Nausea, Vomiting. denies: Constipation, Bloody / black stool : reports: Discharge (since the IUD placed, and has tapered after the first few weeks.). 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: Ovarian cysts, 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 (right ovary), Other : Chronic bladder infection, Kidney stones HEENT: None Psych: Depression, Anxiety, Post traumatic stress disorder Musculoskeletal: None Derm: None - Past Surgical History Past Surgical History: Yes General: Other /LASER OPERATOR: Oophrectomy - Present Medications Home Medications: Ambulatory Orders Medication Instructions Recorded Confirmed Promethazine [Phenergan] 25 mg PO Q6H PRN #10 tab 12/06/18 Escitalopram Oxalate [Lexapro] 5 mg PO DAILY #7 tablet 12/07/18 RX: LORazepam [Ativan] 0.5 mg PO Q6H PRN #10 tablet 12/07/18 RX: raNITIdine [Zantac] 150 mg PO BID #14 tablet 12/07/18 lamoTRIgine [Lamictal] 200 mg PO QPM #7 tablet 12/07/18 Oxycodone HCl/Acetaminophen 1 - 2 each PO Q6H PRN #20 tablet 02/08/19 [Percocet 5-325 mg Tablet] Promethazine [Phenergan] 25 mg PO Q6H PRN #25 tab 02/08/19 RX: Mupirocin 1 gm TP BID #22 oint...g. 02/08/19 RX: Naproxen 375 mg PO BID #20 tablet 02/08/19 raNITIdine [Zantac] 150 mg PO BID #50 tablet 02/08/19 - Allergies Allergies/Adverse Reactions: Allergies Allergy/AdvReac Type Severity Reaction Status Date / Time aripiprazole [From Abilify] Allergy Rash Verified 02/08/19 06:03 hydrocodone bitartrate * Allergy Hives Verified 02/08/19 06:03 [From Vicodin] ketorolac Allergy Itching Verified 02/08/19 06:03 ondansetron [From Zofran] Allergy Headache Verified 02/08/19 06:46 tramadol Allergy Hives Verified 02/08/19 06:03 ethinyl estradiol AdvReac Cramps Verified 02/08/19 06:03 [From NuvaRing] etonogestrel [From NuvaRing] AdvReac Cramps Verified 02/08/19 06:03 trazodone AdvReac Unknown Verified 02/08/19 06:03 - Social History Does the pt smoke?: No Smoking Status: Never smoker Does the pt drink ETOH?: Yes Does the pt have substance abuse?: No - Immunizations Immunizations are current?: Yes - POLST Patient has POLST: No POLST Status: Full Code PD ED PE NORMAL - Vitals Vital signs reviewed: Yes - General General: Alert and oriented X 3, Well developed/nourished - HEENT HEENT: Pharynx benign - Neck Neck: Supple, no meningeal sign, No adenopathy - Cardiac Cardiac: RRR, No murmur - Respiratory Respiratory: Clear bilaterally - Abdomen Abdomen: Normal bowel sounds, Soft, Non distended, No organomegaly, Other (tender LLQ with some local guarding. No percussion tenderness. ) - Female Female : Deferred - Back Back: No CVA TTP - Derm Derm: Normal color, Warm and dry - Neuro Neuro: Alert and oriented X 3, No motor deficit, Normal speech PD MEDICAL DECISION MAKING - ED course Complexity details: considered differential (Patient has a history of ovarian and pelvic pains intermittently in the past. She states this was abrupt. Will check for signs of urinary infection. We will get a pelvic ultrasound to look for large cysts, free fluid, torsion. We will give her IV medications for nausea and pain.), d/w patient Departure - Departure Disposition: 01 Home, Self Care Clinical Impression: Pelvic pain Condition: Stable Record reviewed to determine appropriate education?: Yes Instructions: ED Pelvic Pain [facility] Follow-Up: ROCIO SARAVIA [Primary Care Provider] - Prescriptions: RX: Mupirocin 1 gm TP BID #22 oint...g. RX: Naproxen 375 mg PO BID #20 tablet Oxycodone HCl/Acetaminophen [Percocet 5-325 mg Tablet] 1 - 2 each PO Q6H PRN #20 tablet PRN Reason: pain Promethazine [Phenergan] 25 mg PO Q6H PRN #25 tab PRN Reason: Nausea / Vomiting raNITIdine [Zantac] 150 mg PO BID #50 tablet Comments: Continue usual medications. Naproxen twice daily. Add Oxycodone as needed for pains. Phenergan for nausea as needed. Follow up PMD if not improved over 2-3 days. Discharge Date/Time: 02/08/19 14:50 <Ace Knapp - Last Filed: 02/08/19 18:27> Results - Vitals Vitals: Vital Signs - 24 hr 02/08/19 02/08/19 02/08/19 05:59 08:03 08:59 Temperature 36.2 C L 36.5 C Heart Rate 84 64 66 Respiratory 18 16 19 Rate Blood Pressure 125/87 H 97/73 97/73 O2 Saturation 99 97 97 02/08/19 02/08/19 10:22 14:50 Temperature Heart Rate 87 70 Respiratory 19 15 Rate Blood Pressure 147/78 H 129/79 O2 Saturation 98 98 Oxygen O2 Source Room air - Labs Labs: Laboratory Tests 02/08/19 02/08/19 02/08/19 06:12 06:12 09:15 WBC 8.5 RBC 4.46 Hgb 13.2 Hct 40.1 MCV 89.9 MCH 29.6 MCHC 32.9 RDW 12.6 Plt Count 325 MPV 9.5 Neut # (Auto) 3.4 Lymph # (Auto) 4.0 H [place] # (Auto) 0.8 Eos # (Auto) 0.2 Baso # (Auto) 0.1 Absolute Nucleated RBC 0.00 Nucleated RBC % 0.0 Sodium 140 Potassium 3.6 Chloride 105 Carbon Dioxide 24 Anion Gap 11.0 BUN 20 Creatinine 0.7 Estimated GFR (MDRD) 100 Glucose 96 Calcium 9.7 Total Bilirubin 0.7 AST 25 ALT 31 Alkaline Phosphatase 64 Total Protein 8.0 Albumin 4.8 Globulin 3.2 Albumin/Globulin Ratio 1.5 Lipase 28 Urine Color DARK YELLOW Urine Clarity SL. CLOUDY Urine pH 6.0 Ur Specific [place] 1.025 Urine Protein TRACE Urine Glucose (UA) NEGATIVE Urine Ketones NEGATIVE Urine Occult Blood LARGE H Urine Nitrite NEGATIVE Urine Bilirubin NEGATIVE Urine Urobilinogen 0.2 (NORMAL) Ur Leukocyte Esterase NEGATIVE Urine RBC TNTC H Urine WBC 4-5 Ur Squamous Epith Cells FEW Squamous Urine Bacteria Rare Urine Mucus Few Strands Ur Microscopic Review INDICATED Urine Culture Comments NOT INDICATED Urine HCG, Qual 02/08/19 09:15 WBC RBC Hgb Hct MCV MCH MCHC RDW Plt Count MPV Neut # (Auto) Lymph # (Auto) [place] # (Auto) Eos # (Auto) Baso # (Auto) Absolute Nucleated RBC Nucleated RBC % Sodium Potassium Chloride Carbon Dioxide Anion Gap BUN Creatinine Estimated GFR (MDRD) Glucose Calcium Total Bilirubin AST ALT Alkaline Phosphatase Total Protein Albumin Globulin Albumin/Globulin Ratio Lipase Urine Color Urine Clarity Urine pH Ur Specific [place] 1.025 Urine Protein Urine Glucose (UA) Urine Ketones Urine Occult Blood Urine Nitrite Urine Bilirubin Urine Urobilinogen Ur Leukocyte Esterase Urine RBC Urine WBC Ur Squamous Epith Cells Urine Bacteria Urine Mucus Ur Microscopic Review Urine Culture Comments Urine HCG, Qual NEGATIVE - Rads (name of study) ct abd pel with Radiology: Prelim report reviewed (Impression: No urinary tract stones or ob struction. No cause for left lower quadrant pain identified.), EMP read indepedently, See rad report PD MEDICAL DECISION MAKING - ED course ED course: patient with chronic pelvic pain has an ultrasound pending at shift change. This study as well as a CT of the abdomen and pelvis are without findings to explain pain. The patient has had some relief of her pain here. ALSO A SPOT under the right breast in the bra line with honey crusted skin consistent with a superficial skin infection .
[2019-02-08] MEDS ORDERED: SODIUM CHLORIDE 0.9% 1,000 ML IV ONE (06:30)
[2019-02-08] MEDS ORDERED: ONDANSETRON 4 MG/2 ML VIAL IVP STA ×2 (06:31→12:25)
[2019-02-08] MEDS ORDERED: HYDROmorphone 2 MG/ML VIAL IVP STA (06:31)
[2019-02-08] MEDS ORDERED: FAMOTIDINE 20 MG/2 ML VIAL IVP STA (06:31)
[2019-02-08 06:36] LABS: ALBUMIN 4.8 g/dL (3.2-5.5); ALBUMIN/GLOBULIN RATIO 1.5 (1.0-2.2); BILIRUBIN,TOTAL 0.7 mg/dL (0.2-1.0); CALCIUM 9.7 mg/dL (8.5-10.3); CREATININE 0.7 mg/dL (0.4-1.0)
[2019-02-08] MEDS ORDERED: PROCHLORPERAZINE 10 MG/2 ML VIAL IVP STA (06:46)
[2019-02-08] MEDS ORDERED: HYDROmorphone 1 MG/ML CARPUJECT IVP STA ×2 (08:34→12:25)
--- NOTE | 2019-02-08 08:38 | Ultrasound Report ---
Reason: pelvic pain, left; IUD placed 5 weeks ago Procedure Date: 02/08/2019 Accession Number: [id number] / [id number] Procedure: US - Pelvic w/Transvag+Doppler Ltd CPT Code: FULL RESULT: EXAM: PELVIC ULTRASOUND EXAM DATE: 02/08/2019 07:31 AM. CLINICAL HISTORY: Pelvic pain, left; IUD placed 5 weeks ago. COMPARISON: None. TECHNIQUE: Realtime transabdominal pelvic scan performed to identify the uterus and adnexa and as an overview of other pelvic structures, followed by transvaginal scan to provide greater detail of the uterus and adnexa, with static image documentation. FINDINGS: Uterus: 9.7 x 4.5 x 6.9 cm, volume 161 cc. Anteverted retroflexed position. Normal overall size and echotexture. Masses: None. Endometrium: 5.7 mm. IUD is present in expected position Cervix: Unremarkable. Right Ovary: Not seen, consistent with reported history of right oophorectomy. Left Ovary: 3.2 x 1.3 x 1.7 cm, volume 3.9 cc. Normal echotexture and blood flow. Free Fluid: None. Other: None. IMPRESSION: 1. IUD appears to be appropriately positioned. 2. Right ovary not seen, consistent with reported history of right oophorectomy. 3. Left ovary is unremarkable. RADIA
[2019-02-08 11:40] LABS: BILIRUBIN,URINE NEGATIVE (NEGATIVE); GLUCOSE, URINE (UA) NEGATIVE (NEGATIVE); KETONES,URINE (UA) NEGATIVE (NEGATIVE); LEUKOCYTE ESTERASE, URINE NEGATIVE (NEGATIVE); NITRITE,URINE NEGATIVE (NEGATIVE); OCCULT BLOOD,URINE LARGE (NEGATIVE); PROTEIN,URINE TRACE mg/dL (NEGATIVE); UROBILINOGEN,URINE 0.2 (NORMAL) E.U./dL (NORMAL)
[2019-02-08 11:43] LABS: CLARITY,URINE SL. CLOUDY (CLEAR)
[2019-02-08 12:03] LABS: BACTERIA,URINE Rare /HPF (None Seen); MUCUS,URINE Few Strands; RBC,URINE TNTC /HPF (0-5); SQUAMOUS EPITHELIAL CELL,UR FEW Squamous (<= Few)
[2019-02-08 12:04] LABS: HCG UR QUAL NEGATIVE
--- NOTE | 2019-02-08 14:08 | CT Report ---
Reason: LLQ pain Procedure Date: 02/08/2019 Accession Number: [id number] / [id number] Procedure: CT - Abdomen/Pelvis WO CPT Code: FULL RESULT: EXAM: CT ABDOMEN AND PELVIS (CT KUB) EXAM DATE: 02/08/2019 01:14 PM. CLINICAL HISTORY: LLQ pain. COMPARISONS: ABDOMEN/PELVIS W/ 01/28/2017 1:33 AM PEL NON OB W/TV DOP LTD 02/08/2019 7:31 AM. TECHNIQUE: Routine axial helical CT imaging was performed through the abdomen and pelvis without IV contrast. Reconstructions: Coronal and sagittal. In accordance with CT protocol optimization, one or more of the following dose reduction techniques were utilized for this exam: automated exposure control, adjustment of mA and/or KV based on patient size, or use of iterative reconstructive technique. FINDINGS: Limited evaluation of solid abdominal organs without intravenous contrast. Lung Bases: Unremarkable. Right Kidney/Ureter: No stone, hydronephrosis, or hydroureter. No perinephric fat stranding. Left Kidney/Ureter: No stone, hydronephrosis, or hydroureter. No perinephric fat stranding. Other Solid Organs: Noncontrast images of the solid organs are grossly unremarkable. Gallbladder/Bile Ducts: Possible stones in the gallbladder. Peritoneal Cavity: No free fluid, free air or teresita adenopathy. Bowel is grossly unremarkable. No evidence of diverticulosis or diverticulitis. Pelvic Organs: No bladder stones or wall thickening. The uterus is unremarkable. Intrauterine device is centrally positioned Vasculature: Unremarkable. Other: None. IMPRESSION: No urinary tract stones or obstruction. No cause for left lower quadrant pain identified. RADIA
[2019-02-08 14:51] VITALS: BP 129/79
== END 2019-02-08 14:50 | disposition home or self-care (01) ==
LOC: ED 05:54
DX: R10.2 Pelvic and perineal pain (principal); G89.29 Other chronic pain; L08.9 Local infection of the skin and subcutaneous tissue, unspecified; Z97.5 Presence of (intrauterine) contraceptive device; Z85.43 Personal history of malignant neoplasm of ovary; Z90.721 Acquired absence of ovaries, unilateral
CPT/HCPCS: 36415; 74176; 76830; 76856; 80053; 81001; 81025; 83690; 85025; 93976; 96361; 96374; 96375; 96376; 99283; 99284; J1170; 81003; 87086

== ENCOUNTER 2019-03-16 05:46 | Outpatient (CLI) | payer MEDICAID | END 2019-03-16 05:47 | disposition critical access hospital (66) | LOC: EMS 05:46 | PROVIDERS: ATTEND Surgery | DX: R11.2 Nausea with vomiting, unspecified (principal); R10.9 Unspecified abdominal pain | CPT/HCPCS: A0425; A0429; A0999 ==

== ENCOUNTER 2019-03-16 05:53 | Emergency (ER) | payer MEDICAID ==
[2019-03-16 06:15] LABS: BASOPHILS # (AUTO) 0.1 10^3/uL (0.0-0.1); BASOPHILS % (AUTO) 0.4 %; EOSINOPHILS # (AUTO) 0.1 10^3/uL (0.0-0.7); EOSINOPHILS % (AUTO) 0.6 %; HGB - HEMOGLOBIN 15.1 g/dL (12.0-16.0); LYMPHOCYTES # (AUTO) 1.7 10^3/uL (1.5-3.5); MEAN CORPUSCULAR HEMOGLOBIN 28.3 pg (27.0-31.0); MEAN CORPUSCULAR HGB CONC 32.1 g/dL (32.0-36.0); MEAN CORPUSCULAR VOLUME 88.2 fL (81.0-99.0); MONOCYTES # (AUTO) 0.8 10^3/uL (0.0-1.0); MONOCYTES % (AUTO) 4.5 %; NEUTROPHILS % (AUTO) 84.9 %; PLT - PLATELET COUNT 370 10^3/uL (130-450); RED BLOOD COUNT 5.33 10^6/uL (4.20-5.40); RED CELL DISTRIBUTION WIDTH 13.4 % (12.0-15.0); WHITE BLOOD COUNT 18.8 x10^3/uL (4.8-10.8)
[2019-03-16] MEDS ORDERED: SODIUM CHLORIDE 0.9% 1,000 ML IV ONE (06:15)
[2019-03-16] MEDS ORDERED: ONDANSETRON 4 MG/2 ML VIAL IVP STA (06:28)
[2019-03-16] MEDS ORDERED: METOCLOPRAMIDE 10 MG/2 ML VIAL IVP STA (06:48)
[2019-03-16] MEDS ORDERED: MORPHINE 2 MG/ML CARPUJECT IVP STA ×2 (06:48→10:12)
--- NOTE | 2019-03-16 06:52 | ED Physician Documentation ---
History of Present Illness - Stated complaint Stated Complaint: N/V/ABD PAIN - Chief complaint Chief Complaint: Abd Pain - Additonal information Additional information: This is a 28-year-old female with a history of ovarian cancer status post oophorectomy, and chemotherapy (completed and port removed) with resultant neuropathy, dysmenorrhea, and depression, who presents with nausea and vomiting for 24 hours. Patient began developing some abdominal pain followed by recurrent episodes of non-bloody, nonbilious emesis yesterday. She then developed some diarrhea, she has had frequent episodes of watery, nonbloody diarrhea.She states she has had similar symptoms in the past which she attributes to a "bad period". She denies fever or sick contacts, no recent travel.She has abdominal discomfort which is somewhat diffuse, and moderate in severity, worse with palpation. 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: Ovarian cysts, 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, Other : Chronic bladder infection, Kidney stones HEENT: None Psych: Depression, Anxiety, Post traumatic stress disorder Musculoskeletal: None Derm: None - Past Surgical History Past Surgical History: Yes General: Other /UNDRAPED ARTIST 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: Oophrectomy - Present Medications Home Medications: Ambulatory Orders Medication Instructions Recorded Confirmed Promethazine [Phenergan] 25 mg PO Q6H PRN #10 tab 12/06/18 Escitalopram Oxalate [Lexapro] 5 mg PO DAILY #7 tablet 12/07/18 RX: LORazepam [Ativan] 0.5 mg PO Q6H PRN #10 tablet 12/07/18 RX: raNITIdine [Zantac] 150 mg PO BID #14 tablet 12/07/18 lamoTRIgine [Lamictal] 200 mg PO QPM #7 tablet 12/07/18 Oxycodone HCl/Acetaminophen 1 - 2 each PO Q6H PRN #20 tablet 02/08/19 [Percocet 5-325 mg Tablet] Promethazine [Phenergan] 25 mg PO Q6H PRN #25 tab 02/08/19 RX: Mupirocin 1 gm TP BID #22 oint...g. 02/08/19 RX: Naproxen 375 mg PO BID #20 tablet 02/08/19 raNITIdine [Zantac] 150 mg PO BID #50 tablet 02/08/19 Promethazine [Phenergan] 25 mg PO Q8HR PRN #7 tab 03/16/19 - Allergies Allergies/Adverse Reactions: Allergies Allergy/AdvReac Type Severity Reaction Status Date / Time aripiprazole [From Abilify] Allergy Rash Verified 03/16/19 06:38 hydrocodone bitartrate * Allergy Hives Verified 03/16/19 06:38 [From Vicodin] ketorolac Allergy Itching Verified 03/16/19 06:38 ondansetron [From Zofran] Allergy Headache Verified 03/16/19 06:38 tramadol Allergy Hives Verified 03/16/19 06:38 ethinyl estradiol AdvReac Cramps Verified 03/16/19 06:38 [From NuvaRing] etonogestrel [From NuvaRing] AdvReac Cramps Verified 03/16/19 06:38 morphine AdvReac Unknown Verified 03/16/19 07:01 trazodone AdvReac Unknown Verified 03/16/19 06:38 - Social History Does the pt smoke?: No Smoking Status: Never smoker Does the pt drink ETOH?: Yes Does the pt have substance abuse?: No - Immunizations Immunizations are current?: Yes - POLST Patient has POLST: No POLST Status: Full Code PD ED PE NORMAL - Vitals Vital signs reviewed: Yes - General General: Alert and oriented X 3 - HEENT HEENT: PERRL - Neck Neck: Supple, no meningeal sign - Cardiac Cardiac: RRR, No murmur - Respiratory Respiratory: Clear bilaterally - Abdomen Abdomen: Other (Soft, Obese, diffusely tender but without guarding. Patient has diarrhea during exam, which is loose and watery. ) - Back Back: No CVA TTP - Derm Derm: Warm and dry - Extremities Extremities: No deformity - Neuro Neuro: Alert and oriented X 3 - Psych Psych: Normal mood, Normal affect Results - Vitals Vitals: Vital Signs - 24 hr 03/16/19 03/16/19 03/16/19 05:54 06:00 08:00 Temperature 35.9 C L 36.5 C Heart Rate 96 79 97 Respiratory 18 18 14 Rate Blood Pressure 139/111 H 139/111 H 117/68 O2 Saturation 96 98 97 03/16/19 03/16/19 10:00 12:20 Temperature 36.6 C Heart Rate 87 78 Respiratory 13 20 Rate Blood Pressure 138/95 H 111/58 L O2 Saturation 98 99 Oxygen O2 Source Room air - Labs Labs: Laboratory Tests 03/16/19 03/16/19 03/16/19 06:08 07:14 07:14 WBC 18.8 H RBC 5.33 Hgb 15.1 Hct 47.0 MCV 88.2 MCH 28.3 MCHC 32.1 RDW 13.4 Plt Count 370 MPV 10.0 Neut # (Auto) 16.0 H Lymph # (Auto) 1.7 [place] # (Auto) 0.8 Eos # (Auto) 0.1 Baso # (Auto) 0.1 Absolute Nucleated RBC 0.00 Nucleated RBC % 0.0 Sodium 143 Potassium 3.8 Chloride 107 Carbon Dioxide 20 L Anion Gap 16.0 H BUN 31 H Creatinine 0.9 Estimated GFR (MDRD) 75 L Glucose 128 H Calcium 9.6 Total Bilirubin 0.7 AST 38 ALT 58 Alkaline Phosphatase 60 Total Protein 8.4 H Albumin 5.2 Globulin 3.2 Albumin/Globulin Ratio 1.6 Lipase 19 L HCG, Quant < 0.60 - Rads (name of study) CT Radiology: Final report received (No acute process. Cholelithiasis.) PD MEDICAL DECISION MAKING - ED course Complexity details: considered differential (Gastroenteritis, partial obstruction, bowel perforation, appendicitis, cholecystitis, dysmenorrhea, C. difficile, dehydration, electrolyte disturbance) ED course: On initial examination patient is uncomfortable but nontoxic-appearing, vital signs notable for hypertension. She is diffuse tenderness of her abdominal exam and she had multiple episodes of diarrhea while in the room. IV was inserted, patient was given morphine, Reglan, and a 1 L normal saline bolus. Labs are drawn, CBC is notable for leukocytosis of 18.[address] scan was ordered, And shows cholelithiasis but no signs of cholecystitis. Otherwise the CT of abdomen pelvis is unremarkable. On repeat examination patient is feeling improved. Her abdominal exam is benign and she has no right upper quadrant tenderness to palpation. I highly doubt cholecystitis or symptomatically cholelithiasis given the diffuse nature of abdominal pain and the fact she is having vomiting diarrhea. I feel that gastroenteritis is much more likely. Given that her symptoms are now controlled and she is able to tolerate p.o. without issue, she appears appropriate for trial of outpatient therapy. I prescribed her antibiotics, discussed supportive care and return precautions, patient was discharged home. Departure - Departure Disposition: , Self Care Clinical Impression: Vomiting and diarrhea Condition: Stable Instructions: ED Abdominal Pain Unkn Cause Follow-Up: Your,PCP [Other] (For follow up on symptoms) Prescriptions: Promethazine [Phenergan] 25 mg PO Q8HR PRN #7 tab PRN Reason: Nausea / Vomiting Comments: You were seen today for vomiting and diarrhea. You likely have a viral infection, your CT did not show signs of a serious abdominal problem at this time. Please hydrate well, take nausea medication as prescribed, and return to the emergency department if you have severely worsening symptoms or persistent vomiting despite the nausea meds. Follow-up with your primary care provider Discharge Date/Time: 03/16/19 13:03
[2019-03-16] MEDS ORDERED: IOVERSOL 320 100 ML VIAL IVP ONE ×2 (07:22→08:04)
[2019-03-16 07:31] LABS: ALBUMIN 5.2 g/dL (3.2-5.5); ALBUMIN/GLOBULIN RATIO 1.6 (1.0-2.2); BILIRUBIN,TOTAL 0.7 mg/dL (0.2-1.0); CALCIUM 9.6 mg/dL (8.5-10.3); CREATININE 0.9 mg/dL (0.4-1.0); TOTAL PROTEIN 8.4 g/dL (6.7-8.2)
--- NOTE | 2019-03-16 08:42 | CT Report ---
Reason: Abd pain, vomiting, leukocytosis hx ovarian cancer Procedure Date: 03/16/2019 Accession Number: [id number] / [id number] Procedure: CT - Abdomen/Pelvis W CPT Code: FULL RESULT: EXAM: CT ABDOMEN AND PELVIS EXAM DATE: 03/16/2019 08:05 AM. CLINICAL HISTORY: Abd pain, vomiting, leukocytosis hx ovarian cancer. COMPARISONS: ABDOMEN/PELVIS W/O 02/08/2019 1:05 PM ABDOMEN/PELVIS W/ 01/28/2017 1:33 AM. TECHNIQUE: Routine helical CT imaging was performed through the abdomen and pelvis. IV contrast: 90 cc Optiray 320. Enteric contrast: No. Reconstructions: Coronal and sagittal. In accordance with CT protocol optimization, one or more of the following dose reduction techniques were utilized for this exam: automated exposure control, adjustment of mA and/or KV based on patient size, or use of iterative reconstructive technique. FINDINGS: Exam slightly limited by mild motion artifact at some levels. Lung Bases: Unremarkable. Liver: Normal. No masses. Gallbladder/Bile Ducts: There is subtle heterogeneous increased density within the gallbladder lumen, similar to prior CTs. This is suspicious for the presence of cholelithiasis. No gallbladder wall thickening or pericholecystic edema. Spleen: Normal. Pancreas: Normal. Adrenal Glands: Normal. Kidneys: Normal. No masses or hydronephrosis. Peritoneal Cavity/Bowel: Normal. No free fluid, free air or adenopathy. No masses or acute inflammatory process. No dilated loops of bowel or abnormal colonic stool burden. The appendix is well visualized and normal. Pelvic Organs: Normal. The bladder and visualized pelvic organs are within normal limits. There is an IUD in the uterus. No adnexal mass identified. Vasculature: No aneurysms or other significant abnormality. Bones: No significant abnormality. Other: None. IMPRESSION: 1. Findings suggestive of cholelithiasis, as seen on prior CTs. No CT evidence of acute cholecystitis. Ultrasound is more sensitive for the detection of cholelithiasis and acute cholecystitis. 2. Otherwise unremarkable CT of the abdomen and pelvis. No acute obstructive or inflammatory process identified. The appendix is normal. RADIA
[2019-03-16] MEDS ORDERED: PROMETHAZINE INJ 25 MG in SODIUM CHLORIDE 0.9% 50 ML IV STA (11:10)
[2019-03-16 12:20] VITALS: BP 111/58
== END 2019-03-16 13:03 | disposition home or self-care (01) ==
LOC: EDUNIT# → ED 05:53
DX: R11.2 Nausea with vomiting, unspecified (principal); R19.7 Diarrhea, unspecified
CPT/HCPCS: 36415; 74177; 80053; 83690; 84702; 85025; 96361; 96365; 96375; 99284; J2765; J7040; Q9967

== ENCOUNTER 2019-04-16 20:30 | Emergency (ER) | payer MEDICAID ==
[2019-04-16] MEDS ORDERED: ONDANSETRON 4 MG/2 ML VIAL IVP STA (23:51)
[2019-04-16] MEDS ORDERED: MAG HYDROX/AL HYDROX/SIMETH 30 ML UDC PO STA (23:51)
[2019-04-16] MEDS ORDERED: SODIUM CHLORIDE 0.9% 1,000 ML IV ONE (23:51)
[2019-04-16] MEDS ORDERED: LIDOCAINE VISCOUS 2% 15 ML UDC MM STA (23:52)
[2019-04-17 00:05] LABS: BASOPHILS % (AUTO) 0.4 %; EOSINOPHILS # (AUTO) 0.2 10^3/uL (0.0-0.7); EOSINOPHILS % (AUTO) 2.1 %; HGB - HEMOGLOBIN 12.9 g/dL (12.0-16.0); LYMPHOCYTES # (AUTO) 4.3 10^3/uL (1.5-3.5); LYMPHOCYTES % (AUTO) 42.7 %; MEAN CORPUSCULAR HEMOGLOBIN 28.8 pg (27.0-31.0); MEAN CORPUSCULAR HGB CONC 32.6 g/dL (32.0-36.0); MEAN CORPUSCULAR VOLUME 88.4 fL (81.0-99.0); MEAN PLATELET VOLUME 9.3 fL (7.9-10.8); MONOCYTES # (AUTO) 0.8 10^3/uL (0.0-1.0); MONOCYTES % (AUTO) 7.6 %; NEUTROPHILS # (AUTO) 4.7 10^3/uL (1.5-6.6); NEUTROPHILS % (AUTO) 46.8 %; PLT - PLATELET COUNT 290 10^3/uL (130-450); RED BLOOD COUNT 4.48 10^6/uL (4.20-5.40); RED CELL DISTRIBUTION WIDTH 13.5 % (12.0-15.0); WHITE BLOOD COUNT 10.1 x10^3/uL (4.8-10.8)
--- NOTE | 2019-04-17 00:14 | ED Physician Documentation ---
PD HPI NVD - Stated complaint Stated Complaint: FLU SMYPTOMS - Chief complaint Chief Complaint: Abd Pain - History obtained from History obtained from: Patient - History of Present Illness Timing - onset: How many weeks ago (4) Timing - duration: Weeks (4) Timing - details: Gradual onset, Still present, Waxing and waning Associated symptoms: Abdominal pain Improved by: Meds Worsened by: Eating Similar symptoms before: Diagnosis (gastroenteritis) Recently seen: Clinic, Emergency Dept - Additonal information Additional information: 28-year-old female with a history of ovarian cancer who is in remission has developed epigastric abdominal pain that started about 1 month ago with an abrupt and dramatic episode of nausea vomiting diarrhea. That all resolved and the patient has had intermittent vomiting since. She does get a problem with pelvic pain and vomiting after that and today she has epigastric pain as well as vomiting. She has taken some naproxyn and the pain is worse. She indicates she was taken off of her zantac to see the queen producer for H. Pylori testing. Review of Systems Constitutional: reports: Fatigue. 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: Ovarian cysts, 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, Other : Chronic bladder infection, Kidney stones HEENT: None Psych: Depression, Anxiety, Post traumatic stress disorder Musculoskeletal: None Derm: None - Past Surgical History Past Surgical History: Yes General: Other /OPTO MECHANICAL TECHNICIAN: Oophrectomy - Present Medications Home Medications: Ambulatory Orders Medication Instructions Recorded Confirmed Promethazine [Phenergan] 25 mg PO Q6H PRN #10 tab 12/06/18 Escitalopram Oxalate [Lexapro] 5 mg PO DAILY #7 tablet 12/07/18 RX: LORazepam [Ativan] 0.5 mg PO Q6H PRN #10 tablet 12/07/18 RX: raNITIdine [Zantac] 150 mg PO BID #14 tablet 12/07/18 lamoTRIgine [Lamictal] 200 mg PO QPM #7 tablet 12/07/18 Oxycodone HCl/Acetaminophen 1 - 2 each PO Q6H PRN #20 tablet 02/08/19 [Percocet 5-325 mg Tablet] Promethazine [Phenergan] 25 mg PO Q6H PRN #25 tab 02/08/19 RX: Mupirocin 1 gm TP BID #22 oint...g. 02/08/19 RX: Naproxen 375 mg PO BID #20 tablet 02/08/19 raNITIdine [Zantac] 150 mg PO BID #50 tablet 02/08/19 Promethazine [Phenergan] 25 mg PO Q8HR PRN #7 tab 03/16/19 Oxycodone HCl/Acetaminophen 1 - 2 each PO Q6H PRN #14 tablet 04/17/19 [Percocet 5-325 mg Tablet] - Allergies Allergies/Adverse Reactions: Allergies Allergy/AdvReac Type Severity Reaction Status Date / Time aripiprazole [From Abilify] Allergy Rash Verified 04/16/19 21:31 hydrocodone bitartrate * Allergy Hives Verified 04/16/19 21:31 [From Vicodin] ketorolac Allergy Itching Verified 04/16/19 21:31 ondansetron [From Zofran] Allergy Headache Verified 04/16/19 21:31 tramadol Allergy Hives Verified 04/16/19 21:31 ethinyl estradiol AdvReac Cramps Verified 04/16/19 21:31 [From NuvaRing] etonogestrel [From NuvaRing] AdvReac Cramps Verified 04/16/19 21:31 morphine AdvReac Unknown Verified 04/16/19 21:31 trazodone AdvReac Unknown Verified 04/16/19 21:31 - Social History Does the pt smoke?: No Smoking Status: Never smoker Does the pt drink ETOH?: Yes Does the pt have substance abuse?: No - Immunizations Immunizations are current?: Yes - POLST Patient has POLST: No POLST Status: Full Code PD ED PE NORMAL - Vitals Vital signs reviewed: Yes (normal ) - General General: Alert and oriented X 3, Well developed/nourished, Other (appears in pain with grey goods examiner tone and flat affect) - HEENT HEENT: Atraumatic, PERRL, EOMI - Neck Neck: Supple, no meningeal sign - Cardiac Cardiac: RRR, No murmur - Respiratory Respiratory: No respiratory distress, Clear bilaterally - Abdomen Abdomen: Soft, Other (mild epigastric tenderness to palpation without gaurding or rebound. ) - Back Back: No CVA TTP, No spinal TTP - Derm Derm: Normal color, Warm and dry, No rash - Extremities Extremities: No deformity, No edema - Neuro Neuro: Alert and oriented X 3, tank setter helper 2-12 intact, No motor deficit, No sensory deficit, Normal speech Eye Opening: Spontaneous Motor: Obeys Commands Verbal: Oriented GCS Score: 15 - Psych Psych: Normal mood, Normal affect Results - Vitals Vitals: Vital Signs - 24 hr 04/16/19 04/16/19 04/17/19 21:28 22:48 01:42 Temperature 36.3 C L 36.0 C L 36.2 C L Heart Rate 76 79 65 Respiratory 16 16 17 Rate Blood Pressure 126/78 136/90 H 128/71 O2 Saturation 100 100 98 04/17/19 02:26 Temperature 36.5 C Heart Rate 70 Respiratory 17 Rate Blood Pressure 117/79 O2 Saturation 98 Oxygen O2 Source Room air - Labs Labs: Laboratory Tests 04/16/19 04/16/19 04/16/19 22:00 23:55 23:55 WBC 10.1 RBC 4.48 Hgb 12.9 Hct 39.6 MCV 88.4 MCH 28.8 MCHC 32.6 RDW 13.5 Plt Count 290 MPV 9.3 Neut # (Auto) 4.7 Lymph # (Auto) 4.3 H [place] # (Auto) 0.8 Eos # (Auto) 0.2 Baso # (Auto) 0.0 Absolute Nucleated RBC 0.00 Nucleated RBC % 0.0 Sodium 140 Potassium 3.8 Chloride 103 Carbon Dioxide 28 Anion Gap 9.0 BUN 25 H Creatinine 0.7 Estimated GFR (MDRD) 100 Glucose 79 Calcium 9.5 Total Bilirubin 0.2 AST 16 ALT 14 Alkaline Phosphatase 57 Total Protein 7.9 Albumin 4.4 Globulin 3.5 Albumin/Globulin Ratio 1.3 Lipase 27 Urine Color YELLOW Urine Clarity CLEAR Urine pH 5.5 Ur Specific [place] >=1.030 H Urine Protein NEGATIVE Urine Glucose (UA) NEGATIVE Urine Ketones NEGATIVE Urine Occult Blood MODERATE H Urine Nitrite NEGATIVE Urine Bilirubin NEGATIVE Urine Urobilinogen 0.2 (NORMAL) Ur Leukocyte Esterase NEGATIVE Urine RBC 0-5 Urine WBC 0-3 Ur Squamous Epith Cells MOD Squamous H Urine Crystals 0-2 Calcium Oxalate Urine Bacteria Rare Urine Mucus Marked Strands Ur Microscopic Review INDICATED Urine Culture Comments NOT INDICATED Procedures - IVC sono (time) 2340 Bedside IVC sono: IVC measures (cm) (1.07), Dehydration (est 1-2 liters deficit) PD MEDICAL DECISION MAKING - ED course Complexity details: reviewed results, re-evaluated patient, considered differential, d/w patient ED course: The GI cocktail did help somewhat with the epigastric pain the patient is dehydrated and she is administered saline as well as Zofran with some improvement. She is administered pain medication for residual abdominal pain and she is requesting pain medication for use at home. Departure - Departure Disposition: 01 Home, Self Care Clinical Impression: Dehydration Abdominal pain Qualifiers: Abdominal location: epigastric Qualified Code(s): R10.13 - Epigastric pain Condition: Stable Instructions: ED Dehydration, ED PUD Vs Gastritis Follow-Up: [facility] [Primary Care Provider] - Prescriptions: Oxycodone HCl/Acetaminophen [Percocet 5-325 mg Tablet] 1 - 2 each PO Q6H PRN #14 tablet PRN Reason: pain Discharge Date/Time: 04/17/19 02:49
[2019-04-17 00:16] LABS: ALBUMIN 4.4 g/dL (3.2-5.5); ALBUMIN/GLOBULIN RATIO 1.3 (1.0-2.2); BILIRUBIN,TOTAL 0.2 mg/dL (0.2-1.0); CALCIUM 9.5 mg/dL (8.5-10.3); CREATININE 0.7 mg/dL (0.4-1.0); TOTAL PROTEIN 7.9 g/dL (6.7-8.2)
[2019-04-17 00:23] LABS: BILIRUBIN,URINE NEGATIVE (NEGATIVE); GLUCOSE, URINE (UA) NEGATIVE (NEGATIVE); KETONES,URINE (UA) NEGATIVE (NEGATIVE); LEUKOCYTE ESTERASE, URINE NEGATIVE (NEGATIVE); NITRITE,URINE NEGATIVE (NEGATIVE); OCCULT BLOOD,URINE MODERATE (NEGATIVE); PH,URINE 5.5 PH (5.0-7.5); PROTEIN,URINE NEGATIVE (NEGATIVE); UROBILINOGEN,URINE 0.2 (NORMAL) E.U./dL (NORMAL)
[2019-04-17 00:34] LABS: BACTERIA,URINE Rare /HPF (None Seen); CLARITY,URINE CLEAR (CLEAR); MUCUS,URINE Marked Strands; RBC,URINE 0-5 /HPF (0-5); SQUAMOUS EPITHELIAL CELL,UR MOD Squamous (<= Few)
[2019-04-17 00:35] LABS: CRYSTALS,URINE 0-2 Calcium Oxalate /LPF
[2019-04-17] MEDS ORDERED: HYDROmorphone 1 MG/ML CARPUJECT IVP STA (02:10)
[2019-04-17] MEDS ORDERED: ONDANSETRON 4 MG/2 ML VIAL IVP STA (02:10)
[2019-04-17] MEDS ORDERED: oxyCODONE/ACET 5/325 Prepack 4 PO STA (02:11)
[2019-04-17 02:27] VITALS: BP 117/79
== END 2019-04-17 02:49 | disposition home or self-care (01) ==
LOC: ED 20:30
DX: E86.0 Dehydration (principal); R10.13 Epigastric pain; R11.2 Nausea with vomiting, unspecified; R19.7 Diarrhea, unspecified; Z85.43 Personal history of malignant neoplasm of ovary
CPT/HCPCS: 36415; 80053; 81001; 83690; 85025; 96361; 96374; 96375; 99283; 99284; A9270; J1170; 81003; 87086

== ENCOUNTER 2019-05-08 16:06 | Emergency (ER) | payer MEDICAID ==
[2019-05-08 17:03] LABS: BASOPHILS % (AUTO) 0.3 %; EOSINOPHILS # (AUTO) 0.1 10^3/uL (0.0-0.7); EOSINOPHILS % (AUTO) 1.3 %; HGB - HEMOGLOBIN 13.5 g/dL (12.0-16.0); LYMPHOCYTES % (AUTO) 31.6 %; MEAN CORPUSCULAR HEMOGLOBIN 28.7 pg (27.0-31.0); MEAN CORPUSCULAR HGB CONC 32.5 g/dL (32.0-36.0); MEAN CORPUSCULAR VOLUME 88.3 fL (81.0-99.0); MEAN PLATELET VOLUME 9.6 fL (7.9-10.8); MONOCYTES # (AUTO) 0.6 10^3/uL (0.0-1.0); MONOCYTES % (AUTO) 6.1 %; NEUTROPHILS # (AUTO) 5.7 10^3/uL (1.5-6.6); NEUTROPHILS % (AUTO) 60.3 %; PLT - PLATELET COUNT 335 10^3/uL (130-450); RED CELL DISTRIBUTION WIDTH 13.4 % (12.0-15.0); WHITE BLOOD COUNT 9.4 x10^3/uL (4.8-10.8)
[2019-05-08 17:15] LABS: ALBUMIN 4.9 g/dL (3.2-5.5); ALBUMIN/GLOBULIN RATIO 1.4 (1.0-2.2); BILIRUBIN,TOTAL 0.5 mg/dL (0.2-1.0); CALCIUM 10.2 mg/dL (8.5-10.3); CREATININE 0.7 mg/dL (0.4-1.0); TOTAL PROTEIN 8.4 g/dL (6.7-8.2)
[2019-05-08 18:31] LABS: BILIRUBIN,URINE NEGATIVE (NEGATIVE); GLUCOSE, URINE (UA) NEGATIVE (NEGATIVE); KETONES,URINE (UA) NEGATIVE (NEGATIVE); LEUKOCYTE ESTERASE, URINE NEGATIVE (NEGATIVE); NITRITE,URINE NEGATIVE (NEGATIVE); OCCULT BLOOD,URINE NEGATIVE (NEGATIVE); PROTEIN,URINE NEGATIVE (NEGATIVE); UROBILINOGEN,URINE 0.2 (NORMAL) E.U./dL (NORMAL)
[2019-05-08 18:33] LABS: CLARITY,URINE CLEAR (CLEAR); HCG UR QUAL NEGATIVE
[2019-05-08] MEDS ORDERED: ONDANSETRON 4 MG/2 ML VIAL IVP STA (18:44)
[2019-05-08] MEDS ORDERED: SODIUM CHLORIDE 0.9% 1,000 ML IV ONE (18:44)
[2019-05-08] MEDS ORDERED: MAG HYDROX/AL HYDROX/SIMETH 30 ML UDC PO STA (18:46)
--- NOTE | 2019-05-08 18:46 | ED Physician Documentation ---
PD HPI ABD PAIN - Stated complaint Stated Complaint: ADB PX,N/V DIZZY - Chief complaint Chief Complaint: Abd Pain - History obtained from History obtained from: Patient - History of Present Illness Timing - onset: Other (29-year-old woman with a history of some psychiatric issues. For the last 2 to 3 months she has been plagued by left upper quadrant pain. It happens after eating and is associated with vomiting. She is lost some weight with it. She had a CT at some point suggesting cholelithiasis and had an intake appointment with GI and is scheduled for ultrasound and upper and lower endoscopy but none of that has happened yet. She is very nauseous today. In the past she has had help with a GI cocktail.) Review of Systems Ten Systems: 10 systems reviewed and negative Constitutional: reports: Weight Loss. 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, Other : Chronic bladder infection, Kidney stones HEENT: None Psych: Depression, Anxiety, Post traumatic stress disorder Musculoskeletal: None Derm: None - Past Surgical History Past Surgical History: Yes General: 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 02/08/19 Naproxen 375 mg PO BID #20 tablet 02/08/19 Oxycodone HCl/Acetaminophen 1 - 2 each PO Q6H PRN #20 tablet 02/08/19 [Percocet 5-325 mg Tablet] Promethazine [Phenergan] 25 mg PO Q6H PRN #25 tab 02/08/19 raNITIdine [Zantac] 150 mg PO BID #50 tablet 02/08/19 Promethazine [Phenergan] 25 mg PO Q8HR PRN #7 tab 03/16/19 Oxycodone HCl/Acetaminophen 1 - 2 each PO Q6H PRN #14 tablet 04/17/19 [Percocet 5-325 mg Tablet] Dicyclomine [Bentyl] 20 mg PO QID PRN #15 capsule 05/08/19 Lurasidone HCl [Latuda] 20 mg PO DAILY #30 tablet 05/08/19 Oxycodone HCl/Acetaminophen 1 - 2 each PO Q6H PRN #10 tablet 05/08/19 [Percocet 5-325 mg Tablet] - Allergies Allergies/Adverse Reactions: Allergies Allergy/AdvReac Type Severity Reaction Status Date / Time aripiprazole [From Abilify] Allergy Rash Verified 05/08/19 16:30 hydrocodone bitartrate * Allergy Hives Verified 05/08/19 16:30 [From Vicodin] ketorolac Allergy Itching Verified 05/08/19 16:30 ondansetron [From Zofran] Allergy Headache Verified 05/08/19 16:30 tramadol Allergy Hives Verified 05/08/19 16:30 ethinyl estradiol AdvReac Cramps Verified 05/08/19 16:30 [From NuvaRing] etonogestrel [From NuvaRing] AdvReac Cramps Verified 05/08/19 16:30 morphine AdvReac Unknown Verified 05/08/19 16:30 trazodone AdvReac Unknown Verified 05/08/19 16:30 - Social History Does the pt smoke?: No Smoking Status: Never smoker Does the pt drink ETOH?: Yes Does the pt have substance abuse?: No - Immunizations Immunizations are current?: Yes - POLST Patient has POLST: No POLST Status: Full Code PD ED PE NORMAL - Vitals Vital signs reviewed: Yes - General General: Alert and oriented X 3, No acute distress - Cardiac Cardiac: RRR, No murmur - Respiratory Respiratory: No respiratory distress, Clear bilaterally - Abdomen Abdomen: Normal bowel sounds, Soft, Non tender - Extremities Extremities: No edema, No calf tenderness / cord - Neuro Neuro: Alert and oriented X 3, armored service technician 2-12 intact, No motor deficit, No sensory deficit, Normal speech Results - Vitals Vitals: Vital Signs - 24 hr 05/08/19 05/08/19 05/08/19 16:28 18:48 19:15 Temperature 36.8 C Heart Rate 84 71 70 Respiratory 20 16 15 Rate Blood Pressure 144/94 H 139/97 H 129/95 H O2 Saturation 97 98 99 05/08/19 05/08/19 05/08/19 19:18 19:51 20:15 Temperature Heart Rate 74 75 61 Respiratory 17 17 16 Rate Blood Pressure O2 Saturation 98 100 98 05/08/19 20:56 Temperature Heart Rate 65 Respiratory 17 Rate Blood Pressure 125/102 H O2 Saturation 99 Oxygen O2 Source Room air - Labs Labs: Laboratory Tests 05/08/19 05/08/19 05/08/19 16:56 16:56 18:26 WBC 9.4 RBC 4.70 Hgb 13.5 Hct 41.5 MCV 88.3 MCH 28.7 MCHC 32.5 RDW 13.4 Plt Count 335 MPV 9.6 Neut # (Auto) 5.7 Lymph # (Auto) 3.0 [place] # (Auto) 0.6 Eos # (Auto) 0.1 Baso # (Auto) 0.0 Absolute Nucleated RBC 0.00 Nucleated RBC % 0.0 Sodium 139 Potassium 4.6 Chloride 102 Carbon Dioxide 29 Anion Gap 8.0 BUN 15 Creatinine 0.7 Estimated GFR (MDRD) 100 Glucose 98 Calcium 10.2 Total Bilirubin 0.5 AST 23 ALT 18 Alkaline Phosphatase 65 Total Protein 8.4 H Albumin 4.9 Globulin 3.5 Albumin/Globulin Ratio 1.4 Lipase 21 L Urine Color YELLOW Urine Clarity CLEAR Urine pH 7.0 Ur Specific [place] 1.010 Urine Protein NEGATIVE Urine Glucose (UA) NEGATIVE Urine Ketones NEGATIVE Urine Occult Blood NEGATIVE Urine Nitrite NEGATIVE Urine Bilirubin NEGATIVE Urine Urobilinogen 0.2 (NORMAL) Ur Leukocyte Esterase NEGATIVE Ur Microscopic Review NOT INDICATED Urine Culture Comments NOT INDICATED Urine HCG, Qual NEGATIVE PD MEDICAL DECISION MAKING - ED course ED course: She also needed a refill of her psychiatric medications, the dose was confirmed with her. This is a young lady with what seems like gastritis. She was administered IV fluids, Zofran, and a GI cocktail. An ultrasound was ordered. The alternation between constipation and diarrhea is also consistent with IBS which she has family members with same Ultrasound does show gallstones but no evidence of cholecystitis. Her labs were also benign-appearing. She remained nontender. Although she does have gallstones, clinically I suspect this is not the source of her pain. Seems, again, more like gastritis or IBS. She is starting some Zantac although she is not actually on it. I encouraged her to do this. We will also start her on some Bentyl and a short course of pain medications pending GI follow-up. Departure - Departure Disposition: Home, Self Care Clinical Impression: Cholelithiasis Qualifiers: Cholelithiasis location: gallbladder Cholecystitis presence: without cholecys titis Biliary obstruction: without biliary obstruction Qualified Code(s): K80.20 - Calculus of gallbladder without cholecystitis without obstruction Abdominal pain Qualifiers: Abdominal location: epigastric Qualified Code(s): R10.13 - Epigastric pain Condition: Good Record reviewed to determine appropriate education?: Yes Instructions: Abdominal Pain Prescriptions: Dicyclomine [Bentyl] 20 mg PO QID PRN #15 capsule PRN Reason: Abdominal Pain Lurasidone HCl [Latuda] 20 mg PO DAILY #30 tablet Oxycodone HCl/Acetaminophen [Percocet 5-325 mg Tablet] 1 - 2 each PO Q6H PRN #10 tablet PRN Reason: pain Comments: As discussed, clinically to me your symptoms seem more likely to be gastritis or IBS than they are related to the gallstones. You do have gallstones though and follow-up with the surgeon is not unreasonable. That said I would encourage you to see the GI doctor before consideration is made for surgery unless things change. Return for new or worsening symptoms. You should start the Zantac that you have already been prescribed as soon as possible.
[2019-05-08] MEDS ORDERED: LIDOCAINE VISCOUS 2% 15 ML UDC MM STA (18:47)
[2019-05-08] MEDS ORDERED: MORPHINE 2 MG/ML CARPUJECT IVP STA (19:34)
[2019-05-08] MEDS ORDERED: METOCLOPRAMIDE 10 MG/2 ML VIAL IVP STA (19:34)
[2019-05-08] MEDS ORDERED: HYDROmorphone 1 MG/ML CARPUJECT IVP STA (20:27)
[2019-05-08] MEDS ORDERED: oxyCODONE/ACET 5/325 Prepack 4 PO STA (21:15)
--- NOTE | 2019-05-08 21:21 | Ultrasound Report ---
Reason: epigastric pain Procedure Date: 05/08/2019 Accession Number: [id number] / [id number] Procedure: US - Abdomen Limited CPT Code: FULL RESULT: EXAM: ABDOMEN ULTRASOUND LIMITED, RUQ EXAM DATE: 05/08/2019 09:00 PM. CLINICAL HISTORY: Epigastric pain. COMPARISON: ABDOMEN/PELVIS W/ 03/16/2019 8:03 AM. TECHNIQUE: Real-time scanning was performed with static images obtained. FINDINGS: LIVER: Enlarged and increased in echogenicity. No suspicious hepatic masses identified. The liver surface is smooth. PORTAL VEIN: Patent with hepatopedal flow. BILIARY: The common bile duct is normal in caliber. No intrahepatic biliary dilatation. GALLBLADDER: Gallstones. No gallbladder wall thickening or pericholecystic fluid. RIGHT KIDNEY: Normal in size without hydronephrosis, large shadowing stones or perinephric fluid collections. PANCREAS: The visualized portions of the pancreas are unremarkable. IVC: The visualized portions of the inferior vena cava are unremarkable. AORTA: The visualized aorta is normal in caliber. ASCITES: No significant free fluid. Measurements: Liver: 21 cm Gallbladder wall thickness: 2 mm Common bile duct: 5 mm Right kidney: 11.3 cm IMPRESSION: 1. Enlarged fatty liver. 2. Gallstones. No sonographic evidence of acute cholecystitis. RADIA
[2019-05-08 21:25] VITALS: BP 149/102
== END 2019-05-08 21:27 | disposition home or self-care (01) ==
LOC: ED 16:06
DX: R10.13 Epigastric pain (principal); K80.20 Calculus of gallbladder without cholecystitis without obstruction; K76.0 Fatty (change of) liver, not elsewhere classified; Z83.79 Family history of other diseases of the digestive system
CPT/HCPCS: 36415; 76705; 80053; 81003; 81025; 83690; 85025; 96361; 96374; 96375; 99284; 99285; A9270; J1170; J2765; 81001; 87086

== ENCOUNTER 2019-06-30 14:14 | Emergency (ER) | payer MEDICAID ==
[2019-06-30] MEDS ORDERED: LIDOCAINE VISCOUS 2% 15 ML UDC MM STA (15:31)
[2019-06-30] MEDS ORDERED: MAG HYDROX/AL HYDROX/SIMETH 30 ML UDC PO STA ×2 (15:31→16:12)
[2019-06-30] MEDS ORDERED: ONDANSETRON 4 MG/2 ML VIAL IVP STA (15:31)
[2019-06-30] MEDS ORDERED: HYDROmorphone 1 MG/ML CARPUJECT IVP STA ×2 (15:31→16:50)
--- NOTE | 2019-06-30 15:34 | ED Physician Documentation ---
PD HPI ABD PAIN - Stated complaint Stated Complaint: NAUSEA/VOMITING - Chief complaint Chief Complaint: Abd Pain - History obtained from History obtained from: Patient - History of Present Illness Timing - onset: Other (29-year-old woman with history of pelvic cancer presents with pelvic pain starting 3 to 4 days ago associated with bleeding, vomiting. Its similar to prior episodes of recurrent pelvic pain. She denies any fevers or chills. 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, Other : Chronic bladder infection, Kidney stones HEENT: None Psych: Depression, Anxiety, Post traumatic stress disorder Musculoskeletal: None Derm: None - Past Surgical History Past Surgical History: Yes General: Other /CHECKER STOCKER: Oophrectomy - Present Medications Home Medications: Ambulatory Orders Medication Instructions Recorded Confirmed Promethazine [Phenergan] 25 mg PO Q6H PRN #10 tab 12/06/18 Escitalopram Oxalate [Lexapro] 5 mg PO DAILY #7 tablet 12/07/18 LORazepam [Ativan] 0.5 mg PO Q6H PRN #10 tablet 12/07/18 lamoTRIgine [Lamictal] 200 mg PO QPM #7 tablet 12/07/18 raNITIdine [Zantac] 150 mg PO BID #14 tablet 12/07/18 Mupirocin 1 gm TP BID #22 oint...g. 02/08/19 Naproxen 375 mg PO BID #20 tablet 02/08/19 Oxycodone HCl/Acetaminophen 1 - 2 each PO Q6H PRN #20 tablet 02/08/19 [Percocet 5-325 mg Tablet] Promethazine [Phenergan] 25 mg PO Q6H PRN #25 tab 02/08/19 raNITIdine [Zantac] 150 mg PO BID #50 tablet 02/08/19 Promethazine [Phenergan] 25 mg PO Q8HR PRN #7 tab 03/16/19 Oxycodone HCl/Acetaminophen 1 - 2 each PO Q6H PRN #14 tablet 04/17/19 [Percocet 5-325 mg Tablet] Dicyclomine [Bentyl] 20 mg PO QID PRN #15 capsule 05/08/19 Lurasidone HCl [Latuda] 20 mg PO DAILY #30 tablet 05/08/19 Oxycodone HCl/Acetaminophen 1 - 2 each PO Q6H PRN #10 tablet 05/08/19 [Percocet 5-325 mg Tablet] Ondansetron Odt [Zofran] 4 mg TL Q6H PRN #10 tablet 06/30/19 Oxycodone HCl/Acetaminophen 1 - 2 each PO Q6H PRN #7 tablet 06/30/19 [Percocet 5-325 mg Tablet] lamoTRIgine [LaMICtal] 200 mg PO DAILY #30 tablet 06/30/19 - Allergies Allergies/Adverse Reactions: Allergies Allergy/AdvReac Type Severity Reaction Status Date / Time aripiprazole [From Abilify] Allergy Rash Verified 05/08/19 16:30 hydrocodone bitartrate * Allergy Hives Verified 05/08/19 16:30 [From Vicodin] ketorolac Allergy Itching Verified 05/08/19 16:30 ondansetron [From Zofran] Allergy Headache Verified 05/08/19 16:30 tramadol Allergy Hives Verified 05/08/19 16:30 ethinyl estradiol AdvReac Cramps Verified 05/08/19 16:30 [From NuvaRing] etonogestrel [From NuvaRing] AdvReac Cramps Verified 05/08/19 16:30 morphine AdvReac Unknown Verified 05/08/19 16:30 trazodone AdvReac Unknown Verified 05/08/19 16:30 - Social History Does the pt smoke?: No Smoking Status: Never smoker Does the pt drink ETOH?: Yes Does the pt have substance abuse?: No - Immunizations Immunizations are current?: Yes - POLST Patient has POLST: No POLST Status: Full Code PD ED PE NORMAL - Vitals Vital signs reviewed: Yes - General General: Alert and oriented X 3, No acute distress - HEENT HEENT: Pharynx benign - Abdomen Abdomen: Normal bowel sounds, Soft, Non tender - Neuro Neuro: Alert and oriented X 3, Normal speech Results - Vitals Vitals: Vital Signs - 24 hr 06/30/19 06/30/19 14:21 16:25 Temperature 36.9 C Heart Rate 70 67 Respiratory 18 18 Rate Blood Pressure 149/93 H O2 Saturation 98 97 Oxygen O2 Source Room air - Labs Labs: Laboratory Tests 06/30/19 15:37 Urine Color YELLOW Urine Clarity HAZY Urine pH 8.0 H Ur Specific [place] 1.015 Urine Protein NEGATIVE Urine Glucose (UA) NEGATIVE Urine Ketones NEGATIVE Urine Occult Blood LARGE H Urine Nitrite NEGATIVE Urine Bilirubin NEGATIVE Urine Urobilinogen 0.2 (NORMAL) Ur Leukocyte Esterase NEGATIVE Urine RBC 6-10 H Urine WBC 0-3 Ur Squamous Epith Cells NONE SEEN Amorphous Sediment Moderate Urine Bacteria Few Ur Microscopic Review INDICATED Urine Culture Comments NOT INDICATED Urine HCG, Qual NEGATIVE Departure - Departure Disposition: 01 Home, Self Care Clinical Impression: Pelvic pain Condition: Good Record reviewed to determine appropriate education?: Yes Instructions: ED Pelvic Pain [facility] Follow-Up: [facility] [Provider Group] Prescriptions: lamoTRIgine [LaMICtal] 200 mg PO DAILY #30 tablet Ondansetron Odt [Zofran] 4 mg TL Q6H PRN #10 tablet PRN Reason: Nausea / Vomiting Oxycodone HCl/Acetaminophen [Percocet 5-325 mg Tablet] 1 - 2 each PO Q6H PRN #7 tablet PRN Reason: pain Comments: Call your doctor to arrange a follow-up appointment, make the next available appointment. In the interim, return anytime if worse or if new symptoms develop.
[2019-06-30 15:45] LABS: BILIRUBIN,URINE NEGATIVE (NEGATIVE); GLUCOSE, URINE (UA) NEGATIVE (NEGATIVE); KETONES,URINE (UA) NEGATIVE (NEGATIVE); LEUKOCYTE ESTERASE, URINE NEGATIVE (NEGATIVE); NITRITE,URINE NEGATIVE (NEGATIVE); OCCULT BLOOD,URINE LARGE (NEGATIVE); PROTEIN,URINE NEGATIVE (NEGATIVE); UROBILINOGEN,URINE 0.2 (NORMAL) E.U./dL (NORMAL)
[2019-06-30 15:48] LABS: CLARITY,URINE HAZY (CLEAR)
[2019-06-30 15:49] LABS: HCG UR QUAL NEGATIVE
[2019-06-30 15:57] LABS: AMORPHOUS SEDIMENT,UR Moderate /LPF; BACTERIA,URINE Few /HPF (None Seen); SQUAMOUS EPITHELIAL CELL,UR NONE SEEN (<= Few)
[2019-06-30] MEDS ORDERED: lamoTRIgine 100 MG TABLET PO STA (16:48)
[2019-06-30 17:17] VITALS: BP 137/84
== END 2019-06-30 17:18 | disposition home or self-care (01) ==
LOC: ED 14:14
DX: R10.2 Pelvic and perineal pain (principal); R11.2 Nausea with vomiting, unspecified; Z97.5 Presence of (intrauterine) contraceptive device; Z85.43 Personal history of malignant neoplasm of ovary
CPT/HCPCS: 81001; 81025; 96374; 96376; 99283; A9270; J1170; 81003; 87086

== ENCOUNTER 2019-08-18 08:43 | Emergency (ER) | payer MEDICAID ==
[2019-08-18] MEDS ORDERED: SODIUM CHLORIDE 0.9% 1,000 ML IV STA (09:05)
--- NOTE | 2019-08-18 09:05 | ED Physician Documentation ---
History of Present Illness - Stated complaint Stated Complaint: FEMALE /NAUSEA - Chief complaint Chief Complaint: Abd Pain - Additonal information Additional information: This is a 28-year-old female with history of ovarian cancer status post oophorectomy, chemotherapy which was completed and a port was removed, with resultant neuropathy dysmenorrhea and depression, s/p IUD placement, who presents with Left lower quadrant abdominal pain. This began the day before yesterday, has been relatively constant, radiates somewhat towards her left flank. She has been having small amounts of bleeding as well. She states that she has had multiple episodes of chronic pelvic pain in the past and she sees Dr. Barroso at the [facility] pelvic pain clinic for this, but she has not seen them for several months. She denies concern for , she denies dysuria. She has had multiple episodes of vomiting which is typical when she has a recurrence of this discomfort. PD PAST MEDICAL HISTORY - Past Medical History Cardiovascular: None Respiratory: None Neuro: None Endocrine/Autoimmune: None GI: GERD INTERIOR DESIGN CONSULTANT: Ovarian cysts, 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, Other : Chronic bladder infection, Kidney stones HEENT: None Psych: Depression, Anxiety, Post traumatic stress disorder Musculoskeletal: None Derm: None - Past Surgical History Past Surgical History: Yes General: Other /INTERIOR DESIGN CONSULTANT: Oophrectomy - Present Medications Home Medications: Ambulatory Orders Medication Instructions Recorded Confirmed Promethazine [Phenergan] 25 mg PO Q6H PRN #10 tab 12/06/18 Escitalopram Oxalate [Lexapro] 5 mg PO DAILY #7 tablet 12/07/18 LORazepam [Ativan] 0.5 mg PO Q6H PRN #10 tablet 12/07/18 lamoTRIgine [Lamictal] 200 mg PO QPM #7 tablet 12/07/18 raNITIdine [Zantac] 150 mg PO BID #14 tablet 12/07/18 Mupirocin 1 gm TP BID #22 oint...g. 02/08/19 Naproxen 375 mg PO BID #20 tablet 02/08/19 Oxycodone HCl/Acetaminophen 1 - 2 each PO Q6H PRN #20 tablet 02/08/19 [Percocet 5-325 mg Tablet] Promethazine [Phenergan] 25 mg PO Q6H PRN #25 tab 02/08/19 raNITIdine [Zantac] 150 mg PO BID #50 tablet 02/08/19 Promethazine [Phenergan] 25 mg PO Q8HR PRN #7 tab 03/16/19 Oxycodone HCl/Acetaminophen 1 - 2 each PO Q6H PRN #14 tablet 04/17/19 [Percocet 5-325 mg Tablet] Dicyclomine [Bentyl] 20 mg PO QID PRN #15 capsule 05/08/19 Lurasidone HCl [Latuda] 20 mg PO DAILY #30 tablet 05/08/19 Oxycodone HCl/Acetaminophen 1 - 2 each PO Q6H PRN #10 tablet 05/08/19 [Percocet 5-325 mg Tablet] Ondansetron Odt [Zofran] 4 mg TL Q6H PRN #10 tablet 06/30/19 Oxycodone HCl/Acetaminophen 1 - 2 each PO Q6H PRN #7 tablet 06/30/19 [Percocet 5-325 mg Tablet] lamoTRIgine [LaMICtal] 200 mg PO DAILY #30 tablet 06/30/19 Oxycodone HCl/Acetaminophen 1 each PO Q6H PRN #5 tablet 08/18/19 [Percocet 5-325 mg Tablet] - Allergies Allergies/Adverse Reactions: Allergies Allergy/AdvReac Type Severity Reaction Status Date / Time aripiprazole [From Abilify] Allergy Rash Verified 08/18/19 08:54 hydrocodone bitartrate * Allergy Hives Verified 08/18/19 08:54 [From Vicodin] ketorolac Allergy Itching Verified 08/18/19 08:54 ondansetron [From Zofran] Allergy Headache Verified 08/18/19 08:54 tramadol Allergy Hives Verified 08/18/19 08:54 ethinyl estradiol AdvReac Cramps Verified 08/18/19 08:54 [From NuvaRing] etonogestrel [From NuvaRing] AdvReac Cramps Verified 08/18/19 08:54 morphine AdvReac Unknown Verified 08/18/19 08:54 trazodone AdvReac Unknown Verified 08/18/19 08:54 - Social History Does the pt smoke?: No Smoking Status: Never smoker Does the pt drink ETOH?: Yes Does the pt have substance abuse?: No - Immunizations Immunizations are current?: Yes - POLST Patient has POLST: No POLST Status: Full Code Results - Vitals Vitals: Oxygen O2 Source Room air - Labs Labs: Laboratory Tests 08/18/19 08/18/19 08/18/19 09:27 09:27 10:55 WBC 6.4 RBC 4.74 Hgb 13.9 Hct 42.3 MCV 89.2 MCH 29.3 MCHC 32.9 RDW 12.8 Plt Count 290 MPV 9.3 Neut # (Auto) 4.1 Lymph # (Auto) 1.8 [place] # (Auto) 0.4 Eos # (Auto) 0.1 Baso # (Auto) 0.0 Absolute Nucleated RBC 0.00 Nucleated RBC % 0.0 Sodium 137 Potassium 4.0 Chloride 103 Carbon Dioxide 27 Anion Gap 7.0 BUN 21 H Creatinine 0.7 Estimated GFR (MDRD) 100 Glucose 97 Calcium 9.3 Total Bilirubin 0.8 AST 19 ALT 16 Alkaline Phosphatase 53 Total Protein 8.1 Albumin 4.7 Globulin 3.4 Albumin/Globulin Ratio 1.4 Lipase 26 Urine Color YELLOW Urine Clarity CLEAR Urine pH 7.5 Ur Specific [place] 1.020 Urine Protein NEGATIVE Urine Glucose (UA) NEGATIVE Urine Ketones NEGATIVE Urine Occult Blood LARGE H Urine Nitrite NEGATIVE Urine Bilirubin NEGATIVE Urine Urobilinogen 0.2 (NORMAL) Ur Leukocyte Esterase NEGATIVE Urine RBC TNTC H Urine WBC 0-3 Ur Squamous Epith Cells FEW Squamous Urine Bacteria Rare Urine Mucus Few Strands Ur Microscopic Review INDICATED Urine Culture Comments NOT INDICATED Urine HCG, Qual 08/18/19 10:55 WBC RBC Hgb Hct MCV MCH MCHC RDW Plt Count MPV Neut # (Auto) Lymph # (Auto) [place] # (Auto) Eos # (Auto) Baso # (Auto) Absolute Nucleated RBC Nucleated RBC % Sodium Potassium Chloride Carbon Dioxide Anion Gap BUN Creatinine Estimated GFR (MDRD) Glucose Calcium Total Bilirubin AST ALT Alkaline Phosphatase Total Protein Albumin Globulin Albumin/Globulin Ratio Lipase Urine Color Urine Clarity Urine pH Ur Specific [place] 1.020 Urine Protein Urine Glucose (UA) Urine Ketones Urine Occult Blood Urine Nitrite Urine Bilirubin Urine Urobilinogen Ur Leukocyte Esterase Urine RBC Urine WBC Ur Squamous Epith Cells Urine Bacteria Urine Mucus Ur Microscopic Review Urine Culture Comments Urine HCG, Qual NEGATIVE - Rads (name of study) pelvic trop Radiology: Other (Stable pelvic ultrasound compared to 02/08/2019 normal- appearing left ovary unchanged IUD position) PD MEDICAL DECISION MAKING - ED course Complexity details: considered differential (Dysmenorhea, ectopic , colitis, torsion, UTI, pyelonephritis) ED course: Pt presents with a recurrence of chronic pelvic pain, she has had an extensive work up for this and follows with Dr. Whitley at for this. Her labs and vital signs are reassuring, HCG negative, UA negative for infection, and I doubt acute abdominal pathology, but given she has left sided pain and only her left ovary left, pelvic US was ordered and is unremarkable with normal blood flow to the ovary. After pain and nausea medications she is feeling improved and ready to go home. Abdomen remains benign and she is well-appearing. I discussed the results, follow up, and return precautions and pt was discharged home. Departure - Departure Disposition: 01 Home, Self Care Clinical Impression: Abdominal pain Qualifiers: Abdominal location: left lower quadrant Qualified Code(s): R10.32 - Left lower quadrant pain Condition: Good Instructions: ED Abdominal Pain Unkn Cause Follow-Up: ROCIO SARAVIA [Primary Care Provider] - Prescriptions: Oxycodone HCl/Acetaminophen [Percocet 5-325 mg Tablet] 1 each PO Q6H PRN #5 tablet PRN Reason: pain Comments: You were seen today for pelvic pain. The ultrasound shows no changes from your past ultrasound, your labs are reassuring. Please follow-up with your primary care provider and Dr. Whitley, if you are having significantly changing or worsening symptoms return to the emergency department. I am prescribing you a few Percocet, but you are at your limit for prescriptions you can receive through the emergency department, and further pain medications will have to be prescribed by your regular doctor. Discharge Date/Time: 08/18/19 12:35
[2019-08-18] MEDS ORDERED: ONDANSETRON 4 MG/2 ML VIAL IVP STA ×2 (09:07→10:33)
[2019-08-18] MEDS ORDERED: fentaNYL 100 MCG/2 ML VIAL IVP STA ×2 (09:08→10:33)
[2019-08-18 09:37] LABS: BASOPHILS % (AUTO) 0.3 %; EOSINOPHILS # (AUTO) 0.1 10^3/uL (0.0-0.7); EOSINOPHILS % (AUTO) 1.3 %; HGB - HEMOGLOBIN 13.9 g/dL (12.0-16.0); LYMPHOCYTES # (AUTO) 1.8 10^3/uL (1.5-3.5); LYMPHOCYTES % (AUTO) 28.5 %; MEAN CORPUSCULAR HEMOGLOBIN 29.3 pg (27.0-31.0); MEAN CORPUSCULAR HGB CONC 32.9 g/dL (32.0-36.0); MEAN CORPUSCULAR VOLUME 89.2 fL (81.0-99.0); MEAN PLATELET VOLUME 9.3 fL (7.9-10.8); MONOCYTES # (AUTO) 0.4 10^3/uL (0.0-1.0); NEUTROPHILS # (AUTO) 4.1 10^3/uL (1.5-6.6); NEUTROPHILS % (AUTO) 63.7 %; PLT - PLATELET COUNT 290 10^3/uL (130-450); RED BLOOD COUNT 4.74 10^6/uL (4.20-5.40); RED CELL DISTRIBUTION WIDTH 12.8 % (12.0-15.0); WHITE BLOOD COUNT 6.4 x10^3/uL (4.8-10.8)
[2019-08-18 09:50] LABS: ALBUMIN 4.7 g/dL (3.2-5.5); ALBUMIN/GLOBULIN RATIO 1.4 (1.0-2.2); BILIRUBIN,TOTAL 0.8 mg/dL (0.2-1.0); CALCIUM 9.3 mg/dL (8.5-10.3); CREATININE 0.7 mg/dL (0.4-1.0); TOTAL PROTEIN 8.1 g/dL (6.7-8.2)
[2019-08-18 11:09] LABS: BILIRUBIN,URINE NEGATIVE (NEGATIVE); GLUCOSE, URINE (UA) NEGATIVE (NEGATIVE); KETONES,URINE (UA) NEGATIVE (NEGATIVE); LEUKOCYTE ESTERASE, URINE NEGATIVE (NEGATIVE); NITRITE,URINE NEGATIVE (NEGATIVE); OCCULT BLOOD,URINE LARGE (NEGATIVE); PH,URINE 7.5 PH (5.0-7.5); PROTEIN,URINE NEGATIVE (NEGATIVE); UROBILINOGEN,URINE 0.2 (NORMAL) E.U./dL (NORMAL)
[2019-08-18 11:11] LABS: HCG UR QUAL NEGATIVE
[2019-08-18 11:12] LABS: CLARITY,URINE CLEAR (CLEAR)
[2019-08-18 11:18] LABS: RBC,URINE TNTC /HPF (0-5)
[2019-08-18 11:19] LABS: BACTERIA,URINE Rare /HPF (None Seen); MUCUS,URINE Few Strands; SQUAMOUS EPITHELIAL CELL,UR FEW Squamous (<= Few)
--- NOTE | 2019-08-18 11:51 | Ultrasound Report ---
Reason: LLQ pain, hx R oophorectomy, R/O L torsion Procedure Date: 08/18/2019 Accession Number: [id number] / [id number] Procedure: US - Pelvic w/Doppler Complete CPT Code: Final Report FULL RESULT: EXAM: PELVIC ULTRASOUND EXAM DATE: 08/18/2019 10:49 AM. CLINICAL HISTORY: LLQ pain, hx R oophorectomy, R/O L torsion. COMPARISON: ABDOMEN/PELVIS W/ 03/16/2019 8:03 AM PEL NON OB W/TV DOP LTD 02/08/2019 7:31 AM PEL NON OB W/TV DOP 12/15/2018 5:21 PM. TECHNIQUE: Realtime transabdominal pelvic scan performed to identify the uterus and adnexa and as an overview of other pelvic structures, followed by transvaginal scan to provide greater detail of the uterus and adnexa, with static image documentation. FINDINGS: Uterus: 7.4 x 5 x 4.7 cm, volume 92.3 cc. Retroverted position. Normal overall size and echotexture. Masses: None. Endometrium: 9 mm. The IUD appears positioned to the right side of the endometrial cavity. The position appears unchanged compared with the prior pelvic ultrasound of 02/08/2019. Cervix: Unremarkable. Right Ovary: Surgically absent Left Ovary: 4.2 x 1.4 x 1.9 cm, volume 6 cc. Normal echotexture and blood flow. Left ovary peak systolic velocity 24 cm/s, resistive index 0.59. Arterial and venous blood flow is documented. Free Fluid: None. Other: None. IMPRESSION: Stable pelvic ultrasound compared with 02/08/2019. Status post right oophorectomy with normal-appearing left ovary. Unchanged IUD position. RADIA
[2019-08-18] MEDS ORDERED: HYDROmorphone 2 MG/ML VIAL IVP STA (12:08)
[2019-08-18 12:33] VITALS: BP 125/97
== END 2019-08-18 12:35 | disposition home or self-care (01) ==
LOC: ED 08:43
DX: R10.32 Left lower quadrant pain (principal); R10.2 Pelvic and perineal pain; G89.29 Other chronic pain; R11.2 Nausea with vomiting, unspecified; Z85.43 Personal history of malignant neoplasm of ovary; Z90.721 Acquired absence of ovaries, unilateral; Z97.5 Presence of (intrauterine) contraceptive device
CPT/HCPCS: 36415; 76856; 80053; 81001; 81025; 83690; 85025; 93975; 96361; 96374; 96375; 96376; 99281; 99284; J1170; 81003; 87086

== ENCOUNTER 2019-08-23 11:22 | Emergency (ER) | payer MEDICAID ==
[2019-08-23 11:37] VITALS: BP 133/84
[2019-08-23 13:03] LABS: BILIRUBIN,URINE NEGATIVE (NEGATIVE); GLUCOSE, URINE (UA) NEGATIVE (NEGATIVE); KETONES,URINE (UA) NEGATIVE (NEGATIVE); LEUKOCYTE ESTERASE, URINE NEGATIVE (NEGATIVE); NITRITE,URINE NEGATIVE (NEGATIVE); OCCULT BLOOD,URINE LARGE (NEGATIVE); PH,URINE 7.5 PH (5.0-7.5); PROTEIN,URINE NEGATIVE (NEGATIVE); UROBILINOGEN,URINE 0.2 (NORMAL) E.U./dL (NORMAL)
[2019-08-23 13:07] LABS: CLARITY,URINE HAZY (CLEAR); HCG UR QUAL NEGATIVE
[2019-08-23 13:10] LABS: BACTERIA,URINE Few /HPF (None Seen); MUCUS,URINE Moderate Strands; RBC,URINE TNTC /HPF (0-5); SQUAMOUS EPITHELIAL CELL,UR MANY Squamous (<= Few)
[2019-08-23 13:20] LABS: BASOPHILS % (AUTO) 0.4 %; EOSINOPHILS # (AUTO) 0.1 10^3/uL (0.0-0.7); EOSINOPHILS % (AUTO) 0.9 %; HGB - HEMOGLOBIN 13.9 g/dL (12.0-16.0); LYMPHOCYTES # (AUTO) 2.7 10^3/uL (1.5-3.5); LYMPHOCYTES % (AUTO) 35.4 %; MEAN CORPUSCULAR HEMOGLOBIN 29.1 pg (27.0-31.0); MEAN CORPUSCULAR HGB CONC 32.7 g/dL (32.0-36.0); MEAN CORPUSCULAR VOLUME 88.9 fL (81.0-99.0); MEAN PLATELET VOLUME 9.3 fL (7.9-10.8); MONOCYTES # (AUTO) 0.7 10^3/uL (0.0-1.0); MONOCYTES % (AUTO) 9.2 %; NEUTROPHILS # (AUTO) 4.1 10^3/uL (1.5-6.6); NEUTROPHILS % (AUTO) 53.8 %; PLT - PLATELET COUNT 367 10^3/uL (130-450); RED BLOOD COUNT 4.78 10^6/uL (4.20-5.40); RED CELL DISTRIBUTION WIDTH 12.7 % (12.0-15.0); WHITE BLOOD COUNT 7.5 x10^3/uL (4.8-10.8)
[2019-08-23 13:30] LABS: ALBUMIN 4.9 g/dL (3.2-5.5); ALBUMIN/GLOBULIN RATIO 1.4 (1.0-2.2); BILIRUBIN,TOTAL 0.8 mg/dL (0.2-1.0); CALCIUM 9.8 mg/dL (8.5-10.3); CREATININE 0.8 mg/dL (0.4-1.0); TOTAL PROTEIN 8.3 g/dL (6.7-8.2)
[2019-08-23] MEDS ORDERED: oxyCODONE 5 MG TABLET PO STA (13:31)
[2019-08-23] MEDS ORDERED: METOCLOPRAMIDE 10 MG/2 ML VIAL IM STA (13:31)
--- NOTE | 2019-08-23 13:34 | ED Physician Documentation ---
History of Present Illness - Stated complaint Stated Complaint: FEMALE - Chief complaint Chief Complaint: Abd Pain - History obtained from History obtained from: Patient - History of Present Illness Timing: Chronic Pain level max: 8 Pain level now: 8 - Additonal information Additional information: 29-year-old female with chronic pelvic pain. She states that is been worsening recently. Was seen here a week ago for same. She states she is only taking Motrin and Tylenol at home. She states Percocet and Dilaudid have helped in the past. She states she is not on chronic pain medications. No fevers. She states she had large clots this morning. She is following up with the pelvic clinic at [facility] next week. No syncope or near syncope. 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: Ovarian cysts, 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, Other : Chronic bladder infection, Kidney stones HEENT: None Psych: Depression, Anxiety, Post traumatic stress disorder Musculoskeletal: None Derm: None - Past Surgical History Past Surgical History: Yes General: Other /LIBRARIAN ASSISTANT: Oophrectomy - Present Medications Home Medications: Ambulatory Orders Medication Instructions Recorded Confirmed lamoTRIgine [Lamictal] 200 mg PO QPM #7 tablet 12/07/18 Dicyclomine [Bentyl] 20 mg PO QID PRN #15 capsule 05/08/19 Lurasidone HCl [Latuda] 20 mg PO DAILY #30 tablet 05/08/19 Metoclopramide [Reglan] 10 mg PO Q6H PRN #7 tablet 08/23/19 - Allergies Allergies/Adverse Reactions: Allergies Allergy/AdvReac Type Severity Reaction Status Date / Time aripiprazole [From Abilify] Allergy Rash Verified 08/23/19 11:37 hydrocodone bitartrate * Allergy Hives Verified 08/23/19 11:37 [From Vicodin] ketorolac Allergy Itching Verified 08/23/19 11:37 ondansetron [From Zofran] Allergy Headache Verified 08/23/19 11:37 tramadol Allergy Hives Verified 08/23/19 11:37 ethinyl estradiol AdvReac Cramps Verified 08/23/19 11:37 [From NuvaRing] etonogestrel [From NuvaRing] AdvReac Cramps Verified 08/23/19 11:37 morphine AdvReac Unknown Verified 08/23/19 11:37 trazodone AdvReac Unknown Verified 08/23/19 11:37 - Social History Does the pt smoke?: No Smoking Status: Never smoker Does the pt drink ETOH?: Yes Does the pt have substance abuse?: No - Immunizations Immunizations are current?: Yes - POLST Patient has POLST: No POLST Status: Full Code PD ED PE NORMAL - Vitals Vital signs reviewed: Yes - General General: Alert and oriented X 3, No acute distress, Well developed/nourished - HEENT HEENT: Moist mucous membranes - Neck Neck: Supple, no meningeal sign - Cardiac Cardiac: RRR, Strong equal pulses - Respiratory Respiratory: No respiratory distress, Clear bilaterally - Abdomen Abdomen: Soft, Non tender, Non distended - Female Female : Pt declined - Derm Derm: Warm and dry - Extremities Extremities: No edema - Neuro Neuro: Alert and oriented X 3 - Psych Psych: Normal mood, Normal affect Results - Vitals Vitals: Vital Signs - 24 hr 08/23/19 08/23/19 11:35 11:37 Temperature 36.3 C L Heart Rate 89 89 Respiratory 18 18 Rate Blood Pressure 133/84 H 133/84 H O2 Saturation 100 100 Oxygen O2 Source Room air - Labs Labs: Laboratory Tests 08/23/19 08/23/19 08/23/19 12:50 13:08 13:08 WBC 7.5 RBC 4.78 Hgb 13.9 Hct 42.5 MCV 88.9 MCH 29.1 MCHC 32.7 RDW 12.7 Plt Count 367 MPV 9.3 Neut # (Auto) 4.1 Lymph # (Auto) 2.7 [place] # (Auto) 0.7 Eos # (Auto) 0.1 Baso # (Auto) 0.0 Absolute Nucleated RBC 0.00 Nucleated RBC % 0.0 Sodium 141 Potassium 4.3 Chloride 105 Carbon Dioxide 25 Anion Gap 11.0 BUN 17 Creatinine 0.8 Estimated GFR (MDRD) 85 L Glucose 89 Calcium 9.8 Total Bilirubin 0.8 AST 17 ALT 13 Alkaline Phosphatase 51 Total Protein 8.3 H Albumin 4.9 Globulin 3.4 Albumin/Globulin Ratio 1.4 Lipase 22 Urine Color YELLOW Urine Clarity HAZY Urine pH 7.5 Ur Specific [place] 1.020 Urine Protein NEGATIVE Urine Glucose (UA) NEGATIVE Urine Ketones NEGATIVE Urine Occult Blood LARGE H Urine Nitrite NEGATIVE Urine Bilirubin NEGATIVE Urine Urobilinogen 0.2 (NORMAL) Ur Leukocyte Esterase NEGATIVE Urine RBC TNTC H Urine WBC 4-5 Ur Squamous Epith Cells MANY Squamous H Urine Bacteria Few Urine Mucus Moderate Strands Ur Microscopic Review INDICATED Urine Culture Comments NOT INDICATED Urine HCG, Qual NEGATIVE PD MEDICAL DECISION MAKING - ED course Complexity details: reviewed old records, reviewed results, re-evaluated patient, considered differential, d/w patient ED course: Upon reviewing the [facility], the patient receives 90 Percocet monthly. H er last fill was approximately 2 weeks ago. I went back and discussed with the patient why she did not disclose this information, she states that she lost all of her narcotic medication a week or so ago. She followed up with her doctor and they stated they would not refill her medication early. Therefore she came here hoping that we would refill her medication for her. I discussed with her that this is an inappropriate use of the emergency department. We will treat her pain here, but any further narcotics will need to come straight from her physician. No significant lab abnormalities. Patient counseled regarding signs and symptoms for which I believe and urgent re-evaluation would be necessary. Patient with good understanding of and agreement to plan and is comfortable going home at this time This document was made in part using voice recognition software. While efforts are made to proofread this document, sound alike and grammatical errors may occur. Departure - Departure Disposition: 01 Home, Self Care Clinical Impression: Chronic pelvic pain in female Condition: Good Instructions: ED Pelvic Pain [facility] Follow-Up: ROCIO SARAVIA [Primary Care Provider] - Within 1 week Prescriptions: Metoclopramide [Reglan] 10 mg PO Q6H PRN #7 tablet PRN Reason: Nausea / Vomiting Comments: Return if you worsen. Follow up with your doctor for further care and to discuss your pain medication.
== END 2019-08-23 13:55 | disposition home or self-care (01) ==
LOC: ED 11:22
DX: R10.2 Pelvic and perineal pain (principal); G89.29 Other chronic pain
CPT/HCPCS: 36415; 80053; 81001; 81025; 83690; 85025; 96372; 99283; 99284; A9270; J2765; 81003; 87086

== ENCOUNTER 2019-09-11 17:33 | Emergency (ER) | payer MEDICAID ==
[2019-09-11 17:41] VITALS: BP 135/91
[2019-09-11] MEDS ORDERED: diazePAM 5 MG TABLET PO STA (18:39)
--- NOTE | 2019-09-11 18:41 | ED Physician Documentation ---
PD HPI MHE - Stated complaint Stated Complaint: ANXIETY, MHE - Chief complaint Chief Complaint: MHE - History obtained from History obtained from: Patient - History of Present Illness Primary symptom: Anxiety (29-year-old woman with chronic anxiety presents with an exacerbation of same requesting something for anxiety. She denies suicidal or homicidal ideation and declines offers at consideration for inpatient hospitalization. She says her last fill of lorazepam was many months ago and this corresponds to information gleaned from the [facility].) Review of Systems Constitutional: reports: Reviewed and negative Nose: reports: Reviewed and negative Cardiac: reports: Reviewed and negative PD PAST MEDICAL HISTORY - Past Medical History Past Medical History: Yes Cardiovascular: None Respiratory: None Neuro: None Endocrine/Autoimmune: None GI: GERD INTERVENTIONAL PAIN PHYSICIAN: Ovarian cysts, 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, Other : Chronic bladder infection, Kidney stones HEENT: None Psych: Depression, Anxiety, Post traumatic stress disorder Musculoskeletal: None Derm: None - Past Surgical History Past Surgical History: Yes General: Other /INTERVENTIONAL PAIN PHYSICIAN: Oophrectomy - Present Medications Home Medications: Ambulatory Orders Medication Instructions Recorded Confirmed lamoTRIgine [Lamictal] 200 mg PO QPM #7 tablet 12/07/18 Lurasidone HCl [Latuda] 20 mg PO DAILY #30 tablet 05/08/19 Metoclopramide [Reglan] 10 mg PO Q6H PRN #7 tablet 08/23/19 Famotidine [Pepcid] 20 mg PO BID 09/11/19 09/11/19 diazePAM [Valium] 1 tab PO TID PRN #10 tablet 09/11/19 oxyCODONE/ACET 5/325 [Percocet 5 1 each PO Q8HR 09/11/19 09/11/19 mg/325 mg] - Allergies Allergies/Adverse Reactions: Allergies Allergy/AdvReac Type Severity Reaction Status Date / Time aripiprazole [From Abilify] Allergy Rash Verified 09/11/19 17:41 hydrocodone bitartrate * Allergy Hives Verified 09/11/19 17:41 [From Vicodin] ketorolac Allergy Itching Verified 09/11/19 17:41 ondansetron [From Zofran] Allergy Headache Verified 09/11/19 17:41 tramadol Allergy Hives Verified 09/11/19 17:41 ethinyl estradiol AdvReac Cramps Verified 01/30/20 17:41 [From NuvaRing] etonogestrel [From NuvaRing] AdvReac Cramps Verified 09/11/19 17:41 morphine AdvReac Unknown Verified 09/11/19 17:41 trazodone AdvReac Unknown Verified 09/11/19 17:41 - Social History Does the pt smoke?: No Smoking Status: Never smoker Does the pt drink ETOH?: Yes Does the pt have substance abuse?: No - Immunizations Immunizations are current?: Yes - POLST Patient has POLST: No POLST Status: Full Code PD ED PE NORMAL - Vitals Vital signs reviewed: Yes - General General: Alert and oriented X 3, No acute distress - Neuro Neuro: Alert and oriented X 3, bomb technician 2-12 intact, No motor deficit, No sensory deficit, Normal speech - Psych Psych: Normal mood, Normal affect Results - Vitals Vitals: Vital Signs - 24 hr 09/11/19 17:39 Temperature 37.3 C Heart Rate 72 Respiratory 18 Rate Blood Pressure 135/91 H O2 Saturation 100 Oxygen O2 Source Room air PD MEDICAL DECISION MAKING - ED course ED course: The [place] prescription monitoring program was queried with regard to this patient. No concerning findings were found. Departure - Departure Disposition: Home, Self Care Clinical Impression: Anxiety attack Condition: Good Instructions: ED Panic Attack Prescriptions: diazePAM [Valium] 1 tab PO TID PRN #10 tablet PRN Reason: Anxiety Comments: Further prescriptions for controlled substances such as Valium or lorazepam should come from your primary care physician, return for new or worsening symptoms or if you reach the point where you would like to consider inpatient hospitalization.
== END 2019-09-11 18:55 | disposition home or self-care (01) ==
LOC: ED 17:33
DX: F41.9 Anxiety disorder, unspecified (principal)
CPT/HCPCS: 99282; 99283; A9270

== ENCOUNTER 2019-09-12 11:48 | Emergency (ER) | payer MEDICAID ==
[2019-09-12] MEDS ORDERED: OLANZapine ODT 5 MG TABLET TL STA (12:57)
[2019-09-12] MEDS ORDERED: PROMETHAZINE 25 MG TABLET PO STA (12:57)
[2019-09-12] MEDS ORDERED: oxyCODONE 5 MG TABLET PO STA ×2 (12:57→18:01)
--- NOTE | 2019-09-12 12:59 | ED Physician Documentation ---
PD HPI MHE - Stated complaint Stated Complaint: MHE - Chief complaint Chief Complaint: MHE - History obtained from History obtained from: Patient - History of Present Illness Primary symptom: Other (29-year-old woman with history of chronic pelvic pain depression and anxiety presents with worsening feelings of anxiety and poor sleep and andrew. She was seen yesterday, requesting a benzodiazepine and was given Valium here and as a prescription. 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: Ovarian cysts, 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, Other : Chronic bladder infection, Kidney stones HEENT: None Psych: Depression, Anxiety, Post traumatic stress disorder Musculoskeletal: None Derm: None - Past Surgical History Past Surgical History: Yes General: Other /DATA CENTER TECHNICIAN: Oophrectomy - Present Medications Home Medications: Ambulatory Orders Medication Instructions Recorded Confirmed lamoTRIgine [Lamictal] 200 mg PO QPM #7 tablet 12/07/18 Lurasidone HCl [Latuda] 20 mg PO DAILY #30 tablet 05/08/19 Metoclopramide [Reglan] 10 mg PO Q6H PRN #7 tablet 08/23/19 Famotidine [Pepcid] 20 mg PO BID 09/11/19 09/11/19 diazePAM [Valium] 1 tab PO TID PRN #10 tablet 09/11/19 oxyCODONE/ACET 5/325 [Percocet 5 1 each PO Q8HR 09/11/19 09/11/19 mg/325 mg] - Allergies Allergies/Adverse Reactions: Allergies Allergy/AdvReac Type Severity Reaction Status Date / Time aripiprazole [From Abilify] Allergy Rash Verified 09/12/19 11:58 hydrocodone bitartrate * Allergy Hives Verified 09/12/19 11:58 [From Vicodin] ketorolac Allergy Itching Verified 09/12/19 11:58 ondansetron [From Zofran] Allergy Headache Verified 09/12/19 11:58 tramadol Allergy Hives Verified 09/12/19 11:58 ethinyl estradiol AdvReac Cramps Verified 09/12/19 11:58 [From NuvaRing] [facility]estrel [facility] AdvReac Cramps Verified 09/12/19 11:58 morphine AdvReac Unknown Verified 09/12/19 11:58 trazodone AdvReac Unknown Verified 09/12/19 11:58 - Social History Does the pt smoke?: No Smoking Status: Never smoker Does the pt drink ETOH?: Yes Does the pt have substance abuse?: No - Family History Family history: reports: Non contributory - Immunizations Immunizations are current?: Yes - POLST Patient has POLST: No POLST Status: Full Code PD ED PE NORMAL - Vitals Vital signs reviewed: Yes - General General: Alert and oriented X 3, No acute distress - HEENT HEENT: PERRL, EOMI - Neck Neck: Supple, no meningeal sign, No bony TTP - Cardiac Cardiac: RRR, No murmur - Respiratory Respiratory: No respiratory distress, Clear bilaterally - Abdomen Abdomen: Soft, Non tender - Back Back: No CVA TTP, No spinal TTP - Derm Derm: Normal color, Warm and dry, No rash - Extremities Extremities: No edema, No calf tenderness / cord - Neuro Neuro: Alert and oriented X 3, No motor deficit, No sensory deficit, Normal speech Results - Vitals Vitals: Vital Signs - 24 hr 09/12/19 11:51 Temperature 36.1 C L Heart Rate 91 Respiratory 16 Rate Blood Pressure 136/99 H O2 Saturation 98 Oxygen O2 Source Room air - Labs Labs: Laboratory Tests 09/12/19 09/12/19 09/12/19 13:00 13:00 13:24 WBC 6.2 RBC 4.85 Hgb 14.2 Hct 44.2 MCV 91.1 MCH 29.3 MCHC 32.1 RDW 13.2 Plt Count 321 MPV 9.6 Neut # (Auto) 3.4 Lymph # (Auto) 2.2 [place] # (Auto) 0.5 Eos # (Auto) 0.1 Baso # (Auto) 0.0 Absolute Nucleated RBC 0.00 Nucleated RBC % 0.0 Sodium Potassium Chloride Carbon Dioxide Anion Gap BUN Creatinine Estimated GFR (MDRD) Glucose Calcium Total Bilirubin AST ALT Alkaline Phosphatase Total Protein Albumin Globulin Albumin/Globulin Ratio Lipase TSH Urine Color DARK YELLOW Urine Clarity CLEAR Urine pH 6.0 Ur Specific [place] 1.025 Urine Protein NEGATIVE Urine Glucose (UA) NEGATIVE Urine Ketones NEGATIVE Urine Occult Blood NEGATIVE Urine Nitrite NEGATIVE Urine Bilirubin NEGATIVE Urine Urobilinogen 0.2 (NORMAL) Ur Leukocyte Esterase NEGATIVE Ur Microscopic Review NOT INDICATED Urine Culture Comments NOT INDICATED Urine HCG, Qual NEGATIVE Salicylates Urine Opiates Screen NEGATIVE Ur Oxycodone Screen POSITIVE H Urine Methadone Screen NEGATIVE Ur Propoxyphene Screen NEGATIVE Acetaminophen Ur Barbiturates Screen NEGATIVE Ur Tricyclics Screen NEGATIVE Ur Phencyclidine Scrn NEGATIVE Ur Amphetamine Screen NEGATIVE U Methamphetamines Scrn NEGATIVE U Benzodiazepines Scrn POSITIVE H Urine Cocaine Screen NEGATIVE U Cannabinoids Screen POSITIVE H Ethyl Alcohol 09/12/19 09/12/19 13:24 13:24 WBC RBC Hgb Hct MCV MCH MCHC RDW Plt Count MPV Neut # (Auto) Lymph # (Auto) [place] # (Auto) Eos # (Auto) Baso # (Auto) Absolute Nucleated RBC Nucleated RBC % Sodium 138 Potassium 3.8 Chloride 100 L Carbon Dioxide 27 Anion Gap 11.0 BUN 18 Creatinine 0.8 Estimated GFR (MDRD) 85 L Glucose 81 Calcium 9.4 Total Bilirubin 0.6 AST 22 ALT 25 Alkaline Phosphatase 62 Total Protein 8.9 H Albumin 4.9 Globulin 4.0 Albumin/Globulin Ratio 1.2 Lipase 26 TSH 0.55 Urine Color Urine Clarity Urine pH Ur Specific [place] Urine Protein Urine Glucose (UA) Urine Ketones Urine Occult Blood Urine Nitrite Urine Bilirubin Urine Urobilinogen Ur Leukocyte Esterase Ur Microscopic Review Urine Culture Comments Urine HCG, Qual Salicylates < 6.0 Urine Opiates Screen Ur Oxycodone Screen Urine Methadone Screen Ur Propoxyphene Screen Acetaminophen < 10 L Ur Barbiturates Screen Ur Tricyclics Screen Ur Phencyclidine Scrn Ur Amphetamine Screen U Methamphetamines Scrn U Benzodiazepines Scrn Urine Cocaine Screen U Cannabinoids Screen Ethyl Alcohol < 5.0 PD MEDICAL DECISION MAKING - ED course ED course: 29-year-old woman presents voluntarily requesting psychiatric hospitalization for depression and anxiety. Social work saw her and she is medically clear for further evaluation and treatment. Made arrangements were made to send her to [place] for psychiatric specialty care and cobras were completed. She is stable for transport. Departure - Departure Disposition: 65 Psych Hosp/Unit DC/Xfer Clinical Impression: Anxiety and depression Depressed Qualifiers: Depression Type: major depressive disorder Major depression recurrence: recurrent Active/Remission status: currently active Major depression episode severity: severe Psychotic features: without psychotic features Qualified Code(s): F33.2 - Major depressive disorder, recurrent severe without psychotic features Condition: Fair
[2019-09-12 13:20] LABS: BILIRUBIN,URINE NEGATIVE (NEGATIVE); GLUCOSE, URINE (UA) NEGATIVE (NEGATIVE); KETONES,URINE (UA) NEGATIVE (NEGATIVE); LEUKOCYTE ESTERASE, URINE NEGATIVE (NEGATIVE); MUDS CUTOFF CONCENTRATIONS CUTOFF CONC BELOW:; NITRITE,URINE NEGATIVE (NEGATIVE); OCCULT BLOOD,URINE NEGATIVE (NEGATIVE); PROTEIN,URINE NEGATIVE (NEGATIVE); UROBILINOGEN,URINE 0.2 (NORMAL) E.U./dL (NORMAL)
[2019-09-12 13:24] LABS: CLARITY,URINE CLEAR (CLEAR); HCG UR QUAL NEGATIVE
[2019-09-12 13:38] LABS: AMPHETAMINE SCREEN,URINE NEGATIVE (NEGATIVE); BENZODIAZEPINES SCREEN, URINE POSITIVE (NEGATIVE); COCAINE SCREEN URINE NEGATIVE (NEGATIVE); METHADONE SCREEN, URINE NEGATIVE (NEGATIVE); METHAMPHETAMINES SCREEN, URINE NEGATIVE (NEGATIVE); OPIATE SCREEN, URINE NEGATIVE (NEGATIVE); OXYCODONE SCREEN, URINE POSITIVE (NEGATIVE); PROPOXYPHENE SCREEN, URINE NEGATIVE (NEGATIVE); TRICYCLIC ANTIDEPRESSANT,URINE NEGATIVE (NEGATIVE)
[2019-09-12 13:48] LABS: BASOPHILS % (AUTO) 0.6 %; EOSINOPHILS # (AUTO) 0.1 10^3/uL (0.0-0.7); EOSINOPHILS % (AUTO) 1.3 %; HGB - HEMOGLOBIN 14.2 g/dL (12.0-16.0); LYMPHOCYTES # (AUTO) 2.2 10^3/uL (1.5-3.5); MEAN CORPUSCULAR HEMOGLOBIN 29.3 pg (27.0-31.0); MEAN CORPUSCULAR HGB CONC 32.1 g/dL (32.0-36.0); MEAN CORPUSCULAR VOLUME 91.1 fL (81.0-99.0); MEAN PLATELET VOLUME 9.6 fL (7.9-10.8); MONOCYTES # (AUTO) 0.5 10^3/uL (0.0-1.0); NEUTROPHILS # (AUTO) 3.4 10^3/uL (1.5-6.6); NEUTROPHILS % (AUTO) 54.9 %; PLT - PLATELET COUNT 321 10^3/uL (130-450); RED BLOOD COUNT 4.85 10^6/uL (4.20-5.40); RED CELL DISTRIBUTION WIDTH 13.2 % (12.0-15.0); WHITE BLOOD COUNT 6.2 x10^3/uL (4.8-10.8)
[2019-09-12 14:05] LABS: ACETAMINOPHEN < 10 ug/mL (10-30); ALBUMIN 4.9 g/dL (3.2-5.5); ALBUMIN/GLOBULIN RATIO 1.2 (1.0-2.2); ALKALINE PHOSPHATASE 62 IU/L (42-121); ALT ALANINE AMINOTRANSFERASE 25 IU/L (10-60); AST ASPARTATE AMINOTRANSFERASE 22 IU/L (10-42); BILIRUBIN,TOTAL 0.6 mg/dL (0.2-1.0); BUN - BLOOD UREA NITROGEN 18 mg/dL (6-20); CALCIUM 9.4 mg/dL (8.5-10.3); CARBON DIOXIDE - CO2 27 mmol/L (21-32); CHLORIDE 100 mmol/L (101-111); CREATININE 0.8 mg/dL (0.4-1.0); GFR - MDRD 85 (>89); GLUCOSE 81 mg/dL (70-100); LIPASE 26 U/L (22-51); SALICYLATE < 6.0 mg/dL; SODIUM 138 mmol/L (135-145); TOTAL PROTEIN 8.9 g/dL (6.7-8.2)
[2019-09-12] MEDS ORDERED: NICOTINE 14 MG PATCH TOP STA (14:05)
[2019-09-12 20:40] VITALS: BP 138/82
== END 2019-09-12 20:40 ==
LOC: ED 11:48
DX: F41.9 Anxiety disorder, unspecified (principal); F33.2 Major depressive disorder, recurrent severe without psychotic features
CPT/HCPCS: 36415; 80053; 80306; 80307; 80320; 80329; 81003; 81025; 83690; 84443; 85025; 99283; 99285; A9270; Q0169; 81001; 87086

== ENCOUNTER 2019-10-15 20:23 | Emergency (ER) | payer MEDICAID ==
[2019-10-15] MEDS ORDERED: HYDROmorphone 1 MG/ML SYRINGE IM STA (22:10)
--- NOTE | 2019-10-15 22:13 | ED Physician Documentation ---
History of Present Illness - Stated complaint Stated Complaint: TOOTH PX/NAUSEA - Chief complaint Chief Complaint: Heent - History obtained from History obtained from: Patient - History of Present Illness Timing: Yesterday (21-year-old female with a history of chronic pain on oxycodone at home presents with left lower molar pain after having a tooth pulled yesterday. Patient states that tooth was pulled due to decay she had no root canal or other surgery, and was not sent home on antibiotics. She states the oxycodone at home is not touching the pain and she is here for something stronger. She called her dentist today who recommended she swish with salt water and follow-up tomorrow if she is still in pain. 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: Ovarian cysts, 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, Other : Chronic bladder infection, Kidney stones HEENT: None Psych: Depression, Anxiety, Post traumatic stress disorder Musculoskeletal: None Derm: None - Past Surgical History Past Surgical History: Yes General: Other /METAL STAMPER: Oophrectomy - Present Medications Home Medications: Ambulatory Orders Medication Instructions Recorded Confirmed lamoTRIgine [Lamictal] 200 mg PO QPM #7 tablet 12/07/18 Lurasidone HCl [Latuda] 20 mg PO DAILY #30 tablet 05/08/19 Metoclopramide [Reglan] 10 mg PO Q6H PRN #7 tablet 08/23/19 Famotidine [Pepcid] 20 mg PO BID 09/11/19 09/11/19 diazePAM [Valium] 1 tab PO TID PRN #10 tablet 09/11/19 oxyCODONE/ACET 5/325 [Percocet 5 1 each PO Q8HR 09/11/19 09/11/19 mg/325 mg] - Allergies Allergies/Adverse Reactions: Allergies Allergy/AdvReac Type Severity Reaction Status Date / Time aripiprazole [From Abilify] Allergy Rash Verified 10/15/19 20:29 hydrocodone bitartrate * Allergy Hives Verified 10/15/19 20:29 [From Vicodin] ketorolac Allergy Itching Verified 10/15/19 20:29 ondansetron [From Zofran] Allergy Headache Verified 10/15/19 20:29 tramadol Allergy Hives Verified 10/15/19 20:29 ethinyl estradiol AdvReac Cramps Verified 10/15/19 20:29 [From NuvaRing] etonogestrel [From NuvaRing] AdvReac Cramps Verified 10/15/19 20:29 morphine AdvReac Unknown Verified 10/15/19 20:29 trazodone AdvReac Unknown Verified 10/15/19 20:29 - Social History Does the pt smoke?: No Smoking Status: Never smoker Does the pt drink ETOH?: Yes Does the pt have substance abuse?: No - Immunizations Immunizations are current?: Yes - POLST Patient has POLST: No POLST Status: Full Code PD ED PE NORMAL - Vitals Vital signs reviewed: Yes - General General: Alert and oriented X 3, No acute distress, Well developed/nourished - HEENT HEENT: Moist mucous membranes, Pharynx benign, Other (There is a missing left lower molar, area is healing appropriately, there is no signs of infection. There is no facial erythema or cellulitis, there is mild swelling as expected at this time. There is no focal fluid collection or abscess.) - Neck Neck: Supple, no meningeal sign - Cardiac Cardiac: RRR, No murmur - Respiratory Respiratory: No respiratory distress, Clear bilaterally Results - Vitals Vitals: Vital Signs - 24 hr 10/15/19 20:26 Temperature 36.6 C Heart Rate 91 Respiratory 17 Rate Blood Pressure 139/99 H O2 Saturation 99 Oxygen O2 Source Room air PD MEDICAL DECISION MAKING - ED course Complexity details: considered differential, d/w patient ED course: 29-year-old female with a history of chronic pain who presents with increased pain after having a tooth extraction yesterday. She has no signs of infection. I advised patient that we can give her a single dose of IM pain medication and she can follow-up tomorrow with her dentist. I do not think antibiotics are ind icated at this time and is patient is on a pain contract I will not send her home with additional narcotic pain control. Advised her to add ibuprofen 800 mg 3 times a day to her regular pain regimen. Departure - Departure Disposition: Home, Self Care Clinical Impression: Pain, dental Condition: Good Record reviewed to determine appropriate education?: Yes Instructions: ED Tooth Pain Comments: Follow-up tomorrow with your dentist as discussed. Return to the ER if you have a sudden increase in swelling of your face, hot redness of the face or fever or otherwise worsening symptoms. Continue pain regimen as you have been doing at home. Add ibuprofen 800 mg 3 times a day.
[2019-10-15 22:39] VITALS: BP 144/92
== END 2019-10-15 22:35 | disposition home or self-care (01) ==
LOC: ED 20:23
DX: K08.89 Other specified disorders of teeth and supporting structures (principal)
CPT/HCPCS: 96372; 99283; 99284; J1170

== ENCOUNTER 2019-10-17 11:51 | Emergency (ER) | payer MEDICAID ==
--- NOTE | 2019-10-17 12:37 | ED Physician Documentation ---
PD HPI HEENT - Stated complaint Stated Complaint: MOUTH,JAW PX - Chief complaint Chief Complaint: Heent - History obtained from History obtained from: Patient - History of Present Illness Timing - onset: How many days ago (3) Timing - duration: Days (3) Timing - details: Abrupt onset, Still present Location: Tooth, Mouth Worsens: No: Swalllowing Associated symptoms: No: Fever, Congestion Similar symptoms before: Diagnosis (post extraction pain) Recently seen: Clinic (Was seen by dentist for poor tooth in the left lower mandible and has had pain since the extraction 3 days ago. She has been taking her pain medicine oxycodone without any consistent relief. She was seen here in the ER yesterday and the day before because of the pain given IM medication for extra dosing. She is on a pain contract. She thought the pain would be decreasing after a few days but it seems to be staying the same and has a feeling of some swelling of the gum today.) Review of Systems Constitutional: denies: Fever, Chills, Myalgias Nose: denies: Rhinorrhea / runny nose, Congestion Throat: reports: Dental pain / toothache. 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: Ovarian cysts, 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, Other : Chronic bladder infection, Kidney stones HEENT: None Psych: Depression, Anxiety, Post traumatic stress disorder Musculoskeletal: None Derm: None - Past Surgical History Past Surgical History: Yes General: Other /SENIOR FINANCE MANAGER: Oophrectomy - Present Medications Home Medications: Ambulatory Orders Medication Instructions Recorded Confirmed lamoTRIgine [Lamictal] 200 mg PO QPM #7 tablet 12/07/18 Lurasidone HCl [Latuda] 20 mg PO DAILY #30 tablet 05/08/19 Metoclopramide [Reglan] 10 mg PO Q6H PRN #7 tablet 08/23/19 Famotidine [Pepcid] 20 mg PO BID 09/11/19 09/11/19 diazePAM [Valium] 1 tab PO TID PRN #10 tablet 09/11/19 oxyCODONE/ACET 5/325 [Percocet 5 1 each PO Q8HR 09/11/19 09/11/19 mg/325 mg] Chlorhexidine Gluconate [Peridex] 15 ml MM TID #118 ml 10/17/19 Clindamycin HCl [Clindamycin 300MG 300 mg PO TID #20 capsule 10/17/19 CAP] - Allergies Allergies/Adverse Reactions: Allergies Allergy/AdvReac Type Severity Reaction Status Date / Time aripiprazole [From Abilify] Allergy Rash Verified 10/17/19 12:02 hydrocodone bitartrate * Allergy Hives Verified 10/17/19 12:02 [From Vicodin] ketorolac Allergy Itching Verified 10/17/19 12:02 ondansetron [From Zofran] Allergy Headache Verified 10/17/19 12:02 tramadol Allergy Hives Verified 10/17/19 12:02 ethinyl estradiol AdvReac Cramps Verified 10/17/19 12:02 [From NuvaRing] etonogestrel [From NuvaRing] AdvReac Cramps Verified 10/17/19 12:02 morphine AdvReac Unknown Verified 10/17/19 12:02 trazodone AdvReac Unknown Verified 10/17/19 12:02 - Social History Does the pt smoke?: No Smoking Status: Never smoker Does the pt drink ETOH?: Yes Does the pt have substance abuse?: No - Immunizations Immunizations are current?: Yes - POLST Patient has POLST: No POLST Status: Full Code PD ED PE NORMAL - Vitals Vital signs reviewed: Yes - General General: Alert and oriented X 3, No acute distress, Well developed/nourished - HEENT HEENT: Ears normal, Moist mucous membranes, Pharynx benign, Dentition benign (the extraction site left lower 3rd molar without notable clot in the area. No redness nor swelling of gum. ) - Neck Neck: Supple, no meningeal sign, Other (mild left submandibular node. ) - Cardiac Cardiac: RRR, No murmur - Respiratory Respiratory: Clear bilaterally - Derm Derm: Normal color, Warm and dry, No rash - Neuro Neuro: Alert and oriented X 3, No motor deficit, Normal speech Results - Vitals Vitals: Vital Signs - 24 hr 10/17/19 10/17/19 12:00 13:41 Temperature 36.6 C 36.6 C Heart Rate 98 93 Respiratory 16 16 Rate Blood Pressure 146/97 H 148/66 H O2 Saturation 99 98 Oxygen O2 Source Room air PD MEDICAL DECISION MAKING - ED course Complexity details: reviewed old records (from prior 2 days), considered differential (having post extraction pain. Consider infection though not evident clinically. Has pain contract so no Rx for pain meds. ), d/w patient Departure - Departure Disposition: 01 Home, Self Care Clinical Impression: S/P tooth extraction, Pain in mandible Condition: Stable Record reviewed to determine appropriate education?: Yes Follow-Up: ROCIO SARAVIA [Primary Care Provider] - Prescriptions: Chlorhexidine Gluconate [Peridex] 15 ml MM TID #118 ml Clindamycin HCl [Clindamycin 300MG CAP] 300 mg PO TID #20 capsule Comments: Continue usual medications. Add clindamycin antibiotic 3 times a day for a week. Use some dilute peroxide and water to swish around the gum of the extraction site to loosen up any small clot that might be there. I do not see an obvious clot at this time here in the ER. Use an antiseptic mouth rinse twice daily to treat potential infection. Follow-up with a dentist Sunday if not improved Discharge Date/Time: 10/17/19 14:04
[2019-10-17] MEDS ORDERED: HYDROmorphone 2 MG/ML VIAL IM STA (12:57)
[2019-10-17] MEDS ORDERED: CLINDAMYCIN 150 MG CAPSULE PO STA (12:57)
[2019-10-17] MEDS ORDERED: oxyCODONE 5 MG TABLET PO STA (12:58)
[2019-10-17 13:42] VITALS: BP 148/66
== END 2019-10-17 14:04 | disposition home or self-care (01) ==
LOC: ED 11:51
DX: K08.89 Other specified disorders of teeth and supporting structures (principal); R68.84 Jaw pain; Z98.818 Other dental procedure status
CPT/HCPCS: 96372; 99283; 99284; A9270; J1170

== ENCOUNTER 2019-10-29 18:56 | Emergency (ER) | payer MEDICAID ==
[2019-10-29 20:04] LABS: BASOPHILS % (AUTO) 0.4 %; EOSINOPHILS # (AUTO) 0.1 10^3/uL (0.0-0.7); EOSINOPHILS % (AUTO) 1.1 %; HGB - HEMOGLOBIN 13.1 g/dL (12.0-16.0); LYMPHOCYTES # (AUTO) 3.7 10^3/uL (1.5-3.5); MEAN CORPUSCULAR HEMOGLOBIN 29.7 pg (27.0-31.0); MEAN CORPUSCULAR HGB CONC 32.8 g/dL (32.0-36.0); MEAN CORPUSCULAR VOLUME 90.7 fL (81.0-99.0); MEAN PLATELET VOLUME 9.1 fL (7.9-10.8); MONOCYTES # (AUTO) 0.8 10^3/uL (0.0-1.0); MONOCYTES % (AUTO) 7.9 %; NEUTROPHILS # (AUTO) 5.6 10^3/uL (1.5-6.6); NEUTROPHILS % (AUTO) 54.1 %; PLT - PLATELET COUNT 355 10^3/uL (130-450); RED BLOOD COUNT 4.41 10^6/uL (4.20-5.40); RED CELL DISTRIBUTION WIDTH 12.6 % (12.0-15.0); WHITE BLOOD COUNT 10.3 x10^3/uL (4.8-10.8)
[2019-10-29 20:15] LABS: ALBUMIN 4.6 g/dL (3.2-5.5); ALBUMIN/GLOBULIN RATIO 1.1 (1.0-2.2); ALKALINE PHOSPHATASE 57 IU/L (42-121); ALT ALANINE AMINOTRANSFERASE 17 IU/L (10-60); AST ASPARTATE AMINOTRANSFERASE 16 IU/L (10-42); BILIRUBIN,TOTAL < 0.2 mg/dL (0.2-1.0); BUN - BLOOD UREA NITROGEN 20 mg/dL (6-20); CALCIUM 9.7 mg/dL (8.5-10.3); CARBON DIOXIDE - CO2 27 mmol/L (21-32); CHLORIDE 101 mmol/L (101-111); CREATININE 0.7 mg/dL (0.4-1.0); GFR - MDRD 100 (>89); GLUCOSE 89 mg/dL (70-100); LIPASE 31 U/L (22-51); SODIUM 139 mmol/L (135-145); TOTAL PROTEIN 8.6 g/dL (6.7-8.2)
--- NOTE | 2019-10-29 20:29 | ED Physician Documentation ---
History of Present Illness - Stated complaint Stated Complaint: NAUSEA AND PELVIC PAIN - Chief complaint Chief Complaint: Abd Pain - History obtained from History obtained from: Patient (the patient is a 29 y/o f with a cc of chronic pelvic pain. she states she is having a flair of her chronic pelvic pain and is asking for pain medication and something for nausea. she denies any new symptoms and states that she has pain medication at home. she denies any flank pain, pelvic bleeding, pelvic discharge or fevers, headaches, neck pain or rashes.) Review of Systems Ten Systems: 10 systems reviewed and negative Constitutional: reports: Reviewed and negative Eyes: reports: Reviewed and negative Ears: reports: Reviewed and negative Nose: reports: Reviewed and negative Throat: reports: Reviewed and negative Cardiac: reports: Reviewed and negative Respiratory: reports: Reviewed and negative GI: reports: Reviewed and negative : reports: Other (chronic pelvic pain) Skin: reports: Reviewed and negative Musculoskeletal: reports: Reviewed and negative Neurologic: reports: Reviewed and negative Psychiatric: reports: Reviewed and negative Endocrine: reports: Reviewed and negative Immunocompromised: reports: Reviewed and negative PD PAST MEDICAL HISTORY - Past Medical History Past Medical History: Yes Cardiovascular: None Respiratory: None Neuro: None Endocrine/Autoimmune: None GI: GERD 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: Ovarian cysts, 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, Other : Chronic bladder infection, Kidney stones HEENT: None Psych: Depression, Anxiety, Post traumatic stress disorder Musculoskeletal: None Derm: None - Past Surgical History Past Surgical History: Yes General: Other /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: Oophrectomy - Present Medications Home Medications: Ambulatory Orders Medication Instructions Recorded Confirmed lamoTRIgine [Lamictal] 200 mg PO QPM #7 tablet 12/07/18 Lurasidone HCl [Latuda] 20 mg PO DAILY #30 tablet 05/08/19 Metoclopramide [Reglan] 10 mg PO Q6H PRN #7 tablet 08/23/19 Famotidine [Pepcid] 20 mg PO BID 09/11/19 09/11/19 diazePAM [Valium] 1 tab PO TID PRN #10 tablet 09/11/19 oxyCODONE/ACET 5/325 [Percocet 5 1 each PO Q8HR 09/11/19 09/11/19 mg/325 mg] Chlorhexidine Gluconate [Peridex] 15 ml MM TID #118 ml 10/17/19 Clindamycin HCl [Clindamycin 300MG 300 mg PO TID #20 capsule 10/17/19 CAP] - Allergies Allergies/Adverse Reactions: Allergies Allergy/AdvReac Type Severity Reaction Status Date / Time aripiprazole [From Abilify] Allergy Rash Verified 10/29/19 19:01 hydrocodone bitartrate * Allergy Hives Verified 10/29/19 19:01 [From Vicodin] ketorolac Allergy Itching Verified 10/29/19 19:01 ondansetron [From Zofran] Allergy Headache Verified 10/29/19 19:01 tramadol Allergy Hives Verified 10/29/19 19:01 ethinyl estradiol AdvReac Cramps Verified 10/29/19 19:01 [From NuvaRing] etonogestrel [From NuvaRing] AdvReac Cramps Verified 10/29/19 19:01 morphine AdvReac Unknown Verified 10/29/19 19:01 trazodone AdvReac Unknown Verified 10/29/19 19:01 - Social History Does the pt smoke?: No Smoking Status: Never smoker Does the pt drink ETOH?: Yes Does the pt have substance abuse?: No - Immunizations Immunizations are current?: Yes - POLST Patient has POLST: No POLST Status: Full Code PD ED PE NORMAL - Vitals Vital signs reviewed: Yes - General General: Alert and oriented X 3, No acute distress, Well developed/nourished, Other (upon entering the room, patient is sitting in the bed upright with her legs crossed in no distress. ) - HEENT HEENT: Atraumatic, PERRL, Moist mucous membranes - Neck Neck: Supple, no meningeal sign - Cardiac Cardiac: RRR, No murmur - Respiratory Respiratory: Clear bilaterally - Abdomen Abdomen: Normal bowel sounds, Soft, Non tender, Non distended - Female Female : Pt declined - Rectal Rectal: Pt declined - Back Back: No CVA TTP, No spinal TTP - Derm Derm: Normal color, Warm and dry, No rash - Extremities Extremities: No deformity - Neuro Neuro: Alert and oriented X 3, vessel builder 2-12 intact, No motor deficit, No sensory deficit, Normal speech - Psych Psych: Normal mood, Normal affect Results - Vitals Vitals: Vital Signs - 24 hr 10/29/19 10/29/19 19:01 20:56 Temperature 36.5 C Heart Rate 92 87 Respiratory 14 18 Rate Blood Pressure 150/100 H 153/108 H O2 Saturation 98 98 Oxygen O2 Source Room air - Labs Labs: Laboratory Tests 10/29/19 10/29/19 10/29/19 19:47 19:47 20:37 WBC 10.3 RBC 4.41 Hgb 13.1 Hct 40.0 MCV 90.7 MCH 29.7 MCHC 32.8 RDW 12.6 Plt Count 355 MPV 9.1 Neut # (Auto) 5.6 Lymph # (Auto) 3.7 H [place] # (Auto) 0.8 Eos # (Auto) 0.1 Baso # (Auto) 0.0 Absolute Nucleated RBC 0.00 Nucleated RBC % 0.0 Sodium 139 Potassium 4.1 Chloride 101 Carbon Dioxide 27 Anion Gap 11.0 BUN 20 Creatinine 0.7 Estimated GFR (MDRD) 100 Glucose 89 Calcium 9.7 Total Bilirubin < 0.2 L AST 16 ALT 17 Alkaline Phosphatase 57 Total Protein 8.6 H Albumin 4.6 Globulin 4.0 Albumin/Globulin Ratio 1.1 Lipase 31 Urine Color Urine Clarity Urine pH Ur Specific [place] Urine Protein Urine Glucose (UA) Urine Ketones Urine Occult Blood Urine Nitrite Urine Bilirubin Urine Urobilinogen Ur Leukocyte Esterase Ur Microscopic Review Urine Culture Comments Urine HCG, Qual Urine Opiates Screen NEGATIVE Ur Oxycodone Screen NEGATIVE Urine Methadone Screen NEGATIVE Ur Propoxyphene Screen NEGATIVE Ur Barbiturates Screen NEGATIVE Ur Tricyclics Screen NEGATIVE Ur Phencyclidine Scrn NEGATIVE Ur Amphetamine Screen NEGATIVE U Methamphetamines Scrn NEGATIVE U Benzodiazepines Scrn POSITIVE H Urine Cocaine Screen NEGATIVE U Cannabinoids Screen NEGATIVE 10/29/19 20:37 WBC RBC Hgb Hct MCV MCH MCHC RDW Plt Count MPV Neut # (Auto) Lymph # (Auto) [place] # (Auto) Eos # (Auto) Baso # (Auto) Absolute Nucleated RBC Nucleated RBC % Sodium Potassium Chloride Carbon Dioxide Anion Gap BUN Creatinine Estimated GFR (MDRD) Glucose Calcium Total Bilirubin AST ALT Alkaline Phosphatase Total Protein Albumin Globulin Albumin/Globulin Ratio Lipase Urine Color YELLOW Urine Clarity CLEAR Urine pH 7.0 Ur Specific [place] 1.020 Urine Protein NEGATIVE Urine Glucose (UA) NEGATIVE Urine Ketones NEGATIVE Urine Occult Blood NEGATIVE Urine Nitrite NEGATIVE Urine Bilirubin NEGATIVE Urine Urobilinogen 0.2 (NORMAL) Ur Leukocyte Esterase NEGATIVE Ur Microscopic Review NOT INDICATED Urine Culture Comments NOT INDICATED Urine HCG, Qual NEGATIVE Urine Opiates Screen Ur Oxycodone Screen Urine Methadone Screen Ur Propoxyphene Screen Ur Barbiturates Screen Ur Tricyclics Screen Ur Phencyclidine Scrn Ur Amphetamine Screen U Methamphetamines Scrn U Benzodiazepines Scrn Urine Cocaine Screen U Cannabinoids Screen PD MEDICAL DECISION MAKING - ED course Complexity details: considered differential (acute on chronic pelvic pain), d/w patient (i had a lengthy discussion regarding her pain management. patient reports that she has not run out of pain medications, i reviewed her melissa with the patient. patient reports that she has pain medicaion at home but has been nauseated and unable to keep medications down. will treat with 25 mg im phenergain and 50 mcg of im fentanyl. ) Departure - Departure Disposition: 01 Home, Self Care Clinical Impression: Chronic female pelvic pain, Pelvic pain Condition: Stable Instructions: ED Chronic Pain Management Follow-Up: ROCIO SARAVIA [Primary Care Provider] - Tomorrow
[2019-10-29] MEDS ORDERED: ONDANSETRON ODT 4 MG TABLET TL STA (20:39)
[2019-10-29 20:44] LABS: MUDS CUTOFF CONCENTRATIONS CUTOFF CONC BELOW:
[2019-10-29 20:46] LABS: BILIRUBIN,URINE NEGATIVE (NEGATIVE); GLUCOSE, URINE (UA) NEGATIVE (NEGATIVE); KETONES,URINE (UA) NEGATIVE (NEGATIVE); LEUKOCYTE ESTERASE, URINE NEGATIVE (NEGATIVE); NITRITE,URINE NEGATIVE (NEGATIVE); OCCULT BLOOD,URINE NEGATIVE (NEGATIVE); PROTEIN,URINE NEGATIVE (NEGATIVE); UROBILINOGEN,URINE 0.2 (NORMAL) E.U./dL (NORMAL)
[2019-10-29 20:47] LABS: CLARITY,URINE CLEAR (CLEAR)
[2019-10-29 20:48] LABS: HCG UR QUAL NEGATIVE
[2019-10-29] MEDS ORDERED: PROMETHAZINE 25 MG/1 ML VIAL IM STA (20:56)
[2019-10-29] MEDS ORDERED: fentaNYL 100 MCG/2 ML VIAL IM STA (20:56)
[2019-10-29 20:57] LABS: AMPHETAMINE SCREEN,URINE NEGATIVE (NEGATIVE); BENZODIAZEPINES SCREEN, URINE POSITIVE (NEGATIVE); COCAINE SCREEN URINE NEGATIVE (NEGATIVE); METHADONE SCREEN, URINE NEGATIVE (NEGATIVE); METHAMPHETAMINES SCREEN, URINE NEGATIVE (NEGATIVE); OPIATE SCREEN, URINE NEGATIVE (NEGATIVE); OXYCODONE SCREEN, URINE NEGATIVE (NEGATIVE); PROPOXYPHENE SCREEN, URINE NEGATIVE (NEGATIVE); TRICYCLIC ANTIDEPRESSANT,URINE NEGATIVE (NEGATIVE)
[2019-10-29 21:17] VITALS: BP 148/98
== END 2019-10-29 21:17 | disposition home or self-care (01) ==
LOC: ED 18:56
DX: R10.2 Pelvic and perineal pain (principal); G89.29 Other chronic pain
CPT/HCPCS: 36415; 80053; 80306; 81003; 81025; 83690; 85025; 96372; 99283; 99284; Q0162; 81001; 87086

== ENCOUNTER 2019-11-17 19:26 | Emergency (ER) | payer MEDICAID ==
[2019-11-17 19:38] VITALS: BP 137/91
[2019-11-17] MEDS ORDERED: ALBUTEROL 1 PUFF INH STA (19:49)
--- NOTE | 2019-11-17 20:04 | ED Physician Documentation ---
PD HPI URI - Stated complaint Stated Complaint: SOA/COUGH/CONGESTION - Chief complaint Chief Complaint: Resp - History obtained from History obtained from: Patient - History of Present Illness Timing - onset: How many days ago (3) Timing duration: Days (3) Timing details: Gradual onset Pain level max: 3 Pain level now: 2 Associated symptoms: Nasal congestion, Sinus pain, Sore throat, Productive cough, Dyspnea. No: Fever Contributing factors: Sick contact (Works at [employer]), COPD / asthma (Has used inhalers in the past) Improves by: Rest Worsened by: Activity Recently seen: Not recently seen Review of Systems Ten Systems: 10 systems reviewed and negative Constitutional: denies: Fever, Chills Ears: denies: Ear pain Nose: denies: Rhinorrhea / runny nose, Congestion GI: denies: Vomiting, Diarrhea Skin: denies: Rash Musculoskeletal: denies: Neck pain, Back pain Neurologic: denies: Headache PD PAST MEDICAL HISTORY - Past Medical History Cardiovascular: None Respiratory: None Neuro: None Endocrine/Autoimmune: None GI: GERD 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: Ovarian cysts, 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, Other : Chronic bladder infection, Kidney stones HEENT: None Psych: Depression, Anxiety, Post traumatic stress disorder Musculoskeletal: None Derm: None - Past Surgical History Past Surgical History: Yes General: Other /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: Oophrectomy - Present Medications Home Medications: Ambulatory Orders Medication Instructions Recorded Confirmed lamoTRIgine [Lamictal] 200 mg PO QPM #7 tablet 12/07/18 11/17/19 Metoclopramide [Reglan] 10 mg PO Q6H PRN #7 tablet 08/23/19 11/17/19 Famotidine [Pepcid] 20 mg PO BID 09/11/19 11/17/19 diazePAM [Valium] 1 tab PO TID PRN #10 tablet 09/11/19 11/17/19 oxyCODONE/ACET 5/325 [Percocet 5 1 each PO Q8HR 09/11/19 11/17/19 mg/325 mg] Chlorhexidine Gluconate [Peridex] 15 ml MM TID #118 ml 10/17/19 11/17/19 Albuterol Sulfate [Proair Hfa 1 - 2 puffs INH Q4H PRN #1 inhaler 11/17/19 Inhaler] Fexofenadine/Pseudoephedrine 1 tab PO BID PRN #20 tab.er.12h 11/17/19 [Allergy-Congestion 60-120 mg] - Allergies Allergies/Adverse Reactions: Allergies Allergy/AdvReac Type Severity Reaction Status Date / Time aripiprazole [From Abilify] Allergy Rash Verified 11/17/19 19:39 hydrocodone bitartrate * Allergy Hives Verified 11/17/19 19:39 [From Vicodin] ketorolac Allergy Itching Verified 11/17/19 19:39 ondansetron [From Zofran] Allergy Headache Verified 11/17/19 19:39 tramadol Allergy Hives Verified 11/17/19 19:39 ethinyl estradiol AdvReac Cramps Verified 11/17/19 19:39 [From NuvaRing] etonogestrel [From NuvaRing] AdvReac Cramps Verified 11/17/19 19:39 morphine AdvReac Unknown Verified 11/17/19 19:39 trazodone AdvReac Unknown Verified 11/17/19 19:39 - Social History Does the pt smoke?: No Smoking Status: Never smoker Does the pt drink ETOH?: Yes Does the pt have substance abuse?: No - Immunizations Immunizations are current?: Yes - POLST Patient has POLST: No POLST Status: Full Code PD ED PE NORMAL - Vitals Vital signs reviewed: Yes - General General: Alert and oriented X 3, No acute distress, Well developed/nourished - HEENT HEENT: PERRL, Ears normal, Moist mucous membranes, Pharynx benign - Neck Neck: Supple, no meningeal sign - Cardiac Cardiac: RRR - Respiratory Respiratory: No respiratory distress, Other (Mild wheeze bilaterally) - Abdomen Abdomen: Soft, Non tender, Non distended - Derm Derm: Warm and dry, No rash - Extremities Extremities: No edema - Neuro Neuro: Alert and oriented X 3 - Psych Psych: Normal mood, Normal affect Results - Vitals Vitals: Vital Signs - 24 hr 11/17/19 11/17/19 19:33 20:22 Temperature 36.9 C Heart Rate 97 Respiratory 18 18 Rate Blood Pressure 137/91 H O2 Saturation 99 Oxygen O2 Source Room air - Rads (name of study) Chest x-ray Radiology: Prelim report reviewed, EMP read contemporaneously, See rad report (negative chest) PD MEDICAL DECISION MAKING - ED course Complexity details: reviewed results, re-evaluated patient, considered differential, d/w patient ED course: Patient is well-appearing, nontoxic. Afebrile. No hypoxia. No respiratory distress. We will prescribe an inhaler for home. We will also place her on decongestants. She had a negative coronavirus test 2 weeks ago. Patient counseled regarding signs and symptoms for which I believe and urgent re- evaluation would be necessary. Patient with good understanding of and agreement to plan and is comfortable going home at this time This document was made in part using voice recognition software. While efforts are made to proofread this document, sound alike and grammatical errors may occur. Departure - Departure Disposition: Home, Self Care Clinical Impression: Viral URI Condition: Good Instructions: ED URI Viral W Wheezing Follow-Up: ROCIO SARAVIA [Primary Care Provider] - Within 1 week Prescriptions: Albuterol Sulfate [Proair Hfa Inhaler] 1 - 2 puffs INH Q4H PRN #1 inhaler PRN Reason: Shortness Of Air/Wheezing Fexofenadine/Pseudoephedrine [Allergy-Congestion 60-120 mg] 1 tab PO BID PRN #20 tab.er.12h PRN Reason: Nasal Congestion Comments: Return if you worsen. Follow up with your doctor for further care. Drink plenty of fluids and rest.
--- NOTE | 2019-11-17 20:30 | XRAY Report ---
Reason: cough Procedure Date: 11/17/2019 Accession Number: [id number] / [id number] Procedure: XR - Chest 1 View X-Ray CPT Code: 38033 Final Report FULL RESULT: EXAM: CHEST RADIOGRAPHY EXAM DATE: 11/17/2019 08:03 PM. CLINICAL HISTORY: Cough. COMPARISON: CHEST 2 VIEW PA/LAT 07/05/2017 9:23 PM. TECHNIQUE: 1 view. FINDINGS: Lungs/Pleura: No significant change. No consolidation or edema. Negative for pneumothorax. Mediastinum: Heart size is normal. Trachea is midline. Other: None. IMPRESSION: Negative chest. RADIA
== END 2019-11-17 20:48 | disposition home or self-care (01) ==
LOC: ED 19:26
DX: J06.9 Acute upper respiratory infection, unspecified (principal)
CPT/HCPCS: 71045; 94640; 94664; 99283; 99284

== ENCOUNTER 2019-11-20 18:14 | Emergency (ER) | payer MEDICAID ==
[2019-11-20] MEDS ORDERED: ONDANSETRON ODT 4 MG TABLET TL STA (19:02)
[2019-11-20 19:58] LABS: BILIRUBIN,URINE NEGATIVE (NEGATIVE); GLUCOSE, URINE (UA) NEGATIVE (NEGATIVE); KETONES,URINE (UA) NEGATIVE (NEGATIVE); LEUKOCYTE ESTERASE, URINE NEGATIVE (NEGATIVE); NITRITE,URINE NEGATIVE (NEGATIVE); OCCULT BLOOD,URINE NEGATIVE (NEGATIVE); PH,URINE 6.5 PH (5.0-7.5); PROTEIN,URINE NEGATIVE (NEGATIVE); UROBILINOGEN,URINE 0.2 (NORMAL) E.U./dL (NORMAL)
[2019-11-20 20:00] LABS: CLARITY,URINE CLEAR (CLEAR)
[2019-11-20] MEDS ORDERED: oxyCODONE 5 MG TABLET PO STA (20:15)
[2019-11-20] MEDS ORDERED: PROMETHAZINE 25 MG TABLET PO STA (20:15)
--- NOTE | 2019-11-20 20:18 | ED Physician Documentation ---
PD HPI DYSPNEA - Stated complaint Stated Complaint: SOA/ABD PX/NAUSEA - Chief complaint Chief Complaint: Resp - History obtained from History obtained from: Patient (29 yo F presents with nausea, vomiting, and mild shortness of breath. She was seen for the shortness of breath a few days ago, had a negative xray and was prescribed albuterol. States it helped at first but now it is not helping. She denies fever/chills, cough, congestion, wheezing, or chest pain. She states she also has developed general nausea and this has apparently prevented her from taking her chronic oxycodone for pelvic pain, therefore her pelvic pain is not controlled and she overall feels poorly. She does work at [employer] and has had exposure to C19 patients. She had a negative Covid test about 2 weeks ago.) Review of Systems Constitutional: reports: Reviewed and negative Eyes: reports: Reviewed and negative Ears: reports: Reviewed and negative Nose: reports: Reviewed and negative Throat: reports: Reviewed and negative Cardiac: reports: Reviewed and negative Respiratory: reports: Dyspnea. denies: Cough, Hemoptysis, Wheezing GI: reports: Abdominal Pain (chronic pelvic pain), Nausea. 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, Other : Chronic bladder infection, Kidney stones HEENT: Chronic vision loss Psych: Depression, Anxiety, Post traumatic stress disorder Musculoskeletal: None Derm: None - Past Surgical History Past Surgical History: Yes General: Other /TUTORING ASSISTANT: Oophrectomy - Present Medications Home Medications: Ambulatory Orders Medication Instructions Recorded Confirmed lamoTRIgine [Lamictal] 200 mg PO QPM #7 tablet 12/07/18 11/17/19 Metoclopramide [Reglan] 10 mg PO Q6H PRN #7 tablet 08/23/19 11/17/19 Famotidine [Pepcid] 20 mg PO BID 09/11/19 11/17/19 diazePAM [Valium] 1 tab PO TID PRN #10 tablet 09/11/19 11/17/19 oxyCODONE/ACET 5/325 [Percocet 5 1 each PO Q8HR 09/11/19 11/17/19 mg/325 mg] Chlorhexidine Gluconate [Peridex] 15 ml MM TID #118 ml 10/17/19 11/17/19 Albuterol Sulfate [Proair Hfa 1 - 2 puffs INH Q4H PRN #1 inhaler 11/17/19 Inhaler] Fexofenadine/Pseudoephedrine 1 tab PO BID PRN #20 tab.er.12h 11/17/19 [Allergy-Congestion 60-120 mg] Promethazine [Phenergan] 25 mg PO Q8H PRN #12 tablet 11/20/19 - Allergies Allergies/Adverse Reactions: Allergies Allergy/AdvReac Type Severity Reaction Status Date / Time aripiprazole [From Abilify] Allergy Rash Verified 11/17/19 19:39 hydrocodone bitartrate * Allergy Hives Verified 11/17/19 19:39 [From Vicodin] ketorolac Allergy Itching Verified 11/17/19 19:39 ondansetron [From Zofran] Allergy Headache Verified 11/17/19 19:39 tramadol Allergy Hives Verified 11/17/19 19:39 ethinyl estradiol AdvReac Cramps Verified 11/17/19 19:39 [From NuvaRing] etonogestrel [From NuvaRing] AdvReac Cramps Verified 11/17/19 19:39 morphine AdvReac Unknown Verified 11/17/19 19:39 trazodone AdvReac Unknown Verified 11/17/19 19:39 - Social History Does the pt smoke?: Yes Smoking Status: Current every day smoker Does the pt drink ETOH?: No Does the pt have substance abuse?: No - Immunizations Immunizations are current?: Yes - POLST Patient has POLST: No POLST Status: Full Code PD ED PE NORMAL - Vitals Vital signs reviewed: Yes - General General: Alert and oriented X 3, No acute distress, Well developed/nourished - HEENT HEENT: Atraumatic, Moist mucous membranes, Pharynx benign - Cardiac Cardiac: RRR, No murmur, No gallop, No rub, Strong equal pulses - Respiratory Respiratory: No respiratory distress, Clear bilaterally - Abdomen Abdomen: Normal bowel sounds, Soft, Non tender, Non distended, No organomegaly, Other (obese) - Back Back: No CVA TTP - Derm Derm: Normal color, Warm and dry, No rash Results - Vitals Vitals: Vital Signs - 24 hr 11/20/19 11/20/19 11/20/19 18:26 18:43 19:27 Temperature 36.5 C 36.9 C Heart Rate 85 93 68 Respiratory 14 20 16 Rate Blood Pressure 135/90 H 160/109 H 139/98 H O2 Saturation 97 98 97 11/20/19 11/20/19 11/20/19 20:13 20:46 21:06 Temperature Heart Rate 86 Respiratory 17 17 17 Rate Blood Pressure 133/89 H O2 Saturation 98 Oxygen O2 Source Room air - Labs Labs: Laboratory Tests 11/20/19 19:50 Urine Color YELLOW Urine Clarity CLEAR Urine pH 6.5 Ur Specific [place] 1.020 Urine Protein NEGATIVE Urine Glucose (UA) NEGATIVE Urine Ketones NEGATIVE Urine Occult Blood NEGATIVE Urine Nitrite NEGATIVE Urine Bilirubin NEGATIVE Urine Urobilinogen 0.2 (NORMAL) Ur Leukocyte Esterase NEGATIVE Ur Microscopic Review NOT INDICATED Urine Culture Comments NOT INDICATED PD MEDICAL DECISION MAKING - ED course Complexity details: reviewed old records, reviewed results, re-evaluated patient, considered differential, d/w patient ED course: 29 yo F presents primarily w/ nausea that has impaired her ability to take her chronic pain medication. Her belly is soft and not suggestive of an acute abdomen, her UA is negative. Her nausea is likely 2/2 to viral syndrome. She is also noting shortness of breath. She appears well on exam, lungs are clear, she is oxygenating well on room air, and had a negative chest xray 3 days ago. I do not think this needs to be repeated. I will retest her for covid given ongoing sx and likely exposure at work. She was given IM phenergan and then able to tolerate a dose of pain medication which helped her feel better. She was advised to return if she developed fever or worsening shortness of breath or otherwise new sx. She may continue prn albuterol. Pt requesting steroids however her lungs are clear and I do not see any benefit to the steroids w/ potential harm if her covid is indeed +. Pt notes understanding. I advised self isolation until covid test returns. Departure - Departure Disposition: 01 Home, Self Care Clinical Impression: Abdominal pain Qualifiers: Abdominal location: generalized Qualified Code(s): R10.84 - Generalized abdominal pain Dyspnea Qualifiers: Dyspnea type: shortness of breath Qualified Code(s): R06.02 - Shortness of breath Condition: Good Instructions: ED Dyspnea Shortness of Breath, ED Viral Syndrome Prescriptions: Promethazine [Phenergan] 25 mg PO Q8H PRN #12 tablet PRN Reason: Nausea / Vomiting Discharge Date/Time: 11/20/19 21:07
[2019-11-20] MEDS ORDERED: PROMETHAZINE 25 MG/1 ML VIAL IM STA (20:23)
[2019-11-20 21:07] VITALS: BP 133/89
== END 2019-11-20 21:07 | disposition home or self-care (01) ==
LOC: ED 18:14
DX: U07.1 COVID-19 (principal); R10.84 Generalized abdominal pain; F17.200 Nicotine dependence, unspecified, uncomplicated
CPT/HCPCS: 81003; 87635; 96372; 99283; 99284; A9270; Q0162; 81001; 81599; 87086

== ENCOUNTER 2019-11-24 10:35 | Emergency (ER) | payer MEDICAID ==
[2019-11-24] MEDS ORDERED: PROMETHAZINE 25 MG/1 ML VIAL IM STA (12:26)
[2019-11-24] MEDS ORDERED: HYDROmorphone 1 MG/ML CARPUJECT IM STA (12:26)
--- NOTE | 2019-11-24 12:28 | ED Physician Documentation ---
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 She does have a history of asthma and she feels her asthma is acting up on her now. In addition she has some pelvic pain which is chronic and she has not been able to hold down her pain medication. She is on oxycodone. She was able to hold her psych medications down last night. She is requesting a dose of pain medication while she is here in the emergency department. She has considered steroids previously and this was deemed risky and was not done. She is staying at home alone and she does have someone to bring her food. She states that she feels her inhaler is only minimally effective. Review of Systems Constitutional: reports: Myalgias, Fatigue. denies: Fever Eyes: denies: Decreased vision Ears: denies: Ear pain Nose: reports: Congestion. denies: Rhinorrhea / runny nose Throat: reports: Sore throat Cardiac: reports: Chest pain / pressure. 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, 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, Other : Chronic bladder infection, Kidney stones HEENT: Chronic vision loss Psych: Depression, Anxiety, Post traumatic stress disorder Musculoskeletal: None Derm: None - Past Surgical History Past Surgical History: Yes General: 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: 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 - Present Medications Home Medications: Ambulatory Orders Medication Instructions Recorded Confirmed lamoTRIgine [Lamictal] 200 mg PO QPM #7 tablet 12/07/18 11/24/19 Famotidine [Pepcid] 40 mg PO BID 09/11/19 11/24/19 oxyCODONE/ACET 5/325 [Percocet 5 1 each PO Q8HR 09/11/19 11/24/19 mg/325 mg] Albuterol Sulfate [Proair Hfa 1 - 2 puffs INH Q4H PRN #1 inhaler 11/17/19 11/24/19 Inhaler] Promethazine [Phenergan] 25 mg PO Q8H PRN #12 tablet 11/20/19 11/24/19 Azithromycin [Zithromax] 250 mg PO DAILY #6 tablet 11/24/19 Bupropion HCl [Bupropion Xl] 300 mg PO DAILY 11/24/19 11/24/19 OLANZapine [Olanzapine] 10 mg PO DAILY 11/24/19 11/24/19 hydrOXYzine pamoate [Hydroxyzine 25 mg PO PRN PRN 11/24/19 11/24/19 Pamoate] - Allergies Allergies/Adverse Reactions: Allergies Allergy/AdvReac Type Severity Reaction Status Date / Time aripiprazole [From Abilify] Allergy Rash Verified 11/24/19 10:55 hydrocodone bitartrate * Allergy Hives Verified 11/24/19 10:55 [From Vicodin] ketorolac Allergy Itching Verified 11/24/19 10:55 ondansetron [From Zofran] Allergy Headache Verified 11/24/19 10:55 tramadol Allergy Hives Verified 11/24/19 10:55 ethinyl estradiol AdvReac Cramps Verified 11/24/19 10:55 [From NuvaRing] etonogestrel [From NuvaRing] AdvReac Cramps Verified 11/24/19 10:55 morphine AdvReac Unknown Verified 11/24/19 10:55 trazodone AdvReac Unknown Verified 11/24/19 10:55 - Social History Does the pt smoke?: Yes Smoking Status: Current every day smoker Does the pt drink ETOH?: No Does the pt have substance abuse?: No - Immunizations Immunizations are current?: Yes - POLST Patient has POLST: No POLST Status: Full Code PD ED PE NORMAL - Vitals Vital signs reviewed: Yes (hypertensive ) - General General: Alert and oriented X 3, No acute distress, Well developed/nourished - HEENT HEENT: Atraumatic, PERRL, EOMI, Ears normal, Moist mucous membranes, Other (mild posterior pharyngeal erythema on the right ) - Neck Neck: Supple, no meningeal sign, No bony TTP - Cardiac Cardiac: RRR, No murmur - Respiratory Respiratory: No respiratory distress, Other (diminished breath sounds. 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, No motor deficit, No sensory deficit, Normal speech Eye Opening: Spontaneous Motor: Obeys Commands Verbal: Oriented GCS Score: 15 - Psych Psych: Normal mood, Normal affect Results - Vitals Vitals: Vital Signs - 24 hr 11/24/19 11/24/19 11/24/19 10:55 11:39 13:00 Temperature 37.3 C 37.2 C Heart Rate 99 87 90 Respiratory 17 18 18 Rate Blood Pressure 158/105 H 138/93 H 131/94 H O2 Saturation 100 99 98 Oxygen O2 Source Room air PD MEDICAL DECISION MAKING - ED course Complexity details: reviewed old records, reviewed results, re-evaluated patient, considered differential, d/w patient ED course: 29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 She is having some trouble with her asthma. She is examined here in the emergency department she has a 99% oxygen saturation she is moving some air with diminished breath sounds. She is afebrile here today. She does have some mild pelvic tenderness. Here in the emergency department we have provided the patient with 25 mg of Phenergan and a milligram of Dilaudid intramuscularly and we will place her on some azithromycin to cover for atypicals for bronchitis asthmatic. She is in understanding that we are reluctant to prescribe a course of steroid and that her critical time for recovery from this is in the next 2 days. She will follow-up as needed. Departure - Departure Disposition: 01 Home, Self Care Clinical Impression: Chronic pelvic pain in female, COVID-19 virus infection Asthmatic bronchitis Qualifiers: Asthma severity: mild Asthma persistence: intermittent Asthma complication type: with acute exacerbation Qualified Code(s): J45.21 - Mild intermittent asthma with (acute) exacerbation Condition: Stable Instructions: ED Bronchitis Asthmatic, COVID-19 [facility], COVID-19 [facility] Statement Follow-Up: ROCIO SARAVIA [Primary Care Provider] - Prescriptions: Azithromycin [Zithromax] 250 mg PO DAILY #6 tablet Discharge Date/Time: 11/24/19 13:10
[2019-11-24 13:10] VITALS: BP 131/94
== END 2019-11-24 13:10 | disposition home or self-care (01) ==
LOC: ED 10:35
DX: U07.1 COVID-19 (principal); R10.2 Pelvic and perineal pain; J45.21 Mild intermittent asthma with (acute) exacerbation
CPT/HCPCS: 96372; 99283; 99284; J1170

== ENCOUNTER 2019-11-28 04:05 | Emergency (ER) | payer MEDICAID ==
[2019-11-28] MEDS ORDERED: NAPROXEN 250 MG TABLET PO STA (04:36)
--- NOTE | 2019-11-28 05:13 | XRAY Report ---
Reason: injury/pain/swelling Procedure Date: 11/28/2019 Accession Number: [id number] / [id number] Procedure: XR - Ankle 3 View RT CPT Code: Final Report FULL RESULT: EXAM: RIGHT ANKLE RADIOGRAPHY EXAM DATE: 11/28/2019 04:56 AM. CLINICAL HISTORY: Injury/pain/swelling. COMPARISON: ANKLE 3 VIEW RT 12/09/2015 7:05 PM. TECHNIQUE: 3 views. FINDINGS: Bones: Normal. No fractures or bone lesions. Joints: Normal. No effusion. No subluxations. The ankle mortise is normally aligned. Soft Tissues: Soft tissue swelling. No radiopaque foreign body. IMPRESSION: Soft tissue swelling, but no evidence of acute fracture. RADIA
[2019-11-28 05:35] VITALS: BP 129/96
--- NOTE | 2019-11-28 05:36 | ED Physician Documentation ---
PD HPI LOWER EXT INJURY - Stated complaint Stated Complaint: C ANKLE PX/FALL - Chief complaint Chief Complaint: Ext Problem - Additional information Additional information: Patient comes emergency department complaining of right ankle pain after stepping off her boyfriend's porch and twisting her ankle. Patient states the injury happened about an hour ago. She states she has multiple, But no fractures. sprains of this ankle patient has never had any surgery on her right ankle. She indicates that her pain is posterior to the lateral malleolus and does not involve her foot or medial ankle. No other complaints at this time. She has been able to ambulate on the extremity, though this does hurt and ankle when she does so. Review of Systems Ten Systems: 10 systems reviewed and negative Constitutional: reports: Reviewed and negative Eyes: reports: Reviewed and negative Ears: reports: Reviewed and negative Nose: reports: Reviewed and negative Throat: reports: Reviewed and negative Cardiac: reports: Reviewed and negative Respiratory: reports: Reviewed and negative GI: reports: Reviewed and negative : reports: Reviewed and negative Skin: reports: Reviewed and negative Musculoskeletal: reports: Joint pain (Right ankle) Neurologic: reports: Reviewed and negative Psychiatric: reports: Reviewed and negative Endocrine: reports: Reviewed and negative Immunocompromised: reports: Reviewed and negative PD PAST MEDICAL HISTORY - Past Medical History Past Medical History: Yes Cardiovascular: None Respiratory: None Neuro: Migraines, Peripheral neuropathy Endocrine/Autoimmune: None GI: GERD 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: Ovarian cysts, 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, Other : Chronic bladder infection, Kidney stones HEENT: Chronic vision loss Psych: Depression, Anxiety, Post traumatic stress disorder Musculoskeletal: None Derm: None - Past Surgical History Past Surgical History: Yes General: Other /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: Oophrectomy - Present Medications Home Medications: Ambulatory Orders Medication Instructions Recorded Confirmed lamoTRIgine [Lamictal] 200 mg PO QPM #7 tablet 12/07/18 11/24/19 Famotidine [Pepcid] 40 mg PO BID 09/11/19 11/24/19 oxyCODONE/ACET 5/325 [Percocet 5 1 each PO Q8HR 09/11/19 11/24/19 mg/325 mg] Albuterol Sulfate [Proair Hfa 1 - 2 puffs INH Q4H PRN #1 inhaler 11/17/19 11/24/19 Inhaler] Promethazine [Phenergan] 25 mg PO Q8H PRN #12 tablet 11/20/19 11/24/19 Azithromycin [Zithromax] 250 mg PO DAILY #6 tablet 11/24/19 Bupropion HCl [Bupropion Xl] 300 mg PO DAILY 11/24/19 11/24/19 OLANZapine [Olanzapine] 10 mg PO DAILY 11/24/19 11/24/19 hydrOXYzine pamoate [Hydroxyzine 25 mg PO PRN PRN 11/24/19 11/24/19 Pamoate] Naproxen [Naprosyn] 250 mg PO Q6H PRN 5 Days #20 tablet 11/28/19 - Allergies Allergies/Adverse Reactions: Allergies Allergy/AdvReac Type Severity Reaction Status Date / Time aripiprazole [From Abilify] Allergy Rash Verified 11/28/19 04:23 hydrocodone bitartrate * Allergy Hives Verified 11/28/19 04:23 [From Vicodin] ketorolac Allergy Itching Verified 11/28/19 04:23 ondansetron [From Zofran] Allergy Headache Verified 11/28/19 04:23 tramadol Allergy Hives Verified 11/28/19 04:23 ethinyl estradiol AdvReac Cramps Verified 11/28/19 04:23 [From NuvaRing] etonogestrel [From NuvaRing] AdvReac Cramps Verified 11/28/19 04:23 morphine AdvReac Unknown Verified 11/28/19 04:23 trazodone AdvReac Unknown Verified 11/28/19 04:23 - Social History Does the pt smoke?: Yes Smoking Status: Current every day smoker Does the pt drink ETOH?: No Does the pt have substance abuse?: No - Immunizations Immunizations are current?: Yes - POLST Patient has POLST: No POLST Status: Full Code PD ED PE NORMAL - Vitals Vital signs reviewed: Yes - General General: Alert and oriented X 3, No acute distress - HEENT HEENT: PERRL - Neck Neck: Supple, no meningeal sign - Cardiac Cardiac: RRR, No murmur - Respiratory Respiratory: No respiratory distress, Clear bilaterally - Abdomen Abdomen: Soft, Non tender, Non distended - Derm Derm: Normal color, Warm and dry, No rash - Extremities Extremities: No deformity, No calf tenderness / cord, Other (Patient has moderate tenderness posterior to her lateral malleolus and moderate tenderness over the lateral malleolus itself. Mild edema. No deformity. No contusion. No medial tenderness. No tenderness over the tarsal or metatarsal bones. Patient is able to move her toes without difficulty.) - Neuro Neuro: Alert and oriented X 3, can stacker 2-12 intact, No motor deficit, No sensory deficit, Normal speech - Psych Psych: Normal mood, Normal affect Results - Vitals Vitals: Vital Signs - 24 hr 11/28/19 11/28/19 04:15 05:34 Temperature 36.1 C L Heart Rate 90 84 Respiratory 16 17 Rate Blood Pressure 136/101 H 129/96 H O2 Saturation 100 98 Oxygen O2 Source Room air - Rads (name of study) ankle xray Radiology: Final report received, EMP read indepedently, See rad report (Negative) PD MEDICAL DECISION MAKING - ED course Complexity details: reviewed results, re-evaluated patient, considered differential, d/w patient ED course: Patient was evaluated with x-ray series of the right ankle, which was found to be negative. She was placed in an air splint and given a dose of naproxen in the emergency department. She was given a prescription for naproxen and was instructed regarding follow-up. We have also discussed the usual indications for return. Departure - Departure Disposition: 01 Home, Self Care Clinical Impression: Right ankle sprain Qualifiers: Encounter type: initial encounter Involved ligament of ankle: unspecified liga ment Qualified Code(s): S93.401A - Sprain of unspecified ligament of right ankle, initial encounter Condition: Stable Instructions: ED Sprain Ankle W X Ray Prescriptions: Naproxen [Naprosyn] 250 mg PO Q6H PRN 5 Days #20 tablet PRN Reason: Pain
== END 2019-11-28 05:40 | disposition home or self-care (01) ==
LOC: ED 04:05
DX: S93.401A Sprain of unspecified ligament of right ankle, initial encounter (principal); X50.1XXA Overexertion from prolonged static or awkward postures, initial encounter; Y93.89 Activity, other specified; Y92.008 Other place in unspecified non-institutional (private) residence as the place of occurrence of the external cause; F17.200 Nicotine dependence, unspecified, uncomplicated
CPT/HCPCS: 73610; 99283; 99284; A9270

== ENCOUNTER 2020-02-27 14:25 | Emergency (ER) | payer MEDICAID ==
[2020-02-27 14:37] VITALS: BP 147/78
--- NOTE | 2020-02-27 15:03 | XRAY Report ---
PROCEDURE: Chest 2 View X-Ray INDICATIONS: Shortness of breath TECHNIQUE: 2 view(s) of the chest. COMPARISON: None. FINDINGS: Surgical changes and devices: None. Lungs and pleura: No pleural effusions or pneumothorax. Lungs are clear. Mediastinum: Mediastinal contours are normal. Heart size is normal. Bones and chest wall: No suspicious bony abnormalities. Soft tissues appear unremarkable. IMPRESSION: No acute cardiopulmonary process demonstrated radiographically. Reviewed by: Klaus Nieves MD on 02/27/2020 3:01 PM PDT Approved by: Klaus Nieves MD on 02/27/2020 3:01 PM PDT Station ID: [id number]
== END 2020-02-27 18:11 | disposition left against medical advice (07) ==
LOC: ED 14:25
DX: Z53.21 Procedure and treatment not carried out due to patient leaving prior to being seen by health care provider (principal)
CPT/HCPCS: 71046

== ENCOUNTER 2020-03-15 09:37 | Emergency (ER) | payer MEDICAID ==
[2020-03-15 09:42] VITALS: BP 132/102
[2020-03-15] MEDS ORDERED: ONDANSETRON ODT 4 MG TABLET TL STA (09:44)
--- NOTE | 2020-03-15 09:46 | ED Physician Documentation ---
History of Present Illness - Stated complaint Stated Complaint: NAUSEA - Chief complaint Chief Complaint: Abd Pain - History obtained from History obtained from: Patient - History of Present Illness Timing: Chronic Pain level max: 0 Pain level now: 0 - Additonal information Additional information: Patient states out of her zofran. nothing makes it better or worse. Has chronic nausea. Can't see PCP until sunday. here for refill. Denies possiblity of . Review of Systems Constitutional: denies: Fever, Chills Respiratory: denies: Cough GI: reports: Nausea. 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: Ovarian cysts, 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, Other : Chronic bladder infection, Kidney stones HEENT: Chronic vision loss Psych: Depression, Anxiety, Post traumatic stress disorder Musculoskeletal: None Derm: None - Past Surgical History Past Surgical History: Yes General: Other /RAILROAD WATCHMAN: Oophrectomy - Present Medications Home Medications: Ambulatory Orders Medication Instructions Recorded Confirmed lamoTRIgine [Lamictal] 200 mg PO QPM #7 tablet 12/07/18 11/24/19 Famotidine [Pepcid] 40 mg PO BID 09/11/19 11/24/19 oxyCODONE/ACET 5/325 [Percocet 5 1 each PO Q8HR 09/11/19 11/24/19 mg/325 mg] Albuterol Sulfate [Proair Hfa 1 - 2 puffs INH Q4H PRN #1 inhaler 11/17/19 11/24/19 Inhaler] Promethazine [Phenergan] 25 mg PO Q8H PRN #12 tablet 11/20/19 11/24/19 Azithromycin [Zithromax] 250 mg PO DAILY #6 tablet 11/24/19 Bupropion HCl [Bupropion Xl] 300 mg PO DAILY 11/24/19 11/24/19 OLANZapine [Olanzapine] 10 mg PO DAILY 11/24/19 11/24/19 hydrOXYzine pamoate [Hydroxyzine 25 mg PO PRN PRN 11/24/19 11/24/19 Pamoate] Naproxen [Naprosyn] 250 mg PO Q6H PRN 5 Days #20 tablet 11/28/19 Ondansetron Odt [Zofran] 4 mg TL Q6H PRN #10 tablet 03/15/20 - Allergies Allergies/Adverse Reactions: Allergies Allergy/AdvReac Type Severity Reaction Status Date / Time aripiprazole [From Abilify] Allergy Rash Verified 02/27/20 14:33 hydrocodone bitartrate * Allergy Hives Verified 02/27/20 14:33 [From Vicodin] ketorolac Allergy Itching Verified 02/27/20 14:33 ondansetron [From Zofran] Allergy Headache Verified 02/27/20 14:33 tramadol Allergy Hives Verified 02/27/20 14:33 ethinyl estradiol AdvReac Cramps Verified 02/27/20 14:33 [From NuvaRing] etonogestrel [From NuvaRing] AdvReac Cramps Verified 02/27/20 14:33 morphine AdvReac Unknown Verified 02/27/20 14:33 trazodone AdvReac Unknown Verified 02/27/20 14:33 - Social History Does the pt smoke?: Yes Smoking Status: Current every day smoker Does the pt drink ETOH?: No Does the pt have substance abuse?: No - Immunizations Immunizations are current?: Yes - POLST Patient has POLST: No POLST Status: Full Code PD ED PE NORMAL - Vitals Vital signs reviewed: Yes - General General: Alert and oriented X 3, No acute distress - HEENT HEENT: Moist mucous membranes - Neck Neck: Supple, no meningeal sign - Cardiac Cardiac: RRR - Respiratory Respiratory: No respiratory distress, Clear bilaterally - Abdomen Abdomen: Soft, Non tender, Non distended - Derm Derm: Warm and dry - Neuro Neuro: Alert and oriented X 3 - Psych Psych: Normal mood, Normal affect Results - Vitals Vitals: Vital Signs - 24 hr 03/15/20 09:40 Temperature 37.1 C Heart Rate 91 Respiratory 18 Rate Blood Pressure 132/102 H O2 Saturation 100 Oxygen O2 Source Room air PD MEDICAL DECISION MAKING - ED course Complexity details: considered differential, d/w patient ED course: Zofran refill prescribed. Has appt with PCP on Sunday. No EMC at this time. Departure - Departure Disposition: 01 Home, Self Care Clinical Impression: Nausea Condition: Good Instructions: ED Nausea Vomiting Follow-Up: ROCIO SARAVIA [Primary Care Provider] - Within 3 Days Prescriptions: Ondansetron Odt [Zofran] 4 mg TL Q6H PRN #10 tablet PRN Reason: Nausea / Vomiting Comments: Follow-up with your doctor for further refills of your Zofran. Return if you worsen.
== END 2020-03-15 09:53 | disposition home or self-care (01) ==
LOC: ED 09:37
DX: R11.0 Nausea (principal); F17.200 Nicotine dependence, unspecified, uncomplicated
CPT/HCPCS: 99282; 99283; Q0162

== ENCOUNTER 2020-04-30 16:30 | Outpatient (CLI) | payer MEDICAID ==
[2020-04-30 16:52] LABS: BASOPHILS % (AUTO) 0.5 %; HGB - HEMOGLOBIN 12.4 g/dL (12.0-16.0); LYMPHOCYTES # (AUTO) 3.3 10^3/uL (1.5-3.5); LYMPHOCYTES % (AUTO) 37.7 %; MEAN CORPUSCULAR HGB CONC 32.5 g/dL (32.0-36.0); MEAN CORPUSCULAR VOLUME 83.2 fL (81.0-99.0); MEAN PLATELET VOLUME 9.1 fL (7.9-10.8); MONOCYTES # (AUTO) 0.5 10^3/uL (0.0-1.0); MONOCYTES % (AUTO) 5.6 %; NEUTROPHILS # (AUTO) 4.9 10^3/uL (1.5-6.6); NEUTROPHILS % (AUTO) 55.9 %; PLT - PLATELET COUNT 294 10^3/uL (130-450); RED BLOOD COUNT 4.59 10^6/uL (4.20-5.40); RED CELL DISTRIBUTION WIDTH 13.8 % (12.0-15.0); WHITE BLOOD COUNT 8.7 x10^3/uL (4.8-10.8)
[2020-04-30 17:00] LABS: ALBUMIN 4.4 g/dL (3.2-5.5); ALBUMIN/GLOBULIN RATIO 1.1 (1.0-2.2); BILIRUBIN,TOTAL 0.5 mg/dL (0.2-1.0); CALCIUM 9.8 mg/dL (8.5-10.3); CREATININE 0.7 mg/dL (0.4-1.0); TOTAL PROTEIN 8.3 g/dL (6.7-8.2)
== END 2020-04-30 16:31 | disposition home or self-care (01) ==
LOC: LAB 16:30
PROVIDERS: ATTEND Family Medicine
DX: R53.83 Other fatigue (principal); R40.0 Somnolence; R42 Dizziness and giddiness
CPT/HCPCS: 36415; 80053; 84443; 85025

== ENCOUNTER 2020-06-20 15:57 | Emergency (ER) | payer MEDICAID ==
[2020-06-20] MEDS ORDERED: diazePAM 5 MG TABLET PO STA (17:04)
--- NOTE | 2020-06-20 17:12 | ED Physician Documentation ---
History of Present Illness - Stated complaint Stated Complaint: ANXIETY - Chief complaint Chief Complaint: MHE - History obtained from History obtained from: Patient - Additonal information Additional information: Pt comes to the emergency department complaining of anxiety, after having her medications changed and running out of her breakthrough Valium. Patient states that she is also under more stress than usual because of some tensions with her parents and because her boyfriend moved out of state permanently. Patient denies suicidal or homicidal ideation. No psychosis. No other complaints at this time. Review of Systems Ten Systems: 10 systems reviewed and negative Constitutional: reports: Reviewed and negative Eyes: reports: Reviewed and negative Ears: reports: Reviewed and negative Nose: reports: Reviewed and negative Throat: reports: Reviewed and negative Cardiac: reports: Reviewed and negative Respiratory: reports: Reviewed and negative GI: reports: Reviewed and negative : reports: Reviewed and negative Skin: reports: Reviewed and negative Musculoskeletal: reports: Reviewed and negative Neurologic: reports: Reviewed and negative Psychiatric: reports: Anxiety Endocrine: reports: Reviewed and negative Immunocompromised: reports: Reviewed and negative PD PAST MEDICAL HISTORY - Past Medical History Past Medical History: Yes Cardiovascular: None Respiratory: None Neuro: Migraines, Peripheral neuropathy Endocrine/Autoimmune: None GI: GERD 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: Ovarian cysts, 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, Other : Chronic bladder infection, Kidney stones HEENT: Chronic vision loss Psych: Depression, Anxiety, Post traumatic stress disorder Musculoskeletal: None Derm: None - Past Surgical History Past Surgical History: Yes General: Other /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: Oophrectomy - Present Medications Home Medications: Ambulatory Orders Medication Instructions Recorded Confirmed lamoTRIgine [Lamictal] 200 mg PO QPM #7 tablet 12/07/18 11/24/19 Famotidine [Pepcid] 40 mg PO BID 09/11/19 11/24/19 oxyCODONE/ACET 5/325 [Percocet 5 1 each PO Q8HR 09/11/19 11/24/19 mg/325 mg] Albuterol Sulfate [Proair Hfa 1 - 2 puffs INH Q4H PRN #1 inhaler 11/17/19 11/24/19 Inhaler] Promethazine [Phenergan] 25 mg PO Q8H PRN #12 tablet 11/20/19 11/24/19 Azithromycin [Zithromax] 250 mg PO DAILY #6 tablet 11/24/19 Bupropion HCl [Bupropion Xl] 300 mg PO DAILY 11/24/19 11/24/19 OLANZapine [Olanzapine] 10 mg PO DAILY 11/24/19 11/24/19 hydrOXYzine pamoate [Hydroxyzine 25 mg PO PRN PRN 11/24/19 11/24/19 Pamoate] Naproxen [Naprosyn] 250 mg PO Q6H PRN 5 Days #20 tablet 11/28/19 Ondansetron Odt [Zofran] 4 mg TL Q6H PRN #10 tablet 03/15/20 diazePAM [Valium] 5 mg PO TID PRN #15 tablet 06/20/20 - Allergies Allergies/Adverse Reactions: Allergies Allergy/AdvReac Type Severity Reaction Status Date / Time aripiprazole [From Abilify] Allergy Rash Verified 06/21/20 18:03 hydrocodone bitartrate * Allergy Hives Verified 06/21/20 18:03 [From Vicodin] ketorolac Allergy Itching Verified 06/21/20 18:03 ondansetron [From Zofran] Allergy Headache Verified 06/21/20 18:03 tramadol Allergy Hives Verified 06/21/20 18:03 ethinyl estradiol AdvReac Cramps Verified 06/21/20 18:03 [From NuvaRing] etonogestrel [From NuvaRing] AdvReac Cramps Verified 06/21/20 18:03 morphine AdvReac Unknown Verified 06/21/20 18:03 trazodone AdvReac Unknown Verified 06/21/20 18:03 - Social History Does the pt smoke?: Yes Smoking Status: Current every day smoker Does the pt drink ETOH?: No Does the pt have substance abuse?: No - Immunizations Immunizations are current?: Yes - POLST Patient has POLST: No POLST Status: Full Code PD ED PE NORMAL - Vitals Vital signs reviewed: Yes - General General: Alert and oriented X 3, No acute distress (appears mildly anxious), Well developed/nourished - HEENT HEENT: Atraumatic, PERRL, EOMI, Moist mucous membranes - Neck Neck: Supple, no meningeal sign - Cardiac Cardiac: RRR, No murmur, Strong equal pulses - Respiratory Respiratory: No respiratory distress, Clear bilaterally - Abdomen Abdomen: Normal bowel sounds, Soft, Non tender, Non distended - Derm Derm: Normal color, Warm and dry, No rash - Extremities Extremities: No deformity, Normal ROM s pain, No edema - Neuro Neuro: Alert and oriented X 3, Other (Grossly normal) - Psych Psych: Normal affect. No: Normal mood (appears mildly anxious) Results - Vitals Vitals: Oxygen O2 Source Room air PD MEDICAL DECISION MAKING - ED course Complexity details: reviewed old records, considered differential, d/w patient ED course: Pt was treated symptomatically in the ED with Valium, which has worked for her before. I have advised her to speak with her PCP regarding any concerns with her chronic anxiolytics. She has been given a small Rx for Valium for at home, for breakthrough anxiety. Departure - Departure Disposition: 01 Home, Self Care Clinical Impression: Anxiety attack Condition: Stable Instructions: ED Stress React Prescriptions: diazePAM [Valium] 5 mg PO TID PRN #15 tablet PRN Reason: Spasms Comments: Talk to your doctor tomorrow about any concerns you have with your chronic anxiety medication regimen. Discharge Date/Time: 06/20/20 17:17
[2020-06-20 17:17] VITALS: BP 120/80
== END 2020-06-20 17:17 | disposition home or self-care (01) ==
LOC: ED 15:57
DX: F41.9 Anxiety disorder, unspecified (principal); F17.200 Nicotine dependence, unspecified, uncomplicated
CPT/HCPCS: 99282; 99283; A9270

== ENCOUNTER 2020-06-21 17:53 | Emergency (ER) | payer MEDICAID ==
[2020-06-21 18:07] VITALS: BP 130/100
[2020-06-21] MEDS ORDERED: diazePAM 5 MG TABLET PO STA (18:17)
--- NOTE | 2020-06-21 18:29 | ED Physician Documentation ---
PD HPI MHE - Stated complaint Stated Complaint: ANXIETY - Chief complaint Chief Complaint: MHE - History obtained from History obtained from: Patient - History of Present Illness Primary symptom: Anxiety Timing - onset: Chronic Pain level max: 0 Pain level now: 0 Recently seen: Not recently seen - Additional information Additional information: 30-year-old female presents to the emergency department stating she has been feeling more anxious than usual lately. She received a prescription for Valium last night, did not fill it today. States she has no way to get to the pharmacy and requesting a dose of Valium here. 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: Ovarian cysts, 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, Other : Chronic bladder infection, Kidney stones HEENT: Chronic vision loss Psych: Depression, Anxiety, Post traumatic stress disorder Musculoskeletal: None Derm: None - Past Surgical History Past Surgical History: Yes General: Other /COMMUNICATION COORDINATOR: Oophrectomy - Present Medications Home Medications: Ambulatory Orders Medication Instructions Recorded Confirmed lamoTRIgine [Lamictal] 200 mg PO QPM #7 tablet 12/07/18 11/24/19 Famotidine [Pepcid] 40 mg PO BID 09/11/19 11/24/19 oxyCODONE/ACET 5/325 [Percocet 5 1 each PO Q8HR 09/11/19 11/24/19 mg/325 mg] Albuterol Sulfate [Proair Hfa 1 - 2 puffs INH Q4H PRN #1 inhaler 11/17/19 11/24/19 Inhaler] Promethazine [Phenergan] 25 mg PO Q8H PRN #12 tablet 11/20/19 11/24/19 Azithromycin [Zithromax] 250 mg PO DAILY #6 tablet 11/24/19 Bupropion HCl [Bupropion Xl] 300 mg PO DAILY 11/24/19 11/24/19 OLANZapine [Olanzapine] 10 mg PO DAILY 11/24/19 11/24/19 hydrOXYzine pamoate [Hydroxyzine 25 mg PO PRN PRN 11/24/19 11/24/19 Pamoate] Naproxen [Naprosyn] 250 mg PO Q6H PRN 5 Days #20 tablet 11/28/19 Ondansetron Odt [Zofran] 4 mg TL Q6H PRN #10 tablet 03/15/20 diazePAM [Valium] 5 mg PO TID PRN #15 tablet 06/20/20 - Allergies Allergies/Adverse Reactions: Allergies Allergy/AdvReac Type Severity Reaction Status Date / Time aripiprazole [From Abilify] Allergy Rash Verified 06/21/20 20:50 hydrocodone bitartrate * Allergy Hives Verified 06/21/20 20:50 [From Vicodin] ketorolac Allergy Itching Verified 06/21/20 20:50 ondansetron [From Zofran] Allergy Headache Verified 06/21/20 20:50 tramadol Allergy Hives Verified 06/21/20 20:50 ethinyl estradiol AdvReac Cramps Verified 06/21/20 20:50 [From NuvaRing] etonogestrel [From NuvaRing] AdvReac Cramps Verified 06/21/20 20:50 morphine AdvReac Unknown Verified 06/21/20 20:50 trazodone AdvReac Unknown Verified 06/21/20 20:50 - Social History Does the pt smoke?: Yes Smoking Status: Current every day smoker Does the pt drink ETOH?: No Does the pt have substance abuse?: No - Immunizations Immunizations are current?: Yes - POLST Patient has POLST: No POLST Status: Full Code PD ED PE NORMAL - Vitals Vital signs reviewed: Yes - General General: Alert and oriented X 3, No acute distress - HEENT HEENT: Moist mucous membranes - Neck Neck: Supple, no meningeal sign - Cardiac Cardiac: RRR - Respiratory Respiratory: No respiratory distress, Clear bilaterally - Derm Derm: Warm and dry - Neuro Neuro: Alert and oriented X 3 - Psych Psych: Normal mood, Normal affect Results - Vitals Vitals: Vital Signs - 24 hr 06/21/20 18:03 Temperature 36.6 C Heart Rate 90 Respiratory 16 Rate Blood Pressure 130/100 H O2 Saturation 97 Oxygen O2 Source Room air PD MEDICAL DECISION MAKING - ED course Complexity details: reviewed old records, considered differential, d/w patient ED course: Patient given a dose of Valium here. Feels better. We will have her fill her prescription and follow-up with her doctor. This document was made in part using voice recognition software. While efforts are made to proofread this document, sound alike and grammatical errors may occur. Departure - Departure Disposition: 01 Home, Self Care Clinical Impression: Anxiety Condition: Good Instructions: ED Panic Attack Follow-Up: ROCIO SARAVIA [Primary Care Provider] - Within 1 week Comments: You can try calling the mental health resources that were provided to you tonight for further counseling. Return if you worsen Discharge Date/Time: 06/21/20 18:32
== END 2020-06-21 18:32 | disposition home or self-care (01) ==
LOC: ED 17:53
DX: F41.9 Anxiety disorder, unspecified (principal); F17.200 Nicotine dependence, unspecified, uncomplicated
CPT/HCPCS: 99283; 99284

== ENCOUNTER 2020-06-21 20:46 | Emergency (ER) | payer MEDICAID ==
--- NOTE | 2020-06-21 21:05 | ED Physician Documentation ---
PD HPI MHE - Stated complaint Stated Complaint: MHE - Chief complaint Chief Complaint: MHE - History obtained from History obtained from: Patient - History of Present Illness Primary symptom: Manic (per patient), Anxiety Timing - onset: How many days ago (3-4 days) Pain level max: 0 Pain level now: 0 Contributing factors: Other (no apparent inciting/instigating factor although did start new medication 4 weeks ago) Recently seen: Emergency Dept - Additional information Additional information: patient says she feels manic for past few days; she says she has been breaking things, "screaming things that sometimes don't make sense". She was evaluated in this ED yesterday and again earlier today and was prescribed valium which she didn't fill and thus returned earlier today for ongoing anxiety, given a dose of valium in ED. The ED chart indicates she was improved after this at time of discharge, but patient tells me she has not experienced any improvement. She was started on ziprasadone 4 weeks ago. She denies SI/HI/AH/VH. She does endorse difficulty sleeping. She requests hospitalization. Review of Systems Constitutional: denies: Fever, Chills, Sweats Cardiac: reports: Reviewed and negative Respiratory: reports: Reviewed and negative GI: reports: Reviewed and negative : denies: Now EGA Musculoskeletal: reports: Reviewed and negative Neurologic: reports: Reviewed and negative Psychiatric: reports: Homicidal (she says that at times when she is angry she has had thoughts of hurting others (no one specific, just "whoever is in front of me at the time")), Anxiety, Insomnia. 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: Ovarian cysts, 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, Other : Chronic bladder infection, Kidney stones HEENT: Chronic vision loss Psych: Depression, Anxiety, Post traumatic stress disorder Musculoskeletal: None Derm: None - Past Surgical History Past Surgical History: Yes General: Other /PIZZA HUT ASSISTANT: Oophrectomy - Present Medications Home Medications: Ambulatory Orders Medication Instructions Recorded Confirmed lamoTRIgine [Lamictal] 200 mg PO QPM #7 tablet 12/07/18 11/24/19 Famotidine [Pepcid] 40 mg PO BID 09/11/19 11/24/19 oxyCODONE/ACET 5/325 [Percocet 5 1 each PO Q8HR 09/11/19 11/24/19 mg/325 mg] Albuterol Sulfate [Proair Hfa 1 - 2 puffs INH Q4H PRN #1 inhaler 11/17/19 11/24/19 Inhaler] Promethazine [Phenergan] 25 mg PO Q8H PRN #12 tablet 11/20/19 11/24/19 Azithromycin [Zithromax] 250 mg PO DAILY #6 tablet 11/24/19 Bupropion HCl [Bupropion Xl] 300 mg PO DAILY 11/24/19 11/24/19 OLANZapine [Olanzapine] 10 mg PO DAILY 11/24/19 11/24/19 hydrOXYzine pamoate [Hydroxyzine 25 mg PO PRN PRN 11/24/19 11/24/19 Pamoate] Naproxen [Naprosyn] 250 mg PO Q6H PRN 5 Days #20 tablet 11/28/19 Ondansetron Odt [Zofran] 4 mg TL Q6H PRN #10 tablet 03/15/20 diazePAM [Valium] 5 mg PO TID PRN #15 tablet 06/20/20 - Allergies Allergies/Adverse Reactions: Allergies Allergy/AdvReac Type Severity Reaction Status Date / Time aripiprazole [From Abilify] Allergy Rash Verified 06/21/20 20:50 hydrocodone bitartrate * Allergy Hives Verified 06/21/20 20:50 [From Vicodin] ketorolac Allergy Itching Verified 06/21/20 20:50 ondansetron [From Zofran] Allergy Headache Verified 06/21/20 20:50 tramadol Allergy Hives Verified 06/21/20 20:50 ethinyl estradiol AdvReac Cramps Verified 06/21/20 20:50 [From NuvaRing] etonogestrel [From NuvaRing] AdvReac Cramps Verified 06/21/20 20:50 morphine AdvReac Unknown Verified 06/21/20 20:50 trazodone AdvReac Unknown Verified 06/21/20 20:50 - Social History Does the pt smoke?: Yes Smoking Status: Current every day smoker Does the pt drink ETOH?: No Does the pt have substance abuse?: No - Immunizations Immunizations are current?: Yes - POLST Patient has POLST: No POLST Status: Full Code PD ED PE NORMAL - Vitals Vital signs reviewed: Yes - General General: Alert and oriented X 3, No acute distress, Well developed/nourished - HEENT HEENT: Moist mucous membranes - Neck Neck: Supple, no meningeal sign - Cardiac Cardiac: RRR, No murmur - Respiratory Respiratory: No respiratory distress, Clear bilaterally - Abdomen Abdomen: Soft, Non tender - Neuro Neuro: Alert and oriented X 3, Normal speech Eye Opening: Spontaneous Motor: Obeys Commands Verbal: Oriented GCS Score: 15 - Psych Psych: Normal mood, Normal affect Results - Vitals Vitals: Vital Signs - 24 hr 06/21/20 06/22/20 06/22/20 20:50 04:54 07:30 Temperature 36.6 C 36.1 C L 36.7 C Heart Rate 88 77 85 Respiratory 16 16 18 Rate Blood Pressure 130/80 133/71 H 127/82 H O2 Saturation 100 98 97 Oxygen O2 Source Room air - Labs Labs: Laboratory Tests 06/21/20 06/21/20 06/21/20 21:09 21:09 21:09 WBC 8.4 RBC 4.76 Hgb 12.9 Hct 40.4 MCV 84.9 MCH 27.1 MCHC 31.9 L RDW 14.6 Plt Count 333 MPV 9.3 Neut # (Auto) 4.2 Lymph # (Auto) 3.5 [place] # (Auto) 0.6 Eos # (Auto) 0.0 Baso # (Auto) 0.0 Absolute Nucleated RBC 0.00 Nucleated RBC % 0.0 Sodium 138 Potassium 4.0 Chloride 97 L Carbon Dioxide 27 Anion Gap 14.0 H BUN 17 Creatinine 0.9 Estimated GFR (MDRD) 74 L Glucose 81 Calcium 9.3 Total Bilirubin 0.7 AST 28 ALT 40 Alkaline Phosphatase 90 Total Protein 8.2 Albumin 4.5 Globulin 3.7 Albumin/Globulin Ratio 1.2 Lipase 17 L TSH 1.41 Urine Color Urine Clarity Urine pH Ur Specific [place] Urine Protein Urine Glucose (UA) Urine Ketones Urine Occult Blood Urine Nitrite Urine Bilirubin Urine Urobilinogen Ur Leukocyte Esterase Urine RBC Urine WBC Ur Squamous Epith Cells Urine Bacteria Ur Microscopic Review Urine Culture Comments Urine HCG, Qual Salicylates < 6.0 Urine Opiates Screen Ur Oxycodone Screen Urine Methadone Screen Ur Propoxyphene Screen Acetaminophen < 10 L Ur Barbiturates Screen Ur Tricyclics Screen Ur Phencyclidine Scrn Ur Amphetamine Screen U Methamphetamines Scrn U Benzodiazepines Scrn Urine Cocaine Screen U Cannabinoids Screen Ethyl Alcohol < 5.0 SARS-CoV-2 (PCR) 06/21/20 06/22/20 21:40 01:15 WBC RBC Hgb Hct MCV MCH MCHC RDW Plt Count MPV Neut # (Auto) Lymph # (Auto) [place] # (Auto) Eos # (Auto) Baso # (Auto) Absolute Nucleated RBC Nucleated RBC % Sodium Potassium Chloride Carbon Dioxide Anion Gap BUN Creatinine Estimated GFR (MDRD) Glucose Calcium Total Bilirubin AST ALT Alkaline Phosphatase Total Protein Albumin Globulin Albumin/Globulin Ratio Lipase TSH Urine Color YELLOW Urine Clarity CLEAR Urine pH 6.5 Ur Specific [place] 1.020 Urine Protein NEGATIVE Urine Glucose (UA) NEGATIVE Urine Ketones NEGATIVE Urine Occult Blood NEGATIVE Urine Nitrite NEGATIVE Urine Bilirubin NEGATIVE Urine Urobilinogen 0.2 (NORMAL) Ur Leukocyte Esterase TRACE H Urine RBC None Seen Urine WBC 4-5 Ur Squamous Epith Cells MANY Squamous H Urine Bacteria Few Ur Microscopic Review INDICATED Urine Culture Comments NOT INDICATED Urine HCG, Qual NEGATIVE Salicylates Urine Opiates Screen NEGATIVE Ur Oxycodone Screen NEGATIVE Urine Methadone Screen NEGATIVE Ur Propoxyphene Screen NEGATIVE Acetaminophen Ur Barbiturates Screen NEGATIVE Ur Tricyclics Screen NEGATIVE Ur Phencyclidine Scrn NEGATIVE Ur Amphetamine Screen NEGATIVE U Methamphetamines Scrn NEGATIVE U Benzodiazepines Scrn POSITIVE H Urine Cocaine Screen NEGATIVE U Cannabinoids Screen NEGATIVE Ethyl Alcohol SARS-CoV-2 (PCR) NOT DETECTED PD MEDICAL DECISION MAKING - ED course Complexity details: reviewed old records, reviewed results, re-evaluated patient, considered differential, d/w patient ED course: Telepsych consult obtained and they recommend d/c and outpatient f/u. Telepsych says patient does not meet inpatient criteria. Patient is comfortable with this plan when I reevaluate her after the consult was completed. I encouraged her to return if worse, and pursue f/u with her prescribing physician. Departure - Departure Disposition: 01 Home, Self Care Clinical Impression: Anxiety Condition: Good Instructions: ED Stress React, ED Panic Attack Follow-Up: ROCIO SARAVIA [Primary Care Provider] - Discharge Date/Time: 06/22/20 07:35
[2020-06-21 21:15] LABS: BASOPHILS % (AUTO) 0.2 %; HGB - HEMOGLOBIN 12.9 g/dL (12.0-16.0); LYMPHOCYTES # (AUTO) 3.5 10^3/uL (1.5-3.5); LYMPHOCYTES % (AUTO) 41.9 %; MEAN CORPUSCULAR HEMOGLOBIN 27.1 pg (27.0-31.0); MEAN CORPUSCULAR HGB CONC 31.9 g/dL (32.0-36.0); MEAN CORPUSCULAR VOLUME 84.9 fL (81.0-99.0); MEAN PLATELET VOLUME 9.3 fL (7.9-10.8); MONOCYTES # (AUTO) 0.6 10^3/uL (0.0-1.0); MONOCYTES % (AUTO) 7.5 %; NEUTROPHILS # (AUTO) 4.2 10^3/uL (1.5-6.6); NEUTROPHILS % (AUTO) 50.2 %; PLT - PLATELET COUNT 333 10^3/uL (130-450); RED BLOOD COUNT 4.76 10^6/uL (4.20-5.40); RED CELL DISTRIBUTION WIDTH 14.6 % (12.0-15.0); WHITE BLOOD COUNT 8.4 x10^3/uL (4.8-10.8)
[2020-06-21 21:29] LABS: ACETAMINOPHEN < 10 ug/mL (10-30); ALBUMIN 4.5 g/dL (3.2-5.5); ALBUMIN/GLOBULIN RATIO 1.2 (1.0-2.2); ALKALINE PHOSPHATASE 90 IU/L (42-121); ALT ALANINE AMINOTRANSFERASE 40 IU/L (10-60); AST ASPARTATE AMINOTRANSFERASE 28 IU/L (10-42); BILIRUBIN,TOTAL 0.7 mg/dL (0.2-1.0); BUN - BLOOD UREA NITROGEN 17 mg/dL (6-20); CALCIUM 9.3 mg/dL (8.5-10.3); CARBON DIOXIDE - CO2 27 mmol/L (21-32); CHLORIDE 97 mmol/L (101-111); CREATININE 0.9 mg/dL (0.4-1.0); GLUCOSE 81 mg/dL (70-100); LIPASE 17 U/L (22-51); SALICYLATE < 6.0 mg/dL; SODIUM 138 mmol/L (135-145); TOTAL PROTEIN 8.2 g/dL (6.7-8.2)
[2020-06-22 01:20] LABS: MUDS CUTOFF CONCENTRATIONS CUTOFF CONC BELOW:
[2020-06-22 01:21] LABS: BILIRUBIN,URINE NEGATIVE (NEGATIVE); GLUCOSE, URINE (UA) NEGATIVE (NEGATIVE); KETONES,URINE (UA) NEGATIVE (NEGATIVE); LEUKOCYTE ESTERASE, URINE TRACE (NEGATIVE); NITRITE,URINE NEGATIVE (NEGATIVE); OCCULT BLOOD,URINE NEGATIVE (NEGATIVE); PH,URINE 6.5 PH (5.0-7.5); PROTEIN,URINE NEGATIVE (NEGATIVE); UROBILINOGEN,URINE 0.2 (NORMAL) E.U./dL (NORMAL)
[2020-06-22 01:22] LABS: CLARITY,URINE CLEAR (CLEAR); HCG UR QUAL NEGATIVE
[2020-06-22 01:28] LABS: BACTERIA,URINE Few /HPF (None Seen); RBC,URINE None Seen /HPF (0-5); SQUAMOUS EPITHELIAL CELL,UR MANY Squamous (<= Few)
[2020-06-22 01:31] LABS: AMPHETAMINE SCREEN,URINE NEGATIVE (NEGATIVE); BENZODIAZEPINES SCREEN, URINE POSITIVE (NEGATIVE); COCAINE SCREEN URINE NEGATIVE (NEGATIVE); METHADONE SCREEN, URINE NEGATIVE (NEGATIVE); METHAMPHETAMINES SCREEN, URINE NEGATIVE (NEGATIVE); OPIATE SCREEN, URINE NEGATIVE (NEGATIVE); OXYCODONE SCREEN, URINE NEGATIVE (NEGATIVE); PROPOXYPHENE SCREEN, URINE NEGATIVE (NEGATIVE); TRICYCLIC ANTIDEPRESSANT,URINE NEGATIVE (NEGATIVE)
[2020-06-22 07:31] VITALS: BP 127/82
== END 2020-06-22 07:35 | disposition home or self-care (01) ==
LOC: ED 20:46
DX: F41.9 Anxiety disorder, unspecified (principal); F31.9 Bipolar disorder, unspecified; F60.3 Borderline personality disorder; R45.86 Emotional lability; Z20.828 Contact with and (suspected) exposure to other viral communicable diseases; F17.200 Nicotine dependence, unspecified, uncomplicated
CPT/HCPCS: 36415; 80053; 80306; 80307; 80320; 80329; 81001; 81003; 81025; 83690; 84443; 85025; 87086

== ENCOUNTER 2020-06-22 20:29 | Emergency (ER) | payer MEDICAID ==
--- NOTE | 2020-06-22 21:11 | ED Physician Documentation ---
PD HPI MHE - Stated complaint Stated Complaint: MHE - Chief complaint Chief Complaint: MHE - History obtained from History obtained from: Patient - History of Present Illness Primary symptom: Suicidal ideation, Depression, Anxiety (With anxiety and some depression in the past. She had been here 2 times in the last day and a half with this. Improved with some counseling and Ativan. She states she is feeling more anxious and feeling concerned about hurting herself so came for evaluation to feel safe.). No: Suicide attempt Timing - onset: How many days ago (has had worsening symptoms the past 2-3 days.) Contributing factors: No: Substance abuse - ETOH, Substance abuse - drugs, Off meds Similar symptoms before: Diagnosis (depression and anxiety) Recently seen: Emergency Dept (yesterday 2 times.) Review of Systems Constitutional: denies: Fever Nose: denies: Rhinorrhea / runny nose, Congestion Throat: denies: Sore throat Respiratory: denies: Cough GI: denies: Abdominal Pain, Nausea, Vomiting, Diarrhea Neurologic: denies: Altered mental status, Headache PD PAST MEDICAL HISTORY - Past Medical History Cardiovascular: None Respiratory: None Neuro: Migraines, Peripheral neuropathy Endocrine/Autoimmune: None GI: GERD 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: Ovarian cysts, 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, Other : Chronic bladder infection, Kidney stones HEENT: Chronic vision loss Psych: Depression, Anxiety, Post traumatic stress disorder Musculoskeletal: None Derm: None - Past Surgical History Past Surgical History: Yes General: Other /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: Oophrectomy - Present Medications Home Medications: Ambulatory Orders Medication Instructions Recorded Confirmed lamoTRIgine [Lamictal] 200 mg PO QPM #7 tablet 12/07/18 11/24/19 Famotidine [Pepcid] 40 mg PO BID 09/11/19 11/24/19 oxyCODONE/ACET 5/325 [Percocet 5 1 each PO Q8HR 09/11/19 11/24/19 mg/325 mg] Albuterol Sulfate [Proair Hfa 1 - 2 puffs INH Q4H PRN #1 inhaler 11/17/19 11/24/19 Inhaler] Promethazine [Phenergan] 25 mg PO Q8H PRN #12 tablet 11/20/19 11/24/19 Azithromycin [Zithromax] 250 mg PO DAILY #6 tablet 11/24/19 Bupropion HCl [Bupropion Xl] 300 mg PO DAILY 11/24/19 11/24/19 OLANZapine [Olanzapine] 10 mg PO DAILY 11/24/19 11/24/19 hydrOXYzine pamoate [Hydroxyzine 25 mg PO PRN PRN 11/24/19 11/24/19 Pamoate] Naproxen [Naprosyn] 250 mg PO Q6H PRN 5 Days #20 tablet 11/28/19 Ondansetron Odt [Zofran] 4 mg TL Q6H PRN #10 tablet 03/15/20 diazePAM [Valium] 5 mg PO TID PRN #15 tablet 06/20/20 - Allergies Allergies/Adverse Reactions: Allergies Allergy/AdvReac Type Severity Reaction Status Date / Time aripiprazole [From Abilify] Allergy Rash Verified 06/22/20 20:48 hydrocodone bitartrate * Allergy Hives Verified 06/22/20 20:48 [From Vicodin] ketorolac Allergy Itching Verified 06/22/20 20:48 ondansetron [From Zofran] Allergy Headache Verified 06/22/20 20:48 tramadol Allergy Hives Verified 06/22/20 20:48 ethinyl estradiol AdvReac Cramps Verified 06/22/20 20:48 [From NuvaRing] etonogestrel [From NuvaRing] AdvReac Cramps Verified 06/22/20 20:48 morphine AdvReac Unknown Verified 06/22/20 20:48 trazodone AdvReac Unknown Verified 06/22/20 20:48 - Social History Does the pt smoke?: Yes Smoking Status: Current every day smoker Does the pt drink ETOH?: No Does the pt have substance abuse?: No - Immunizations Immunizations are current?: Yes - POLST Patient has POLST: No POLST Status: Full Code PD ED PE NORMAL - Vitals Vital signs reviewed: Yes - General General: Alert and oriented X 3, No acute distress (does seem slightly anxious, but converses pleasantly. ), Well developed/nourished - Cardiac Cardiac: RRR, No murmur - Respiratory Respiratory: Clear bilaterally - Abdomen Abdomen: Soft, Non tender - Derm Derm: Normal color, Warm and dry - Extremities Extremities: Normal ROM s pain - Neuro Neuro: Alert and oriented X 3, No motor deficit, Normal speech Eye Opening: Spontaneous Motor: Obeys Commands Verbal: Oriented GCS Score: 15 - Psych Psych: No: Normal mood (seems sad and somewhat anxious. ) Results - Vitals Vitals: Vital Signs - 24 hr 06/22/20 20:43 Temperature 36.6 C Heart Rate 97 Respiratory 14 Rate Blood Pressure 137/88 H O2 Saturation 98 Oxygen O2 Source Room air - Labs Labs: Laboratory Tests 06/22/20 06/22/20 06/22/20 21:30 21:30 21:30 WBC 7.8 RBC 4.95 Hgb 13.3 Hct 41.7 MCV 84.2 MCH 26.9 L MCHC 31.9 L RDW 14.6 Plt Count 337 MPV 9.2 Neut # (Auto) 4.4 Lymph # (Auto) 2.9 [place] # (Auto) 0.5 Eos # (Auto) 0.0 Baso # (Auto) 0.0 Absolute Nucleated RBC 0.00 Nucleated RBC % 0.0 Sodium 140 Potassium 3.9 Chloride 100 L Carbon Dioxide 27 Anion Gap 13.0 BUN 19 Creatinine 0.9 Estimated GFR (MDRD) 74 L Glucose 77 Calcium 9.6 Total Bilirubin 0.8 AST 28 ALT 40 Alkaline Phosphatase 91 Total Protein 8.2 Albumin 4.6 Globulin 3.6 Albumin/Globulin Ratio 1.3 Lipase 20 L TSH 0.68 Urine Color Urine Clarity Urine pH Ur Specific [place] Urine Protein Urine Glucose (UA) Urine Ketones Urine Occult Blood Urine Nitrite Urine Bilirubin Urine Urobilinogen Ur Leukocyte Esterase Ur Microscopic Review Urine Culture Comments Urine HCG, Qual Salicylates < 6.0 Urine Opiates Screen Ur Oxycodone Screen Urine Methadone Screen Ur Propoxyphene Screen Acetaminophen < 10 L Ur Barbiturates Screen Ur Tricyclics Screen Ur Phencyclidine Scrn Ur Amphetamine Screen U Methamphetamines Scrn U Benzodiazepines Scrn Urine Cocaine Screen U Cannabinoids Screen Ethyl Alcohol < 5.0 06/22/20 06/22/20 21:30 21:30 WBC RBC Hgb Hct MCV MCH MCHC RDW Plt Count MPV Neut # (Auto) Lymph # (Auto) [place] # (Auto) Eos # (Auto) Baso # (Auto) Absolute Nucleated RBC Nucleated RBC % Sodium Potassium Chloride Carbon Dioxide Anion Gap BUN Creatinine Estimated GFR (MDRD) Glucose Calcium Total Bilirubin AST ALT Alkaline Phosphatase Total Protein Albumin Globulin Albumin/Globulin Ratio Lipase TSH Urine Color YELLOW Urine Clarity CLEAR Urine pH 6.0 Ur Specific [place] >=1.030 H >=1.030 H Urine Protein TRACE Urine Glucose (UA) NEGATIVE Urine Ketones 40 H Urine Occult Blood NEGATIVE Urine Nitrite NEGATIVE Urine Bilirubin NEGATIVE Urine Urobilinogen 0.2 (NORMAL) Ur Leukocyte Esterase NEGATIVE Ur Microscopic Review NOT INDICATED Urine Culture Comments NOT INDICATED Urine HCG, Qual NEGATIVE Salicylates Urine Opiates Screen NEGATIVE Ur Oxycodone Screen NEGATIVE Urine Methadone Screen NEGATIVE Ur Propoxyphene Screen NEGATIVE Acetaminophen Ur Barbiturates Screen NEGATIVE Ur Tricyclics Screen NEGATIVE Ur Phencyclidine Scrn NEGATIVE Ur Amphetamine Screen POSITIVE H U Methamphetamines Scrn NEGATIVE U Benzodiazepines Scrn POSITIVE H Urine Cocaine Screen NEGATIVE U Cannabinoids Screen NEGATIVE Ethyl Alcohol PD MEDICAL DECISION MAKING - ED course Complexity details: considered differential (she would feel most safe here for the night and to talk with Social Work tomorrow. This is her third visit in 2 days, so seems reasonable. Had talked with SW yesterday as well. ), d/w patient
[2020-06-22 21:44] LABS: BASOPHILS % (AUTO) 0.5 %; EOSINOPHILS % (AUTO) 0.1 %; HGB - HEMOGLOBIN 13.3 g/dL (12.0-16.0); LYMPHOCYTES # (AUTO) 2.9 10^3/uL (1.5-3.5); LYMPHOCYTES % (AUTO) 36.9 %; MEAN CORPUSCULAR HEMOGLOBIN 26.9 pg (27.0-31.0); MEAN CORPUSCULAR HGB CONC 31.9 g/dL (32.0-36.0); MEAN CORPUSCULAR VOLUME 84.2 fL (81.0-99.0); MEAN PLATELET VOLUME 9.2 fL (7.9-10.8); MONOCYTES # (AUTO) 0.5 10^3/uL (0.0-1.0); MONOCYTES % (AUTO) 5.8 %; NEUTROPHILS # (AUTO) 4.4 10^3/uL (1.5-6.6); NEUTROPHILS % (AUTO) 56.6 %; PLT - PLATELET COUNT 337 10^3/uL (130-450); RED BLOOD COUNT 4.95 10^6/uL (4.20-5.40); RED CELL DISTRIBUTION WIDTH 14.6 % (12.0-15.0); WHITE BLOOD COUNT 7.8 x10^3/uL (4.8-10.8)
[2020-06-22 21:46] LABS: MUDS CUTOFF CONCENTRATIONS CUTOFF CONC BELOW:
[2020-06-22 21:47] LABS: GLUCOSE, URINE (UA) NEGATIVE (NEGATIVE); KETONES,URINE (UA) 40 mg/dL (NEGATIVE); LEUKOCYTE ESTERASE, URINE NEGATIVE (NEGATIVE); NITRITE,URINE NEGATIVE (NEGATIVE); OCCULT BLOOD,URINE NEGATIVE (NEGATIVE); PROTEIN,URINE TRACE mg/dL (NEGATIVE); UROBILINOGEN,URINE 0.2 (NORMAL) E.U./dL (NORMAL)
[2020-06-22 21:52] LABS: BILIRUBIN,URINE NEGATIVE (NEGATIVE); CLARITY,URINE CLEAR (CLEAR); HCG UR QUAL NEGATIVE; ICTOTEST,URINE NEGATIVE
[2020-06-22 21:57] LABS: ACETAMINOPHEN < 10 ug/mL (10-30); ALBUMIN 4.6 g/dL (3.2-5.5); ALBUMIN/GLOBULIN RATIO 1.3 (1.0-2.2); ALKALINE PHOSPHATASE 91 IU/L (42-121); ALT ALANINE AMINOTRANSFERASE 40 IU/L (10-60); AST ASPARTATE AMINOTRANSFERASE 28 IU/L (10-42); BILIRUBIN,TOTAL 0.8 mg/dL (0.2-1.0); BUN - BLOOD UREA NITROGEN 19 mg/dL (6-20); CALCIUM 9.6 mg/dL (8.5-10.3); CARBON DIOXIDE - CO2 27 mmol/L (21-32); CHLORIDE 100 mmol/L (101-111); CREATININE 0.9 mg/dL (0.4-1.0); GLUCOSE 77 mg/dL (70-100); LIPASE 20 U/L (22-51); SALICYLATE < 6.0 mg/dL; SODIUM 140 mmol/L (135-145); TOTAL PROTEIN 8.2 g/dL (6.7-8.2)
[2020-06-22 21:58] LABS: COCAINE SCREEN URINE NEGATIVE (NEGATIVE); METHAMPHETAMINES SCREEN, URINE NEGATIVE (NEGATIVE); OPIATE SCREEN, URINE NEGATIVE (NEGATIVE)
[2020-06-22 21:59] LABS: AMPHETAMINE SCREEN,URINE POSITIVE (NEGATIVE); BENZODIAZEPINES SCREEN, URINE POSITIVE (NEGATIVE); METHADONE SCREEN, URINE NEGATIVE (NEGATIVE); OXYCODONE SCREEN, URINE NEGATIVE (NEGATIVE); PROPOXYPHENE SCREEN, URINE NEGATIVE (NEGATIVE); TRICYCLIC ANTIDEPRESSANT,URINE NEGATIVE (NEGATIVE)
[2020-06-22] MEDS ORDERED: LORazepam 1 MG TABLET PO STA (22:04)
--- NOTE | 2020-06-23 09:11 | ED Physician Documentation ---
PD HPI MHE - Stated complaint Stated Complaint: MHE - Chief complaint Chief Complaint: MHE - History obtained from History obtained from: Patient - History of Present Illness Primary symptom: Depression, Anxiety Timing - onset: How many weeks ago (4) Contributing factors: Family, Sig other, Work Similar symptoms before: Diagnosis (anxiety and depression) Recently seen: Emergency Dept - Additional information Additional information: 30-year-old female with a history of anxiety and depression has become more anxious and is depressed and she has come back to the emergency department for evaluation and thinks that she may benefit from inpatient treatment. She went to inpatient treatment in September of this year at [facility] and found that was helpful. She has talked to the telepsych psychiatrist here at her last emergency department visit and she felt that was helpful as well. She has been to the emergency department 3 times in the past 3 days and she has been evaluated by social work as well as telepsych and she has elected to go home. She indicates her anxiety and depression are worse than usual and she is uncertain whether this has anything to do with Covid or not. She had Covid back in November. She states that she has a prior history of anxiety and depression it is worse than usual. She indicates she is having some trouble at home with argument with her parents. She lives on the same property and recently her mother was upset that she did not switch her laundry out in time and threw wet clothes at her. Patient also indicates that her boyfriend of 8 years has left the state and she states that they have been on and off friends since childhood and she is uncertain that there is any relationship left. In addition she lost her job at [employer] 1 month ago. She feels that these stressors of induced an increase in her anxiety and depression and she feels her hospitalization would likely be helpful. She called [facility] and they indicated her they would be happy to take her back and asked that we have our social work talk to them. 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: Ovarian cysts, 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, Other : Chronic bladder infection, Kidney stones HEENT: Chronic vision loss Psych: Depression, Anxiety, Post traumatic stress disorder Musculoskeletal: None Derm: None - Past Surgical History Past Surgical History: Yes General: Other /TRANSIT DEPARTMENT CLERK: Oophrectomy - Present Medications Home Medications: Ambulatory Orders Medication Instructions Recorded Confirmed lamoTRIgine [Lamictal] 200 mg PO QPM #7 tablet 12/07/18 11/24/19 Famotidine [Pepcid] 40 mg PO BID 09/11/19 11/24/19 oxyCODONE/ACET 5/325 [Percocet 5 1 each PO Q8HR 09/11/19 11/24/19 mg/325 mg] Albuterol Sulfate [Proair Hfa 1 - 2 puffs INH Q4H PRN #1 inhaler 11/17/19 11/24/19 Inhaler] Promethazine [Phenergan] 25 mg PO Q8H PRN #12 tablet 11/20/19 11/24/19 Azithromycin [Zithromax] 250 mg PO DAILY #6 tablet 11/24/19 Bupropion HCl [Bupropion Xl] 300 mg PO DAILY 11/24/19 11/24/19 OLANZapine [Olanzapine] 10 mg PO DAILY 11/24/19 11/24/19 hydrOXYzine pamoate [Hydroxyzine 25 mg PO PRN PRN 11/24/19 11/24/19 Pamoate] Naproxen [Naprosyn] 250 mg PO Q6H PRN 5 Days #20 tablet 11/28/19 Ondansetron Odt [Zofran] 4 mg TL Q6H PRN #10 tablet 03/15/20 diazePAM [Valium] 5 mg PO TID PRN #15 tablet 06/20/20 - Allergies Allergies/Adverse Reactions: Allergies Allergy/AdvReac Type Severity Reaction Status Date / Time aripiprazole [From Abilify] Allergy Rash Verified 06/22/20 20:48 hydrocodone bitartrate * Allergy Hives Verified 06/22/20 20:48 [From Vicodin] ketorolac Allergy Itching Verified 06/22/20 20:48 ondansetron [From Zofran] Allergy Headache Verified 06/22/20 20:48 tramadol Allergy Hives Verified 06/22/20 20:48 ethinyl estradiol AdvReac Cramps Verified 06/22/20 20:48 [From NuvaRing] etonogestrel [From NuvaRing] AdvReac Cramps Verified 06/22/20 20:48 morphine AdvReac Unknown Verified 06/22/20 20:48 trazodone AdvReac Unknown Verified 06/22/20 20:48 - Social History Does the pt smoke?: Yes Smoking Status: Current every day smoker Does the pt drink ETOH?: No Does the pt have substance abuse?: No - Immunizations Immunizations are current?: Yes - POLST Patient has POLST: No POLST Status: Full Code PD ED PE NORMAL - Vitals Vital signs reviewed: Yes (hypertensive mild ) - General General: Alert and oriented X 3, No acute distress, Well developed/nourished, Other (flattened affect) - HEENT HEENT: Atraumatic, PERRL, EOMI - Derm Derm: Normal color, Warm and dry, No rash - Extremities Extremities: No deformity, No edema - Neuro Neuro: Alert and oriented X 3, 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, No motor deficit, No sensory deficit, Normal speech Eye Opening: Spontaneous Motor: Obeys Commands Verbal: Oriented GCS Score: 15 - Psych Psych: Other (mood is sad affect is flat) Results - Vitals Vitals: Vital Signs - 24 hr 06/22/20 06/23/20 06/23/20 20:43 07:42 10:38 Temperature 36.6 C 36.4 C L Heart Rate 97 78 Respiratory 14 17 16 Rate Blood Pressure 137/88 H 117/71 O2 Saturation 98 96 Oxygen O2 Source Room air - Labs Labs: Laboratory Tests 06/22/20 06/22/20 06/22/20 21:30 21:30 21:30 WBC 7.8 RBC 4.95 Hgb 13.3 Hct 41.7 MCV 84.2 MCH 26.9 L MCHC 31.9 L RDW 14.6 Plt Count 337 MPV 9.2 Neut # (Auto) 4.4 Lymph # (Auto) 2.9 [place] # (Auto) 0.5 Eos # (Auto) 0.0 Baso # (Auto) 0.0 Absolute Nucleated RBC 0.00 Nucleated RBC % 0.0 Sodium 140 Potassium 3.9 Chloride 100 L Carbon Dioxide 27 Anion Gap 13.0 BUN 19 Creatinine 0.9 Estimated GFR (MDRD) 74 L Glucose 77 Calcium 9.6 Total Bilirubin 0.8 AST 28 ALT 40 Alkaline Phosphatase 91 Total Protein 8.2 Albumin 4.6 Globulin 3.6 Albumin/Globulin Ratio 1.3 Lipase 20 L TSH 0.68 Urine Color Urine Clarity Urine pH Ur Specific [place] Urine Protein Urine Glucose (UA) Urine Ketones Urine Occult Blood Urine Nitrite Urine Bilirubin Urine Urobilinogen Ur Leukocyte Esterase Ur Microscopic Review Urine Culture Comments Urine HCG, Qual Salicylates < 6.0 Urine Opiates Screen Ur Oxycodone Screen Urine Methadone Screen Ur Propoxyphene Screen Acetaminophen < 10 L Ur Barbiturates Screen Ur Tricyclics Screen Ur Phencyclidine Scrn Ur Amphetamine Screen U Methamphetamines Scrn U Benzodiazepines Scrn Urine Cocaine Screen U Cannabinoids Screen Ethyl Alcohol < 5.0 06/22/20 06/22/20 21:30 21:30 WBC RBC Hgb Hct MCV MCH MCHC RDW Plt Count MPV Neut # (Auto) Lymph # (Auto) [place] # (Auto) Eos # (Auto) Baso # (Auto) Absolute Nucleated RBC Nucleated RBC % Sodium Potassium Chloride Carbon Dioxide Anion Gap BUN Creatinine Estimated GFR (MDRD) Glucose Calcium Total Bilirubin AST ALT Alkaline Phosphatase Total Protein Albumin Globulin Albumin/Globulin Ratio Lipase TSH Urine Color YELLOW Urine Clarity CLEAR Urine pH 6.0 Ur Specific [place] >=1.030 H >=1.030 H Urine Protein TRACE Urine Glucose (UA) NEGATIVE Urine Ketones 40 H Urine Occult Blood NEGATIVE Urine Nitrite NEGATIVE Urine Bilirubin NEGATIVE Urine Urobilinogen 0.2 (NORMAL) Ur Leukocyte Esterase NEGATIVE Ur Microscopic Review NOT INDICATED Urine Culture Comments NOT INDICATED Urine HCG, Qual NEGATIVE Salicylates Urine Opiates Screen NEGATIVE Ur Oxycodone Screen NEGATIVE Urine Methadone Screen NEGATIVE Ur Propoxyphene Screen NEGATIVE Acetaminophen Ur Barbiturates Screen NEGATIVE Ur Tricyclics Screen NEGATIVE Ur Phencyclidine Scrn NEGATIVE Ur Amphetamine Screen POSITIVE H U Methamphetamines Scrn NEGATIVE U Benzodiazepines Scrn POSITIVE H Urine Cocaine Screen NEGATIVE U Cannabinoids Screen NEGATIVE Ethyl Alcohol PD MEDICAL DECISION MAKING - ED course Complexity details: reviewed results, re-evaluated patient, considered differential, d/w patient ED course: 30-year-old female with history of depression and anxiety has had an increase in her anxiety and her depressionRelated to significant stress at home and at work and with her family. She feels like hospitalization would help and she has had hospitalization previously. 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 Departure - Departure Disposition: 65 Psych Hosp/Unit DC/Xfer Clinical Impression: Anxiety Depression Qualifiers: Depression Type: major depressive disorder Major depression recurrence: recurrent Active/Remission status: currently active Major depression episode severity: moderate Qualified Code(s): F33.1 - Major depressive disorder, recurrent, moderate
[2020-06-23] MEDS ORDERED: LORazepam 1 MG TABLET PO STA (10:23)
[2020-06-23 14:37] VITALS: BP 151/90
== END 2020-06-23 14:51 ==
LOC: ED 20:29
DX: F41.9 Anxiety disorder, unspecified (principal); F33.1 Major depressive disorder, recurrent, moderate; R45.851 Suicidal ideations; F60.3 Borderline personality disorder; R45.86 Emotional lability; Z20.828 Contact with and (suspected) exposure to other viral communicable diseases; F17.200 Nicotine dependence, unspecified, uncomplicated
CPT/HCPCS: 36415; 80053; 80306; 80307; 80320; 80329; 81001; 81003; 81025; 83690; 84443; 85025; 87635; 99283; 99284; 99285; A9270; G0426; J8499; 87086

== ENCOUNTER 2020-09-17 08:00 | Outpatient (CLI) | payer MEDICAID | END 2020-09-17 23:59 | disposition home or self-care (01) | LOC: LAB 08:00 | PROVIDERS: ATTEND Family Medicine | DX: C92.50 Acute myelomonocytic leukemia, not having achieved remission (principal); N64.59 Other signs and symptoms in breast | CPT/HCPCS: 36415; 84702 ==

== ENCOUNTER 2020-09-17 14:06 | Outpatient (CLI) | payer MEDICAID ==
--- NOTE | 2020-09-17 16:38 | Ultrasound Report ---
PROCEDURE: Pelvic w/Transvaginal INDICATIONS: MENORRHAGIA TECHNIQUE: Real-time scanning was performed of the pelvic organs, with image documentation. Additional endovagi nal scanning was necessary due to incomplete visualization of the adnexal and endometrial structures by transabdominal scanning. COMPARISON: None. FINDINGS: No pathologic free abdominal or pelvic fluid. Uterus: Uterus is normal in size at 8.3 x 4.2 x 5.1 cm. The endometrium measures 9-10 mm in combine d thickness. Ovaries: Left ovary measures 3.2 x 1.6 x 1.8 cm and is unremarkable. The right ovary is not seen and reportedly surgically absent IMPRESSION: Status post right oophorectomy. Otherwise negative examination. Reviewed by: Efraín Green MD on 09/17/2020 4:37 PM PST Approved by: Efraín Green MD on 09/17/2020 4:37 PM PST Station ID: [id number]
== END 2020-09-17 14:07 | disposition home or self-care (01) ==
LOC: DI 14:06
PROVIDERS: ATTEND Family Medicine
DX: N92.0 Excessive and frequent menstruation with regular cycle (principal); Z90.721 Acquired absence of ovaries, unilateral

== ENCOUNTER 2020-09-17 14:57 | Outpatient (CLI) | payer MEDICAID ==
--- NOTE | 2020-09-18 05:32 | XRAY Report ---
PROCEDURE: Abdomen 2 View X-Ray INDICATIONS: CONSTIPATION TECHNIQUE: 2 views of the abdomen were acquired. COMPARISON: FINDINGS: Surgical changes and devices: None. Bowel: No pneumoperitoneum. The bowel gas pattern is normal. Mild to moderate stool. Soft tissues: No masses; visualized solid organ contours appear normal in size. No suspicious abdom inal calcifications. Lateral curvature of the spine and discogenic changes. IMPRESSION: Mild/moderate stool. No specific evidence of bowel obstruction although continued survei llance with abdominal radiographs could be performed if the patient's symptoms do not improve. Reviewed by: Efraín Green MD on 09/17/2020 4:38 PM PST Approved by: Efraín Green MD on 09/17/2020 4:38 PM PST Station ID: [id number]
== END 2020-09-17 14:58 | disposition home or self-care (01) ==
LOC: DI 14:57
PROVIDERS: ATTEND Family Medicine
DX: K59.00 Constipation, unspecified (principal); N92.0 Excessive and frequent menstruation with regular cycle; Z90.721 Acquired absence of ovaries, unilateral; C92.50 Acute myelomonocytic leukemia, not having achieved remission; N64.59 Other signs and symptoms in breast
CPT/HCPCS: 36415; 84702

== ENCOUNTER 2020-11-04 17:08 | Outpatient (CLI) | payer MEDICAID ==
[2020-11-04 17:31] LABS: BASOPHILS % (AUTO) 0.5 %; EOSINOPHILS # (AUTO) 0.1 10^3/uL (0.0-0.7); EOSINOPHILS % (AUTO) 1.3 %; HCT - HEMATOCRIT 39.1 % (37.0-47.0); HGB - HEMOGLOBIN 12.3 g/dL (12.0-16.0); LYMPHOCYTES # (AUTO) 3.9 10^3/uL (1.5-3.5); LYMPHOCYTES % (AUTO) 46.7 %; MEAN CORPUSCULAR HEMOGLOBIN 27.2 pg (27.0-31.0); MEAN CORPUSCULAR HGB CONC 31.5 g/dL (32.0-36.0); MEAN CORPUSCULAR VOLUME 86.3 fL (81.0-99.0); MEAN PLATELET VOLUME 9.7 fL (7.9-10.8); MONOCYTES # (AUTO) 0.6 10^3/uL (0.0-1.0); MONOCYTES % (AUTO) 6.9 %; NEUTROPHILS # (AUTO) 3.8 10^3/uL (1.5-6.6); NEUTROPHILS % (AUTO) 44.5 %; PLT - PLATELET COUNT 330 10^3/uL (130-450); RED BLOOD COUNT 4.53 10^6/uL (4.20-5.40); RED CELL DISTRIBUTION WIDTH 14.4 % (12.0-15.0); WHITE BLOOD COUNT 8.4 x10^3/uL (4.8-10.8)
[2020-11-04 17:49] LABS: ALBUMIN 4.4 g/dL (3.2-5.5); ALBUMIN/GLOBULIN RATIO 1.2 (1.0-2.2); ALKALINE PHOSPHATASE 79 IU/L (42-121); ALT ALANINE AMINOTRANSFERASE 33 IU/L (10-60); AST ASPARTATE AMINOTRANSFERASE 30 IU/L (10-42); BILIRUBIN,TOTAL 0.3 mg/dL (0.2-1.0); BUN - BLOOD UREA NITROGEN 14 mg/dL (6-20); CARBON DIOXIDE - CO2 29 mmol/L (21-32); CHLORIDE 96 mmol/L (101-111); CHOLESTEROL 161 mg/dL; CREATININE 0.8 mg/dL (0.4-1.0); GFR - MDRD 85 (>89); GLUCOSE 95 mg/dL (70-100); HDL CHOLESTEROL 54 mg/dL; LDL CHOLESTEROL,CALCULATED 92 mg/dL; LDL/HDL RATIO 1.7 (<4.4); POTASSIUM 4.1 mmol/L (3.5-5.0); SODIUM 137 mmol/L (135-145); TOTAL PROTEIN 8.2 g/dL (6.7-8.2); TRIGLYCERIDES 77 mg/dL; VLDL CHOLESTEROL 15 mg/dL
[2020-11-04 18:01] LABS: THYROID STIMULATING HORMONE 0.86 uIU/mL (0.34-5.60)
[2020-11-04 18:03] LABS: FREE T3 4.26 pg/mL (2.5-3.9)
[2020-11-04 18:06] LABS: FREE T4 (FREE THYROXINE) 0.74 ng/dL (0.58-1.64)
[2020-11-04 18:09] LABS: PROLACTIN 4.14 ng/mL
[2020-11-04 18:29] LABS: FOLLICLE STIMULATING HORMONE 4.75 mIU/mL
[2020-11-04 18:30] LABS: LUTEINIZING HORMONE 4.43 mIU/mL
[2020-11-04 18:36] LABS: ESTIMATED AVERAGE GLUCOSE 117 mg/dL (70-100); HEMOGLOBIN A1c% 5.7 % (4.27-6.07)
--- OUTSIDE RECORDS SUMMARY | 2020-11-16 19:17 | EXTERNAL MEDICAL SUMMARY RPT | Continuity of Care Document ---
:1990 Demographics Phone Unavailable Preferred Language Peruvian Marital Status Unknown Hinduism Affiliation Unknown Race Unknown Ethnic Group Unknown Author Organization [facility] Address [address] [phone] Phone Care Team Providers Name Role Phone Newlon Unavailable Unavailable Medications date description facility [id number] Bisacodyl 5 MG Enteric Coated Tablet [facility] [id number] Fluconazole 150 MG Oral Tablet [facility] [id number] Tretinoin 0.0005 MG/MG Topical Gel [facility] 65543214 Famotidine 40 MG Oral Tablet [facility] [id number] Diazepam 5 MG Oral Tablet [facility] 37953284 Nystatin 100 UNT/MG Topical Ointment [facility] [id number] 24 HR Bupropion Hydrochloride 150 MG Ex [facility] Tablet 41929258 Bisacodyl 5 MG Enteric Coated Tablet [facility] 99664675 Ondansetron 8 MG Oral Tablet [facility] 21495175 Diazepam 5 MG Oral Tablet [facility] 94997277 ziprasidone 60 MG Oral Capsule [facility] [id number] Propranolol Hydrochloride 10 MG Oral Ta [facility] 18675349 24 HR Bupropion Hydrochloride 300 MG Ex [facility] Tablet Procedures date description facility [id number] [facility] date description facility [id number] [facility] date description facility [id number] [facility] Social History date description facility [id number]
== END 2020-11-04 17:09 | disposition home or self-care (01) ==
LOC: LAB 17:08
PROVIDERS: ATTEND Family Medicine
DX: E28.2 Polycystic ovarian syndrome (principal); N92.0 Excessive and frequent menstruation with regular cycle
CPT/HCPCS: 36415; 80053; 80061; 81599; 82672; 83001; 83002; 83036; 83525; 83721; 84146; 84402; 84403; 84439; 84443; 84481; 85025

== ENCOUNTER 2021-06-04 22:06 | Emergency (ER) | payer MEDICAID ==
[2021-06-04] MEDS ORDERED: diazePAM 5 MG TABLET PO STA (23:56)
[2021-06-05 00:09] VITALS: BP 140/90
--- NOTE | 2021-06-05 00:10 | ED Physician Documentation ---
History of Present Illness - Stated complaint Stated Complaint: PANIC ATTACK/DIZZY - Chief complaint Chief Complaint: MHE - History obtained from History obtained from: Patient - Additonal information Additional information: 31yF with pmh mental health issues and anxiety p/w panic attack this evening. also with concern that she may have a concussion after hitting her head 2 months ago. Patient had her meds changed shortly prior to that. She states over the past couple months she has had progressively worsening nausea, dizziness, sleep disturbance intermittent headaches and more and more frequent panic attacks. patient did not experience LOC after her head injury but does say she had a large gash on her head that has since healed. Review of Systems Ten Systems: 10 systems reviewed and negative Eyes: reports: Photophobia. denies: Loss of vision Cardiac: reports: Chest pain / pressure Respiratory: reports: Dyspnea. denies: Cough GI: reports: Nausea. denies: Vomiting Neurologic: reports: Headache, Head injury. denies: Focal weakness, Numbness, LOC Psychiatric: reports: Anxiety. 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, 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, Other : Chronic bladder infection, Kidney stones HEENT: Chronic vision loss Psych: Depression, Anxiety, Panic attacks, Post traumatic stress disorder Musculoskeletal: None Derm: None - Past Surgical History Past Surgical History: Yes General: Other /HIGH SCHOOL PROFESSIONAL: Oophrectomy - Present Medications Home Medications: Ambulatory Orders Medication Instructions Recorded Confirmed Famotidine [Pepcid] 40 mg PO BID 09/11/19 06/04/21 Albuterol Sulfate [Proair Hfa 1 - 2 puffs INH Q4H PRN #1 inhaler 11/17/19 06/04/21 Inhaler] Promethazine [Phenergan] 25 mg PO Q8H PRN #12 tablet 11/20/19 06/04/21 Buprenorphine HCl/Naloxone HCl 8 mg PO BID 06/04/21 06/04/21 [Suboxone 8-2 mg Tab] diazePAM [Valium] 5 mg PO BID 06/04/21 06/04/21 hydrOXYzine HCL [Hydroxyzine HCl] 25 mg PO Q6H PRN #30 tablet 06/04/21 - Allergies Allergies/Adverse Reactions: Allergies Allergy/AdvReac Type Severity Reaction Status Date / Time aripiprazole [From Abilify] Allergy Rash Verified 06/04/21 22:11 hydrocodone bitartrate * Allergy Hives Verified 06/04/21 22:11 [From Vicodin] ketorolac Allergy Itching Verified 06/04/21 22:11 ondansetron [From Zofran] Allergy Headache Verified 06/04/21 22:11 tramadol Allergy Hives Verified 06/04/21 22:11 ethinyl estradiol AdvReac Cramps Verified 06/04/21 22:11 [From NuvaRing] etonogestrel [From NuvaRing] AdvReac Cramps Verified 06/04/21 22:11 morphine AdvReac Unknown Verified 06/04/21 22:11 trazodone AdvReac Unknown Verified 06/04/21 22:11 - Social History Does the pt smoke?: Yes Smoking Status: Current every day smoker Does the pt drink ETOH?: No Does the pt have substance abuse?: No - Immunizations Immunizations are current?: Yes - POLST Patient has POLST: No POLST Status: Full Code PD ED PE NORMAL - Vitals Vital signs reviewed: Yes - General General: Alert and oriented X 3, No acute distress, Well developed/nourished - HEENT HEENT: Atraumatic, PERRL, EOMI, Ears normal, Moist mucous membranes, Pharynx benign, Other (no laceration or abrasion noted to scalp) - Neck Neck: No bony TTP - Cardiac Cardiac: RRR - Respiratory Respiratory: No respiratory distress, Clear bilaterally - Abdomen Abdomen: Non tender, Non distended - Derm Derm: Normal color, Warm and dry - Neuro Neuro: Alert and oriented X 3, vamper 2-12 intact, No motor deficit, No sensory def icit, Normal speech - Psych Psych: Normal affect, Other (denies SI/HI/AVH. endorses persistent anxiety) Results - Vitals Vitals: Vital Signs - 24 hr 06/04/21 22:11 Temperature 36.5 C Heart Rate 84 Respiratory 16 Rate Blood Pressure 150/98 H O2 Saturation 100 Oxygen O2 Source Room air PD MEDICAL DECISION MAKING - ED course ED course: 31yF presents with panic attacks and possible postconcussive syndrome versus medication side effect. patient has regular mental health counseling, and plans to f/u with her pmd regarding her symptoms. return precautions given. Departure - Departure Disposition: 01 Home, Self Care Clinical Impression: Anxiety Condition: Stable Instructions: ED Panic Attack Prescriptions: hydrOXYzine HCL [Hydroxyzine HCl] 25 mg PO Q6H PRN #30 tablet PRN Reason: Anxiety Comments: You were seen in the emergency department for anxiety and possible postconcussi ve syndrome. You need to follow-up with your primary doctor for further evaluation. Please return to the emergency department you have any new or worsening symptoms or other concerns.
== END 2021-06-05 00:05 | disposition home or self-care (01) ==
LOC: ED 22:06
DX: F41.9 Anxiety disorder, unspecified (principal); F17.200 Nicotine dependence, unspecified, uncomplicated
CPT/HCPCS: 99282; 99283; A9270

== ENCOUNTER 2021-10-25 19:47 | Outpatient (CLI) | payer MEDICAID ==
[2021-10-25 20:38] LABS: CHOLESTEROL 129 mg/dL; HDL CHOLESTEROL 43 mg/dL; LDL CHOLESTEROL,CALCULATED 63 mg/dL; LDL/HDL RATIO 1.5 (<4.4); TRIGLYCERIDES 113 mg/dL; VLDL CHOLESTEROL 23 mg/dL
[2021-10-25 20:46] LABS: ESTIMATED AVERAGE GLUCOSE 117 mg/dL (70-100); HEMOGLOBIN A1c% 5.7 % (4.27-6.07)
[2021-10-25 20:47] LABS: CA 125 8.5 U/mL (0.0-35.0)
[2021-10-25 20:51] LABS: THYROID STIMULATING HORMONE 1.25 uIU/mL (0.34-5.60)
== END 2021-10-25 19:48 | disposition home or self-care (01) ==
LOC: LAB 19:47
PROVIDERS: ATTEND Family Medicine
DX: C56.1 Malignant neoplasm of right ovary (principal); E28.2 Polycystic ovarian syndrome; E66.9 Obesity, unspecified
CPT/HCPCS: 36415; 80061; 81599; 82105; 82672; 83036; 83520; 83525; 83721; 84403; 84443; 86304

== ENCOUNTER 2021-10-26 09:47 | Emergency (ER) | payer MEDICAID ==
--- NOTE | 2021-10-26 10:11 | ED Physician Documentation ---
PD HPI FEMALE - Stated complaint Stated Complaint: FEMALE - Chief complaint Chief Complaint: Abd Pain - History obtained from History obtained from: Patient - History of Present Illness Timing - onset: How many weeks ago (1) Timing - duration: Weeks (1) Timing - details: Gradual onset, Still present, Waxing and waning Associated symptoms: Back pain, Pelvic pain, Vaginal pain, Vaginal discharge, Genital sore/lesion, Dysuria, Urinary frequency Similar symptoms before: Diagnosis (UTI and yeast vaginitis) Recently seen: Not recently seen - Additional information Additional information: 31-year-old female with a number of gynecologic issues including prior ovarian cancer has developed some itching to the vaginal area as well as a discharge and she is having some urinary urgency frequency and dysuria. She has a spot on the labia that looks like a tiny blister. She has not had herpes previously. 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: 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, 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, Other : Chronic bladder infection, Kidney stones HEENT: Chronic vision loss Psych: Depression, Anxiety, Panic attacks, Post traumatic stress disorder Musculoskeletal: None Derm: None - Past Surgical History Past Surgical History: Yes General: Other /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 SETTER 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: Oophrectomy - Present Medications Home Medications: Ambulatory Orders Medication Instructions Recorded Confirmed Famotidine [Pepcid] 40 mg PO BID 09/11/19 10/26/21 Albuterol Sulfate [Proair Hfa 1 - 2 puffs INH Q4H PRN #1 inhaler 11/17/19 10/26/21 Inhaler] Buprenorphine HCl/Naloxone HCl 8 mg PO BID 06/04/21 10/26/21 [Suboxone 8-2 mg Tab] diazePAM [Valium] 5 mg PO BID 06/04/21 10/26/21 hydrOXYzine HCL [Hydroxyzine HCl] 25 mg PO Q6H PRN #30 tablet 06/04/21 10/26/21 Fluconazole [Diflucan] 1 tablet PO ONCE 1 Days #2 tablet 10/26/21 Phenazopyridine HCl [Pyridium] 200 mg PO TID PRN #6 tablet 10/26/21 Promethazine [Phenergan] 12.5 - 25 mg PO Q8H PRN 10/26/21 10/26/21 Sulfamethox/Trimeth 800/160 1 each PO BID #10 tablet 10/26/21 [Bactrim Ds] lamoTRIgine [LaMICtal] 100 mg PO HS 10/26/21 10/26/21 polyethylene glycoL 3350 17 gm PO DAILY PRN 10/26/21 10/26/21 [Polyethylene Glycol 3350] - Allergies Allergies/Adverse Reactions: Allergies Allergy/AdvReac Type Severity Reaction Status Date / Time aripiprazole [From Abilify] Allergy Rash Verified 10/26/21 09:56 hydrocodone bitartrate * Allergy Hives Verified 10/26/21 09:56 [From Vicodin] ketorolac Allergy Itching Verified 10/26/21 09:56 ondansetron [From Zofran] Allergy Headache Verified 10/26/21 09:56 tramadol Allergy Hives Verified 10/26/21 09:56 ethinyl estradiol AdvReac Cramps Verified 10/26/21 09:56 [From NuvaRing] etonogestrel [From NuvaRing] AdvReac Cramps Verified 10/26/21 09:56 morphine AdvReac Unknown Verified 10/26/21 09:56 trazodone AdvReac Unknown Verified 10/26/21 09:56 - Social History Does the pt smoke?: Yes Smoking Status: Current every day smoker Does the pt drink ETOH?: No Does the pt have substance abuse?: No - Immunizations Immunizations are current?: Yes - POLST Patient has POLST: No POLST Status: Full Code PD ED PE NORMAL - Vitals Vital signs reviewed: Yes (Hypertensive) - General General: Alert and oriented X 3, No acute distress, Well developed/nourished - HEENT HEENT: Atraumatic, PERRL, EOMI - Respiratory Respiratory: No respiratory distress - Female Female : Wire Spinner present (Jessica), Other (no significant dischage, small b julissa on left labia sampled for HSV. 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, No motor deficit, No sensory deficit, Normal speech Eye Opening: Spontaneous Motor: Obeys Commands Verbal: Oriented GCS Score: 15 - Psych Psych: Normal mood, Normal affect Results - Vitals Vitals: Vital Signs - 24 hr 10/26/21 10/26/21 10/26/21 09:51 11:04 13:00 Temperature 35.9 C L 36.8 C 36.6 C Heart Rate 92 72 74 Respiratory 16 18 15 Rate Blood Pressure 144/84 H 137/85 H 128/80 O2 Saturation 100 98 95 Oxygen O2 Source Room air - Labs Labs: Laboratory Tests 10/26/21 10/26/21 09:58 10:35 Urine Color YELLOW Urine Clarity CLEAR Urine pH 6.0 Ur Specific [place] >=1.030 H Urine Protein NEGATIVE Urine Glucose (UA) NEGATIVE Urine Ketones NEGATIVE Urine Occult Blood NEGATIVE Urine Nitrite NEGATIVE Urine Bilirubin NEGATIVE Urine Urobilinogen 0.2 (NORMAL) Ur Leukocyte Esterase TRACE H Urine RBC None Seen Urine WBC 6-10 H Ur Squamous Epith Cells MANY Squamous H Urine Bacteria Few Urine Mucus Marked Strands Ur Microscopic Review INDICATED Urine Culture Comments NOT INDICATED Urine HCG, Qual NEGATIVE C. glabrata (PCR) NEGATIVE C. krusei (PCR) NEGATIVE Kadie species DNA POSITIVE A T. vaginalis (PCR) NEGATIVE Bact Vaginosis (PCR) NEGATIVE PD MEDICAL DECISION MAKING - ED course Complexity details: reviewed old records, reviewed results, re-evaluated patient, considered differential, d/w patient ED course: 31-year-old female with complaints of urinary urgency frequency and dysuria does have white blood cells in her urine she also has some vaginal itching symptom hernandez and she has Kadie on the vaginal swab for vaginitis. We did send a swab for HSV 1 for a small lesion she had on the labia. She will follow up with her primary for results of that test. We we will treat for both Kadie and urinary tract infection. I have encouraged the patient to follow-up with TILE SETTER SUPERVISOR for these complaints as she has a number of them and specialty care as indicated. Departure - Departure Disposition: 01 Home, Self Care Clinical Impression: Vaginal candidiasis Urinary tract infection Qualifiers: Urinary tract infection type: acute cystitis Hematuria presence: without hematuria Qualified Code(s): N30.00 - Acute cystitis without hematuria Condition: Stable Instructions: ED UTI Cystitis Female, ED Vaginal Infec Fungal Kadie Follow-Up: ROCIO SARAVIA [Primary Care Provider] - Prescriptions: Sulfamethox/Trimeth 800/160 [Bactrim Ds] 1 each PO BID #10 tablet Fluconazole [Diflucan] 1 tablet PO ONCE 1 Days #2 tablet Phenazopyridine HCl [Pyridium] 200 mg PO TID PRN #6 tablet PRN Reason: dysuria Comments: Ivory today it looks like the problems you are having are likely related to urinary tract infection and yeast vaginitis. I have refilled a prescription for Diflucan for you and we have written a prescription for some sulfamethoxazole trimethoprim as well as some Pyridium. These have been E scribed to [facility] in [place]. You do have a complicated TILE SETTER SUPERVISOR case and frequent problems and a follow-up with a TILE SETTER SUPERVISOR doctor is indicated. Discharge Date/Time: 10/26/21 13:12
--- OUTSIDE RECORDS SUMMARY | 2021-10-26 10:16 | EXTERNAL MEDICAL SUMMARY RPT | Continuity of Care Document ---
:1990 Author Organization [facility] Address [address] [place] [address] Phone Care Team Providers Name Role Phone Newlon Unavailable Unavailable Allergies No information. Encounters No information. Medications date description facility [id number] lamotrigine 25 MG Oral Tablet [facility] 20210913 Promethazine Hydrochloride 25 MG Rectal Suppository [facility] 20210913 lamotrigine 100 MG Oral Tablet [facility] 20210912 POLYETHYLENE GLYCOL 3350 142 MG/ML Oral Solution [facility] 20210912 Famotidine 40 MG Oral Tablet [facility] 20210912 Diazepam 5 MG Oral Tablet [facility] 20210908 Ondansetron 8 MG Disintegrating Tablet [facility] 20210908 Ondansetron 8 MG Oral Tablet [facility] 20210908 Bisacodyl 5 MG Enteric Coated Tablet [facility] 20210905 Promethazine Hydrochloride 12.5 MG Rect al Suppository [facility] 20210905 Promethazine Hydrochloride 12.5 MG Oral Tablet [facility] 20210905 Tretinoin 0.0005 MG/MG Topical Gel [facility] 20210902 Nystatin 100 UNT/MG Topical Ointment [facility] 20210902 Fluconazole 150 MG Oral Tablet [facility] 20210902 Docusate Sodium 100 MG Oral Capsule [facility] 20210902 Triamcinolone Acetonide 0.25 MG/ML Topi mak Cream [facility] 20210825 Famotidine 40 MG Oral Tablet [facility] 20210802 Diazepam 5 MG Oral Tablet [facility] Problems date description facility 20210927 Migraine, unspecified, not intractable, without status [facility] migra 20210927 Encounter for blood-alcohol and blood-d rug test [facility] 20210927 Concussion with loss of consciousness o f unspecified [facility] duratio 20210823 Postconcussional syndrome [facility] Procedures date description facility [id number] [facility] 20210823 [facility] Results No information. Vital Signs date measurement value source 20210823 weight_standard 117.93 lb 20210823 weight_metric 53.49 kg 20210823 temperature_standard 98.4 F 20210823 temperature_metric 36.89 C 20210823 respiration_rate 18 /min 20210823 height_standard 62 in 20210823 height_metric 157.48 cm 20210823 heart_rate 75 /min 20210823 BP_systolic 136 mm[Hg] 20210823 BP_diastolic 77 mm[Hg] 20210823 BMI 47.5 kg/m2 20210927 weight_standard 120.31 lb 20210927 weight_metric 54.57 kg 20210927 height_standard 62 in 20210927 height_metric 157.48 cm 20210927 heart_rate 93 /min 20210927 BP_systolic 110 mm[Hg] 20210927 BP_diastolic 70 mm[Hg] 20210927 BMI 48.5 kg/m2
[2021-10-26 10:36] LABS: BILIRUBIN,URINE NEGATIVE (NEGATIVE); GLUCOSE, URINE (UA) NEGATIVE (NEGATIVE); KETONES,URINE (UA) NEGATIVE (NEGATIVE); LEUKOCYTE ESTERASE, URINE TRACE (NEGATIVE); NITRITE,URINE NEGATIVE (NEGATIVE); OCCULT BLOOD,URINE NEGATIVE (NEGATIVE); PROTEIN,URINE NEGATIVE (NEGATIVE); UROBILINOGEN,URINE 0.2 (NORMAL) E.U./dL (NORMAL)
[2021-10-26 10:37] LABS: CLARITY,URINE CLEAR (CLEAR); HCG UR QUAL NEGATIVE
[2021-10-26 10:43] LABS: BACTERIA,URINE Few /HPF (None Seen); RBC,URINE None Seen /HPF (0-5); SQUAMOUS EPITHELIAL CELL,UR MANY Squamous (<= Few)
[2021-10-26 10:44] LABS: MUCUS,URINE Marked Strands
[2021-10-26 13:03] VITALS: BP 128/80
[2021-10-26 14:48] LABS: BACTERIAL VAGINOSIS DNA NEGATIVE (NEGATIVE); CANDIDA GLABRATA DNA NEGATIVE (NEGATIVE); CANDIDA GROUP DNA POSITIVE (NEGATIVE); CANDIDA KRUSEI DNA NEGATIVE (NEGATIVE); TRICHOMONAS VAGINALIS DNA NEGATIVE (NEGATIVE)
[2021-10-29 14:07] LABS: HSV 1 DNA NOT DETECTED; HSV 2 DNA NOT DETECTED; SOURCE VAG
== END 2021-10-26 13:12 | disposition home or self-care (01) ==
LOC: ED 09:47
DX: B37.3 Candidiasis of vulva and vagina (principal); N30.00 Acute cystitis without hematuria; F17.200 Nicotine dependence, unspecified, uncomplicated
CPT/HCPCS: 81001; 81003; 81025; 87086; 87529; 87661; 87801; 99283

== ENCOUNTER 2021-10-30 12:16 | Emergency (ER) | payer MEDICAID ==
--- OUTSIDE RECORDS SUMMARY | 2021-10-30 12:40 | EXTERNAL MEDICAL SUMMARY RPT | Continuity of Care Document ---
:1990 Author Organization [facility] Address [address] [place] [address] Phone Care Team Providers Name Role Phone Newlon Unavailable Unavailable Allergies No information. Encounters No information. Medications date description facility [id number] lamotrigine 25 MG Oral Tablet [facility] 20210913 Promethazine Hydrochloride 25 MG Rectal Suppository [facility] 20210913 lamotrigine 100 MG Oral Tablet [facility] 20210912 POLYETHYLENE GLYCOL 3350 142 MG/ML Oral Solution [facility] 20210912 Famotidine 40 MG Oral Tablet [facility] 20210912 Diazepam 5 MG Oral Tablet [facility] 20210908 Ondansetron 8 MG Disintegrating Tablet [facility] 20210908 Ondansetron 8 MG Oral Tablet [facility] 20210908 Bisacodyl 5 MG Enteric Coated Tablet [facility] 20210905 Promethazine Hydrochloride 12.5 MG Rect al Suppository [facility] 20210905 Promethazine Hydrochloride 12.5 MG Oral Tablet [facility] 20210905 Tretinoin 0.0005 MG/MG Topical Gel [facility] 20210902 Nystatin 100 UNT/MG Topical Ointment [facility] 20210902 Fluconazole 150 MG Oral Tablet [facility] 20210902 Docusate Sodium 100 MG Oral Capsule [facility] 20210902 Triamcinolone Acetonide 0.25 MG/ML Topi mak Cream [facility] 20210825 Famotidine 40 MG Oral Tablet [facility] 20210802 Diazepam 5 MG Oral Tablet [facility] Problems date description facility 20210927 Migraine, unspecified, not intractable, without status [facility]ra 20210927 Encounter for blood-alcohol and blood-d rug test [facility] 20210927 Concussion with loss of consciousness o f unspecified [facility] duratio 20210823 Postconcussional syndrome [facility] Procedures date description facility [id number] [facility] 20210823 [facility] Results No information. Vital Signs date [...]
--- NOTE | 2021-10-30 12:45 | ED Physician Documentation ---
History of Present Illness - Stated complaint Stated Complaint: DIZZY,ABD PX,INCONTINANCE - Chief complaint Chief Complaint: Abd Pain - Additonal information Additional information: 31-year-old female presents to the emergency department again for reevaluation of her urinary urgency frequency and dysuria. Seen on the of this month by my colleague. At that time diagnosed with acute cystitis and a yeast infection was started on Bactrim and Fluconazole. States that she continues to have urgency and frequency. Her yeast infection has begun to improve but she feels as though the bladder infection has not. No fevers. She does have chronic pelvic pain as well as a history of ovarian cancer status post right oophorectomy. Review of Systems Constitutional: denies: Fever, Chills Throat: reports: Reviewed and negative Cardiac: reports: Reviewed and negative Respiratory: reports: Reviewed and negative GI: reports: Abdominal Pain, Nausea. denies: Vomiting, Constipation, Diarrhea : reports: Dysuria, Frequency, Hesitancy Skin: denies: Rash, Lesions Musculoskeletal: reports: Reviewed and negative Neurologic: reports: Reviewed and negative PD PAST MEDICAL HISTORY - Past Medical History Cardiovascular: None Respiratory: None Neuro: Migraines, Peripheral neuropathy Endocrine/Autoimmune: None GI: GERD GEOLOGIST: Ovarian cysts, 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, Other : Chronic bladder infection, Kidney stones HEENT: Chronic vision loss Psych: Depression, Anxiety, Panic attacks, Post traumatic stress disorder Musculoskeletal: None Derm: None - Past Surgical History Past Surgical History: Yes General: Other /GEOLOGIST: Oophrectomy - Present Medications Home Medications: Ambulatory Orders Medication Instructions Recorded Confirmed Famotidine [Pepcid] 40 mg PO BID 09/11/19 10/26/21 Albuterol Sulfate [Proair Hfa 1 - 2 puffs INH Q4H PRN #1 inhaler 11/17/19 10/26/21 Inhaler] Buprenorphine HCl/Naloxone HCl 8 mg PO BID 06/04/21 10/26/21 [Suboxone 8-2 mg Tab] diazePAM [Valium] 5 mg PO BID 06/04/21 10/26/21 hydrOXYzine HCL [Hydroxyzine HCl] 25 mg PO Q6H PRN #30 tablet 06/04/21 10/26/21 Fluconazole [Diflucan] 1 tablet PO ONCE 1 Days #2 tablet 10/26/21 Phenazopyridine HCl [Pyridium] 200 mg PO TID PRN #6 tablet 10/26/21 Promethazine [Phenergan] 12.5 - 25 mg PO Q8H PRN 10/26/21 10/26/21 Sulfamethox/Trimeth 800/160 1 each PO BID #10 tablet 10/26/21 [Bactrim Ds] lamoTRIgine [LaMICtal] 100 mg PO HS 10/26/21 10/26/21 polyethylene glycoL 3350 17 gm PO DAILY PRN 10/26/21 10/26/21 [Polyethylene Glycol 3350] - Allergies Allergies/Adverse Reactions: Allergies Allergy/AdvReac Type Severity Reaction Status Date / Time aripiprazole [From Abilify] Allergy Rash Verified 10/30/21 12:35 hydrocodone bitartrate * Allergy Hives Verified 10/30/21 12:35 [From Vicodin] ketorolac Allergy Itching Verified 10/30/21 12:35 ondansetron [From Zofran] Allergy Headache Verified 10/30/21 12:35 tramadol Allergy Hives Verified 10/30/21 12:35 ethinyl estradiol AdvReac Cramps Verified 10/30/21 12:35 [From NuvaRing] etonogestrel [From NuvaRing] AdvReac Cramps Verified 10/30/21 12:35 morphine AdvReac Unknown Verified 10/30/21 12:35 trazodone AdvReac Unknown Verified 10/30/21 12:35 - Social History Does the pt smoke?: Yes Smoking Status: Current every day smoker Does the pt drink ETOH?: No Does the pt have substance abuse?: No - Immunizations Immunizations are current?: Yes - POLST Patient has POLST: No POLST Status: Full Code PD ED PE EXPANDED - General General: Alert, No acute distress, Other (Morbid obesity) - Cardiac Cardiac: Regular Rate, Radial strong equal, Pedal strong equal, Cap refill < 2 sec - Respiratory Respiratory: Clear to ausultation yee. No: Distress, Labored - Abdomen Abdomen: Normal Bowel sounds, Tender to palpation (suprapubic; no guarding or rebound) - Back Back: Normal exam - Derm Derm: Normal color, Warm and dry. No: Rash Results - Vitals Vitals: Vital Signs - 24 hr 10/30/21 10/30/21 12:35 12:55 Temperature 36.7 C 36.7 C Heart Rate 104 H 104 H Respiratory 19 19 Rate Blood Pressure 125/79 125/79 O2 Saturation 99 99 Oxygen O2 Source Room air - Labs Labs: Laboratory Tests 10/30/21 13:57 Urine Color DARK YELLOW Urine Clarity CLEAR Urine pH 6.5 Ur Specific [place] 1.025 Urine Protein NEGATIVE Urine Glucose (UA) NEGATIVE Urine Ketones NEGATIVE Urine Occult Blood NEGATIVE Urine Nitrite NEGATIVE Urine Bilirubin NEGATIVE Urine Urobilinogen 0.2 (NORMAL) Ur Leukocyte Esterase NEGATIVE Ur Microscopic Review NOT INDICATED Urine Culture Comments NOT INDICATED PD MEDICAL DECISION MAKING - ED course Complexity details: reviewed results, re-evaluated patient, considered differential, d/w patient ED course: 31-year-old female presents to the emergency department for evaluation of persistent urinary urgency and frequency in the setting of a history of chronic pelvic pain. For this she does take Suboxone. Seen by my colleague a few days ago diagnosed with a UTI and yeast infection started on Bactrim and fluconazole. She feels that the vaginal itching and discharge is markedly improved though she still has urinary urgency and frequency. Today's screening UA shows no further signs of infection. Her abdominal exam is rather benign with minimal lower pelvic tenderness elicited. No guarding rebound or peritoneal signs. Given unremarkable vital signs without fevers or vomiting will defer advanced imaging. Patient reports she has follow-up sc heduled with an OB to discuss longer-term chronic pelvic pain management. Otherwise emergent return precautions discussed. Departure - Departure Disposition: 01 Home, Self Care Clinical Impression: Urinary urgency Condition: Stable Record reviewed to determine appropriate education?: Yes Instructions: ED Pelvic Pain [facility] Comments: Savannah griffith are seen today in the emergency department for abdominal pain and urinary frequency and urgency. Your urine shows no signs of infection today. This may be because you have treated the infection with the antibiotics that were started by my colleague a few days ago. However you also have a history of chronic pelvic pain. There is nothing in your exam or history that makes me worry about a surgical emergency or overwhelming infection. I would like you to continue to follow-up with your OB to discuss your longer-term pain management. Return to the ER if you develop fevers higher than 102, have uncontrolled vomiting, or sudden severe chest pain or shortness of air.
[2021-10-30 14:03] LABS: BILIRUBIN,URINE NEGATIVE (NEGATIVE); GLUCOSE, URINE (UA) NEGATIVE (NEGATIVE); KETONES,URINE (UA) NEGATIVE (NEGATIVE); LEUKOCYTE ESTERASE, URINE NEGATIVE (NEGATIVE); NITRITE,URINE NEGATIVE (NEGATIVE); OCCULT BLOOD,URINE NEGATIVE (NEGATIVE); PH,URINE 6.5 PH (5.0-7.5); PROTEIN,URINE NEGATIVE (NEGATIVE); UROBILINOGEN,URINE 0.2 (NORMAL) E.U./dL (NORMAL)
[2021-10-30 14:07] LABS: CLARITY,URINE CLEAR (CLEAR)
[2021-10-30 14:21] VITALS: BP 138/75
== END 2021-10-30 14:21 | disposition home or self-care (01) ==
LOC: ED 12:16
DX: R39.15 Urgency of urination (principal); F17.200 Nicotine dependence, unspecified, uncomplicated
CPT/HCPCS: 81001; 81003; 87086; 99282; 99283

== ENCOUNTER 2022-01-20 16:11 | Outpatient (CLI) | payer MEDICAID ==
[2022-01-20 19:16] LABS: BILIRUBIN,URINE NEGATIVE (NEGATIVE); GLUCOSE, URINE (UA) NEGATIVE (NEGATIVE); KETONES,URINE (UA) NEGATIVE (NEGATIVE); LEUKOCYTE ESTERASE, URINE TRACE (NEGATIVE); NITRITE,URINE NEGATIVE (NEGATIVE); OCCULT BLOOD,URINE NEGATIVE (NEGATIVE); PROTEIN,URINE NEGATIVE (NEGATIVE); UROBILINOGEN,URINE 0.2 (NORMAL) E.U./dL (NORMAL)
[2022-01-20 19:19] LABS: CLARITY,URINE HAZY (CLEAR)
[2022-01-20 19:23] LABS: BACTERIA,URINE Moderate /HPF (None Seen); MUCUS,URINE Moderate Strands; RBC,URINE 0-5 /HPF (0-5); SQUAMOUS EPITHELIAL CELL,UR MOD Squamous (<= Few)
== END 2022-01-20 16:12 | disposition home or self-care (01) ==
LOC: LAB 16:11
PROVIDERS: ATTEND Family Medicine
DX: R30.9 Painful micturition, unspecified (principal); R32 Unspecified urinary incontinence
CPT/HCPCS: 81001

== ENCOUNTER 2022-08-24 20:31 | Outpatient (CLI) | payer MEDICAID ==
--- NOTE | 2022-08-25 09:26 | Ultrasound Report ---
PROCEDURE: Pelvic w/Transvaginal INDICATIONS: PELVIC PAIN TECHNIQUE: Real-time scanning was performed of the pelvic organs, with image documentation. Additional endovagi nal scanning was necessary due to incomplete visualization of the adnexal and endometrial structures by transabdominal scanning. COMPARISON: Pelvic ultrasound dated 09/17/2020 and 08/18/2019. FINDINGS: Uterus: Uterus is retroverted and normal in size at 8.1 x 5 x 4.8 cm. The myometrium is heterogeneo us. No discrete uterine fibroid is seen. The endometrium measures 12.8 mm in combined thickness. No gross endometrial mass or fluid is seen. Ovaries: Right ovary is surgically absent. The left ovary measures 3 x 1.9 x 2.3 cm, with a calculate d ovarian volume of 6.5 cc. The ovaries have a normal sonographic appearance. Less than 12 follicle s can be seen in left ovary. No adnexal masses are seen. Other: No pathologic free abdominal or pelvic fluid. IMPRESSION: 1. Prior right oophorectomy. No right adnexal mass. No abnormality is seen in left ovary. 2. No gross abnormality is seen in the uterus and endometrium. Reviewed by: Morgan Ram MD on 08/25/2022 9:25 AM PST Approved by: Morgan Ram MD on 08/25/2022 9:25 AM PST Station ID: [id number]
== END 2022-08-24 20:32 | disposition home or self-care (01) ==
LOC: DI 20:31
PROVIDERS: ATTEND Family Medicine
DX: R10.2 Pelvic and perineal pain (principal); A49.9 Bacterial infection, unspecified; Z90.721 Acquired absence of ovaries, unilateral

== ENCOUNTER 2022-10-08 14:35 | Emergency (ER) | payer MEDICAID ==
[2022-10-08 14:48] VITALS: BP 149/74
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
--- OUTSIDE RECORDS SUMMARY | 2022-10-08 15:15 | EXTERNAL MEDICAL SUMMARY RPT | Continuity of Care Document ---
:1990 Author Organization [facility] Address [address] [place] [address] Phone Care Team Providers Name Role Phone Teodora Hanson Unavailable Unavailable Allergies and Intolerances date description facility type (no date) [facility] (unknown) (no date) aripiprazole [facility] (unknown) (no date) ethinyl estradiol [facility] (unknown) (no date) etonogestrel [facility] (unknown) (no date) hydrocodone [facility] (unknown) (no date) ketorolac [facility] (unknown) (no date) morphine [facility] (unknown) (no date) ondansetron [facility] (unknown) (no date) tramadol [facility] (unknown) Encounters No information. Functional Status No information. Immunizations No information. Medications date description facility 2022-07-28 00:00 Benzonatate [facility] 2022-07-28 00:00 Fluconazole [facility] 2022-08-04 00:00 Metronidazole [facility] 2022-07-28 00:00 Promethazine [facility] Problems date description facility 2022-07-20 00:00 Fracture of distal phalanx of finger I [facility] Procedures date description facility 2022-07-20 00:00 Gram Stain [facility] 2022-08-25 00:00 Gram Stain [facility] 2022-07-20 00:00 Wet Prep [facility] 2022-08-25 00:00 Wet Prep [facility] 2022-07-20 00:00 XR finger right, 2+ views [facility] Results/Labs test date author facility value unit interpret ation Result panel 1 (unknown) (no date) (unknown) [facility]) Result panel 2 (unknown) (no date) (unknown) [facility] Result panel 3 (unknown) (no date) (unknown) [facility] Result panel 4 (unknown) (no date[facility] ([facility]) Result panel 5 (unknown) (no date) ([facility] Result panel 6 (unknown) (no date) ([facility] Result panel 7 (unknown) (no date) (unknown[facility] Result panel 8 (unknown) (no date) (unknown[facility] Result panel 9 (unknown) (no date) (unknown[facility] Result panel 10 (unknown) (no date) (unknown[facility] Result panel 11 (unknown) (no date) (unknown[facility] Result panel 12 (unknown) (no date) (unknown[facility] Result panel 13 (unknown) (no date) (unknown[facility] Result panel 14 (unknown) (no date) (unknown[facility] Result panel 15 (unknown) (no date) (unknown[facility] Result panel 16 (unknown) (no date) (unknown[facility] Result panel 17 (unknown) (no date) (unknown[facility] Result panel 18 (unknown) (no date) (unknown[facility] Result panel 19 (unknown) (no date) (unknown[facility] Result panel 20 (unknown) (no date) (unknown[facility] Result panel 21 (unknown) (no date) (unknown[facility] Result panel 22 (unknown) (no date) (unknown[facility] Result panel 23 (unknown) (no date) (unknown[facility] Result panel 24 (unknown) (no date) (unknown[facility] Result panel 25 (unknown) (no date) (unknown[facility] Result panel 26 (unknown) (no date) (unknown[facility] Result panel 27 (unknown) (no date) (unknown[facility] Result panel 28 (unknown) (no date) (unknown[facility] Result panel 29 (unknown) (no date) (unknown[facility] Result panel 30 (unknown) (no date) (unknown[facility] Result panel 31 (unknown) (no date) (unknown[facility] Result panel 32 (unknown) (no date) (unknown[facility]) Result panel 33 (unknown) (no date) (unknown[facility] Result panel 34 (unknown) (no date) (unknown[facility]) Result panel 35 (unknown) (no date) (unknown[facility] Result panel 36 (unknown) (no date) (unknown[facility]) Result panel 37 (unknown) (no date) (unknown[facility] Result panel 38 (unknown) (no date) (unknown[facility] Result panel 39 (unknown) (no date) (unknown[facility] Result panel 40 (unknown) (no date) (unknown[facility] Result panel 41 (unknown) (no date) (unknown[facility] Result panel 42 (unknown) (no date) (unknown[facility] Result panel 43 (unknown) (no date) (unknown[facility] Result panel 44 (unknown) (no date) (unknown[facility] Result panel 45 (unknown) (no date) (unknown[facility] Result panel 46 (unknown) (no date) (unknown[facility] Result panel 47 (unknown) (no date) (unknown[facility]) Result panel 48 (unknown) (no date) (unknown[facility] Result panel 49 (unknown) (no date) (unknown[facility]) Result panel 50 (unknown) (no date) (unknown[facility] Result panel 51 (unknown) (no date) (unknown[facility] Result panel 52 (unknown) (no date) (unknown[facility] Result panel 53 (unknown) (no date) (unknown[facility] Result panel 54 (unknown) (no date) (unknown[facility] Result panel 55 (unknown) (no date) (unknown[facility] Result panel 56 (unknown) (no date) (unknown[facility] Result panel 57 (unknown) (no date) (unknown[facility] Result panel 58 (unknown) (no date) (unknown[facility] Result panel 59 (unknown) (no date) (unknown[facility] Result panel 60 (unknown) (no date) (unknown[facility] Result panel 61 (unknown) (no date) (unknown[facility] Result panel 62 (unknown) (no date) (unknown[facility] Result panel 63 (unknown) (no date) (unknown[facility] Result panel 64 (unknown) (no date) (unknown[facility]) Result panel 65 (unknown) (no date) (unknown[facility] Result panel 66 (unknown) (no date) (unknown[facility]) Result panel 67 (unknown) (no date) (unknown[facility] Result panel 68 (unknown) (no date) (unknown[facility] Result panel 69 (unknown) (no date) (unknown[facility] Result panel 70 (unknown) (no date) (unknown[facility] Result panel 71 (unknown) (no date) (unknown[facility] Result panel 72 (unknown) (no date) (unknown[facility]) Result panel 73 (unknown) (no date) (unknown[facility] Result panel 74 (unknown) (no date) (unknown[facility]) Result panel 75 (unknown) (no date) (unknown[facility] Result panel 76 (unknown) (no date) (unknown[facility] Result panel 77 (unknown) (no date) (unknown[facility] Result panel 78 (unknown) (no date) (unknown[facility] Result panel 79 (unknown) (no date) (unknown[facility] Result panel 80 (unknown) (no date) (unknown[facility] Result panel 81 (unknown) (no date) (unknown[facility]) Result panel 82 (unknown) (no date) (unknown[facility] Result panel 83 (unknown) (no date) (unknown[facility] Result panel 84 (unknown) (no date) (unknown[facility] Result panel 85 (unknown) (no date) (unknown[facility] Result panel 86 (unknown) (no date) (unknown[facility] Result panel 87 (unknown) (no date) (unknown[facility] Result panel 88 (unknown) (no date) (unknown[facility] Result panel 89 (unknown) (no date) (unknown[facility] Result panel 90 (unknown) (no date) (unknown[facility] Result panel 91 (unknown) (no date) (unknown[facility] Result panel 92 (unknown) (no date) (unknown[facility] Result panel 93 (unknown) (no date) (unknown[facility] Result panel 94 (unknown) (no date) (unknown[facility] Result panel 95 (unknown) (no date) (unknown[facility] Result panel 96 (unknown) (no date) (unknown[facility]) Result panel 97 (unknown) (no date) (unknown[facility] Result panel 98 (unknown) (no date) (unknown[facility] Result panel 99 (unknown) (no date) (unknown[facility] Result panel 100 (unknown) (no date) (unknown[facility] Result panel 101 (unknown) (no date) (unknown[facility] Result panel 102 (unknown) (no date) (unknown[facility] Result panel 103 (unknown) (no date) (unknown[facility] Result panel 104 (unknown) (no date) (unknown[facility]) Result panel 105 (unknown) (no date) (unknown[facility] Result panel 106 (unknown) (no date) (unknown[facility]) Result panel 107 (unknown) (no date) (unknown[facility] Result panel 108 (unknown) (no date) (unknown[facility]) Result panel 109 (unknown) (no date) (unknown[facility] Result panel 110 (unknown) (no date) (unknown[facility]) Result panel 111 (unknown) (no date) (unknown[facility] Result panel 112 (unknown) (no date) (unknown[facility] Result panel 113 (unknown) (no date) (unknown[facility] Result panel 114 (unknown) (no date) (unknown[facility] Result panel 115 (unknown) (no date) (unknown[facility] Result panel 116 (unknown) (no date) (unknown[facility] Result panel 117 (unknown) (no date) (unknown[facility]) Result panel 118 (unknown) (no date) (unknown[facility] Result panel 119 (unknown) (no date) (unknown[facility] Result panel 120 (unknown) (no date) (unknown[facility] Result panel 121 (unknown) (no date) (unknown[facility]) Result panel 122 (unknown) (no date) (unknown[facility] Result panel 123 (unknown) (no date) (unknown[facility]) Result panel 124 (unknown) (no date) (unknown[facility] Result panel 125 (unknown) (no date) (unknown[facility]) Result panel 126 (unknown) (no date) (unknown[facility] Result panel 127 (unknown) (no date) (unknown[facility]) Result panel 128 (unknown) (no date) (unknown[facility] Result panel 129 (unknown) (no date) (unknown[facility] Result panel 130 (unknown) (no date) (unknown[facility]) Result panel 131 (unknown) (no date) (unknown[facility] Result panel 132 (unknown) (no date) (unknown[facility] Result panel 133 (unknown) (no date) (unknown[facility] Result panel 134 (unknown) (no date) (unknown[facility]) Result panel 135 (unknown) (no date) (unknown[facility] Result panel 136 (unknown) (no date) (unknown[facility]) Result panel 137 (unknown) (no date) (unknown[facility] Result panel 138 (unknown) (no date) (unknown[facility]) Result panel 139 (unknown) (no date) (unknown[facility] Result panel 140 (unknown) (no date) (unknown[facility]) Result panel 141 (unknown) (no date) (unknown[facility]) Result panel 142 (unknown) (no date) (unknown[facility] Result panel 143 (unknown) (no date) (unknown[facility] Result panel 144 (unknown) (no date) (unknown[facility]) Result panel 145 (unknown) (no date) (unknown[facility] Result panel 146 (unknown) (no date) (unknown[facility]) Result panel 147 (unknown) (no date) (unknown[facility] Result panel 148 (unknown) (no date) (unknown[facility]) Result panel 149 (unknown) (no date) (unknown[facility]) Result panel 150 (unknown) (no date) (unknown[facility] Result panel 151 (unknown) (no date) (unknown[facility]) Result panel 152 (unknown) (no date) (unknown[facility] Result panel 153 (unknown) (no date) (unknown[facility]) Result panel 154 (unknown) (no date) (unknown[facility] Result panel 155 (unknown) (no date) (unknown[facility] Result panel 156 (unknown) (no date) (unknown[facility]) Result panel 157 (unknown) (no date) (unknown[facility]) Result panel 158 (unknown) (no date) (unknown[facility] Result panel 159 (unknown) (no date) (unknown[facility]) Result panel 160 (unknown) (no date) (unknown[facility] Result panel 161 (unknown) (no date) (unknown[facility]) Result panel 162 (unknown) (no date) (unknown[facility]) Result panel 163 (unknown) (no date) (unknown[facility] Result panel 164 (unknown) (no date) (unknown[facility]) Result panel 165 (unknown) (no date) (unknown[facility]) Result panel 166 (unknown) (no date) (unknown[facility]) Result panel 167 (unknown) (no date) (unknown[facility] Result panel 168 (unknown) (no date) (unknown[facility]) Result panel 169 (unknown) (no date) (unknown[facility] Result panel 170 (unknown) (no date) (unknown[facility] Result panel 171 (unknown) (no date) (unknown[facility] Result panel 172 (unknown) (no date) (unknown[facility] Result panel 173 (unknown) (no date) (unknown[facility] Result panel 174 (unknown) (no date) (unknown[facility] Result panel 175 (unknown) (no date) (unknown[facility] Result panel 176 (unknown) (no date) (unknown[facility] Result panel 177 (unknown) (no date) (unknown[facility] Result panel 178 (unknown) (no date) (unknown[facility] Result panel 179 (unknown) (no date) (unknown[facility] Result panel 180 (unknown) (no date) (unknown[facility] Result panel 181 (unknown) (no date) (unknown[facility] Result panel 182 (unknown) (no date) (unknown[facility] Result panel 183 (unknown) (no date) (unknown[facility] Result panel 184 (unknown) (no date) (unknown[facility] Result panel 185 (unknown) (no date) (unknown[facility] Result panel 186 (unknown) (no date) (unknown[facility] Result panel 187 (unknown) (no date) (unknown[facility] Result panel 188 (unknown) (no date) (unknown[facility] Result panel 189 (unknown) (no date) (unknown[facility] Result panel 190 (unknown) (no date) (unknown[facility] Result panel 191 (unknown) (no date) (unknown[facility] Result panel 192 (unknown) (no date) (unknown[facility] Result panel 193 (unknown) (no date) (unknown[facility] Result panel 194 (unknown) (no date) (unknown[facility] Result panel 195 (unknown) (no date) (unknown[facility] Result panel 196 (unknown) (no date) (unknown[facility] Result panel 197 (unknown) (no date) (unknown[facility] Result panel 198 (unknown) (no date) (unknown[facility] Result panel 199 (unknown) (no date) (unknown[facility]) Result panel 200 (unknown) (no date) (unknown[facility] Result panel 201 (unknown) (no date) (unknown[facility] Result panel 202 (unknown) (no date) (unknown[facility] Result panel 203 (unknown) (no date) (unknown[facility] Result panel 204 (unknown) (no date) (unknown[facility] Result panel 205 (unknown) (no date) (unknown[facility] Result panel 206 (unknown) (no date) (unknown[facility] Result panel 207 (unknown) (no date) (unknown[facility] Result panel 208 (unknown) (no date) (unknown[facility] Result panel 209 (unknown) (no date) (unknown[facility] Result panel 210 (unknown) (no date) (unknown[facility] Result panel 211 (unknown) (no date) (unknown[facility] Result panel 212 (unknown) (no date) (unknown[facility] Result panel 213 (unknown) (no date) (unknown[facility] Result panel 214 (unknown) (no date) (unknown[facility] Result panel 215 (unknown) (no date) (unknown[facility] Result panel 216 (unknown) (no date) (unknown[facility] Result panel 217 (unknown) (no date) (unknown[facility] Result panel 218 (unknown) (no date) (unknown[facility] Result panel 219 (unknown) (no date) (unknown[facility] Result panel 220 (unknown) (no date) (unknown[facility] Result panel 221 (unknown) (no date) (unknown[facility] Result panel 222 (unknown) (no date) (unknown[facility] Result panel 223 (unknown) (no date) (unknown) [facility] ([facility] unknown) Result panel 224 (unknown) (no date) (unknown) [facility] Result panel 225 (unknown) (no date) (unknown) [facility] Result panel 226 (unknown) (no date) (unknown) [facility] Result panel 227 (unknown) (no date) (unknown) [facility]) Result panel 228 (unknown) (no date) (unknown) [facility] Result panel 229 (unknown) (no date) (unknown) [facility]) Result panel 230 (unknown) (no date) (unknown) [facility]) Result panel 231 (unknown) (no date) (unknown) [facility] Result panel 232 (unknown) (no date) (unknown) (unknown) (no value) (units (un known) unknown) (unknown) (no date) (unknown) (unknown) None seen (units (unk nown) unknown) (unknown) (no date) (unknown) (unknown) Occasional WBC (units (unknown) seen unknown) (unknown) (no date) (unknown) (unknown) Occasional (units (un known) unknown) Result panel 233 (unknown) (no date) (unknown) (unknown) (no value) (units (un known) unknown) (unknown) (no date) (unknown) (unknown) 4 (units (unkn own) unknown) (unknown) (no date) (unknown) (unknown) Moderate (units (unkn own) (10-30) unknown) (unknown) (no date) (unknown) (unknown) Occasional WBC (units (unknown) seen unknown) (unknown) (no date) (unknown) (unknown) Scant growth - (units (unknown) Mixed genital unknown) robert Result panel 234 (unknown) (no date) (unknown) (unknown) (no value) (units (un known) unknown) (unknown) (no date) (unknown) (unknown) 4 (units (unkn own) unknown) (unknown) (no date) (unknown) (unknown) Moderate (units (unkn own) (10-30) unknown) (unknown) (no date) (unknown) (unknown) No N.gonorrhea (units (unknown) or S.agalactiae unknown) isolated (unknown) (no date) (unknown) (unknown) None seen (units (unk nown) unknown) (unknown) (no date) (unknown) (unknown) Occasional WBC (units (unknown) seen unknown) (unknown) (no date) (unknown) (unknown) Occasional (units (un known) unknown) (unknown) (no date) (unknown) (unknown) Scant growth - (units (unknown) Mixed genital unknown) robert Result panel 235 (unknown) (no date) (unknown) (unknown) Negative (units (unkn own) unknown) (unknown) (no date) (unknown) (unknown) Negative (units (unkn own) unknown) (unknown) (no date) (unknown) (unknown) Negative (units (unkn own) unknown) Result panel 236 (unknown) (no date) (unknown) (unknown) (no value) (units (un known) unknown) (unknown) (no date) (unknown) (unknown) #: [id number] (units (unknown) unknown) (unknown) (no date) (unknown) (unknown) 07/20/22 (units (unkn own) unknown) (unknown) (no date) (unknown) (unknown) [address] (units (unk nown) Street unknown) (unknown) (no date) (unknown) (unknown) 5th digit (units (unk nown) distal phalanx. unknown) (unknown) (no date) (unknown) (unknown) Accession (units (unk nown) Number: unknown) [id number] (unknown) (no date) (unknown) (unknown) Age/Sex: 32 / (units (unknown) F Date of unknown) Service: (unknown) (no date) (unknown) (unknown) [place], [place] (units (unknown) [id number] unknown) (unknown) (no date) (unknown) (unknown) Approved by: (units ( unknown) tomy Ulloa M.D. on 07/20/2022 at 17:02 (unknown) (no date) (unknown) (unknown) Bones: (units (unkn own) Possible/equivo unknown) mak acute minimally displaced oblique fracture of the (unknown) (no date) (unknown) (unknown) COMPARISON: (units (u nknown) None. unknown) (unknown) (no date) (unknown) (unknown) : (units (unkn own) 1990 unknown) Acct:[id number] (unknown) (no date) (unknown) (unknown) Dictated by: (units ( unknown) nelda UlloaHaily Gibson on 07/20/2022 at 16:58 (unknown) (no date) (unknown) (unknown) FINDINGS: (units (unk nown) unknown) (unknown) (no date) (unknown) (unknown) IMPRESSION: (units (u nknown) Possible acute unknown) minimally displaced fracture of the 5th digit (unknown) (no date) (unknown) (unknown) INDICATIONS: (units ( unknown) trauma unknown) (unknown) (no date) (unknown) (unknown) If clinically (units (unknown) indicated, unknown) follow-up radiographs and/or CT or MRI may be helpful (unknown) (no date) (unknown) (unknown) [facility] (unknown) (no date) (unknown) (unknown) Loc: ED (units (unkn own) unknown) (unknown) (no date) (unknown) (unknown) Ordering (units (unkn own) Provider: unknown) Jalil Arellano MD (unknown) (no date) (unknown) (unknown) PROCEDURE: XR (units (unknown) FINGER RT MIN unknown) 2V (unknown) (no date) (unknown) (unknown) Patient: (units (unkn own) Fatemeh Musa unknown) e J M MR (unknown) (no date) (unknown) (unknown) Procedure: XR (units (unknown) finger RT min unknown) 2V (unknown) (no date) (unknown) (unknown) Signed (units (unkn own) unknown) (unknown) (no date) (unknown) (unknown) Soft tissues: (units (unknown) No suspicious unknown) soft tissue calcifications. (unknown) (no date) (unknown) (unknown) TECHNIQUE: AP (units (unknown) hand, 2 views unknown) of the 5th digit acquired. (unknown) (no date) (unknown) (unknown) XRay Report (units (u nknown) unknown) (unknown) (no date) (unknown) (unknown) base of the (units (u nknown) unknown) (unknown) (no date) (unknown) (unknown) distal (units (unkn own) phalanx. unknown) (unknown) (no date) (unknown) (unknown) for (units (unkn own) unknown) (unknown) (no date) (unknown) (unknown) further (units (unkn own) evaluation. unknown) Result panel 237 (unknown) (no (unknown) (unknown) (no value) (units (unk nown) date) unknown) (unknown) (no (unknown) (unknown) #30 grams (units (unkn own) date) unknown) (unknown) (no (unknown) (unknown) (Diflucan) (units (unk nown) date) irritation #4 tabs unknown) (unknown) (no (unknown) (unknown) .COMPLEX #180 tabs (units (unknown) date) unknown) (unknown) (no (unknown) (unknown) .COMPLEX #2 tabs (units (unknown) date) unknown) (unknown) (no (unknown) (unknown) .COMPLEX #30 (units (u nknown) date) patches unknown) (unknown) (no (unknown) (unknown) .COMPLEX #42 tabs (units (unknown) date) unknown) (unknown) (no (unknown) (unknown) .COMPLEX PRN (units (u nknown) date) constipation #30 unknown) tabs (unknown) (no (unknown) (unknown) 05/05/22 (units (unkno wn) date) unknown) (unknown) (no (unknown) (unknown) 1 applic topical (units (unknown) date) BEDTIME Qty: 135 unknown) 0RF (unknown) (no (unknown) (unknown) 100 mg PO DAILY (units (unknown) date) Qty: 30 2RF unknown) (unknown) (no (unknown) (unknown) 07/20/22 16:19 (units (unknown) date) unknown) (unknown) (no (unknown) (unknown) 07/20/22 16:20 (units (unknown) date) unknown) (unknown) (no (unknown) (unknown) 07/20/22 16:22 (units (unknown) date) unknown) (unknown) (no (unknown) (unknown) 07/20/22 (units (unkno wn) date) unknown) (unknown) (no (unknown) (unknown) 15 ml PO BID PRN (units (unknown) date) (Reason: unknown) constipation) Qty: 473 0RF (unknown) (no (unknown) (unknown) 16:15 (units (unkno wn) date) unknown) (unknown) (no (unknown) (unknown) 17 GIVE BY MOUTH (units (unknown) date) DAILY NEEDED FOR unknown) CONSTIPATION. (unknown) (no (unknown) (unknown) 200 mg PO DAILY (units (unknown) date) PRN (Reason: unknown) vaginal irritation) Qty: 4 0RF (unknown) (no (unknown) (unknown) 25 mg PO DAILY (units (unknown) date) Qty: 30 2RF unknown) (unknown) (no (unknown) (unknown) 5th digit distal (units (unknown) date) phalanx. unknown) (unknown) (no (unknown) (unknown) : [id number] (units (u nknown) date) unknown) (unknown) (no (unknown) (unknown) ? (units (unkno wn) date) unknown) (unknown) (no (unknown) (unknown) ?If clinically (units (unknown) date) indicated, unknown) follow-up radiographs and/or CT or MRI may be helpful (unknown) (no (unknown) (unknown) APPLY EXTERNALLY (units (unknown) date) TO THE AFFECTED unknown) AREA THREE TIMES DAILY PRN; (unknown) (no (unknown) (unknown) APPLY EXTERNALLY (units (unknown) date) TO THE AFFECTED unknown) AREA THREE TIMES DAILY (unknown) (no (unknown) (unknown) APPLY TO MOST (units ( unknown) date) PAINFUL AREA DAILY unknown) 12 HOURS ON AND 12 HOURS OFF. (unknown) (no (unknown) (unknown) APPLY TOPICALLY TO (units (unknown) date) THE AFFECTED AREA unknown) FOUR TIMES DAILY (unknown) (no (unknown) (unknown) Acetaminophen (units ( unknown) date) (Acetaminophen 325 unknown) Mg Tablet) 650 mg PO NOW ONE (unknown) (no (unknown) (unknown) Age/Sex: 32 / F (units (unknown) date) unknown) (unknown) (no (unknown) (unknown) Allergies (units (unkn own) date) unknown) (unknown) (no (unknown) (unknown) Allergy/AdvReac (units (unknown) date) Type Severity unknown) Reaction Status Date / Time (unknown) (no (unknown) (unknown) Approved by: (units (u nknown) date) Van Mayo M.D. unknown) on 07/20/2022 at 17:02 ? (unknown) (no (unknown) (unknown) Bipolar 1 disorder (units (unknown) date) unknown) (unknown) (no (unknown) (unknown) Blood Pressure (units (unknown) date) 126/85 07/20/22 unknown) 16:15 (unknown) (no (unknown) (unknown) Blood Pressure (units (unknown) date) 126/85 unknown) (unknown) (no (unknown) (unknown) Bones:? (units (unkno wn) date) Possible/equivocal unknown) acute minimally displaced oblique fracture of the (unknown) (no (unknown) (unknown) COMPARISON:? None. 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 unknown) on 07/20/2022 at 16:58 ? ? (unknown) (no (unknown) (unknown) Discharge Plan (units (unknown) date) unknown) (unknown) (no (unknown) (unknown) Discontinued (units (u nknown) date) Medications unknown) (unknown) (no (unknown) (unknown) Distal paresthesia (units (unknown) date) unknown) (unknown) (no (unknown) (unknown) Dose Instruction: (units (unknown) date) unknown) (unknown) (no (unknown) (unknown) ED Orders (units (unkn own) date) unknown) (unknown) (no (unknown) (unknown) ER Physician: (units ( unknown) date) SuzywRomelia unknown) [place] (unknown) (no (unknown) (unknown) Ear infection (units ( unknown) date) unknown) (unknown) (no (unknown) (unknown) Emergency Report (units (unknown) date) unknown) (unknown) (no (unknown) (unknown) Exam Narrative: (units (unknown) date) unknown) (unknown) (no (unknown) (unknown) Exam (units (unkno wn) date) unknown) (unknown) (no (unknown) (unknown) Extremity x-ray (units (unknown) date) #1: unknown) (unknown) (no (unknown) (unknown) FINDINGS:? (units (unk nown) date) unknown) (unknown) (no (unknown) (unknown) Fracture of distal (units (unknown) date) phalanx of finger unknown) (unknown) (no (unknown) (unknown) General (units (unkno wn) date) unknown) (unknown) (no (unknown) (unknown) HPI - Extremity (units (unknown) date) Injury (Upper) unknown) (unknown) (no (unknown) (unknown) HPI narrative: (units (unknown) date) unknown) (unknown) (no (unknown) (unknown) History of Present (units (unknown) date) Illness unknown) (unknown) (no (unknown) (unknown) History of (units (unk nown) date) multiple unknown) concussions (unknown) (no (unknown) (unknown) History of wisdom (units (unknown) date) tooth extraction unknown) (unknown) (no (unknown) (unknown) Hold Instructions: (units (unknown) date) med change due to unknown) insurance coverage (unknown) (no (unknown) (unknown) Home Medications (units (unknown) date) unknown) (unknown) (no (unknown) (unknown) Hx of (units (unkno wn) date) tonsillectomy unknown) (unknown) (no (unknown) (unknown) Hx of unilateral (units (unknown) date) salpingectomy unknown) (unknown) (no (unknown) (unknown) IMPRESSION:? (units (un known) date) Possible acute unknown) minimally displaced fracture of the 5th digit distal (unknown) (no (unknown) (unknown) INDICATIONS:? (units ( unknown) date) trauma unknown) (unknown) (no (unknown) (unknown) IV and oxycodone (units (unknown) date) without problem and unknown) she is set for her Suboxone dose soon. (unknown) (no (unknown) (unknown) Ibuprofen (units (unkn own) date) (Ibuprofen 400 Mg unknown) Tablet) 800 mg PO NOW ONE (unknown) (no (unknown) (unknown) Imaging Data (units (u nknown) date) unknown) (unknown) (no (unknown) (unknown) Initial Vital (units ( unknown) date) Signs unknown) (unknown) (no (unknown) (unknown) Initial Vital (units ( unknown) date) Signs: unknown) (unknown) (no (unknown) (unknown) Injury #1: (units (unk nown) date) unknown) (unknown) (no (unknown) (unknown) Instructions: DI (units (unknown) date) for Finger Fracture unknown) (unknown) (no (unknown) (unknown) [facility] (units (unknown) date) [address] [place] [address] unknown) [place] [address] (unknown) (no (unknown) (unknown) Label Comments: (units (unknown) date) unknown) (unknown) (no (unknown) (unknown) MAY REPEAT SECOND (units (unknown) date) DOSE 72 HOURS AFTER unknown) FOR 1 DOSE IF SYMPTOMS PERSIST (unknown) (no (unknown) (unknown) MDM - Extremity (units (unknown) date) Injury (Upper) unknown) (unknown) (no (unknown) (unknown) MDM Narrative (units ( unknown) date) unknown) (unknown) (no (unknown) (unknown) MSK: moves all (units (unknown) date) extremities, unknown) neurovascularly intact, no weakness, normal tone, (unknown) (no (unknown) (unknown) Medical History (units (unknown) date) (Reviewed 07/20/22 unknown) @ 17:58 by Romelia Burch [facility]) (unknown) (no (unknown) (unknown) Medical decision (units (unknown) date) making narrative: unknown) (unknown) (no (unknown) (unknown) Medication (units (unk nown) date) Instructions unknown) Recorded Confirmed (unknown) (no (unknown) (unknown) Medication (units (unk nown) date) Instructions unknown) Recorded (unknown) (no (unknown) (unknown) Menometrorrhagia (units (unknown) date) unknown) (unknown) (no (unknown) (unknown) Migraines (units (unkn own) date) unknown) (unknown) (no (unknown) (unknown) Mode of arrival: (units (unknown) date) Ambulatory unknown) (unknown) (no (unknown) (unknown) Narrative (units (unkn own) date) unknown) (unknown) (no (unknown) (unknown) Neuro: normal (units ( unknown) date) speech and unknown) cognition, A+O x3, ambulatory, clear speech (unknown) (no (unknown) (unknown) Teodora Hanson MD (units (unknown) date) [Primary Care unknown) Provider] (unknown) (no (unknown) (unknown) No Action (units (unkn own) date) unknown) (unknown) (no (unknown) (unknown) Obstructive sleep (units (unknown) date) apnea (01/2022) unknown) (unknown) (no (unknown) (unknown) Ordered: (units (unkno wn) date) unknown) (unknown) (no (unknown) (unknown) Orders (units (unkno wn) date) unknown) (unknown) (no (unknown) (unknown) Orthopedic (units (unk nown) date) Splinting/Casting unknown) (unknown) (no (unknown) (unknown) Oxycodone/Acetamin (units (unknown) date) ophen unknown) (Oxycodone/Acetamin ophen 5/325 Tablet) 1 tab PO NOW ONE (unknown) (no (unknown) (unknown) Oxygen Delivery (units (unknown) date) Method 07/20/22 unknown) 16:15 (unknown) (no (unknown) (unknown) Oxygen Delivery (units (unknown) date) Method Room Air unknown) (unknown) (no (unknown) (unknown) PLACE 2 AND 1/2 (units (unknown) date) TABLETS UNDER unknown) TONGUE DAILY ( 1 tab Qam , 1 tab QPM and 1/2 (unknown) (no (unknown) (unknown) PROCEDURE:? XR (units (unknown) date) FINGER RT MIN 2V unknown) (unknown) (no (unknown) (unknown) PTSD (units (unkno wn) date) (post-traumatic unknown) stress disorder) (unknown) (no (unknown) (unknown) Patient (units (unkno wn) date) Disposition: Home unknown) (unknown) (no (unknown) (unknown) Patient History (units (unknown) date) unknown) (unknown) (no (unknown) (unknown) Patient has been (units (unknown) date) given strict return unknown) to ER precautions for any new or worsening (unknown) (no (unknown) (unknown) Patient has (units (un known) date) history of bipolar, unknown) PTSD, opioid use disorder, and presents with (unknown) (no (unknown) (unknown) Patient is (units (unk nown) date) appropriate and unknown) amenable to discharge home. Vital signs are stable (unknown) (no (unknown) (unknown) Patient: (units (o wn) date) Savannah Musa J unknown) M MR# (unknown) (no (unknown) (unknown) Placed by: Nursing (units (unknown) date) unknown) (unknown) (no (unknown) (unknown) Port-a-cath in (units (unknown) date) place unknown) (unknown) (no (unknown) (unknown) Post splinting (units (unknown) date) neuro exam: intact unknown) (unknown) (no (unknown) (unknown) Post splinting (units (unknown) date) vascular exam: unknown) intact (unknown) (no (unknown) (unknown) Prescriptions: (units (unknown) date) unknown) (unknown) (no (unknown) (unknown) Previous Rx's (units ( unknown) date) unknown) (unknown) (no (unknown) (unknown) Procedures (units (unk nown) date) unknown) (unknown) (no (unknown) (unknown) Psych: mental (units ( unknown) date) status is grossly unknown) normal, congruent mood, normal affect, pleasant (unknown) (no (unknown) (unknown) Pulse Oximetry 97 (units (unknown) date) 07/20/22 16:15 unknown) (unknown) (no (unknown) (unknown) Pulse Oximetry 97 (units (unknown) date) unknown) (unknown) (no (unknown) (unknown) Pulse Rate 72 (units ( unknown) date) 07/20/22 16:15 unknown) (unknown) (no (unknown) (unknown) Pulse Rate 72 (units ( unknown) date) unknown) (unknown) (no (unknown) (unknown) ROS Unobtainable: (units (unknown) date) All systems unknown) reviewed + are unremarkable except as noted in HPI (unknown) (no (unknown) (unknown) Radiologist's (units ( unknown) date) Impression: unknown) (unknown) (no (unknown) (unknown) Referrals: (units (unk nown) date) unknown) (unknown) (no (unknown) (unknown) Related Data (units (u nknown) date) unknown) (unknown) (no (unknown) (unknown) Respiratory Rate (units (unknown) date) 24 07/20/22 16:15 unknown) (unknown) (no (unknown) (unknown) Respiratory Rate (units (unknown) date) 24 unknown) (unknown) (no (unknown) (unknown) Review of Systems (units (unknown) date) unknown) (unknown) (no (unknown) (unknown) Reviewed vitals (units (unknown) date) signs and nursing unknown) notes. (unknown) (no (unknown) (unknown) Rx Instructions: (units (unknown) date) unknown) (unknown) (no (unknown) (unknown) See Rx (units (unkno wn) date) Instructions .ROUTE unknown) .COMPLEX PRN (Reason: apply three times daily to (unknown) (no (unknown) (unknown) See Rx (units (unkno wn) date) Instructions .ROUTE unknown) .COMPLEX PRN (Reason: constipation) Qty: 30 0RF (unknown) (no (unknown) (unknown) See Rx (units (unkno wn) date) Instructions .ROUTE unknown) .COMPLEX Qty: 119 3RF (unknown) (no (unknown) (unknown) See Rx (units (unkno wn) date) Instructions .ROUTE unknown) .COMPLEX Qty: 12 0RF (unknown) (no (unknown) (unknown) See Rx (units (unkno wn) date) Instructions .ROUTE unknown) .COMPLEX Qty: 180 1RF (unknown) (no (unknown) (unknown) See Rx (units (unkno wn) date) Instructions .ROUTE unknown) .COMPLEX Qty: 2 0RF (unknown) (no (unknown) (unknown) See Rx (units (unkno wn) date) Instructions .ROUTE unknown) .COMPLEX Qty: 30 5RF (unknown) (no (unknown) (unknown) See Rx (units (unkno wn) date) Instructions .ROUTE unknown) .COMPLEX Qty: 42 0RF (unknown) (no (unknown) (unknown) See Rx (units (unkno wn) date) Instructions .ROUTE unknown) .COMPLEX Qty: 454 1RF (unknown) (no (unknown) (unknown) See Rx (units (unkno wn) date) Instructions unknown) sublingual .COMPLEX (unknown) (no (unknown) (unknown) Side: right (units (un known) date) unknown) (unknown) (no (unknown) (unknown) Signed By: (units (unk nown) date) unknown) (unknown) (no (unknown) (unknown) Skin: brisk (units (un known) date) capillary refill, unknown) without pallor or erythema (unknown) (no (unknown) (unknown) Smoking Status: (units (unknown) date) Current every day unknown) smoker (unknown) (no (unknown) (unknown) Social History (units (unknown) date) (Reviewed 07/20/22 unknown) @ 17:58 by Romelia Burch [facility]) (unknown) (no (unknown) (unknown) Soft tissues:? No (units (unknown) date) suspicious soft unknown) tissue calcifications.? (unknown) (no (unknown) (unknown) Source: patient (units (unknown) date) unknown) (unknown) (no (unknown) (unknown) Stated Complaint: (units (unknown) date) rt pinky injury unknown) (unknown) (no (unknown) (unknown) Stop: 07/20/22 (units (unknown) date) 17:55 unknown) (unknown) (no (unknown) (unknown) Stop: 07/20/22 (units (unknown) date) 17:56 unknown) (unknown) (no (unknown) (unknown) Substance Use (units ( unknown) date) Type: does not use unknown) (unknown) (no (unknown) (unknown) Surgical History (units (unknown) date) (Reviewed 07/20/22 unknown) @ 17:58 by Romelia Burch [facility]) (unknown) (no (unknown) (unknown) TAKE 1 TABLET BY (units (unknown) date) MOUTH DAILY PRN; unknown) (unknown) (no (unknown) (unknown) TAKE 1 TABLET BY (units (unknown) date) MOUTH DAILY unknown) (unknown) (no (unknown) (unknown) TAKE 1 TABLET BY (units (unknown) date) MOUTH EVERY 3 DAYS unknown) NEEDED FOR VAGINAL YEAST INFECTION. (unknown) (no (unknown) (unknown) TAKE 1 TABLET BY (units (unknown) date) MOUTH EVERY 8 TO 12 unknown) HOURS FOR 14 DAYS NEEDED FOR NAUSEA (unknown) (no (unknown) (unknown) TAKE 1 TABLET BY (units (unknown) date) MOUTH TWICE DAILY unknown) (unknown) (no (unknown) (unknown) TECHNIQUE:? AP (units (unknown) date) hand, 2 views of unknown) the 5th digit acquired.? (unknown) (no (unknown) (unknown) Take 1 dose may (units (unknown) date) repeat is every 72 unknown) hours if still having symptoms (unknown) (no (unknown) (unknown) Take with 100mg (units (unknown) date) tab daily for total unknown) dose 125mg daily (unknown) (no (unknown) (unknown) Take with 25mg tab (units (unknown) date) for total dose unknown) 125mg daily (unknown) (no (unknown) (unknown) Temperature 98.0 F (units (unknown) date) 07/20/22 16:15 unknown) (unknown) (no (unknown) (unknown) Temperature 98.0 F (units (unknown) date) unknown) (unknown) (no (unknown) (unknown) This is a (units (unkn own) date) 32-year-old female unknown) presents emergency department complaining of right (unknown) (no (unknown) (unknown) This is a (units (unkn own) date) 32-year-old female unknown) who presents to the emergency department after (unknown) (no (unknown) (unknown) Time Seen by (units (u nknown) date) Provider: 07/20/22 unknown) 17:22 (unknown) (no (unknown) (unknown) Tylenol as needed (units (unknown) date) for her pain and to unknown) follow-up with orthopedics if she has any (unknown) (no (unknown) (unknown) UNWRAP AND INSERT (units (unknown) date) 1 SUPPOSITORY unknown) RECTALLY 1 TIME NEEDED FOR NAUSEA OR (unknown) (no (unknown) (unknown) Upper Extremity (units (unknown) date) Immobilizer: finger unknown) (other) (unknown) (no (unknown) (unknown) Upper Extremity (units (unknown) date) Injury Location: unknown) finger (unknown) (no (unknown) (unknown) Urinary leakage (units (unknown) date) unknown) (unknown) (no (unknown) (unknown) VOMITING (units (unkno wn) date) unknown) (unknown) (no (unknown) (unknown) Vital Signs - 8 hr (units (unknown) date) unknown) (unknown) (no (unknown) (unknown) Vital Signs (units (un known) date) unknown) (unknown) (no (unknown) (unknown) Vital signs: (units (u nknown) date) unknown) (unknown) (no (unknown) (unknown) XR finger RT min (units (unknown) date) 2V Stat unknown) (unknown) (no (unknown) (unknown) [From NUVARING] (units (unknown) date) unknown) (unknown) (no (unknown) (unknown) able to wiggle her (units (unknown) date) fingers but it is unknown) painful, denies any fingernail injury, has (unknown) (no (unknown) (unknown) across the D IP (units (unknown) date) joint, CSM remains unknown) intact. She has history of chronic pain and (unknown) (no (unknown) (unknown) affected area as (units (unknown) date) needed) Qty: 30 0RF unknown) (unknown) (no (unknown) (unknown) alcohol intake (units (unknown) date) frequency: unknown) holidays/special occasions only (unknown) (no (unknown) (unknown) and below (units (unkn own) date) unknown) (unknown) (no (unknown) (unknown) and cooperative (units (unknown) date) unknown) (unknown) (no (unknown) (unknown) and ecchymosis to (units (unknown) date) her right pinky, unknown) denies numbness or tingling, states is still (unknown) (no (unknown) (unknown) aripiprazole [From (units (unknown) date) ABILIFY] Allergy unknown) Mild MOOD SWINGS Verified 07/20/22 16:15 (unknown) (no (unknown) (unknown) base of the (units (un known) date) unknown) (unknown) (no (unknown) (unknown) buprenorphine 8 (units (unknown) date) mg-naloxone 2 mg unknown) See Rx Instructions sublingual 01/17/22 (unknown) (no (unknown) (unknown) buprenorphine-nalo (units (unknown) date) xone 8-2 mg tablet, unknown) sublingual (unknown) (no (unknown) (unknown) daily to affected (units (unknown) date) area as needed unknown) (unknown) (no (unknown) (unknown) ecchymosis present (units (unknown) date) to the right little unknown) finger at the DIP joint, CSM intact, donna (unknown) (no (unknown) (unknown) ethinyl estradiol (units (unknown) date) Allergy Mild unknown) ITCHING Verified 07/20/22 16:15 (unknown) (no (unknown) (unknown) etonogestrel [From (units (unknown) date) NUVARING] Allergy unknown) Mild ITCHING Verified 07/20/22 16:15 (unknown) (no (unknown) (unknown) famotidine 40 mg (units (unknown) date) tablet See Rx unknown) Instructions .Route 06/27/22 (unknown) (no (unknown) (unknown) famotidine 40 mg (units (unknown) date) tablet unknown) (unknown) (no (unknown) (unknown) finger splint (units ( unknown) date) until it heals, was unknown) encouraged to use this for least 3-4 weeks. (unknown) (no (unknown) (unknown) fluconazole 150 mg (units (unknown) date) tablet See Rx unknown) Instructions .Route 07/05/22 (unknown) (no (unknown) (unknown) fluconazole 150 mg (units (unknown) date) tablet unknown) (unknown) (no (unknown) (unknown) fluconazole 200 mg (units (unknown) date) tablet 200 mg PO unknown) DAILY PRN vaginal 07/09/22 (unknown) (no (unknown) (unknown) fluconazole (units (un known) date) [Diflucan] 200 mg unknown) tablet (unknown) (no (unknown) (unknown) for (units (unkno wn) date) unknown) (unknown) (no (unknown) (unknown) further (units (unkno wn) date) evaluation. unknown) (unknown) (no (unknown) (unknown) given Percocet and (units (unknown) date) ibuprofen for this. unknown) She is encouraged to use ibuprofen and (unknown) (no (unknown) (unknown) gram/dose oral (units (unknown) date) powder .COMPLEX unknown) #119 grams (unknown) (no (unknown) (unknown) household members: (units (unknown) date) spouse unknown) (unknown) (no (unknown) (unknown) hydrocodone (units (un known) date) [HYDROCODONE] unknown) Allergy Mild ITCHING Verified 07/20/22 16:15 (unknown) (no (unknown) (unknown) injuring her right (units (unknown) date) pinky has some unknown) bruises to her right side. She has swelling (unknown) (no (unknown) (unknown) instructed. (units (un known) date) Patient understands unknown) plan and agrees to discharge home. All (unknown) (no (unknown) (unknown) is on Suboxone (units (unknown) date) therapy, requests unknown) pain medication before her dose tonight, was (unknown) (no (unknown) (unknown) ketorolac [From (units (unknown) date) Toradol] Allergy unknown) Intermediate Verified 07/20/22 16:15 (unknown) (no (unknown) (unknown) lactulose 10 (units (u nknown) date) gram/15 mL oral 15 unknown) ml PO BID PRN constipation #473 07/09/22 (unknown) (no (unknown) (unknown) lactulose 10 (units (u nknown) date) gram/15 mL solution unknown) (unknown) (no (unknown) (unknown) lamotrigine 100 mg (units (unknown) date) tablet 100 mg PO unknown) DAILY #30 tabs 05/05/22 (unknown) (no (unknown) (unknown) lamotrigine 100 mg (units (unknown) date) tablet unknown) (unknown) (no (unknown) (unknown) lamotrigine 25 mg (units (unknown) date) tablet 25 mg PO unknown) DAILY #30 tabs 05/05/22 (unknown) (no (unknown) (unknown) lamotrigine 25 mg (units (unknown) date) tablet unknown) (unknown) (no (unknown) (unknown) lidocaine 5 % (units ( unknown) date) adhesive unknown) patch,medicated (unknown) (no (unknown) (unknown) lidocaine 5 % (units ( unknown) date) topical patch See unknown) Rx Instructions .Route 02/28/22 (unknown) (no (unknown) (unknown) little finger pain (units (unknown) date) after she fell unknown) forward in her camper van injuring her right (unknown) (no (unknown) (unknown) mechanical fall in (units (unknown) date) her camper van and unknown) states that she fell forward into the dash (unknown) (no (unknown) (unknown) minimally (units (unkn own) date) displaced fracture unknown) of the 5th digit distal phalanx. Patient is (unknown) (no (unknown) (unknown) morphine AdvReac (units (unknown) date) Intermediate unknown) Headache Verified 07/20/22 16:15 (unknown) (no (unknown) (unknown) multiple allergies (units (unknown) date) and is on Suboxone unknown) for chronic pain, states that she can take (unknown) (no (unknown) (unknown) neurovascularly (units (unknown) date) intact, she was unknown) splinted in a metal finger splint in extension (unknown) (no (unknown) (unknown) nystatin 100,000 (units (unknown) date) unit/gram ointment unknown) (unknown) (no (unknown) (unknown) nystatin 100,000 (units (unknown) date) unit/gram topical unknown) See Rx Instructions .Route 06/08/22 (unknown) (no (unknown) (unknown) ointment .COMPLEX (units (unknown) date) PRN apply three unknown) times (unknown) (no (unknown) (unknown) on repeat (units (unkn own) date) examination is unknown) unremarkable. Patient has been informed of results. (unknown) (no (unknown) (unknown) ondansetron (units (un known) date) AdvReac unknown) Intermediate Headache Verified 07/20/22 16:15 (unknown) (no (unknown) (unknown) phalanx. (units (unkno wn) date) unknown) (unknown) (no (unknown) (unknown) pinky. Radiology (units (unknown) date) report of her unknown) little finger right x-ray states possible acute (unknown) (no (unknown) (unknown) polyethylene (units (u nknown) date) glycol 3350 17 See unknown) Rx Instructions .Route 03/30/22 (unknown) (no (unknown) (unknown) polyethylene (units (u nknown) date) glycol 3350 17 unknown) gram/dose powder (unknown) (no (unknown) (unknown) promethazine 12.5 (units (unknown) date) mg rectal See Rx unknown) Instructions .Route 03/07/22 (unknown) (no (unknown) (unknown) promethazine 12.5 (units (unknown) date) mg tablet See Rx unknown) Instructions .Route 04/11/22 (unknown) (no (unknown) (unknown) promethazine 12.5 (units (unknown) date) mg tablet unknown) (unknown) (no (unknown) (unknown) promethazine (units (u nknown) date) [Promethegan] 12.5 unknown) mg suppository (unknown) (no (unknown) (unknown) questions and (units ( unknown) date) concerns answered unknown) at this time. (unknown) (no (unknown) (unknown) right pinky pain. (units (unknown) date) unknown) (unknown) (no (unknown) (unknown) sennosides 8.6 mg (units (unknown) date) tablet (senna) See unknown) Rx Instructions .Route 05/31/22 (unknown) (no (unknown) (unknown) sennosides [senna] (units (unknown) date) 8.6 mg tablet unknown) (unknown) (no (unknown) (unknown) sk cap refill (units ( unknown) date) unknown) (unknown) (no (unknown) (unknown) solution mL (units (un known) date) unknown) (unknown) (no (unknown) (unknown) sublingual tablet (units (unknown) date) .COMPLEX unknown) (unknown) (no (unknown) (unknown) sublingual; (units (un known) date) unknown) (unknown) (no (unknown) (unknown) suppository (units (un known) date) (Promethegan) unknown) .COMPLEX #12 supp (unknown) (no (unknown) (unknown) symptoms. Patient (units (unknown) date) understands to unknown) follow up closely with outpatient providers as (unknown) (no (unknown) (unknown) tab PRN during (units (unknown) date) day) unknown) (unknown) (no (unknown) (unknown) tobacco type: (units ( unknown) date) vaping unknown) (unknown) (no (unknown) (unknown) topical cream (units ( unknown) date) .COMPLEX #454 grams unknown) (unknown) (no (unknown) (unknown) tramadol (units (unkno wn) date) [TRAMADOL] Allergy unknown) Mild ITCHING Verified 07/20/22 16:15 (unknown) (no (unknown) (unknown) tretinoin 0.05 % (units (unknown) date) gel unknown) (unknown) (no (unknown) (unknown) tretinoin 0.05 % (units (unknown) date) topical gel 1 unknown) applic topical BEDTIME #135 grams 05/31/22 (unknown) (no (unknown) (unknown) triamcinolone (units ( unknown) date) acetonide 0.025 % unknown) See Rx Instructions .Route 04/03/22 (unknown) (no (unknown) (unknown) triamcinolone (units ( unknown) date) acetonide 0.025 % unknown) cream (unknown) (no (unknown) (unknown) understands to (units (unknown) date) follow up a [place] unknown) Orthopedics if she needs to, will wear her (unknown) (no (unknown) (unknown) worsening symptoms (units (unknown) date) and for further unknown) evaluation if she needs it. Patient Result panel 238 (unknown) (no (unknown) (unknown) (no value) (units (unk nown) date) unknown) (unknown) (no (unknown) (unknown) #30 grams (units (unkn own) date) unknown) (unknown) (no (unknown) (unknown) <Electronically (units (unknown) date) signed by Romelia lutz) Delicia JOSHI Crew> (unknown) (no (unknown) (unknown) (Diflucan) (units (unk nown) date) irritation #4 tabs unknown) (unknown) (no (unknown) (unknown) *If you do not (units (unknown) date) have a primary care unknown) provider please contact [phone] to (unknown) (no (unknown) (unknown) *Please continue (units (unknown) date) to take your unknown) regular medications as directed. (unknown) (no (unknown) (unknown) *Please follow up (units (unknown) date) with your primary unknown) care provider in 2-3 days, call for an (unknown) (no (unknown) (unknown) *Return to (units (unk nown) date) Emergency unknown) Department if you should have any new, worsening, or (unknown) (no (unknown) (unknown) *What to do: (units (u nknown) date) unknown) (unknown) (no (unknown) (unknown) *You have been (units (unknown) date) diagnosed with a unknown) fracture of the distal bone in your little (unknown) (no (unknown) (unknown) .COMPLEX #180 tabs (units (unknown) date) unknown) (unknown) (no (unknown) (unknown) .COMPLEX #2 tabs (units (unknown) date) unknown) (unknown) (no (unknown) (unknown) .COMPLEX #30 (units (u nknown) date) patches unknown) (unknown) (no (unknown) (unknown) .COMPLEX #42 tabs (units (unknown) date) unknown) (unknown) (no (unknown) (unknown) .COMPLEX PRN (units (u nknown) date) constipation #30 unknown) tabs (unknown) (no (unknown) (unknown) 05/05/22 (units (unkno wn) date) unknown) (unknown) (no (unknown) (unknown) 1 applic topical (units (unknown) date) BEDTIME Qty: 135 unknown) 0RF (unknown) (no (unknown) (unknown) 100 mg PO DAILY (units (unknown) date) Qty: 30 2RF unknown) (unknown) (no (unknown) (unknown) 07/20/22 16:19 (units (unknown) date) unknown) (unknown) (no (unknown) (unknown) 07/20/22 16:20 (units (unknown) date) unknown) (unknown) (no (unknown) (unknown) 07/20/22 16:22 (units (unknown) date) unknown) (unknown) (no (unknown) (unknown) 07/20/22 1919 (units ( unknown) date) unknown) (unknown) (no (unknown) (unknown) 07/20/22 (units (unkno wn) date) unknown) (unknown) (no (unknown) (unknown) 15 ml PO BID PRN (units (unknown) date) (Reason: unknown) constipation) Qty: 473 0RF (unknown) (no (unknown) (unknown) 16:15 (units (unkno wn) date) unknown) (unknown) (no (unknown) (unknown) 17 GIVE BY MOUTH (units (unknown) date) DAILY NEEDED FOR unknown) CONSTIPATION. (unknown) (no (unknown) (unknown) 200 mg PO DAILY (units (unknown) date) PRN (Reason: unknown) vaginal irritation) Qty: 4 0RF (unknown) (no (unknown) (unknown) 25 mg PO DAILY (units (unknown) date) Qty: 30 2RF unknown) (unknown) (no (unknown) (unknown) 5th digit distal (units (unknown) date) phalanx. unknown) (unknown) (no (unknown) (unknown) : [id number] (units (u nknown) date) unknown) (unknown) (no (unknown) (unknown) ? (units (unkno wn) date) unknown) (unknown) (no (unknown) (unknown) ?If clinically (units (unknown) date) indicated, unknown) follow-up radiographs and/or CT or MRI may be helpful (unknown) (no (unknown) (unknown) APPLY EXTERNALLY (units (unknown) date) TO THE AFFECTED unknown) AREA THREE TIMES DAILY PRN; (unknown) (no (unknown) (unknown) APPLY EXTERNALLY (units (unknown) date) TO THE AFFECTED unknown) AREA THREE TIMES DAILY (unknown) (no (unknown) (unknown) APPLY TO MOST (units ( unknown) date) PAINFUL AREA DAILY unknown) 12 HOURS ON AND 12 HOURS OFF. (unknown) (no (unknown) (unknown) APPLY TOPICALLY TO (units (unknown) date) THE AFFECTED AREA unknown) FOUR TIMES DAILY (unknown) (no (unknown) (unknown) Acetaminophen (units ( unknown) date) (Acetaminophen 325 unknown) Mg Tablet) 650 mg PO NOW ONE (unknown) (no (unknown) (unknown) Activity (units (unkno wn) date) Restrictions/Additi unknown) onal Instructions: (unknown) (no (unknown) (unknown) Age/Sex: 32 / F (units (unknown) date) unknown) (unknown) (no (unknown) (unknown) Aid or something (units (unknown) date) to splint the unknown) finger if you do not feel like wearing the (unknown) (no (unknown) (unknown) Allergies (units (unkn own) date) unknown) (unknown) (no (unknown) (unknown) Allergy/AdvReac (units (unknown) date) Type Severity unknown) Reaction Status Date / Time (unknown) (no (unknown) (unknown) Approved by: (units (u nknown) date) Van Mayo M.D. unknown) on 07/20/2022 at 17:02 ? (unknown) (no (unknown) (unknown) Bipolar 1 disorder (units (unknown) date) unknown) (unknown) (no (unknown) (unknown) Blood Pressure (units (unknown) date) 126/85 07/20/22 unknown) 16:15 (unknown) (no (unknown) (unknown) Blood Pressure (units (unknown) date) unknown) (unknown) (no (unknown) (unknown) Bones:? (units (unkno wn) date) Possible/equivocal unknown) acute minimally displaced oblique fracture of the (unknown) (no (unknown) (unknown) COMPARISON:? None. 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 unknown) on 07/20/2022 at 16:58 ? ? (unknown) (no (unknown) (unknown) Discharge Plan (units (unknown) date) unknown) (unknown) (no (unknown) (unknown) Discontinued (units (u nknown) date) Medications unknown) (unknown) (no (unknown) (unknown) Displaced fracture (units (unknown) date) of distal phalanx unknown) of right little finger, initial encounter (unknown) (no (unknown) (unknown) Distal paresthesia (units (unknown) date) unknown) (unknown) (no (unknown) (unknown) Documented By: NR (units (unknown) date) unknown) (unknown) (no (unknown) (unknown) Dose Instruction: (units (unknown) date) unknown) (unknown) (no (unknown) (unknown) ED Orders (units (unkn own) date) unknown) (unknown) (no (unknown) (unknown) ER Physician: (units ( unknown) date) Romelia Burch unknown) [place] (unknown) (no (unknown) (unknown) Ear infection (units ( unknown) date) unknown) (unknown) (no (unknown) (unknown) Emergency Report (units (unknown) date) unknown) (unknown) (no (unknown) (unknown) Encounter type: (units (unknown) date) initial encounter unknown) Finger: little finger Fracture type: closed (unknown) (no (unknown) (unknown) Exam Narrative: (units (unknown) date) unknown) (unknown) (no (unknown) (unknown) Exam (units (unkno wn) date) unknown) (unknown) (no (unknown) (unknown) Extremity x-ray (units (unknown) date) #1: unknown) (unknown) (no (unknown) (unknown) FINDINGS:? (units (unk nown) date) unknown) (unknown) (no (unknown) (unknown) Fracture (units (unkno wn) date) alignment: unknown) displaced Laterality: right Qualified Code(s): S62.636A (unknown) (no (unknown) (unknown) Fracture of distal (units (unknown) date) phalanx of finger unknown) (unknown) (no (unknown) (unknown) General (units (unkno wn) date) unknown) (unknown) (no (unknown) (unknown) HPI - Extremity (units (unknown) date) Injury (Upper) unknown) (unknown) (no (unknown) (unknown) HPI narrative: (units (unknown) date) unknown) (unknown) (no (unknown) (unknown) History of Present (units (unknown) date) Illness unknown) (unknown) (no (unknown) (unknown) History of (units (unk nown) date) multiple unknown) concussions (unknown) (no (unknown) (unknown) History of wisdom (units (unknown) date) tooth extraction unknown) (unknown) (no (unknown) (unknown) Hold Instructions: (units (unknown) date) med change due to unknown) insurance coverage (unknown) (no (unknown) (unknown) Home Medications (units (unknown) date) unknown) (unknown) (no (unknown) (unknown) Hx of (units (unkno wn) date) tonsillectomy unknown) (unknown) (no (unknown) (unknown) Hx of unilateral (units (unknown) date) salpingectomy unknown) (unknown) (no (unknown) (unknown) IMPRESSION:? (units (un known) date) Possible acute unknown) minimally displaced fracture of the 5th digit distal (unknown) (no (unknown) (unknown) INDICATIONS:? (units ( unknown) date) trauma unknown) (unknown) (no (unknown) (unknown) IV and oxycodone (units (unknown) date) without problem and unknown) she is set for her Suboxone dose soon. (unknown) (no (unknown) (unknown) Ibuprofen (units (unkn own) date) (Ibuprofen 400 Mg unknown) Tablet) 800 mg PO NOW ONE (unknown) (no (unknown) (unknown) Imaging Data (units (u nknown) date) unknown) (unknown) (no (unknown) (unknown) Initial Vital (units ( unknown) date) Signs unknown) (unknown) (no (unknown) (unknown) Initial Vital (units ( unknown) date) Signs: unknown) (unknown) (no (unknown) (unknown) Injury #1: (units (unk nown) date) unknown) (unknown) (no (unknown) (unknown) Instructions: DI (units (unknown) date) for Finger Fracture unknown) (unknown) (no (unknown) (unknown) [facility] (units (unknown) date) [address] [place] [address] unknown) [place] [address] (unknown) (no (unknown) (unknown) Label Comments: (units (unknown) date) unknown) (unknown) (no (unknown) (unknown) Last Admin: (units (un known) date) 07/20/22 18:24 unknown) Dose: 1 tab (unknown) (no (unknown) (unknown) Last Admin: (units (un known) date) 07/20/22 18:24 unknown) Dose: 650 mg (unknown) (no (unknown) (unknown) Last Admin: (units (un known) date) 07/20/22 18:24 unknown) Dose: 800 mg (unknown) (no (unknown) (unknown) MAY REPEAT SECOND (units (unknown) date) DOSE 72 HOURS AFTER unknown) FOR 1 DOSE IF SYMPTOMS PERSIST (unknown) (no (unknown) (unknown) MDM - Extremity (units (unknown) date) Injury (Upper) unknown) (unknown) (no (unknown) (unknown) MDM Narrative (units ( unknown) date) unknown) (unknown) (no (unknown) (unknown) MSK: moves all (units (unknown) date) extremities, unknown) neurovascularly intact, no weakness, normal tone, (unknown) (no (unknown) (unknown) Medical History (units (unknown) date) (Reviewed 07/20/22 unknown) @ 17:58 by ADI Samuels) (unknown) (no (unknown) (unknown) Medical decision (units (unknown) date) making narrative: unknown) (unknown) (no (unknown) (unknown) Medication (units (unk nown) date) Instructions unknown) Recorded Confirmed (unknown) (no (unknown) (unknown) Medication (units (unk nown) date) Instructions unknown) Recorded (unknown) (no (unknown) (unknown) Menometrorrhagia (units (unknown) date) unknown) (unknown) (no (unknown) (unknown) Migraines (units (unkn own) date) unknown) (unknown) (no (unknown) (unknown) Mode of arrival: (units (unknown) date) Ambulatory unknown) (unknown) (no (unknown) (unknown) Narrative (units (unkn own) date) unknown) (unknown) (no (unknown) (unknown) Neuro: normal (units ( unknown) date) speech and unknown) cognition, A+O x3, ambulatory, clear speech (unknown) (no (unknown) (unknown) Teodora Hanson MD (units (unknown) date) [Primary Care unknown) Provider] (unknown) (no (unknown) (unknown) No Action (units (unkn own) date) unknown) (unknown) (no (unknown) (unknown) Obstructive sleep (units (unknown) date) apnea (01/2022) unknown) (unknown) (no (unknown) (unknown) Ordered: (units (unkno wn) date) unknown) (unknown) (no (unknown) (unknown) Orders (units (unkno wn) date) unknown) (unknown) (no (unknown) (unknown) Orthopedic (units (unk nown) date) Splinting/Casting unknown) (unknown) (no (unknown) (unknown) Oxycodone/Acetamin (units (unknown) date) ophen unknown) (Oxycodone/Acetamin ophen 5/325 Tablet) 1 tab PO NOW ONE (unknown) (no (unknown) (unknown) Oxygen Delivery (units (unknown) date) Method 07/20/22 unknown) 16:15 (unknown) (no (unknown) (unknown) Oxygen Delivery (units (unknown) date) Method Room Air unknown) (unknown) (no (unknown) (unknown) PLACE 2 AND 1/2 (units (unknown) date) TABLETS UNDER unknown) TONGUE DAILY ( 1 tab Qam , 1 tab QPM and 1/2 (unknown) (no (unknown) (unknown) PROCEDURE:? XR (units (unknown) date) FINGER RT MIN 2V unknown) (unknown) (no (unknown) (unknown) PTSD (units (unkno wn) date) (post-traumatic unknown) stress disorder) (unknown) (no (unknown) (unknown) Patient (units (unkno wn) date) Disposition: Home unknown) (unknown) (no (unknown) (unknown) Patient History (units (unknown) date) unknown) (unknown) (no (unknown) (unknown) Patient has been (units (unknown) date) given strict return unknown) to ER precautions for any new or worsening (unknown) (no (unknown) (unknown) Patient has (units (un known) date) history of bipolar, unknown) PTSD, opioid use disorder, and presents with (unknown) (no (unknown) (unknown) Patient is (units (unk nown) date) appropriate and unknown) amenable to discharge home. Vital signs are stable (unknown) (no (unknown) (unknown) Patient: (units (o wn) date) Savannah Musa J unknown) M MR# (unknown) (no (unknown) (unknown) Placed by: Nursing (units (unknown) date) unknown) (unknown) (no (unknown) (unknown) Port-a-cath in (units (unknown) date) place unknown) (unknown) (no (unknown) (unknown) Post splinting (units (unknown) date) neuro exam: intact unknown) (unknown) (no (unknown) (unknown) Post splinting (units (unknown) date) vascular exam: unknown) intact (unknown) (no (unknown) (unknown) Prescriptions: (units (unknown) date) unknown) (unknown) (no (unknown) (unknown) Previous Rx's (units ( unknown) date) unknown) (unknown) (no (unknown) (unknown) Procedures (units (k n) date) unknown) (unknown) (no (unknown) (unknown) Psych: mental (units ( unknown) date) status is grossly unknown) normal, congruent mood, normal affect, pleasant (unknown) (no (unknown) (unknown) Pulse Oximetry 97 (units (unknown) date) 07/20/22 16:15 unknown) (unknown) (no (unknown) (unknown) Pulse Oximetry 97 (units (unknown) date) unknown) (unknown) (no (unknown) (unknown) Pulse Rate 72 (units ( unknown) date) 07/20/22 16:15 unknown) (unknown) (no (unknown) (unknown) Pulse Rate 72 (units ( unknown) date) unknown) (unknown) (no (unknown) (unknown) Qualifiers: (units (un known) date) unknown) (unknown) (no (unknown) (unknown) ROS Unobtainable: (units (unknown) date) All systems unknown) reviewed + are unremarkable except as noted in HPI (unknown) (no (unknown) (unknown) Radiologist's (units ( unknown) date) Impression: unknown) (unknown) (no (unknown) (unknown) Referrals: (units (unk nown) date) unknown) (unknown) (no (unknown) (unknown) Related Data (units (u nknown) date) unknown) (unknown) (no (unknown) (unknown) Respiratory Rate (units (unknown) date) 24 07/20/22 16:15 unknown) (unknown) (no (unknown) (unknown) Respiratory Rate (units (unknown) date) 24 unknown) (unknown) (no (unknown) (unknown) Review of Systems (units (unknown) date) unknown) (unknown) (no (unknown) (unknown) Reviewed vitals (units (unknown) date) signs and nursing unknown) notes. (unknown) (no (unknown) (unknown) Rx Instructions: (units (unknown) date) unknown) (unknown) (no (unknown) (unknown) See Rx (units (unkno wn) date) Instructions .ROUTE unknown) .COMPLEX PRN (Reason: apply three times daily to (unknown) (no (unknown) (unknown) See Rx (units (unkno wn) date) Instructions .ROUTE unknown) .COMPLEX PRN (Reason: constipation) Qty: 30 0RF (unknown) (no (unknown) (unknown) See Rx (units (unkno wn) date) Instructions .ROUTE unknown) .COMPLEX Qty: 119 3RF (unknown) (no (unknown) (unknown) See Rx (units (unkno wn) date) Instructions .ROUTE unknown) .COMPLEX Qty: 12 0RF (unknown) (no (unknown) (unknown) See Rx (units (unkno wn) date) Instructions .ROUTE unknown) .COMPLEX Qty: 180 1RF (unknown) (no (unknown) (unknown) See Rx (units (unkno wn) date) Instructions .ROUTE unknown) .COMPLEX Qty: 2 0RF (unknown) (no (unknown) (unknown) See Rx (units (unkno wn) date) Instructions .ROUTE unknown) .COMPLEX Qty: 30 5RF (unknown) (no (unknown) (unknown) See Rx (units (unkno wn) date) Instructions .ROUTE unknown) .COMPLEX Qty: 42 0RF (unknown) (no (unknown) (unknown) See Rx (units (unkno wn) date) Instructions .ROUTE unknown) .COMPLEX Qty: 454 1RF (unknown) (no (unknown) (unknown) See Rx (units (unkno wn) date) Instructions unknown) sublingual .COMPLEX (unknown) (no (unknown) (unknown) Side: right (units (un known) date) unknown) (unknown) (no (unknown) (unknown) Signed By: (units (unk nown) date) unknown) (unknown) (no (unknown) (unknown) [facility] (units (unkn own) date) [facility] unknown) [Provider Group] (unknown) (no (unknown) (unknown) Skin: brisk (units (un known) date) capillary refill, unknown) without pallor or erythema (unknown) (no (unknown) (unknown) Smoking Status: (units (unknown) date) Current every day unknown) smoker (unknown) (no (unknown) (unknown) Social History (units (unknown) date) (Reviewed 07/20/22 unknown) @ 17:58 by Romelia Burch [facility]) (unknown) (no (unknown) (unknown) Soft tissues:? No (units (unknown) date) suspicious soft unknown) tissue calcifications.? (unknown) (no (unknown) (unknown) Source: patient (units (unknown) date) unknown) (unknown) (no (unknown) (unknown) Stated Complaint: (units (unknown) date) rt pinky injury unknown) (unknown) (no (unknown) (unknown) Stop: 07/20/22 (units (unknown) date) 17:55 unknown) (unknown) (no (unknown) (unknown) Stop: 07/20/22 (units (unknown) date) 17:56 unknown) (unknown) (no (unknown) (unknown) Substance Use (units ( unknown) date) Type: does not use unknown) (unknown) (no (unknown) (unknown) Surgical History (units (unknown) date) (Reviewed 07/20/22 unknown) @ 17:58 by Romelia Burch [facility]) (unknown) (no (unknown) (unknown) TAKE 1 TABLET BY (units (unknown) date) MOUTH DAILY PRN; unknown) (unknown) (no (unknown) (unknown) TAKE 1 TABLET BY (units (unknown) date) MOUTH DAILY unknown) (unknown) (no (unknown) (unknown) TAKE 1 TABLET BY (units (unknown) date) MOUTH EVERY 3 DAYS unknown) NEEDED FOR VAGINAL YEAST INFECTION. (unknown) (no (unknown) (unknown) TAKE 1 TABLET BY (units (unknown) date) MOUTH EVERY 8 TO 12 unknown) HOURS FOR 14 DAYS NEEDED FOR NAUSEA (unknown) (no (unknown) (unknown) TAKE 1 TABLET BY (units (unknown) date) MOUTH TWICE DAILY unknown) (unknown) (no (unknown) (unknown) TECHNIQUE:? AP (units (unknown) date) hand, 2 views of unknown) the 5th digit acquired.? (unknown) (no (unknown) (unknown) Take 1 dose may (units (unknown) date) repeat is every 72 unknown) hours if still having symptoms (unknown) (no (unknown) (unknown) Take with 100mg (units (unknown) date) tab daily for total unknown) dose 125mg daily (unknown) (no (unknown) (unknown) Take with 25mg tab (units (unknown) date) for total dose unknown) 125mg daily (unknown) (no (unknown) (unknown) Temperature 98.0 F (units (unknown) date) 07/20/22 16:15 unknown) (unknown) (no (unknown) (unknown) Temperature 98.0 F (units (unknown) date) unknown) (unknown) (no (unknown) (unknown) This is a (units (unkn own) date) 32-year-old female unknown) presents emergency department complaining of right (unknown) (no (unknown) (unknown) This is a (units (unkn own) date) 32-year-old female unknown) who presents to the emergency department after (unknown) (no (unknown) (unknown) Time Seen by (units (u nknown) date) Provider: 07/20/22 unknown) 17:22 (unknown) (no (unknown) (unknown) Tylenol as needed (units (unknown) date) for her pain and to unknown) follow-up with orthopedics if she has any (unknown) (no (unknown) (unknown) UNWRAP AND INSERT (units (unknown) date) 1 SUPPOSITORY unknown) RECTALLY 1 TIME NEEDED FOR NAUSEA OR (unknown) (no (unknown) (unknown) Upper Extremity (units (unknown) date) Immobilizer: finger unknown) (other) (unknown) (no (unknown) (unknown) Upper Extremity (units (unknown) date) Injury Location: unknown) finger (unknown) (no (unknown) (unknown) Urinary leakage (units (unknown) date) unknown) (unknown) (no (unknown) (unknown) VOMITING (units (unkno wn) date) unknown) (unknown) (no (unknown) (unknown) Visit Report (units (u nknown) date) Forms: Patient unknown) Portal/API (unknown) (no (unknown) (unknown) Vital Signs - 8 hr (units (unknown) date) unknown) (unknown) (no (unknown) (unknown) Vital Signs (units (un known) date) unknown) (unknown) (no (unknown) (unknown) Vital signs: (units (u nknown) date) unknown) (unknown) (no (unknown) (unknown) XR finger RT min (units (unknown) date) 2V Stat unknown) (unknown) (no (unknown) (unknown) [ ] New medication (units (unknown) date) prescriptions sent unknown) to your pharmacy: [ ] (unknown) (no (unknown) (unknown) [ ] New medication (units (unknown) date) written as a paper unknown) prescription (unknown) (no (unknown) (unknown) [From NUVARING] (units (unknown) date) unknown) (unknown) (no (unknown) (unknown) [x ] No new (units (un known) date) medications given unknown) (unknown) (no (unknown) (unknown) able to wiggle her (units (unknown) date) fingers but it is unknown) painful, denies any fingernail injury, has (unknown) (no (unknown) (unknown) across the D IP (units (unknown) date) joint, CSM remains unknown) intact. She has history of chronic pain and (unknown) (no (unknown) (unknown) affected area as (units (unknown) date) needed) Qty: 30 0RF unknown) (unknown) (no (unknown) (unknown) alcohol intake (units (unknown) date) frequency: unknown) holidays/special occasions only (unknown) (no (unknown) (unknown) and below (units (unkn own) date) unknown) (unknown) (no (unknown) (unknown) and cooperative (units (unknown) date) unknown) (unknown) (no (unknown) (unknown) and ecchymosis to (units (unknown) date) her right pinky, unknown) denies numbness or tingling, states is still (unknown) (no (unknown) (unknown) appointment. Let (units (unknown) date) them know you were unknown) seen in the Emergency Department and that we (unknown) (no (unknown) (unknown) aripiprazole [From (units (unknown) date) ABILIFY] Allergy unknown) Mild MOOD SWINGS Verified 07/20/22 16:15 (unknown) (no (unknown) (unknown) asked that you be (units (unknown) date) seen for follow-up. unknown) We will electronically transmit a record (unknown) (no (unknown) (unknown) base of the (units (un known) date) unknown) (unknown) (no (unknown) (unknown) buprenorphine 8 (units (unknown) date) mg-naloxone 2 mg unknown) See Rx Instructions sublingual 01/17/22 (unknown) (no (unknown) (unknown) buprenorphine-nalo (units (unknown) date) xone 8-2 mg tablet, unknown) sublingual (unknown) (no (unknown) (unknown) concerning (units (unk nown) date) symptoms, such as unknown) [fever greater than 101F, chills, worsening pain, (unknown) (no (unknown) (unknown) daily to affected (units (unknown) date) area as needed unknown) (unknown) (no (unknown) (unknown) ecchymosis present (units (unknown) date) to the right little unknown) finger at the DIP joint, CSM intact, donna (unknown) (no (unknown) (unknown) establish care (units (unknown) date) with one of the unknown) [facility] primary care providers. (unknown) (no (unknown) (unknown) ethinyl estradiol (units (unknown) date) Allergy Mild unknown) ITCHING Verified 07/20/22 16:15 (unknown) (no (unknown) (unknown) etonogestrel [From (units (unknown) date) NUVARING] Allergy unknown) Mild ITCHING Verified 07/20/22 16:15 (unknown) (no (unknown) (unknown) famotidine 40 mg (units (unknown) date) tablet See Rx unknown) Instructions .Route 06/27/22 (unknown) (no (unknown) (unknown) famotidine 40 mg (units (unknown) date) tablet unknown) (unknown) (no (unknown) (unknown) feel better soon, (units (unknown) date) best of luck unknown) (unknown) (no (unknown) (unknown) finger at the (units ( unknown) date) joint space, please unknown) wear a finger splint to keep this immobilized (unknown) (no (unknown) (unknown) finger splint (units ( unknown) date) until it heals, was unknown) encouraged to use this for least 3-4 weeks. (unknown) (no (unknown) (unknown) fluconazole 150 mg (units (unknown) date) tablet See Rx unknown) Instructions .Route 07/05/22 (unknown) (no (unknown) (unknown) fluconazole 150 mg (units (unknown) date) tablet unknown) (unknown) (no (unknown) (unknown) fluconazole 200 mg (units (unknown) date) tablet 200 mg PO unknown) DAILY PRN vaginal 07/09/22 (unknown) (no (unknown) (unknown) fluconazole (units (un known) date) [Diflucan] 200 mg unknown) tablet (unknown) (no (unknown) (unknown) follow-up at (units (u nknown) date) [facility] unknown) if you have worsening of this or mobility (unknown) (no (unknown) (unknown) for closed (units (unk nown) date) fracture unknown) (unknown) (no (unknown) (unknown) for (units (unkno wn) date) unknown) (unknown) (no (unknown) (unknown) further (units (unkno wn) date) evaluation. unknown) (unknown) (no (unknown) (unknown) given Percocet and (units (unknown) date) ibuprofen for this. unknown) She is encouraged to use ibuprofen and (unknown) (no (unknown) (unknown) gram/dose oral (units (unknown) date) powder .COMPLEX unknown) #119 grams (unknown) (no (unknown) (unknown) household members: (units (unknown) date) spouse unknown) (unknown) (no (unknown) (unknown) hydrocodone (units (un known) date) [HYDROCODONE] unknown) Allergy Mild ITCHING Verified 07/20/22 16:15 (unknown) (no (unknown) (unknown) in extension, it (units (unknown) date) should heal in 2-3 unknown) weeks without difficulty, please use a Band (unknown) (no (unknown) (unknown) injuring her right (units (unknown) date) pinky has some unknown) bruises to her right side. She has swelling (unknown) (no (unknown) (unknown) instructed. (units (un known) date) Patient understands unknown) plan and agrees to discharge home. All (unknown) (no (unknown) (unknown) is on Suboxone (units (unknown) date) therapy, requests unknown) pain medication before her dose tonight, was (unknown) (no (unknown) (unknown) ketorolac [From (units (unknown) date) Toradol] Allergy unknown) Intermediate Verified 07/20/22 16:15 (unknown) (no (unknown) (unknown) lactulose 10 (units (u nknown) date) gram/15 mL oral 15 unknown) ml PO BID PRN constipation #473 07/09/22 (unknown) (no (unknown) (unknown) lactulose 10 (units (u nknown) date) gram/15 mL solution unknown) (unknown) (no (unknown) (unknown) lamotrigine 100 mg (units (unknown) date) tablet 100 mg PO unknown) DAILY #30 tabs 05/05/22 (unknown) (no (unknown) (unknown) lamotrigine 100 mg (units (unknown) date) tablet unknown) (unknown) (no (unknown) (unknown) lamotrigine 25 mg (units (unknown) date) tablet 25 mg PO unknown) DAILY #30 tabs 05/05/22 (unknown) (no (unknown) (unknown) lamotrigine 25 mg (units (unknown) date) tablet unknown) (unknown) (no (unknown) (unknown) lidocaine 5 % (units ( unknown) date) adhesive unknown) patch,medicated (unknown) (no (unknown) (unknown) lidocaine 5 % (units ( unknown) date) topical patch See unknown) Rx Instructions .Route 02/28/22 (unknown) (no (unknown) (unknown) little finger pain (units (unknown) date) after she fell unknown) forward in her camper van injuring her right (unknown) (no (unknown) (unknown) mechanical fall in (units (unknown) date) her camper van and unknown) states that she fell forward into the dash (unknown) (no (unknown) (unknown) medication to help (units (unknown) date) treat your pain, unknown) elevate it frequently and use ice, you can (unknown) (no (unknown) (unknown) minimally (units (unkn own) date) displaced fracture unknown) of the 5th digit distal phalanx. Patient is (unknown) (no (unknown) (unknown) morphine AdvReac (units (unknown) date) Intermediate unknown) Headache Verified 07/20/22 16:15 (unknown) (no (unknown) (unknown) multiple allergies (units (unknown) date) and is on Suboxone unknown) for chronic pain, states that she can take (unknown) (no (unknown) (unknown) neurovascularly (units (unknown) date) intact, she was unknown) splinted in a metal finger splint in extension (unknown) (no (unknown) (unknown) nystatin 100,000 (units (unknown) date) unit/gram ointment unknown) (unknown) (no (unknown) (unknown) nystatin 100,000 (units (unknown) date) unit/gram topical unknown) See Rx Instructions .Route 06/08/22 (unknown) (no (unknown) (unknown) of today's note if (units (unknown) date) your PCP is in our unknown) system (unknown) (no (unknown) (unknown) ointment .COMPLEX (units (unknown) date) PRN apply three unknown) times (unknown) (no (unknown) (unknown) on repeat (units (unkn own) date) examination is unknown) unremarkable. Patient has been informed of results. (unknown) (no (unknown) (unknown) ondansetron (units (un known) date) AdvReac unknown) Intermediate Headache Verified 07/20/22 16:15 (unknown) (no (unknown) (unknown) persistent (units (unk nown) date) vomiting or other unknown) bothersome symptoms]. (unknown) (no (unknown) (unknown) phalanx. (units (unkno wn) date) unknown) (unknown) (no (unknown) (unknown) pinky. Radiology (units (unknown) date) report of her unknown) little finger right x-ray states possible acute (unknown) (no (unknown) (unknown) polyethylene (units (u nknown) date) glycol 3350 17 See unknown) Rx Instructions .Route 03/30/22 (unknown) (no (unknown) (unknown) polyethylene (units (u nknown) date) glycol 3350 17 unknown) gram/dose powder (unknown) (no (unknown) (unknown) problems with your (units (unknown) date) finger. Just call unknown) and schedule an appointment. I hope you (unknown) (no (unknown) (unknown) promethazine 12.5 (units (unknown) date) mg rectal See Rx unknown) Instructions .Route 03/07/22 (unknown) (no (unknown) (unknown) promethazine 12.5 (units (unknown) date) mg tablet See Rx unknown) Instructions .Route 04/11/22 (unknown) (no (unknown) (unknown) promethazine 12.5 (units (unknown) date) mg tablet unknown) (unknown) (no (unknown) (unknown) promethazine (units (u nknown) date) [Promethegan] 12.5 unknown) mg suppository (unknown) (no (unknown) (unknown) questions and (units ( unknown) date) concerns answered unknown) at this time. (unknown) (no (unknown) (unknown) right pinky pain. (units (unknown) date) unknown) (unknown) (no (unknown) (unknown) sennosides 8.6 mg (units (unknown) date) tablet (senna) See unknown) Rx Instructions .Route 05/31/22 (unknown) (no (unknown) (unknown) sennosides [senna] (units (unknown) date) 8.6 mg tablet unknown) (unknown) (no (unknown) (unknown) sk cap refill (units ( unknown) date) unknown) (unknown) (no (unknown) (unknown) solution mL (units (un known) date) unknown) (unknown) (no (unknown) (unknown) splint. Please use (units (unknown) date) ibuprofen and unknown) Tylenol in addition to your chronic pain (unknown) (no (unknown) (unknown) sublingual tablet (units (unknown) date) .COMPLEX unknown) (unknown) (no (unknown) (unknown) sublingual; (units (un known) date) unknown) (unknown) (no (unknown) (unknown) suppository (units (un known) date) (Promethegan) unknown) .COMPLEX #12 supp (unknown) (no (unknown) (unknown) symptoms. Patient (units (unknown) date) understands to unknown) follow up closely with outpatient providers as (unknown) (no (unknown) (unknown) tab PRN during (units (unknown) date) day) unknown) (unknown) (no (unknown) (unknown) tobacco type: (units ( unknown) date) vaping unknown) (unknown) (no (unknown) (unknown) topical cream (units ( unknown) date) .COMPLEX #454 grams unknown) (unknown) (no (unknown) (unknown) tramadol (units (unkno wn) date) [TRAMADOL] Allergy unknown) Mild ITCHING Verified 07/20/22 16:15 (unknown) (no (unknown) (unknown) tretinoin 0.05 % (units (unknown) date) gel unknown) (unknown) (no (unknown) (unknown) tretinoin 0.05 % (units (unknown) date) topical gel 1 unknown) applic topical BEDTIME #135 grams 05/31/22 (unknown) (no (unknown) (unknown) triamcinolone (units ( unknown) date) acetonide 0.025 % unknown) See Rx Instructions .Route 04/03/22 (unknown) (no (unknown) (unknown) triamcinolone (units ( unknown) date) acetonide 0.025 % unknown) cream (unknown) (no (unknown) (unknown) understands to (units (unknown) date) follow up a [facility] unknown) [facility] if she needs to, will wear her (unknown) (no (unknown) (unknown) worsening symptoms (units (unknown) date) and for further unknown) evaluation if she needs it. Patient Result panel 239 (unknown) (no (unknown) (unknown) (no value) (units (unk nown) date) unknown) (unknown) (no (unknown) (unknown) #30 grams (units (unkn own) date) unknown) (unknown) (no (unknown) (unknown) <Electronically (units (unknown) date) signed by Romelia unknown) Delicia JOSHI Crew> (unknown) (no (unknown) (unknown) <Electronically (units (unknown) date) signed by Ino unknown) Berta Alan> (unknown) (no (unknown) (unknown) <Romelia Burch, (units (unknown) date) [place] - Last Filed: unknown) 07/20/22 19:19> (unknown) (no (unknown) (unknown) <Ino Alan DO (units (unknown) date) - Last Filed: unknown) 07/21/22 03:26> (unknown) (no (unknown) (unknown) (Diflucan) (units (unk nown) date) irritation #4 tabs unknown) (unknown) (no (unknown) (unknown) *If you do not (units (unknown) date) have a primary care unknown) provider please contact [phone] to (unknown) (no (unknown) (unknown) *Please continue (units (unknown) date) to take your unknown) regular medications as directed. (unknown) (no (unknown) (unknown) *Please follow up (units (unknown) date) with your primary unknown) care provider in 2-3 days, call for an (unknown) (no (unknown) (unknown) *Return to (units (unk nown) date) Emergency unknown) Department if you should have any new, worsening, or (unknown) (no (unknown) (unknown) *What to do: (units (u nknown) date) unknown) (unknown) (no (unknown) (unknown) *You have been (units (unknown) date) diagnosed with a unknown) fracture of the distal bone in your little (unknown) (no (unknown) (unknown) .COMPLEX #180 tabs (units (unknown) date) unknown) (unknown) (no (unknown) (unknown) .COMPLEX #2 tabs (units (unknown) date) unknown) (unknown) (no (unknown) (unknown) .COMPLEX #30 (units (u nknown) date) patches unknown) (unknown) (no (unknown) (unknown) .COMPLEX #42 tabs (units (unknown) date) unknown) (unknown) (no (unknown) (unknown) .COMPLEX PRN (units (u nknown) date) constipation #30 unknown) tabs (unknown) (no (unknown) (unknown) 05/05/22 (units (unkno wn) date) unknown) (unknown) (no (unknown) (unknown) 1 applic topical (units (unknown) date) BEDTIME Qty: 135 unknown) 0RF (unknown) (no (unknown) (unknown) 100 mg PO DAILY (units (unknown) date) Qty: 30 2RF unknown) (unknown) (no (unknown) (unknown) 07/20/22 1919 (units ( unknown) date) unknown) (unknown) (no (unknown) (unknown) 07/20/22 (units (unkno wn) date) unknown) (unknown) (no (unknown) (unknown) 07/21/22 0326 (units ( unknown) date) unknown) (unknown) (no (unknown) (unknown) 15 ml PO BID PRN (units (unknown) date) (Reason: unknown) constipation) Qty: 473 0RF (unknown) (no (unknown) (unknown) 16:15 (units (unkno wn) date) unknown) (unknown) (no (unknown) (unknown) 17 GIVE BY MOUTH (units (unknown) date) DAILY NEEDED FOR unknown) CONSTIPATION. (unknown) (no (unknown) (unknown) 200 mg PO DAILY (units (unknown) date) PRN (Reason: unknown) vaginal irritation) Qty: 4 0RF (unknown) (no (unknown) (unknown) 25 mg PO DAILY (units (unknown) date) Qty: 30 2RF unknown) (unknown) (no (unknown) (unknown) 5th digit distal (units (unknown) date) phalanx. unknown) (unknown) (no (unknown) (unknown) : [id number] (units (u nknown) date) unknown) (unknown) (no (unknown) (unknown) ? (units (unkno wn) date) unknown) (unknown) (no (unknown) (unknown) ?If clinically (units (unknown) date) indicated, unknown) follow-up radiographs and/or CT or MRI may be helpful (unknown) (no (unknown) (unknown) APPLY EXTERNALLY (units (unknown) date) TO THE AFFECTED unknown) AREA THREE TIMES DAILY PRN; (unknown) (no (unknown) (unknown) APPLY EXTERNALLY (units (unknown) date) TO THE AFFECTED unknown) AREA THREE TIMES DAILY (unknown) (no (unknown) (unknown) APPLY TO MOST (units ( unknown) date) PAINFUL AREA DAILY unknown) 12 HOURS ON AND 12 HOURS OFF. (unknown) (no (unknown) (unknown) APPLY TOPICALLY TO (units (unknown) date) THE AFFECTED AREA unknown) FOUR TIMES DAILY (unknown) (no (unknown) (unknown) Acetaminophen (units ( unknown) date) (Acetaminophen 325 unknown) Mg Tablet) 650 mg PO NOW ONE (unknown) (no (unknown) (unknown) Activity (units (unkno wn) date) Restrictions/Additi unknown) onal Instructions: (unknown) (no (unknown) (unknown) Age/Sex: 32 / F (units (unknown) date) unknown) (unknown) (no (unknown) (unknown) Aid or something (units (unknown) date) to splint the unknown) finger if you do not feel like wearing the (unknown) (no (unknown) (unknown) Allergies (units (unkn own) date) unknown) (unknown) (no (unknown) (unknown) Allergy/AdvReac (units (unknown) date) Type Severity unknown) Reaction Status Date / Time (unknown) (no (unknown) (unknown) Approved by: (units (u nknown) date) Van Mayo M.D. unknown) on 07/20/2022 at 17:02 ? (unknown) (no (unknown) (unknown) Bipolar 1 disorder (units (unknown) date) unknown) (unknown) (no (unknown) (unknown) Blood Pressure (units (unknown) date) 126/85 07/20/22 unknown) 16:15 (unknown) (no (unknown) (unknown) Blood Pressure (units (unknown) date) unknown) (unknown) (no (unknown) (unknown) Bones:? (units (unkno wn) date) Possible/equivocal unknown) acute minimally displaced oblique fracture of the (unknown) (no (unknown) (unknown) COMPARISON:? None. (units (unknown) date) unknown) (unknown) (no (unknown) (unknown) Chief Complaint: (units (unknown) date) Extremity Injury, unknown) Upper (unknown) (no (unknown) (unknown) Clinical (units (unkno wn) date) Impression: unknown) (unknown) (no (unknown) (unknown) Cosign (units (unkno wn) date) unknown) (unknown) (no (unknown) (unknown) Course (units (unkno wn) date) unknown) (unknown) (no (unknown) (unknown) : 1990 (units (unknown) date) Acct:[id number] unknown) (unknown) (no (unknown) (unknown) Date of Service: (units (unknown) date) 07/20/22 unknown) (unknown) (no (unknown) (unknown) Departure (units (unkn own) date) unknown) (unknown) (no (unknown) (unknown) Depression (units (unk nown) date) unknown) (unknown) (no (unknown) (unknown) Dictated by: (units (u nknown) date) Van Mayo M.D. unknown) on 07/20/2022 at 16:58 ? ? (unknown) (no (unknown) (unknown) Discharge Plan (units (unknown) date) unknown) (unknown) (no (unknown) (unknown) Discontinued (units (u nknown) date) Medications unknown) (unknown) (no (unknown) (unknown) Displaced fracture (units (unknown) date) of distal phalanx unknown) of right little finger, initial encounter (unknown) (no (unknown) (unknown) Distal paresthesia (units (unknown) date) unknown) (unknown) (no (unknown) (unknown) Documented By: NR (units (unknown) date) unknown) (unknown) (no (unknown) (unknown) Dose Instruction: (units (unknown) date) unknown) (unknown) (no (unknown) (unknown) ED Attending (units (u nknown) date) Cosignature unknown) Attestation: (unknown) (no (unknown) (unknown) ER Physician: (units ( unknown) date) CrewRomleia unknown) [place] (unknown) (no (unknown) (unknown) Ear infection (units ( unknown) date) unknown) (unknown) (no (unknown) (unknown) Emergency Report (units (unknown) date) unknown) (unknown) (no (unknown) (unknown) Encounter type: (units (unknown) date) initial encounter unknown) Finger: little finger Fracture type: closed (unknown) (no (unknown) (unknown) Exam Narrative: (units (unknown) date) unknown) (unknown) (no (unknown) (unknown) Exam (units (unkno wn) date) unknown) (unknown) (no (unknown) (unknown) Extremity x-ray (units (unknown) date) #1: unknown) (unknown) (no (unknown) (unknown) FINDINGS:? (units (unk nown) date) unknown) (unknown) (no (unknown) (unknown) Fracture (units (unkno wn) date) alignment: unknown) displaced Laterality: right Qualified Code(s): S62.636A (unknown) (no (unknown) (unknown) Fracture of distal (units (unknown) date) phalanx of finger unknown) (unknown) (no (unknown) (unknown) General (units (unkno wn) date) unknown) (unknown) (no (unknown) (unknown) HPI - Extremity (units (unknown) date) Injury (Upper) unknown) (unknown) (no (unknown) (unknown) HPI narrative: (units (unknown) date) unknown) (unknown) (no (unknown) (unknown) History of Present (units (unknown) date) Illness unknown) (unknown) (no (unknown) (unknown) History of (units (unk nown) date) multiple unknown) concussions (unknown) (no (unknown) (unknown) History of wisdom (units (unknown) date) tooth extraction unknown) (unknown) (no (unknown) (unknown) Hold Instructions: (units (unknown) date) med change due to unknown) insurance coverage (unknown) (no (unknown) (unknown) Home Medications (units (unknown) date) unknown) (unknown) (no (unknown) (unknown) Hx of (units (unkno wn) date) tonsillectomy unknown) (unknown) (no (unknown) (unknown) Hx of unilateral (units (unknown) date) salpingectomy unknown) (unknown) (no (unknown) (unknown) I was immediately (units (unknown) date) available in the unknown) department for consultation. This (unknown) (no (unknown) (unknown) IMPRESSION:? (units (un known) date) Possible acute unknown) minimally displaced fracture of the 5th digit distal (unknown) (no (unknown) (unknown) INDICATIONS:? (units ( unknown) date) trauma unknown) (unknown) (no (unknown) (unknown) IV and oxycodone (units (unknown) date) without problem and unknown) she is set for her Suboxone dose soon. (unknown) (no (unknown) (unknown) Ibuprofen (units (unkn own) date) (Ibuprofen 400 Mg unknown) Tablet) 800 mg PO NOW ONE (unknown) (no (unknown) (unknown) Imaging Data (units (u nknown) date) unknown) (unknown) (no (unknown) (unknown) Initial Vital (units ( unknown) date) Signs unknown) (unknown) (no (unknown) (unknown) Initial Vital (units ( unknown) date) Signs: unknown) (unknown) (no (unknown) (unknown) Injury #1: (units (unk nown) date) unknown) (unknown) (no (unknown) (unknown) Instructions: DI (units (unknown) date) for Finger Fracture unknown) (unknown) (no (unknown) (unknown) [facility] (units (unknown) date) [address] [place] [address] Street unknown) [place] [address] (unknown) (no (unknown) (unknown) Label Comments: (units (unknown) date) unknown) (unknown) (no (unknown) (unknown) Last Admin: (units (un known) date) 07/20/22 18:24 unknown) Dose: 1 tab (unknown) (no (unknown) (unknown) Last Admin: (units (un known) date) 07/20/22 18:24 unknown) Dose: 650 mg (unknown) (no (unknown) (unknown) Last Admin: (units (un known) date) 07/20/22 18:24 unknown) Dose: 800 mg (unknown) (no (unknown) (unknown) MAY REPEAT SECOND (units (unknown) date) DOSE 72 HOURS AFTER unknown) FOR 1 DOSE IF SYMPTOMS PERSIST (unknown) (no (unknown) (unknown) MDM - Extremity (units (unknown) date) Injury (Upper) unknown) (unknown) (no (unknown) (unknown) MDM Narrative (units ( unknown) date) unknown) (unknown) (no (unknown) (unknown) MSK: moves all (units (unknown) date) extremities, unknown) neurovascularly intact, no weakness, normal tone, (unknown) (no (unknown) (unknown) Medical History (units (unknown) date) (Reviewed 07/20/22 unknown) @ 17:58 by Romelia Burch [facility]) (unknown) (no (unknown) (unknown) Medical decision (units (unknown) date) making narrative: unknown) (unknown) (no (unknown) (unknown) Medication (units (unk nown) date) Instructions unknown) Recorded Confirmed (unknown) (no (unknown) (unknown) Medication (units (unk nown) date) Instructions unknown) Recorded (unknown) (no (unknown) (unknown) Menometrorrhagia (units (unknown) date) unknown) (unknown) (no (unknown) (unknown) Migraines (units (unkn own) date) unknown) (unknown) (no (unknown) (unknown) Mode of arrival: (units (unknown) date) Ambulatory unknown) (unknown) (no (unknown) (unknown) Narrative (units (unkn own) date) unknown) (unknown) (no (unknown) (unknown) Neuro: normal (units ( unknown) date) speech and unknown) cognition, A+O x3, ambulatory, clear speech (unknown) (no (unknown) (unknown) Teodora Hanson MD (units (unknown) date) [Primary Care unknown) Provider] (unknown) (no (unknown) (unknown) No Action (units (unkn own) date) unknown) (unknown) (no (unknown) (unknown) Obstructive sleep (units (unknown) date) apnea (01/2022) unknown) (unknown) (no (unknown) (unknown) Ordered: (units (unkno wn) date) unknown) (unknown) (no (unknown) (unknown) Orders (units (unkno wn) date) unknown) (unknown) (no (unknown) (unknown) Orthopedic (units (unk nown) date) Splinting/Casting unknown) (unknown) (no (unknown) (unknown) Oxycodone/Acetamin (units (unknown) date) ophen unknown) (Oxycodone/Acetamin ophen 5/325 Tablet) 1 tab PO NOW ONE (unknown) (no (unknown) (unknown) Oxygen Delivery (units (unknown) date) Method 07/20/22 unknown) 16:15 (unknown) (no (unknown) (unknown) Oxygen Delivery (units (unknown) date) Method Room Air unknown) (unknown) (no (unknown) (unknown) PLACE 2 AND 08/14 (units (unknown) date) TABLETS UNDER unknown) TONGUE DAILY ( 1 tab Qam , 1 tab QPM and /2 (unknown) (no (unknown) (unknown) PROCEDURE:? XR (units (unknown) date) FINGER RT MIN 2V unknown) (unknown) (no (unknown) (unknown) PTSD (units (unkno wn) date) (post-traumatic unknown) stress disorder) (unknown) (no (unknown) (unknown) Patient (units (unkno wn) date) Disposition: Home unknown) (unknown) (no (unknown) (unknown) Patient History (units (unknown) date) unknown) (unknown) (no (unknown) (unknown) Patient has been (units (unknown) date) given strict return unknown) to ER precautions for any new or worsening (unknown) (no (unknown) (unknown) Patient has (units (un known) date) history of bipolar, unknown) PTSD, opioid use disorder, and presents with (unknown) (no (unknown) (unknown) Patient is (units (unk nown) date) appropriate and unknown) amenable to discharge home. Vital signs are stable (unknown) (no (unknown) (unknown) Patient: (units (unkno wn) date) Savannah Musa unknown) M MR# (unknown) (no (unknown) (unknown) Placed by: Nursing (units (unknown) date) unknown) (unknown) (no (unknown) (unknown) Port-a-cath in (units (unknown) date) place unknown) (unknown) (no (unknown) (unknown) Post splinting (units (unknown) date) neuro exam: intact unknown) (unknown) (no (unknown) (unknown) Post splinting (units (unknown) date) vascular exam: unknown) intact (unknown) (no (unknown) (unknown) Prescriptions: (units (unknown) date) unknown) (unknown) (no (unknown) (unknown) Previous Rx's (units ( unknown) date) unknown) (unknown) (no (unknown) (unknown) Procedures (units (unk nown) date) unknown) (unknown) (no (unknown) (unknown) Psych: mental (units ( unknown) date) status is grossly unknown) normal, congruent mood, normal affect, pleasant (unknown) (no (unknown) (unknown) Pulse Oximetry 97 (units (unknown) date) 07/20/22 16:15 unknown) (unknown) (no (unknown) (unknown) Pulse Oximetry 97 (units (unknown) date) unknown) (unknown) (no (unknown) (unknown) Pulse Rate 72 (units ( unknown) date) 07/20/22 16:15 unknown) (unknown) (no (unknown) (unknown) Pulse Rate 72 (units ( unknown) date) unknown) (unknown) (no (unknown) (unknown) Qualifiers: (units (un known) date) unknown) (unknown) (no (unknown) (unknown) ROS Unobtainable: (units (unknown) date) All systems unknown) reviewed + are unremarkable except as noted in HPI (unknown) (no (unknown) (unknown) Radiologist's (units ( unknown) date) Impression: unknown) (unknown) (no (unknown) (unknown) Referrals: (units (unk nown) date) unknown) (unknown) (no (unknown) (unknown) Related Data (units (u nknown) date) unknown) (unknown) (no (unknown) (unknown) Respiratory Rate (units (unknown) date) 24 07/20/22 16:15 unknown) (unknown) (no (unknown) (unknown) Respiratory Rate (units (unknown) date) 24 unknown) (unknown) (no (unknown) (unknown) Review of Systems (units (unknown) date) unknown) (unknown) (no (unknown) (unknown) Reviewed vitals (units (unknown) date) signs and nursing unknown) notes. (unknown) (no (unknown) (unknown) Rx Instructions: (units (unknown) date) unknown) (unknown) (no (unknown) (unknown) See Rx (units (unkno wn) date) Instructions .ROUTE unknown) .COMPLEX PRN (Reason: apply three times daily to (unknown) (no (unknown) (unknown) See Rx (units (unkno wn) date) Instructions .ROUTE unknown) .COMPLEX PRN (Reason: constipation) Qty: 30 0RF (unknown) (no (unknown) (unknown) See Rx (units (unkno wn) date) Instructions .ROUTE unknown) .COMPLEX Qty: 119 3RF (unknown) (no (unknown) (unknown) See Rx (units (unkno wn) date) Instructions .ROUTE unknown) .COMPLEX Qty: 12 0RF (unknown) (no (unknown) (unknown) See Rx (units (unkno wn) date) Instructions .ROUTE unknown) .COMPLEX Qty: 180 1RF (unknown) (no (unknown) (unknown) See Rx (units (unkno wn) date) Instructions .ROUTE unknown) .COMPLEX Qty: 2 0RF (unknown) (no (unknown) (unknown) See Rx (units (unkno wn) date) Instructions .ROUTE unknown) .COMPLEX Qty: 30 5RF (unknown) (no (unknown) (unknown) See Rx (units (unkno wn) date) Instructions .ROUTE unknown) .COMPLEX Qty: 42 0RF (unknown) (no (unknown) (unknown) See Rx (units (unkno wn) date) Instructions .ROUTE unknown) .COMPLEX Qty: 454 1RF (unknown) (no (unknown) (unknown) See Rx (units (unkno wn) date) Instructions unknown) sublingual .COMPLEX (unknown) (no (unknown) (unknown) Side: right (units (un known) date) unknown) (unknown) (no (unknown) (unknown) Signed By: (units (unk nown) date) unknown) (unknown) (no (unknown) (unknown) [facility] (units (unkn own) date) [facility] unknown) [Provider Group] (unknown) (no (unknown) (unknown) Skin: brisk (units (un known) date) capillary refill, unknown) without pallor or erythema (unknown) (no (unknown) (unknown) Smoking Status: (units (unknown) date) Current every day unknown) smoker (unknown) (no (unknown) (unknown) Social History (units (unknown) date) (Reviewed 07/20/22 unknown) @ 17:58 by ADI Samuels) (unknown) (no (unknown) (unknown) Soft tissues:? No (units (unknown) date) suspicious soft unknown) tissue calcifications.? (unknown) (no (unknown) (unknown) Source: patient (units (unknown) date) unknown) (unknown) (no (unknown) (unknown) Stated Complaint: (units (unknown) date) rt pinky injury unknown) (unknown) (no (unknown) (unknown) Stop: 07/20/22 (units (unknown) date) 17:55 unknown) (unknown) (no (unknown) (unknown) Stop: 07/20/22 (units (unknown) date) 17:56 unknown) (unknown) (no (unknown) (unknown) Substance Use (units ( unknown) date) Type: does not use unknown) (unknown) (no (unknown) (unknown) Supervised by (units ( unknown) date) Ino Alan, DO unknown) (unknown) (no (unknown) (unknown) Surgical History (units (unknown) date) (Reviewed 07/20/22 unknown) @ 17:58 by ADI Samuels) (unknown) (no (unknown) (unknown) TAKE 1 TABLET BY (units (unknown) date) MOUTH DAILY PRN; unknown) (unknown) (no (unknown) (unknown) TAKE 1 TABLET BY (units (unknown) date) MOUTH DAILY unknown) (unknown) (no (unknown) (unknown) TAKE 1 TABLET BY (units (unknown) date) MOUTH EVERY 3 DAYS unknown) NEEDED FOR VAGINAL YEAST INFECTION. (unknown) (no (unknown) (unknown) TAKE 1 TABLET BY (units (unknown) date) MOUTH EVERY 8 TO 12 unknown) HOURS FOR 14 DAYS NEEDED FOR NAUSEA (unknown) (no (unknown) (unknown) TAKE 1 TABLET BY (units (unknown) date) MOUTH TWICE DAILY unknown) (unknown) (no (unknown) (unknown) TECHNIQUE:? AP (units (unknown) date) hand, 2 views of unknown) the 5th digit acquired.? (unknown) (no (unknown) (unknown) Take 1 dose may (units (unknown) date) repeat is every 72 unknown) hours if still having symptoms (unknown) (no (unknown) (unknown) Take with 100mg (units (unknown) date) tab daily for total unknown) dose 125mg daily (unknown) (no (unknown) (unknown) Take with 25mg tab (units (unknown) date) for total dose unknown) 125mg daily (unknown) (no (unknown) (unknown) Temperature 98.0 F (units (unknown) date) 07/20/22 16:15 unknown) (unknown) (no (unknown) (unknown) Temperature 98.0 F (units (unknown) date) unknown) (unknown) (no (unknown) (unknown) This is a (units (unkn own) date) 32-year-old female unknown) presents emergency department complaining of right (unknown) (no (unknown) (unknown) This is a (units (unkn own) date) 32-year-old female unknown) who presents to the emergency department after (unknown) (no (unknown) (unknown) Time Seen by (units (u nknown) date) Provider: 07/20/22 unknown) 17:22 (unknown) (no (unknown) (unknown) Tylenol as needed (units (unknown) date) for her pain and to unknown) follow-up with orthopedics if she has any (unknown) (no (unknown) (unknown) UNWRAP AND INSERT (units (unknown) date) 1 SUPPOSITORY unknown) RECTALLY 1 TIME NEEDED FOR NAUSEA OR (unknown) (no (unknown) (unknown) Upper Extremity (units (unknown) date) Immobilizer: finger unknown) (other) (unknown) (no (unknown) (unknown) Upper Extremity (units (unknown) date) Injury Location: unknown) finger (unknown) (no (unknown) (unknown) Urinary leakage (units (unknown) date) unknown) (unknown) (no (unknown) (unknown) VOMITING (units (unkno wn) date) unknown) (unknown) (no (unknown) (unknown) Visit Report (units (u nknown) date) Forms: Patient unknown) Portal/API (unknown) (no (unknown) (unknown) Vital Signs - 8 hr (units (unknown) date) unknown) (unknown) (no (unknown) (unknown) Vital Signs (units (un known) date) unknown) (unknown) (no (unknown) (unknown) Vital signs: (units (u nknown) date) unknown) (unknown) (no (unknown) (unknown) [ ] New medication (units (unknown) date) prescriptions sent unknown) to your pharmacy: [ ] (unknown) (no (unknown) (unknown) [ ] New medication (units (unknown) date) written as a paper unknown) prescription (unknown) (no (unknown) (unknown) [From NUVARING] (units (unknown) date) unknown) (unknown) (no (unknown) (unknown) [x ] No new (units (un known) date) medications given unknown) (unknown) (no (unknown) (unknown) able to wiggle her (units (unknown) date) fingers but it is unknown) painful, denies any fingernail injury, has (unknown) (no (unknown) (unknown) across the D IP (units (unknown) date) joint, CSM remains unknown) intact. She has history of chronic pain and (unknown) (no (unknown) (unknown) affected area as (units (unknown) date) needed) Qty: 30 0RF unknown) (unknown) (no (unknown) (unknown) alcohol intake (units (unknown) date) frequency: unknown) holidays/special occasions only (unknown) (no (unknown) (unknown) and below (units (unkn own) date) unknown) (unknown) (no (unknown) (unknown) and cooperative (units (unknown) date) unknown) (unknown) (no (unknown) (unknown) and ecchymosis to (units (unknown) date) her right pinky, unknown) denies numbness or tingling, states is still (unknown) (no (unknown) (unknown) appointment. Let (units (unknown) date) them know you were unknown) seen in the Emergency Department and that we (unknown) (no (unknown) (unknown) aripiprazole [From (units (unknown) date) ABILIFY] Allergy unknown) Mild MOOD SWINGS Verified 07/20/22 16:15 (unknown) (no (unknown) (unknown) asked that you be (units (unknown) date) seen for follow-up. unknown) We will electronically transmit a record (unknown) (no (unknown) (unknown) base of the (units (un known) date) unknown) (unknown) (no (unknown) (unknown) brisk cap refill (units (unknown) date) unknown) (unknown) (no (unknown) (unknown) buprenorphine 8 (units (unknown) date) mg-naloxone 2 mg unknown) See Rx Instructions sublingual 01/17/22 (unknown) (no (unknown) (unknown) buprenorphine-nalo (units (unknown) date) xone 8-2 mg tablet, unknown) sublingual (unknown) (no (unknown) (unknown) concerning (units (unk nown) date) symptoms, such as unknown) [fever greater than 101F, chills, worsening pain, (unknown) (no (unknown) (unknown) daily to affected (units (unknown) date) area as needed unknown) (unknown) (no (unknown) (unknown) documentation has (units (unknown) date) been reviewed and I unknown) agree with assessment and plan. (unknown) (no (unknown) (unknown) ecchymosis present (units (unknown) date) to the right little unknown) finger at the DIP joint, CSM intact, (unknown) (no (unknown) (unknown) establish care (units (unknown) date) with one of the unknown) [facility] primary care providers. (unknown) (no (unknown) (unknown) ethinyl estradiol (units (unknown) date) Allergy Mild unknown) ITCHING Verified 07/20/22 16:15 (unknown) (no (unknown) (unknown) etonogestrel [From (units (unknown) date) NUVARING] Allergy unknown) Mild ITCHING Verified 07/20/22 16:15 (unknown) (no (unknown) (unknown) famotidine 40 mg (units (unknown) date) tablet See Rx unknown) Instructions .Route 06/27/22 (unknown) (no (unknown) (unknown) famotidine 40 mg (units (unknown) date) tablet unknown) (unknown) (no (unknown) (unknown) feel better soon, (units (unknown) date) best of luck unknown) (unknown) (no (unknown) (unknown) finger at the (units ( unknown) date) joint space, please unknown) wear a finger splint to keep this immobilized (unknown) (no (unknown) (unknown) finger splint (units ( unknown) date) until it heals, was unknown) encouraged to use this for least 3-4 weeks. (unknown) (no (unknown) (unknown) fluconazole 150 mg (units (unknown) date) tablet See Rx unknown) Instructions .Route 07/05/22 (unknown) (no (unknown) (unknown) fluconazole 150 mg (units (unknown) date) tablet unknown) (unknown) (no (unknown) (unknown) fluconazole 200 mg (units (unknown) date) tablet 200 mg PO unknown) DAILY PRN vaginal 07/09/22 (unknown) (no (unknown) (unknown) fluconazole (units (un known) date) [Diflucan] 200 mg unknown) tablet (unknown) (no (unknown) (unknown) follow-up at (units (u nknown) date) [facility] unknown) if you have worsening of this or mobility (unknown) (no (unknown) (unknown) for closed (units (unk nown) date) fracture unknown) (unknown) (no (unknown) (unknown) for (units (unkno wn) date) unknown) (unknown) (no (unknown) (unknown) further (units (unkno wn) date) evaluation. unknown) (unknown) (no (unknown) (unknown) given Percocet and (units (unknown) date) ibuprofen for this. unknown) She is encouraged to use ibuprofen and (unknown) (no (unknown) (unknown) gram/dose oral (units (unknown) date) powder .COMPLEX unknown) #119 grams (unknown) (no (unknown) (unknown) household members: (units (unknown) date) spouse unknown) (unknown) (no (unknown) (unknown) hydrocodone (units (un known) date) [HYDROCODONE] unknown) Allergy Mild ITCHING Verified 07/20/22 16:15 (unknown) (no (unknown) (unknown) in extension, it (units (unknown) date) should heal in 2-3 unknown) weeks without difficulty, please use a Band (unknown) (no (unknown) (unknown) injuring her right (units (unknown) date) pinky has some unknown) bruises to her right side. She has swelling (unknown) (no (unknown) (unknown) instructed. (units (un known) date) Patient understands unknown) plan and agrees to discharge home. All (unknown) (no (unknown) (unknown) is on Suboxone (units (unknown) date) therapy, requests unknown) pain medication before her dose tonight, was (unknown) (no (unknown) (unknown) ketorolac [From (units (unknown) date) Toradol] Allergy unknown) Intermediate Verified 07/20/22 16:15 (unknown) (no (unknown) (unknown) lactulose 10 (units (u nknown) date) gram/15 mL oral 15 unknown) ml PO BID PRN constipation #473 07/09/22 (unknown) (no (unknown) (unknown) lactulose 10 (units (u nknown) date) gram/15 mL solution unknown) (unknown) (no (unknown) (unknown) lamotrigine 100 mg (units (unknown) date) tablet 100 mg PO unknown) DAILY #30 tabs 05/05/22 (unknown) (no (unknown) (unknown) lamotrigine 100 mg (units (unknown) date) tablet unknown) (unknown) (no (unknown) (unknown) lamotrigine 25 mg (units (unknown) date) tablet 25 mg PO unknown) DAILY #30 tabs 05/05/22 (unknown) (no (unknown) (unknown) lamotrigine 25 mg (units (unknown) date) tablet unknown) (unknown) (no (unknown) (unknown) lidocaine 5 % (units ( unknown) date) adhesive unknown) patch,medicated (unknown) (no (unknown) (unknown) lidocaine 5 % (units ( unknown) date) topical patch See unknown) Rx Instructions .Route 02/28/22 (unknown) (no (unknown) (unknown) little finger pain (units (unknown) date) after she fell unknown) forward in her camper van injuring her right (unknown) (no (unknown) (unknown) mechanical fall in (units (unknown) date) her camper van and unknown) states that she fell forward into the dash (unknown) (no (unknown) (unknown) medication to help (units (unknown) date) treat your pain, unknown) elevate it frequently and use ice, you can (unknown) (no (unknown) (unknown) minimally (units (unkn own) date) displaced fracture unknown) of the 5th digit distal phalanx. Patient is (unknown) (no (unknown) (unknown) morphine AdvReac (units (unknown) date) Intermediate unknown) Headache Verified 07/20/22 16:15 (unknown) (no (unknown) (unknown) multiple allergies (units (unknown) date) and is on Suboxone unknown) for chronic pain, states that she can take (unknown) (no (unknown) (unknown) neurovascularly (units (unknown) date) intact, she was unknown) splinted in a metal finger splint in extension (unknown) (no (unknown) (unknown) nystatin 100,000 (units (unknown) date) unit/gram ointment unknown) (unknown) (no (unknown) (unknown) nystatin 100,000 (units (unknown) date) unit/gram topical unknown) See Rx Instructions .Route 06/08/22 (unknown) (no (unknown) (unknown) of today's note if (units (unknown) date) your PCP is in our unknown) system (unknown) (no (unknown) (unknown) ointment .COMPLEX (units (unknown) date) PRN apply three unknown) times (unknown) (no (unknown) (unknown) on repeat (units (unkn own) date) examination is unknown) unremarkable. Patient has been informed of results. (unknown) (no (unknown) (unknown) ondansetron (units (un known) date) AdvReac unknown) Intermediate Headache Verified 07/20/22 16:15 (unknown) (no (unknown) (unknown) persistent (units (unk nown) date) vomiting or other unknown) bothersome symptoms]. (unknown) (no (unknown) (unknown) phalanx. (units (unkno wn) date) unknown) (unknown) (no (unknown) (unknown) pinky. Radiology (units (unknown) date) report of her unknown) little finger right x-ray states possible acute (unknown) (no (unknown) (unknown) polyethylene (units (u nknown) date) glycol 3350 17 See unknown) Rx Instructions .Route 03/30/22 (unknown) (no (unknown) (unknown) polyethylene (units (u nknown) date) glycol 3350 17 unknown) gram/dose powder (unknown) (no (unknown) (unknown) problems with your (units (unknown) date) finger. Just call unknown) and schedule an appointment. I hope you (unknown) (no (unknown) (unknown) promethazine 12.5 (units (unknown) date) mg rectal See Rx unknown) Instructions .Route 03/07/22 (unknown) (no (unknown) (unknown) promethazine 12.5 (units (unknown) date) mg tablet See Rx unknown) Instructions .Route 04/11/22 (unknown) (no (unknown) (unknown) promethazine 12.5 (units (unknown) date) mg tablet unknown) (unknown) (no (unknown) (unknown) promethazine (units (u nknown) date) [Promethegan] 12.5 unknown) mg suppository (unknown) (no (unknown) (unknown) questions and (units ( unknown) date) concerns answered unknown) at this time. (unknown) (no (unknown) (unknown) right pinky pain. (units (unknown) date) unknown) (unknown) (no (unknown) (unknown) sennosides 8.6 mg (units (unknown) date) tablet (senna) See unknown) Rx Instructions .Route 05/31/22 (unknown) (no (unknown) (unknown) sennosides [senna] (units (unknown) date) 8.6 mg tablet unknown) (unknown) (no (unknown) (unknown) solution mL (units (un known) date) unknown) (unknown) (no (unknown) (unknown) splint. Please use (units (unknown) date) ibuprofen and unknown) Tylenol in addition to your chronic pain (unknown) (no (unknown) (unknown) sublingual tablet (units (unknown) date) .COMPLEX unknown) (unknown) (no (unknown) (unknown) sublingual; (units (un known) date) unknown) (unknown) (no (unknown) (unknown) suppository (units (un known) date) (Promethegan) unknown) .COMPLEX #12 supp (unknown) (no (unknown) (unknown) symptoms. Patient (units (unknown) date) understands to unknown) follow up closely with outpatient providers as (unknown) (no (unknown) (unknown) tab PRN during (units (unknown) date) day) unknown) (unknown) (no (unknown) (unknown) tobacco type: (units ( unknown) date) vaping unknown) (unknown) (no (unknown) (unknown) topical cream (units ( unknown) date) .COMPLEX #454 grams unknown) (unknown) (no (unknown) (unknown) tramadol (units (unkno wn) date) [TRAMADOL] Allergy unknown) Mild ITCHING Verified 07/20/22 16:15 (unknown) (no (unknown) (unknown) tretinoin 0.05 % (units (unknown) date) gel unknown) (unknown) (no (unknown) (unknown) tretinoin 0.05 % (units (unknown) date) topical gel 1 unknown) applic topical BEDTIME #135 grams 05/31/22 (unknown) (no (unknown) (unknown) triamcinolone (units ( unknown) date) acetonide 0.025 % unknown) See Rx Instructions .Route 04/03/22 (unknown) (no (unknown) (unknown) triamcinolone (units ( unknown) date) acetonide 0.025 % unknown) cream (unknown) (no (unknown) (unknown) understands to (units (unknown) date) follow up a [place] unknown) Orthopedics if she needs to, will wear her (unknown) (no (unknown) (unknown) worsening symptoms (units (unknown) date) and for further unknown) evaluation if she needs it. Patient Result panel 240 (unknown) (no (unknown) (unknown) (no value) (units (unk nown) date) unknown) (unknown) (no (unknown) (unknown) .COMPLEX #119 (units ( unknown) date) grams 03/30/22 [Rx unknown) Confirmed 08/25/22] (unknown) (no (unknown) (unknown) .COMPLEX #12 supp (units (unknown) date) 07/28/22 [Rx unknown) Confirmed 08/25/22] (unknown) (no (unknown) (unknown) .COMPLEX #454 (units ( unknown) date) grams 04/03/22 [Rx unknown) Confirmed 08/25/22] (unknown) (no (unknown) (unknown) 08/25/22 (units (unkno wn) date) unknown) (unknown) (no (unknown) (unknown) 08/25/22] (units (unkn own) date) unknown) (unknown) (no (unknown) (unknown) 02/28/22 [Rx (units (u nknown) date) Confirmed 08/25/22] unknown) (unknown) (no (unknown) (unknown) 04/11/22 [Rx (units (u nknown) date) Confirmed 08/25/22] unknown) (unknown) (no (unknown) (unknown) 14:37 (units (unkno wn) date) unknown) (unknown) (no (unknown) (unknown) : [id number] (units (u nknown) date) unknown) (unknown) (no (unknown) (unknown) Accompanied by: (units (unknown) date) Self / Same As unknown) Patient (unknown) (no (unknown) (unknown) Age/Sex: 32 / F (units (unknown) date) Date of Service: unknown) (unknown) (no (unknown) (unknown) Allergies (units (unkn own) date) unknown) (unknown) (no (unknown) (unknown) [facility] (units (unknown) date) Medicine unknown) (unknown) (no (unknown) (unknown) [place] (units ( unknown) date) [address] unknown) (unknown) (no (unknown) (unknown) Attending Dr: (units ( unknown) date) Teodora Hanson MD unknown) (unknown) (no (unknown) (unknown) BP 110/100 H (units (u nknown) date) unknown) (unknown) (no (unknown) (unknown) Bipolar 1 disorder (units (unknown) date) unknown) (unknown) (no (unknown) (unknown) Blood Pressure (units (unknown) date) Location Lt unknown) brachial (unknown) (no (unknown) (unknown) Confirmed (units (unkn own) date) 08/25/22] unknown) (unknown) (no (unknown) (unknown) : 1990 (units (unknown) date) Acct:[id number] unknown) (unknown) (no (unknown) (unknown) Depression (units (unk nown) date) unknown) (unknown) (no (unknown) (unknown) Dept at (units (unkno wn) date) . unknown) (unknown) (no (unknown) (unknown) Distal paresthesia (units (unknown) date) unknown) (unknown) (no (unknown) (unknown) Documented By: (units (unknown) date) Teodora Hanson MD unknown) 08/25/22 1434 (unknown) (no (unknown) (unknown) Draft (units (unkno wn) date) unknown) (unknown) (no (unknown) (unknown) Ear infection (units ( unknown) date) unknown) (unknown) (no (unknown) (unknown) Family Practice (units (unknown) date) Office Visit unknown) (unknown) (no (unknown) (unknown) Headache (units (unkno wn) date) unknown) (unknown) (no (unknown) (unknown) Health Management (units (unknown) date) reviewed with unknown) patient: Yes (unknown) (no (unknown) (unknown) Health Management (units (unknown) date) unknown) (unknown) (no (unknown) (unknown) History of (units (unk nown) date) multiple unknown) concussions (unknown) (no (unknown) (unknown) History of wisdom (units (unknown) date) tooth extraction unknown) (unknown) (no (unknown) (unknown) Hx of (units (unkno wn) date) tonsillectomy unknown) (unknown) (no (unknown) (unknown) Hx of unilateral (units (unknown) date) salpingectomy unknown) (unknown) (no (unknown) (unknown) ITCHING (units (unkno wn) date) unknown) (unknown) (no (unknown) (unknown) Intake Note: (units (u nknown) date) unknown) (unknown) (no (unknown) (unknown) Intake (units (unkno wn) date) unknown) (unknown) (no (unknown) (unknown) Last Menstural (units (unknown) date) Cycle + Details unknown) (unknown) (no (unknown) (unknown) Loc: [facility] (units (unkno wn) date) unknown) (unknown) (no (unknown) (unknown) [facility] (units (un known) date) unknown) (unknown) (no (unknown) (unknown) Medical History (units (unknown) date) (Reviewed 07/20/22 unknown) @ 17:58 by Romelia Burch [place]) (unknown) (no (unknown) (unknown) Medications (units (un known) date) unknown) (unknown) (no (unknown) (unknown) Menometrorrhagia (units (unknown) date) unknown) (unknown) (no (unknown) (unknown) Migraines (units (unkn own) date) unknown) (unknown) (no (unknown) (unknown) Obstructive sleep (units (unknown) date) apnea (01/2022) unknown) (unknown) (no (unknown) (unknown) Other Menstrual (units (unknown) date) Period: Other unknown) (unknown) (no (unknown) (unknown) Oxygen Delivery (units (unknown) date) Method room air unknown) (unknown) (no (unknown) (unknown) PFSH (units (unkno wn) date) unknown) (unknown) (no (unknown) (unknown) PRN apply three (units (unknown) date) times daily to unknown) affected area as needed #30 grams 06/08/22 [Rx (unknown) (no (unknown) (unknown) PTSD (units (unkno wn) date) (post-traumatic unknown) stress disorder) (unknown) (no (unknown) (unknown) Patient: (units (unkno wn) date) Savannah Musa unknown) M MR# (unknown) (no (unknown) (unknown) Port-a-cath in (units (unknown) date) place unknown) (unknown) (no (unknown) (unknown) Position Sitting (units (unknown) date) unknown) (unknown) (no (unknown) (unknown) Pt arrives to go (units (unknown) date) over disability unknown) physical. Blood pressure was abnormal. (unknown) (no (unknown) (unknown) Pulse 83 (units (unkno wn) date) unknown) (unknown) (no (unknown) (unknown) Pulse Oximetry (%) (units (unknown) date) 99 unknown) (unknown) (no (unknown) (unknown) Pulse Source (units (u nknown) date) Monitor unknown) (unknown) (no (unknown) (unknown) Reason For Visit (units (unknown) date) unknown) (unknown) (no (unknown) (unknown) Signed By: (units (unk nown) date) unknown) (unknown) (no (unknown) (unknown) Smoking Status: (units (unknown) date) Current every day unknown) smoker (unknown) (no (unknown) (unknown) Social History (units (unknown) date) unknown) (unknown) (no (unknown) (unknown) Surgical History (units (unknown) date) (Reviewed 07/20/22 unknown) @ 17:58 by ADI Samuels) (unknown) (no (unknown) (unknown) This note may have (units (unknown) date) been all or unknown) partially generated using voice recognition (unknown) (no (unknown) (unknown) Tobacco + (units (unkn own) date) Substance Use unknown) (unknown) (no (unknown) (unknown) Tobacco Status (units (unknown) date) unknown) (unknown) (no (unknown) (unknown) Urinary leakage (units (unknown) date) unknown) (unknown) (no (unknown) (unknown) Visit Reasons: SSI (units (unknown) date) paperwork 01 unknown) (unknown) (no (unknown) (unknown) Vitals (units (unkno wn) date) unknown) (unknown) (no (unknown) (unknown) Weight 246 lb (units ( unknown) date) unknown) (unknown) (no (unknown) (unknown) [Rx Confirmed (units ( unknown) date) 08/25/22] unknown) (unknown) (no (unknown) (unknown) aripiprazole [From (units (unknown) date) ABILIFY] Allergy unknown) (Mild, Verified 08/25/22 14:35) (unknown) (no (unknown) (unknown) buprenorphine 8 (units (unknown) date) mg-naloxone 2 mg unknown) sublingual tablet See Rx Instructions (unknown) (no (unknown) (unknown) ethinyl estradiol (units (unknown) date) [From NUVARING] unknown) Allergy (Mild, Verified 08/25/22 14:35) (unknown) (no (unknown) (unknown) etonogestrel [From (units (unknown) date) NUVARING] Allergy unknown) (Mild, Verified 08/25/22 14:35) (unknown) (no (unknown) (unknown) famotidine 40 mg (units (unknown) date) tablet See Rx unknown) Instructions .Route .COMPLEX #180 tabs 06/27/22 (unknown) (no (unknown) (unknown) fluconazole 150 mg (units (unknown) date) tablet See Rx unknown) Instructions .Route .COMPLEX #2 tabs 07/05/22 (unknown) (no (unknown) (unknown) fluconazole 200 mg (units (unknown) date) tablet (Diflucan) unknown) 200 mg PO DAILY PRN vaginal irritation #4 (unknown) (no (unknown) (unknown) have occurred. If (units (unknown) date) there are any unknown) questions, please contact the Medical Records (unknown) (no (unknown) (unknown) household members: (units (unknown) date) spouse unknown) (unknown) (no (unknown) (unknown) hydrocodone (units (un known) date) [HYDROCODONE] unknown) Allergy (Mild, Verified 08/25/22 14:35) (unknown) (no (unknown) (unknown) ketorolac [From (units (unknown) date) Toradol] Allergy unknown) (Intermediate, Verified 08/25/22 14:35) (unknown) (no (unknown) (unknown) lamotrigine 100 mg (units (unknown) date) tablet 100 mg PO unknown) DAILY #30 tabs 05/05/22 [Rx Confirmed (unknown) (no (unknown) (unknown) lamotrigine 25 mg (units (unknown) date) tablet 25 mg PO unknown) DAILY #30 tabs 05/05/22 [Rx Confirmed (unknown) (no (unknown) (unknown) lidocaine 5 % (units ( unknown) date) topical patch See unknown) Rx Instructions .Route .COMPLEX #30 patches (unknown) (no (unknown) (unknown) may occur. (units (unk nown) date) Occasional unknown) wrong-word or 'sound-alike' substitutions may have (unknown) (no (unknown) (unknown) morphine Adverse (units (unknown) date) Reaction unknown) (Intermediate, Verified 08/25/22 14:35) (unknown) (no (unknown) (unknown) nystatin 100,000 (units (unknown) date) unit/gram topical unknown) ointment See Rx Instructions .Route .COMPLEX (unknown) (no (unknown) (unknown) occurred due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 limitations unknown) of voice recognition software. Please (unknown) (no (unknown) (unknown) ondansetron Adverse (unit s (unknown) date) Reaction unknown) (Intermediate, Verified 08/25/22 14:35) (unknown) (no (unknown) (unknown) pain is improving (units (unknown) date) significantly. They unknown) were more concerned about her neuropathy (unknown) (no (unknown) (unknown) polyethylene glycol (unit s (unknown) date) 3350 17 gram/dose unknown) oral powder See Rx Instructions .Route (unknown) (no (unknown) (unknown) previously followed (unit s (unknown) date) by Dr. Higuera. unknown) Discussed the need for ongoing psychiatric (unknown) (no (unknown) (unknown) prior hoyos that (units (unknown) date) are healing well. unknown) (unknown) (no (unknown) (unknown) promethazine 12.5 mg (unit s (unknown) date) rectal suppository unknown) (Promethegan) See Rx Instructions .Route (unknown) (no (unknown) (unknown) promethazine 12.5 (units (unknown) date) mg tablet See Rx unknown) Instructions .Route .COMPLEX #42 tabs (unknown) (no (unknown) (unknown) read the note (units ( unknown) date) carefully and unknown) recognize, using context, where these substitutions (unknown) (no (unknown) (unknown) recommended that she (unit s (unknown) date) see Neurology for unknown) further evaluation, which she has not yet (unknown) (no (unknown) (unknown) referral to (units (un known) date) Neurology for this. unknown) (unknown) (no (unknown) (unknown) right fifth finger (units (unknown) date) a couple of weeks unknown) ago. She saw orthopedics, who felt the (unknown) (no (unknown) (unknown) seems to come and (units (unknown) date) go. She is following unknown) with Dr. Penaloza for these issues. (unknown) (no (unknown) (unknown) software. 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 She (unit s (unknown) date) states that her unknown) hands have been giving out if she uses them (unknown) (no (unknown) (unknown) that she is having (units (unknown) date) a hard time unknown) accomplishing tasks as a result. She is (unknown) (no (unknown) (unknown) this time. Patient (units (unknown) date) requests referral to unknown) Neurology prior to imaging being complet (unknown) (no (unknown) (unknown) to figure out a (units (unknown) date) cause. unknown) (unknown) (no (unknown) (unknown) to help make the (units (unknown) date) home safer in the unknown) event that she does sleep walk (unknown) (no (unknown) (unknown) too long and she (units (unknown) date) frequently has nerve unknown) pain, particularly in the evening. If she (unknown) (no (unknown) (unknown) tramadol [TRAMADOL] (unit s (unknown) date) Allergy (Mild, unknown) Verified 08/25/22 14:35) (unknown) (no (unknown) (unknown) tretinoin 0.05 % (units (unknown) date) topical gel 1 applic unknown) topical BEDTIME #135 grams 05/31/22 [Rx (unknown) (no (unknown) (unknown) triamcinolone (units ( unknown) date) acetonide 0.025 % unknown) topical cream See Rx Instructions .Route (unknown) (no (unknown) (unknown) uncertain if it is (units (unknown) date) coming from her unknown) shoulder, elbow, or neck. Orthopedics (unknown) (no (unknown) (unknown) wakes in the night, (units (unknown) date) certain positions unknown) they can be more weak and numb. She states (unknown) (no (unknown) (unknown) with ongoing (units (u nknown) date) management of her unknown) psychiatric care, overall. (unknown) (no (unknown) (unknown) ziprasidone HCl 20 (units (unknown) date) mg capsule 20 mg PO unknown) .COMPLEX #70 caps 09/01/22 [Rx] Social History date description facility 2022-07-20 00:00 Smokes tobacco daily (finding) [facility] 2022-08-25 00:00 Smokes tobacco daily (finding) [facility] Vital Signs date measurement value units 2022-07-20 00:00 BMI 45.6 kg/m2 2022-07-20 00:00 BP_diastolic 85 mmHg 2022-07-20 00:00 BP_systolic 126 mmHg 2022-07-20 00:00 heart_rate 72 /min 2022-07-20 00:00 height_metric 157.48 cm 2022-07-20 00:00 height_standard 62 in 2022-07-20 00:00 o2_saturation 97 % 2022-07-20 00:00 respiration_rate 24 /min 2022-07-20 00:00 temperature_metric 36.67 C 2022-07-20 00:00 temperature_standard 98 F 2022-07-20 00:00 weight_metric 113 kg 2022-07-20 00:00 weight_standard 249.12 lb 2022-08-25 00:00 BP_diastolic 100 mmHg 2022-08-25 00:00 BP_systolic 110 mmHg 2022-08-25 00:00 heart_rate 83 /min 2022-08-25 00:00 o2_saturation 99 % 2022-08-25 00:00 weight_metric 111.58 kg 2022-08-25 00:00 weight_standard 245.99 lb
== END 2022-10-08 15:13 | disposition home or self-care (01) ==
LOC: ED 14:35
DX: Z76.0 Encounter for issue of repeat prescription (principal); F17.200 Nicotine dependence, unspecified, uncomplicated
CPT/HCPCS: 99281; 99282

== ENCOUNTER 2022-11-22 16:12 | Outpatient (CLI) | payer MEDICAID ==
[2022-11-22 17:10] VITALS: BP 120/82
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
== END 2022-11-22 16:13 | disposition home or self-care (01) ==
LOC: SC 16:12
PROVIDERS: ATTEND Nurse Practitioner Family
DX: G47.33 Obstructive sleep apnea (adult) (pediatric) (principal); E66.01 Morbid (severe) obesity due to excess calories; Z68.41 Body mass index [BMI] 40.0-44.9, adult; F17.290 Nicotine dependence, other tobacco product, uncomplicated
CPT/HCPCS: 99203; 99212

== ENCOUNTER 2023-01-17 00:59 | Outpatient (CLI) | payer MEDICAID | END 2023-01-17 01:00 | disposition critical access hospital (66) | LOC: EMS 00:59 | DX: R07.89 Other chest pain (principal); R42 Dizziness and giddiness; F41.9 Anxiety disorder, unspecified | CPT/HCPCS: A0425; A0429; A0999 ==

== ENCOUNTER 2023-01-17 01:06 | Emergency (ER) | payer MEDICAID ==
--- NOTE | 2023-01-17 02:58 | ED Physician Documentation ---
History of Present Illness - Stated complaint Stated Complaint: DIZZY/CHEST PRESSURE - Chief complaint Chief Complaint: Cardiac - History obtained from History obtained from: Patient - Additonal information Additional information: Patient states "I think I was having an anxiety attack". She had episode of chest heaviness radiating to BUE and her back, dyspnea, heart palpitations described as "pounding". Episode occurred at approximately 11 PM tonight while at home watching TV. She thinks she might have passed out (was still seated) for a few minutes due to loss of track of time/awareness for 2-3 minutes. She felt lightheaded and diaphoretic , developed generalized headache. She says she has had many previous, similar episodes over past several months. She thinks it might be related to recent head injury, although she also has been diagnosed with POTS (tonight's episode was unusual in that symptoms started while she was seated). Patient also explains that she has had some of tonight's symptoms in the past which were attributed to anxiety and responded to valium PRN, but PMD recently stopped prescribing valium and instead prescribed propranolol. She says she has appointment with PMD tomorrow for reevaluation of efficacy of the propranolol. Symptoms have resolved by the time of this evaluation. Review of Systems Constitutional: reports: Sweats Cardiac: reports: Chest pain / pressure ("heaviness" per patient), Palpitations. denies: Pedal edema, Calf pain Respiratory: reports: Dyspnea GI: reports: Nausea. denies: Abdominal Pain, Vomiting : denies: Dysuria, Incontinent, Now EGA Musculoskeletal: reports: Reviewed and negative Neurologic: reports: Generalized weakness (resolved), Syncope (possible (unwitnessed)), Headache (resolved). denies: Focal weakness, Numbness PD PAST MEDICAL HISTORY - Past Medical History Cardiovascular: None Respiratory: None Neuro: Migraines, Peripheral neuropathy Endocrine/Autoimmune: None GI: GERD PER DIEM NURSE: Ovarian cysts, 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, Other : Chronic bladder infection, Kidney stones HEENT: Chronic vision loss Psych: Depression, Anxiety, Panic attacks, Post traumatic stress disorder Musculoskeletal: None Derm: None - Past Surgical History Past Surgical History: Yes General: Other /PER DIEM NURSE: Oophrectomy - Present Medications Home Medications: Ambulatory Orders Medication Instructions Recorded Confirmed Famotidine [Pepcid] 40 mg PO BID 09/11/19 11/22/22 Albuterol Sulfate [Proair Hfa 1 - 2 puffs INH Q4H PRN #1 inhaler 11/17/19 11/22/22 Inhaler] Buprenorphine HCl/Naloxone HCl 8 mg PO BID 06/04/21 11/22/22 [Suboxone 8-2 mg Tab] diazePAM [Valium] 5 mg PO BID 06/04/21 11/22/22 hydrOXYzine HCL [Hydroxyzine HCl] 25 mg PO Q6H PRN #30 tablet 06/04/21 11/22/22 Fluconazole [Diflucan] 1 tablet PO ONCE 1 Days #2 tablet 10/26/21 11/22/22 Phenazopyridine HCl [Pyridium] 200 mg PO TID PRN #6 tablet 10/26/21 11/22/22 Promethazine [Phenergan] 12.5 - 25 mg PO Q8H PRN 10/26/21 11/22/22 Sulfamethox/Trimeth 800/160 1 each PO BID #10 tablet 10/26/21 11/22/22 [Bactrim Ds] lamoTRIgine [LaMICtal] 100 mg PO HS 10/26/21 11/22/22 polyethylene glycoL 3350 17 gm PO DAILY PRN 10/26/21 11/22/22 [Polyethylene Glycol 3350] ziprasidone HCL [Geodon] 60 mg PO HS #3 cap 10/08/22 11/22/22 - Allergies Allergies/Adverse Reactions: Allergies Allergy/AdvReac Type Severity Reaction Status Date / Time aripiprazole [From Abilify] Allergy Rash Verified 01/17/23 01:17 hydrocodone bitartrate * Allergy Hives Verified 01/17/23 01:17 [From Vicodin] ketorolac Allergy Itching Verified 01/17/23 01:17 ondansetron [From Zofran] Allergy Headache Verified 01/17/23 01:17 tramadol Allergy Hives Verified 01/17/23 01:17 ethinyl estradiol AdvReac Cramps Verified 01/17/23 01:17 [From NuvaRing] etonogestrel [From NuvaRing] AdvReac Cramps Verified 01/17/23 01:17 morphine AdvReac Unknown Verified 01/17/23 01:17 trazodone AdvReac Unknown Verified 01/17/23 01:17 - Social History Does the pt smoke?: Yes Smoking Status: Current every day smoker Does the pt drink ETOH?: No Does the pt have substance abuse?: No - Immunizations Immunizations are current?: Yes - POLST Patient has POLST: No POLST Status: Full Code PD ED PE NORMAL - Vitals Vital signs reviewed: Yes - General General: Alert and oriented X 3, No acute distress, Well developed/nourished - HEENT HEENT: Atraumatic, PERRL, EOMI, Moist mucous membranes - Neck Neck: Supple, no meningeal sign - Cardiac Cardiac: RRR, No murmur, No gallop, No rub - Respiratory Respiratory: No respiratory distress, Clear bilaterally - Abdomen Abdomen: Soft, Non tender - Neuro Neuro: Alert and oriented X 3, 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 Relevant findings are: Rate: Rate (enter#) (68) Rhythm: NSR [place]: Normal Intervals: Normal TN QRS: Normal Ischemia: Normal ST segments - Labs Labs: Laboratory Tests 01/17/23 01/17/23 03:28 03:28 WBC 9.9 RBC 4.62 Hgb 11.0 L Hct 36.9 L MCV 79.9 L MCH 23.8 L MCHC 29.8 L RDW 14.6 Plt Count 412 MPV 9.4 Neut # (Auto) 4.8 Lymph # (Auto) 4.3 H Mckean # (Auto) 0.7 Eos # (Auto) 0.1 Baso # (Auto) 0.0 Absolute Nucleated RBC 0.00 Nucleated RBC % 0.0 Sodium 139 Potassium 4.0 Chloride 100 L Carbon Dioxide 31 Anion Gap 8.0 BUN 19 Creatinine 0.8 Estimated GFR (MDRD) 84 L Glucose 85 Calcium 9.3 PD Medical Decision Making - ED course ED course: Tests ordered and reviewed by me: CBC, BMP, EKG. There are no concerning nor diagnostic findings on these tests. Vital signs are within normal limits during ED stay, and she is asymptomatic by the time of my evaluation as well as on reevaluation prior to d/c. Results of the blood tests, EKG are d/w patient. Etiology of symptoms is not apparent at his time. Negative on all PERC criteria. Return precautions discussed. Prior to d/c, she requests medication to help with sleep/anxiety, and she is given a dose of hydroxyzine 25 mg PO. She has an appointment with PMD scheduled for later today to discuss medications for anxiety. Patient has 80 previous [facility] ED visits on [place] records ([id number]). Departure - Departure Disposition: 01 Home, Self Care Clinical Impression: Near syncope Condition: Good Instructions: ED Near Syncope Unkn Comments: There were no concerning or diagnostic findings on tonight's test, including the blood tests and EKG. The cause of your symptoms is not apparent at this time. Follow-up with your doctor later today as scheduled. Discharge Date/Time: 01/17/23 05:15
[2023-01-17 03:35] LABS: BASOPHILS % (AUTO) 0.4 %; EOSINOPHILS # (AUTO) 0.1 10^3/uL (0.0-0.7); EOSINOPHILS % (AUTO) 0.8 %; HCT - HEMATOCRIT 36.9 % (37.0-47.0); LYMPHOCYTES # (AUTO) 4.3 10^3/uL (1.5-3.5); MEAN CORPUSCULAR HEMOGLOBIN 23.8 pg (27.0-31.0); MEAN CORPUSCULAR HGB CONC 29.8 g/dL (32.0-36.0); MEAN CORPUSCULAR VOLUME 79.9 fL (81.0-99.0); MEAN PLATELET VOLUME 9.4 fL (7.9-10.8); MONOCYTES # (AUTO) 0.7 10^3/uL (0.0-1.0); NEUTROPHILS # (AUTO) 4.8 10^3/uL (1.5-6.6); NEUTROPHILS % (AUTO) 48.7 %; PLT - PLATELET COUNT 412 10^3/uL (130-450); RED BLOOD COUNT 4.62 10^6/uL (4.20-5.40); RED CELL DISTRIBUTION WIDTH 14.6 % (12.0-15.0); WHITE BLOOD COUNT 9.9 x10^3/uL (4.8-10.8)
[2023-01-17 03:46] LABS: CALCIUM 9.3 mg/dL (8.5-10.3); CREATININE 0.8 mg/dL (0.4-1.0)
[2023-01-17] MEDS ORDERED: hydrOXYzine PAMOATE 25 MG CAPSULE PO STA (05:03)
[2023-01-17 05:15] VITALS: BP 133/96
== END 2023-01-17 05:15 | disposition home or self-care (01) ==
LOC: EDUNIT# → ED 01:06
DX: R55 Syncope and collapse (principal); G62.9 Polyneuropathy, unspecified; F17.200 Nicotine dependence, unspecified, uncomplicated; Z79.899 Other long term (current) drug therapy
CPT/HCPCS: 36415; 80048; 85025; 93005; 99283; 99284; A9270

== ENCOUNTER 2023-03-03 21:19 | Emergency (ER) | payer MEDICAID ==
--- NOTE | 2023-03-03 22:35 | ED Physician Documentation ---
History of Present Illness - Stated complaint Stated Complaint: R ANKLE INJ/PELVIC PX - Chief complaint Chief Complaint: General - History obtained from History obtained from: Patient - Additonal information Additional information: Patient presents for lower pelvic pain, concerns that she may have another UTI or pelvic infection. States that it hurts to sit down. Taking motrin and using heating packs for pain with some relief. Patient reports tendency to getting UTIs, BV, yeast infections. Also requesting an air cast for a sprained ankle. Declines XR of ankle Review of Systems Constitutional: denies: Fever, Chills GI: denies: Abdominal Pain, Nausea, Vomiting : reports: Discharge, Other (pelvic pain). 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: Ovarian cysts, 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, Other : Chronic bladder infection, Kidney stones HEENT: Chronic vision loss Psych: Depression, Anxiety, Panic attacks, Post traumatic stress disorder Musculoskeletal: None Derm: None - Past Surgical History Past Surgical History: Yes General: Other /SHOWER SCREEN INSTALLER: Oophrectomy - Present Medications Home Medications: Ambulatory Orders Medication Instructions Recorded Confirmed Famotidine [Pepcid] 40 mg PO BID 09/11/19 11/22/22 Albuterol Sulfate [Proair Hfa 1 - 2 puffs INH Q4H PRN #1 inhaler 11/17/19 11/22/22 Inhaler] Buprenorphine HCl/Naloxone HCl 8 mg PO BID 06/04/21 11/22/22 [Suboxone 8-2 mg Tab] diazePAM [Valium] 5 mg PO BID 06/04/21 11/22/22 hydrOXYzine HCL [Hydroxyzine HCl] 25 mg PO Q6H PRN #30 tablet 06/04/21 11/22/22 Fluconazole [Diflucan] 1 tablet PO ONCE 1 Days #2 tablet 10/26/21 11/22/22 Phenazopyridine HCl [Pyridium] 200 mg PO TID PRN #6 tablet 10/26/21 11/22/22 Promethazine [Phenergan] 12.5 - 25 mg PO Q8H PRN 10/26/21 11/22/22 Sulfamethox/Trimeth 800/160 1 each PO BID #10 tablet 10/26/21 11/22/22 [Bactrim Ds] lamoTRIgine [LaMICtal] 100 mg PO HS 10/26/21 11/22/22 polyethylene glycoL 3350 17 gm PO DAILY PRN 10/26/21 11/22/22 [Polyethylene Glycol 3350] ziprasidone HCL [Geodon] 60 mg PO HS #3 cap 10/08/22 11/22/22 metroNIDAZOLE 0.75% GEL [Flagyl 45 applic TOP DAILY PM #5 applic 03/03/23 Gel] metroNIDAZOLE [Flagyl] 500 mg PO BID 7 Days #14 tablet 03/03/23 - Allergies Allergies/Adverse Reactions: Allergies Allergy/AdvReac Type Severity Reaction Status Date / Time aripiprazole [From Abilify] Allergy Rash Verified 01/17/23 01:17 hydrocodone bitartrate * Allergy Hives Verified 01/17/23 01:17 [From Vicodin] ketorolac Allergy Itching Verified 01/17/23 01:17 ondansetron [From Zofran] Allergy Headache Verified 01/17/23 01:17 tramadol Allergy Hives Verified 01/17/23 01:17 ethinyl estradiol AdvReac Cramps Verified 01/17/23 01:17 [From NuvaRing] etonogestrel [From NuvaRing] AdvReac Cramps Verified 01/17/23 01:17 morphine AdvReac Unknown Verified 01/17/23 01:17 trazodone AdvReac Unknown Verified 01/17/23 01:17 - Social History Does the pt smoke?: Yes Smoking Status: Current every day smoker Does the pt drink ETOH?: No Does the pt have substance abuse?: No - Immunizations Immunizations are current?: Yes - POLST Patient has POLST: No POLST Status: Full Code PD ED PE NORMAL - Vitals Vital signs reviewed: Yes - General General: Alert and oriented X 3, No acute distress, Well developed/nourished - HEENT HEENT: Atraumatic - Cardiac Cardiac: RRR, No murmur - Respiratory Respiratory: No respiratory distress, Clear bilaterally - Abdomen Abdomen: Soft, Non tender, Non distended - Derm Derm: Normal color, Warm and dry, No rash - Extremities Extremities: No deformity, Normal ROM s pain, No edema, Other (gait normal) - Neuro Neuro: Alert and oriented X 3, peoplesoft developer 2-12 intact, No motor deficit, No sensory deficit, Normal speech - Psych Psych: Normal mood, Normal affect Results - Vitals Vitals: Vital Signs - 24 hr 03/03/23 03/03/23 21:21 23:34 Temperature 36.5 C Heart Rate 85 81 Respiratory 16 16 Rate Blood Pressure 151/79 H 142/74 H O2 Saturation 98 99 Oxygen O2 Source Room air - Labs Labs: Microbiology 03/03/23 22:34 Wet Prep - Final Genital - Vaginal Laboratory Tests 03/03/23 22:34 Urine Color YELLOW Urine Clarity CLEAR Urine pH 5.5 Ur Specific [place] >=1.030 H Urine Protein NEGATIVE Urine Glucose (UA) NEGATIVE Urine Ketones NEGATIVE Urine Occult Blood NEGATIVE Urine Nitrite NEGATIVE Urine Bilirubin NEGATIVE Urine Urobilinogen 0.2 (NORMAL) Ur Leukocyte Esterase NEGATIVE Urine RBC None Seen Urine WBC 0-3 Ur Squamous Epith Cells MANY Squamous H Urine Bacteria Few Urine Mucus Marked Strands Urine Culture Comments NOT INDICATED Urine HCG, Qual NEGATIVE PD Medical Decision Making - ED course Complexity details: reviewed old records, reviewed results ED course: Lower pelvic pain, concern for pelvic infection such as UTI, BV, yeast infection. UA reviewed, wet mount with clue cells seen. Will treat with flagyl. Patient requested pills due to insurance coverage. Air cast given to patient. Patient ambulatory without difficulty prior to splint placement. Departure - Departure Disposition: 01 Home, Self Care Condition: Stable Prescriptions: metroNIDAZOLE [Flagyl] 500 mg PO BID 7 Days #14 tablet metroNIDAZOLE 0.75% GEL [Flagyl Gel] 45 applic TOP DAILY PM #5 applic Comments: YOUR MEDICATIONS HAVE BEEN SENT TO [facility] IN [place] Forms: PCP List Discharge Date/Time: 03/03/23 23:35
[2023-03-03 22:42] LABS: BILIRUBIN,URINE NEGATIVE (NEGATIVE); GLUCOSE, URINE (UA) NEGATIVE (NEGATIVE); KETONES,URINE (UA) NEGATIVE (NEGATIVE); LEUKOCYTE ESTERASE, URINE NEGATIVE (NEGATIVE); NITRITE,URINE NEGATIVE (NEGATIVE); OCCULT BLOOD,URINE NEGATIVE (NEGATIVE); PH,URINE 5.5 PH (5.0-7.5); PROTEIN,URINE NEGATIVE (NEGATIVE); UROBILINOGEN,URINE 0.2 (NORMAL) E.U./dL (NORMAL)
[2023-03-03 22:44] LABS: CLARITY,URINE CLEAR (CLEAR); HCG UR QUAL NEGATIVE
[2023-03-03 22:53] LABS: BACTERIA,URINE Few /HPF (None Seen); MUCUS,URINE Marked Strands; RBC,URINE None Seen /HPF (0-5); SQUAMOUS EPITHELIAL CELL,UR MANY Squamous (<= Few); WBC,URINE 0-3 /HPF (0-5)
[2023-03-03] MEDS ORDERED: HYDROcod/ACETAM 5/325 MG TABLET PO STA (23:06)
[2023-03-03 23:36] VITALS: BP 142/74; O2SAT 99
== END 2023-03-03 23:35 | disposition home or self-care (01) ==
LOC: ED 21:19
DX: N76.0 Acute vaginitis (principal); R10.2 Pelvic and perineal pain; M25.571 Pain in right ankle and joints of right foot; Z79.899 Other long term (current) drug therapy; F17.200 Nicotine dependence, unspecified, uncomplicated
CPT/HCPCS: 81001; 81025; 87086; 87210; 99283; 99284

== ENCOUNTER 2023-03-29 21:37 | Emergency (ER) | payer MEDICAID ==
[2023-03-29] MEDS ORDERED: oxyCODONE/ACET 5/325 Prepack 4 PO STA (21:47)
[2023-03-29] MEDS ORDERED: AMOX/CLAV 875 MG/125 MG TABLET PO STA (21:47)
--- NOTE | 2023-03-29 21:48 | ED Physician Documentation ---
PD HPI HEENT - Stated complaint Stated Complaint: TOOTH INFECTION - Chief complaint Chief Complaint: Heent - History obtained from History obtained from: Patient - Additional information Additional information: She broke a right maxillary premolar couple of months ago. She developed more significant pain today. She does not have a dentist. No fevers or facial swelling. No possibility of . 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: Oophrectomy - Present Medications Home Medications: Ambulatory Orders Medication Instructions Recorded Confirmed Famotidine [Pepcid] 40 mg PO BID 09/11/19 11/22/22 Albuterol Sulfate [Proair Hfa 1 - 2 puffs INH Q4H PRN #1 inhaler 11/17/19 11/22/22 Inhaler] Buprenorphine HCl/Naloxone HCl 8 mg PO BID 06/04/21 11/22/22 [Suboxone 8-2 mg Tab] diazePAM [Valium] 5 mg PO BID 06/04/21 11/22/22 hydrOXYzine HCL [Hydroxyzine HCl] 25 mg PO Q6H PRN #30 tablet 06/04/21 11/22/22 Fluconazole [Diflucan] 1 tablet PO ONCE 1 Days #2 tablet 10/26/21 11/22/22 Phenazopyridine HCl [Pyridium] 200 mg PO TID PRN #6 tablet 10/26/21 11/22/22 Promethazine [Phenergan] 12.5 - 25 mg PO Q8H PRN 10/26/21 11/22/22 Sulfamethox/Trimeth 800/160 1 each PO BID #10 tablet 10/26/21 11/22/22 [Bactrim Ds] lamoTRIgine [LaMICtal] 100 mg PO HS 10/26/21 11/22/22 polyethylene glycoL 3350 17 gm PO DAILY PRN 10/26/21 11/22/22 [Polyethylene Glycol 3350] ziprasidone HCL [Geodon] 60 mg PO HS #3 cap 10/08/22 11/22/22 metroNIDAZOLE [Flagyl] 500 mg PO BID 7 Days #14 tablet 03/03/23 metroNIDAZOLE 0.75% GEL [Flagyl 1 applic PV BID 5 Days #1 each 03/05/23 Gel] Amox/Clav 875/125 [Augmentin] 1 each PO Q12H #20 tablet 03/29/23 - Allergies Allergies/Adverse Reactions: Allergies Allergy/AdvReac Type Severity Reaction Status Date / Time aripiprazole [From Abilify] Allergy Rash Verified 03/29/23 21:41 hydrocodone bitartrate * Allergy Hives Verified 03/29/23 21:41 [From Vicodin] ketorolac Allergy Itching Verified 03/29/23 21:41 ondansetron [From Zofran] Allergy Headache Verified 03/29/23 21:41 tramadol Allergy Hives Verified 03/29/23 21:41 ethinyl estradiol AdvReac Cramps Verified 03/29/23 21:41 [From NuvaRing] etonogestrel [From NuvaRing] AdvReac Cramps Verified 03/29/23 21:41 morphine AdvReac Unknown Verified 03/29/23 21:41 trazodone AdvReac Unknown Verified 03/29/23 21:41 - Social History Does the pt smoke?: Yes Smoking Status: Current every day smoker Does the pt drink ETOH?: No Does the pt have substance abuse?: No - Immunizations Immunizations are current?: Yes - POLST Patient has POLST: No POLST Status: Full Code PD ED PE NORMAL - Vitals Vital signs reviewed: Yes - General General: Alert and oriented X 3, No acute distress - HEENT HEENT: Other (Right maxillary premolar carious down to the gumline. There is no obvious swelling but it is tender. No gingival abscess. No trismus. No facial cellulitis.) - Neck Neck: Supple, no meningeal sign, No bony TTP - Neuro Neuro: Alert and oriented X 3 - Psych Psych: Normal mood, Normal affect Results - Vitals Vitals: Vital Signs - 24 hr 03/29/23 21:41 Temperature 37.0 C Heart Rate 68 Respiratory 16 Rate Blood Pressure 139/90 H O2 Saturation 100 Oxygen O2 Source Room air Departure - Departure Disposition: 01 Home, Self Care Clinical Impression: Dental caries Condition: Good Record reviewed to determine appropriate education?: Yes Instructions: ED Cavity Dental Prescriptions: Amox/Clav 875/125 [Augmentin] 1 each PO Q12H #20 tablet Comments: It is very important that you follow-up with a dentist. When it comes to dental problems like yours, the emergency department can only offer a short-term solution to your long-term problem. A couple of low cost options for dental care include: [facility] in [place], calls [phone] for an appointment Or [facility] in [place], call [phone] for an appointment. Forms: PCP List
[2023-03-29 21:52] VITALS: BP 139/90; O2SAT 100
== END 2023-03-29 22:18 | disposition home or self-care (01) ==
LOC: ED 21:37
DX: K02.9 Dental caries, unspecified (principal); F17.200 Nicotine dependence, unspecified, uncomplicated
CPT/HCPCS: 99282; 99283; A9270

== ENCOUNTER 2023-04-14 16:08 | Emergency (ER) | payer MEDICAID ==
[2023-04-14 16:29] VITALS: BP 145/101; O2SAT 99
[2023-04-14] MEDS ORDERED: CLINDAMYCIN 150 MG CAPSULE PO STA (18:38)
--- NOTE | 2023-04-14 18:40 | ED Physician Documentation ---
History of Present Illness - Stated complaint Stated Complaint: FEMALE - Chief complaint Chief Complaint: General - History obtained from History obtained from: Patient - History of Present Illness Timing: Other (2 months) Pain level max: 5 Pain level now: 4 - Additonal information Additional information: 32-year-old female presents to the emergency department complaint of vaginal itching and burning, this been ongoing for the past several months. She has been tried on fluconazole and Metronidazole recently. She states her symptoms are still ongoing. She has not yet seen a radiosonde specialist. She has not had a pelvic exam. No STD exposure. No fevers. No chills. 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: Ovarian cysts, 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, Other : Chronic bladder infection, Kidney stones HEENT: Chronic vision loss Psych: Depression, Anxiety, Panic attacks, Post traumatic stress disorder Musculoskeletal: None Derm: None - Past Surgical History Past Surgical History: Yes General: Other /MANAGEMENT ANALYST: Oophrectomy - Present Medications Home Medications: Ambulatory Orders Medication Instructions Recorded Confirmed Famotidine [Pepcid] 40 mg PO BID 09/11/19 04/14/23 Buprenorphine HCl/Naloxone HCl 8 mg PO BID 06/04/21 04/14/23 [Suboxone 8-2 mg Tab] Fluconazole [Diflucan] 1 tablet PO ONCE 1 Days #2 tablet 10/26/21 04/14/23 lamoTRIgine [LaMICtal] 100 mg PO HS 10/26/21 04/14/23 ziprasidone HCL [Geodon] 60 mg PO HS #3 cap 10/08/22 04/14/23 Tinidazole 500 mg PO DAILY #5 tablet 04/14/23 clindamycin HCL [Cleocin HCl] 300 mg PO Q6H #28 cap 04/14/23 - Allergies Allergies/Adverse Reactions: Allergies Allergy/AdvReac Type Severity Reaction Status Date / Time aripiprazole [From Abilify] Allergy Rash Verified 03/29/23 21:41 hydrocodone bitartrate * Allergy Hives Verified 03/29/23 21:41 [From Vicodin] ketorolac Allergy Itching Verified 03/29/23 21:41 ondansetron [From Zofran] Allergy Headache Verified 03/29/23 21:41 tramadol Allergy Hives Verified 03/29/23 21:41 ethinyl estradiol AdvReac Cramps Verified 03/29/23 21:41 [From NuvaRing] etonogestrel [From NuvaRing] AdvReac Cramps Verified 03/29/23 21:41 morphine AdvReac Unknown Verified 03/29/23 21:41 trazodone AdvReac Unknown Verified 03/29/23 21:41 - Social History Does the pt smoke?: Yes Smoking Status: Current every day smoker Does the pt drink ETOH?: No Does the pt have substance abuse?: No - Immunizations Immunizations are current?: Yes - POLST Patient has POLST: No POLST Status: Full Code PD ED PE NORMAL - Vitals Vital signs reviewed: Yes - General General: Alert and oriented X 3, No acute distress - HEENT HEENT: Moist mucous membranes - Neck Neck: Supple, no meningeal sign - Cardiac Cardiac: RRR, Strong equal pulses - Respiratory Respiratory: No respiratory distress, Clear bilaterally - Abdomen Abdomen: Soft, Non tender, Non distended - Female Female : Other (Moderate thick white vaginal discharge. No cervical motion tenderness. Chaperoned by Deyanira FITZPATRICK) - Back Back: No CVA TTP, No spinal TTP - Derm Derm: Warm and dry - Neuro Neuro: Alert and oriented X 3 - Psych Psych: Normal mood, Normal affect Results - Vitals Vitals: Vital Signs - 24 hr 04/14/23 16:16 Temperature 37.1 C Heart Rate 74 Respiratory 20 Rate Blood Pressure 145/101 H O2 Saturation 99 Oxygen O2 Source Room air - Labs Labs: Laboratory Tests 04/14/23 16:46 C. glabrata (PCR) NEGATIVE C. krusei (PCR) NEGATIVE Kadie species DNA NEGATIVE T. vaginalis (PCR) NEGATIVE Bact Vaginosis (PCR) NEGATIVE PD Medical Decision Making - ED course Complexity details: reviewed results, considered differential, d/w patient ED course: 32-year-old female with vaginal discharge. Her bacterial vaginitis panel is negative, but given her symptoms we will try her on clindamycin and tinidazole. We will see if this improves her symptoms. We will have her follow-up with her doctor for further care. Patient is well-appearing, nontoxic. Afebrile. Abd omen is soft, nontender nondistended. No evidence of PID. Patient counseled regarding signs and symptoms for which I believe and urgent re-evaluation would be necessary. Patient with good understanding of and agreement to plan and is comfortable going home at this time This document was made in part using voice recognition software. While efforts are made to proofread this document, sound alike and grammatical errors may occur. Departure - Departure Disposition: Home, Self Care Clinical Impression: Bacterial vaginitis, Vaginal candidiasis Condition: Good Instructions: ED Vaginosis Bacterial, ED Vaginal Infec Fungal Kadie Follow-Up: ROCIO SARAVIA [Primary Care Provider] - Within 1 week Prescriptions: clindamycin HCL [Cleocin HCl] 300 mg PO Q6H #28 cap Tinidazole 500 mg PO DAILY #5 tablet Comments: We will try treating you with tinidazole and clindamycin. If these do not improve your symptoms, your doctor may want to try another medication such as ibrexafungerp. This medication may require authorization from your insurance company. Your prescription's were sent to [facility] in [place]. Forms: PCP List Discharge Date/Time: 04/14/23 19:17
[2023-04-14 19:03] LABS: BACTERIAL VAGINOSIS DNA NEGATIVE (NEGATIVE); CANDIDA GLABRATA DNA NEGATIVE (NEGATIVE); CANDIDA GROUP DNA NEGATIVE (NEGATIVE); CANDIDA KRUSEI DNA NEGATIVE (NEGATIVE); TRICHOMONAS VAGINALIS DNA NEGATIVE (NEGATIVE)
== END 2023-04-14 19:17 | disposition home or self-care (01) ==
LOC: ED 16:08
DX: N76.0 Acute vaginitis (principal); B37.31 Acute candidiasis of vulva and vagina; F17.200 Nicotine dependence, unspecified, uncomplicated; Z79.899 Other long term (current) drug therapy
CPT/HCPCS: 81514; 99283; A9270

== ENCOUNTER 2023-04-21 12:57 | Outpatient (CLI) | payer MEDICAID ==
--- NOTE | 2023-04-23 10:17 | MRI Report ---
PROCEDURE: BRAIN WO INDICATIONS: MIGRAINE TECHNIQUE: Noncontrast axial T1 spin echo, axial T2 fast spin echo, sagittal and axial FLAIR, coronal T2 fast sp in echo, axial gradient echo, axial diffusion and ADC through the brain. COMPARISON: None. FINDINGS: Image quality: Excellent. CSF Spaces: Basal cisterns are patent. No extra-axial fluid collections. Ventricles are normal in size and shape. Brain: No intracranial masses or hemorrhage. Diallo/white matter interface is normal. Brainstem appe ars normal. Diffusion-weighted images demonstrate no acute ischemic insult. No chronic ischemic ins ults. Normal intravascular flow voids are present. Skull and face: Calvarium has normal marrow signal. Orbits appear normal. Sinuses: Sinuses and mastoids are clear. IMPRESSION: 1. No acute process. No recent infarct. 2. No explanation for headache. Reviewed by: Luis Jordan MD on 04/23/2023 10:15 AM PDT Approved by: Luis Jordan MD on 04/23/2023 10:15 AM PDT Station ID: [id number]
== END 2023-04-21 12:58 | disposition home or self-care (01) ==
LOC: DI 12:57
PROVIDERS: ATTEND Family Medicine
DX: F07.81 Postconcussional syndrome (principal); G43.909 Migraine, unspecified, not intractable, without status migrainosus

== ENCOUNTER 2023-10-18 14:03 | Outpatient (CLI) | payer MEDICARE, MEDICAID ==
--- NOTE | 2023-10-18 13:05 | SLEEP CARE CONSULTATION ---
Information from patient questionnaire entered by Nishi Wade. I have reviewed and concur with the information entered by Nishi Wade. This document represents the service I personally performed and the decisions made by , Kim Hallman ARNP. History of Present Illness Service Date and Time: 10/18/2023 1300 Previous diagnosis: Severe, Obstructive Sleep Apnea-Hypopnea Syndrome AHI: 44.7 (in 2021) Reason for follow up: first compliance after device update Equipment type: CPAP (RESMED Airsense 11; s/u 11/2022) Equipment obtained from: [employer] (needing updated supply prescription) Mask style: Full face Mask brand: Resmed (AirTouch [id number]) Backup mask available: No Last cushion change: 2-3 months Prior sleep studies: Yes Year and Where: [facility] 01/2022 Type of Sleep Study: Polysomnography HPI additional information: J CARLOS MUSA was diagnosed to have severe, AHI 44.7, obstructive sleep apnea-hypopnea syndrome and returns via telephone appointment today for CPAP the gordony first compliance after updating device follow-up. Sleep Study - Results Type of Sleep Study: Polysomnography Prior sleep studies: Yes Year and Where: [facility] 01/2022 CPAP Compliance Data - Data Reviewed with Patient Average duration of nightly device use: 5 HRS 5 MINS Compliance rate %: 70 (01/21/23-02/19/23; 90% in last 30 days) Current pressure setting (cmH2O): 8-12 (median 9, avg 10.8, max 11.4) Average residual AHI: 0.7 Central apnea: 0.1 Obstructive apnea: 0.2 Hypopnea: 0.3 Average large leak: 0 L/min Subjective Missed days of use due to: reports: other (machine malfunction) Patient concerns: denies: aerophagia, mask discomfort, air blowing in eyes, mask leak noise, condensation in mask/hose, nasal congestion, dry mouth, nose, throat, epistaxis Observed to snore while using device: No Current pressure setting perceived as: comfortable On therapy, patient: reports: sleeping better, awakening more refreshed, being more awake and alert during the day, more rested overall. denies: drowsiness while driving Initial [place] Sleepiness Scale score: 17 (11/22/2022) Current [place] Sleepiness Scale score: 13 (10/18/23) Allergies and Home Medications Known drug allergies: Yes (as listed) Drug allergies reviewed: Yes Home medication list reviewed: Yes (as listed) Allergy and home medication list: Allergies aripiprazole [From Abilify] Allergy (Verified 10/16/23 14:12) Rash hydrocodone bitartrate * [From Vicodin] Allergy (Verified 10/16/23 14:12) Hives ketorolac Allergy (Verified 10/16/23 14:12) Itching ondansetron [From Zofran] Allergy (Verified 10/16/23 14:12) Headache tramadol Allergy (Verified 10/16/23 14:12) Hives ethinyl estradiol [From NuvaRing] Adverse Reaction (Verified 10/16/23 14:12) Cramps etonogestrel [From NuvaRing] Adverse Reaction (Verified 10/16/23 14:12) Cramps morphine Adverse Reaction (Verified 10/16/23 14:12) Unknown trazodone Adverse Reaction (Verified 10/16/23 14:12) Unknown Home Medications Medication Instructions Recorded Confirmed Last Taken Type Famotidine [Pepcid] 40 mg PO BID 09/11/19 10/18/23 06/04/21 History Buprenorphine HCl/Naloxone HCl See Rx Instructions .ROUTE .COMPLEX 06/04/21 10/18/23 06/04/21 History [Suboxone 8-2 mg Tab] Fluconazole [Diflucan] 1 tablet PO ONCE 1 Days #2 tablet 10/26/21 10/18/23 Un known Rx lamoTRIgine [LaMICtal] 100 mg PO HS 10/26/21 10/18/23 Unknown History ziprasidone HCL [Geodon] 60 mg PO HS #3 cap 10/08/22 10/18/23 Unknown Rx Tinidazole 500 mg PO DAILY #5 tablet 04/14/23 10/18/23 Unknown Rx clindamycin HCL [Cleocin HCl] 300 mg PO Q6H #28 cap 04/14/23 10/18/23 Unknown Rx Ibrexafungerp Citrate [Brexafemme] 300 mg PO BID 1 Days #4 tablet 04/30/23 10/18/23 Unknown Rx L.acid/L.casei/B.bif/B.ridge/Fos 1 each PO TID 7 Days #20 cap 04/30/23 10/18/23 Unknown Rx [Probiotic Blend Capsule] Nystatin Cream [Mycostatin Cream] 1 applic TOP BID 7 Days #15 gm 04/30/23 10/18/23 Unknown Rx SUMAtriptan [Imitrex] 25 mg PO Q6H PRN #5 tablet 04/30/23 10/18/23 Unknown Rx clindamycin HCL [Clindamycin HCl] 300 mg PO TID 7 Days #20 cap 04/30/23 10/18/23 Unknown Rx buPROPion [Wellbutrin Xl] See Rx Instructions .ROUTE .COMPLEX 10/18/23 10/18/23 Unknown History Review of Systems Review of systems same as previous: No (HYSTERECTOMY/TUMOR REMOVAL ) Physical Exam Vital signs obtained and entered by: NISHI Paige MA Height: 5 ft 2 in (PER ) Weight: 240 lb (PER LAST WEIGHT IN [facility] PT HAS NOT WEIGHED IN A LONG TIME PER PT) Body Mass Index: 43.9 BMI Classification: Morbidly Obese Impression and Plan 1. Obstructive Sleep Apnea-Hypopnea Syndrome, severe, with good treatment compliance and good apnea control. On CPAP therapy, the patient has better sleep quality and is more rested overall. Patient had a malfunction with her machine but is now using her ResMed air sense 11 with good compliance. Patient states she feels like she could use a little more pressure. After reviewing her results she is getting good control of her sleep apnea at 0.7 residual AHI. I can tighten up the pressure to 10-12 cm H2O for patient comfort. Patient has significant improvement of their sleep apnea and is satisfied with current CPAP therapy. Patient denies problems with oral dryness, nasal congestion, epistaxis, skin irritation or aerophagia. We will follow-up with her next year. Patient's apnea severity and rationale for treatment to reduce apnea, improve sleep quality and reduce cardiovascular and cerebrovascular events was reviewed. I also reviewed the benefit of consistent device use of CPAP for gastric reflux, depression, anxiety and PTSD. 2. Obesity, unspecified. Currently patients BMI is 43.9. Obesity increases the risk of apnea, CPAP pressure requirements and overall health risks especially cardiovascular and diabetes. Thus patient is advised to lose weight. * Change auto CPAP pressure to 10-12 cmH2O * Update supply prescription * Notify me if snoring with mask or feeling that the pressure is too much or too little * Attempt to lose weight * Call this office if any problems using CPAP * Return for follow up in 12 months, or sooner if concerns arise Counseling Topics: Weight loss health impact Prescriptions: Device supplies Follow up with Sleep Care in: 1 year Visit Type: Telehealth Phone Video Type: Doximity Patient Location: Home Location of Provider: Office Patient agrees and consents to this telehealth visit type: Yes Time Spent with Patient (minutes): 17 Provider Statement: I spent 100% of the Telehealth Phone Call with the patient with greater than 50% spent counseling the patient and coordination of care.
== END 2023-10-18 14:04 | disposition home or self-care (01) ==
LOC: SC 14:03
PROVIDERS: ATTEND Nurse Practitioner Family
DX: G47.33 Obstructive sleep apnea (adult) (pediatric) (principal); E66.01 Morbid (severe) obesity due to excess calories; Z68.41 Body mass index [BMI] 40.0-44.9, adult
CPT/HCPCS: 99442